=== PATIENT | male | born 1965 | race Caucasian/White ===

== ENCOUNTER 2023-07-17 09:46 | Outpatient (OUT) | payer SELFPAY ==
--- NOTE | 2023-07-17 09:56 | CT_ITS ---
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 TECHNIQUE: CT imaging obtained through the chest with intravenous contrast. Coronal and axial MIP reformatted images obtained. FINDINGS: Heart size is normal. No pericardial effusion. Normal thoracic vasculature. No thoracic lymphadenopathy. Central tracheobronchial tree is patent. No pleural effusion or pneumothorax. Severe centrilobular and paraseptal emphysema, with large blebs in the apices. Confluent areas of scarlike opacity surrounding some of the blebs appears not significantly changed from prior. Bones and soft tissues: No suspicious bone findings. Multilevel degenerative endplate changes throughout the thoracic spine with scattered small Schmorl's nodes. At the posterior left upper back, at the subcutaneous region, is an ovoid lesion measuring 8.4 x 3.6 cm, markedly increased from prior when it measured 1.9 x 1.1 cm. The majority of this lesion is fairly homogeneous in appearance with intermediate attenuation values of approximately 50 Hounsfield units, with the inferior portion demonstrating some thin curvilinear areas in a subtle focal nodular area of enhancement having a Hounsfield unit value of 83. There appeared to be new mildly prominent subcutaneous vessels surrounding the lesion both medially, laterally and inferiorly, feeding into the lesion. A thin fat plane between this lesion and the subjacent musculature appears relatively preserved without gross evidence for invasion of the chest wall. Partially imaged upper abdomen: Limited. A tiny cyst is seen centrally within the caudate lobe of the liver. CT/CT chest w con IMPRESSION: There is a rapidly enlarging ovoid subcutaneous mass over the left upper back with some areas of subtle nodular enhancement inferiorly, and new several parasitized vessels feeding into the lesion, raises suspicion for a malignancy, versus superimposed infection of an epidermal inclusion cyst. Tissue sampling recommended. Severe emphysema with large blebs and associated confluent areas of scar similar to prior. Electronically authenticated by: LUCINDA WEBER Date: 07/17/2023 10:40
== END 2023-07-17 09:47 | disposition home or self-care (01) ==
PROVIDERS: PCP Family Medicine
DX: D48.9 Neoplasm of uncertain behavior, unspecified (principal)
CPT/HCPCS: 71260; Q9967

== ENCOUNTER 2023-12-25 15:03 | Inpatient (IN) | payer SELFPAY ==
[2023-12-25] VITALS (32 sets, daily range): BP systolic 119–146; BP diastolic 69–95; PULSE 81–108; TEMP 36.4–37.2; O2SAT 88–98; BMI 20.5; BMI 20.8
--- NOTE | 2023-12-25 15:12 | ECG_ITS ---
The 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
--- NOTE | 2023-12-25 15:13 | ED.SOB1 ---
HPI - SOB/Dyspnea General Chief Complaint: Shortness of Breath/Dyspnea Stated Complaint: Shortness of breath Time Seen by Provider: 12/25/23 15:08 History of Present Illness HPI Narrative: Patient is a pleasant 58-year-old man with a history of chronic lung disease, COPD, decreased capacity of the left upper lung who presents to the ER with increasing shortness of breath over the last week. He states he has the urge to cough up congestion in his chest but nothing is productive. He has not had any objective fevers, hemoptysis, vomiting. He has had peripheral edema to the bilateral feet and ankles. He has no specific chest pain but has tightness in his chest when he cannot breathe. No recent antibiotics. No medications taken prior to arrival. Patient states he sees Dr. Rubio for pulmonology. He was recently diagnosed with melanoma, he is not currently being treated for this but is in process of establishing a treatment plan. Related Data Home Medications ?Medication ?Instructions ?Recorded ?Confirmed acetaminophen 325 mg tablet mg 12/25/23 pregabalin 100 mg capsule mg 12/25/23 Allergies Allergy/AdvReac Type Severity Reaction Status Date / Time No Known Drug Allergies Allergy Verified 12/25/23 15:16 Review of Systems ROS Constitutional Denies: fever or chills Ears, nose, mouth, and throat Denies: throat pain or nasal congestion Cardiovascular Denies: chest pain Respiratory Reports: shortness of breath, cough and wheezing Gastrointestinal Denies: nausea, vomiting or diarrhea Musculoskeletal Denies: back pain Integumentary/Breast Denies: rash Neurological Denies: headache Hematologic/Lymphatic Denies: easy bruising or easy bleeding Exam Narrative Exam Narrative: Gen.: Awake, alert, in no distress Head: Normocephalic, atraumatic ENT: Moist mucous membranes Respiratory: No respiratory distress, Tachypnea, decreased lung sounds to the left upper and middle lobes. Faint wheezing to the right lower lobe Cardio: Regular rate and rhythm Gastrointestinal: Abdomen is soft, nondistended and nontender to palpation Extremities: Moves extremities equally, 2+ pitting edema of the bilateral lower ankles, calves are soft and nontender bilaterally. No erythema of the legs Psych: Normal mood and affect Neuro: No focal neuro deficit Skin: Warm, dry, intact Constitutional Vital Signs, click to edit/add: Last Vital Signs Temp 98.9 F 12/25/23 15:06 Pulse 102 H 12/25/23 16:40 Resp 20 12/25/23 16:40 BP 119/69 12/25/23 15:15 Pulse Ox 92 L 12/25/23 16:40 O2 Del Method Nasal Cannula 12/25/23 15:55 O2 Flow Rate 2 12/25/23 15:55 Course Vital Signs Vital signs: Vital Signs Temperature 98.9 F 12/25/23 15:06 Pulse Rate 91 H 12/25/23 15:06 Respiratory Rate 28 H 12/25/23 15:06 Blood Pressure 128/75 12/25/23 15:06 Pulse Oximetry 89 L 12/25/23 15:06 Oxygen Delivery Method Room Air 12/25/23 15:06 Temperature 98.9 F 12/25/23 15:06 Pulse Rate 102 H 12/25/23 16:40 Respiratory Rate 20 12/25/23 16:40 Blood Pressure 119/69 12/25/23 15:15 Pulse Oximetry 92 L 12/25/23 16:40 Oxygen Delivery Method Nasal Cannula 12/25/23 15:55 Oxygen Delivery Flow Rate 2 12/25/23 15:55 MDM - SOB/Dyspnea MDM Narrative Medical decision making narrative: Patient treated with albuterol, Solu-Medrol, he was placed on oxygen by nasal cannula with improvement of oxygen saturation as he was hypoxic on arrival. He was also tachycardic with high respiratory rate, he has minimal leukocytosis and is found to have multifocal pneumonia on CT angio. The remainder of his labs are unremarkable with normal lactic acid and procalcitonin. No evidence of severe sepsis although the patient does meet sepsis criteria strictly based on his infection and vital signs. Treated with IV Levaquin. He is admitted to hospitalist service for further evaluation and treatment. SHARED APC VISIT, PHYSICIAN ATTESTATION: [id number] I performed a substantive part of the MDM during the patient?s E/M visit. I personally evaluated and examined the patient. I personally made or approved the documented management plan and acknowledge its risk of complications. Medical Records Attestation: I reviewed the patient's medical records. Lab Data Attestation: I reviewed the patient's lab results. Labs: Lab Results 12/25/23 Range/Units 15:24 WBC 11.4 H (4.0-11.0) 10^3/uL RBC 4.85 (4.70-6.10) 10^6/uL Hgb 13.6 L (14.0-18.0) g/dL Hct 42.3 (42.0-54.0) % MCV 87.2 (80.0-94.0) fL MCH 28.0 (25.9-34.0) pg MCHC 32.2 (29.9-35.2) g/dL RDW 16.0 H (11.0-15.0) % Plt Count 465 H (150-450) 10^3/uL MPV 8.6 L (9.5-13.5) fL Neut % (Auto) 66.4 (43.0-75.0) % Lymph % (Auto) 18.6 L (20.5-60.0) % [place] % (Auto) 6.6 (1.7-12.0) % Eos % (Auto) 4.6 (0.9-7.0) % Baso % (Auto) 0.9 (0.2-2.0) % Neut # (Auto) 7.6 H (1.4-6.5) 10^3/uL Lymph # (Auto) 2.1 (1.2-3.8) 10^3/uL [place] # (Auto) 0.8 (0.3-0.8) 10^3/uL Eos # (Auto) 0.5 (0.0-0.7) 10^3/uL Baso # (Auto) 0.1 (0.0-0.1) 10^3/uL Abs Immat Gran (auto) 0.33 H (0.00-0.03) 10^3/uL Imm/Tot Granulo (auto) 2.9 H (0.0-0.5) % PT 10.2 (9.0-11.6) sec INR 0.96 APTT 28.5 (22.3-36.2) sec D-Dimer 2.18 H* (<=0.59) mg/L FEU VBG pH 7.412 (7.330-7.430) VBG pCO2 40.8 (40.0-52.0) mmHg Sodium 139 (136-145) mmol/L Potassium 3.9 (3.5-5.1) mmol/L Chloride 102 (98-107) mmol/L Carbon Dioxide 24.4 (21.0-32.0) mmol/L Anion Gap 16.5 BUN 24.0 H (7.0-18.0) mg/dL Creatinine 1.05 (0.70-1.30) mg/dL Est GFR ( Amer) >60 (>=60) Est GFR (Non-Af Amer) >60 (>=60) BUN/Creatinine Ratio 22.9 Glucose 197 H (74-106) mg/dL Calcium 9.3 (8.5-10.1) mg/dL Total Bilirubin 0.2 (0.2-1.0) mg/dL AST 40 H (15-37) U/L ALT 71 H (16-63) U/L Alkaline Phosphatase 162 H (46-116) U/L Troponin I High Sens 13.7 (4.0-76.1) pg/mL NT-Pro-B Natriuret Pep 761.0 (<=900.0) pg/mL Total Protein 6.8 (6.4-8.2) g/dL Albumin 2.6 L (3.4-5.0) g/dL Globulin 4.2 g/dL Albumin/Globulin Ratio 0.6 Procalcitonin 0.18 (0.00-0.50) ng/mL Imaging Data CT scan - chest: Attestation: I have reviewed the pertinent imaging results. Radiologist's impression: ITS Impressions Chest CTA 12/25/23 15:54 IMPRESSION: 1. No evidence for pulmonary embolism. 2. Bilateral confluent airspace disease with centrilobular nodules and consolidation seen around the airways concerning for multifocal pneumonia 3. Small right and trace pleural effusions. 4. Mediastinal and hilar lymphadenopathy. 5. Severe bullous changes of both lung apices. 6. Evaluation of metastatic disease is limited due to acute process. Electronically authenticated by: WEST HUI Date: 12/25/2023 17:13 ECG Data Attestation: I personally reviewed and interpreted this ECG as follows: (Normal sinus rhythm at a rate of 90, no acute ST elevation or ectopy. EKG reviewed by attending physician) Discharge Plan Discharge Chief Complaint: Shortness of Breath/Dyspnea Patient Disposition: Admitted As Inpatient Time of Disposition Decision: 17:36 Prescriptions / Home Meds: No Action acetaminophen 325 mg tablet pregabalin 100 mg capsule Print Language: Belarusian Referrals: BRET VALDES [Primary Care Provider] - 1 week
[2023-12-25 15:36] LABS: PCO2 VBG 40.8 mmHg (40.0-52.0); pH VBG 7.412 (7.330-7.430)
[2023-12-25 15:37] LABS: Basophils Absolute Auto 0.1 10^3/uL (0.0-0.1); Basophils Percent Auto 0.9 % (0.2-2.0); Eosinophils Absolute Auto 0.5 10^3/uL (0.0-0.7); Eosinophils Percent Auto 4.6 % (0.9-7.0); Hematocrit 42.3 % (42.0-54.0); Hemoglobin 13.6 g/dL (14.0-18.0); Immature Granulocytes Abs Auto 0.33 10^3/uL (0.00-0.03); Immature Granulocytes Pct Auto 2.9 % (0.0-0.5); Lymphocytes Absolute Auto 2.1 10^3/uL (1.2-3.8); Lymphocytes Percent Auto 18.6 % (20.5-60.0); Mean Corpuscular HGB Conc 32.2 g/dL (29.9-35.2); Mean Corpuscular Volume 87.2 fL (80.0-94.0); Mean Platelet Volume 8.6 fL (9.5-13.5); Monocytes Absolute Auto 0.8 10^3/uL (0.3-0.8); Monocytes Percent Auto 6.6 % (1.7-12.0); Neutrophils Absolute Auto 7.6 10^3/uL (1.4-6.5); Neutrophils Percent Auto 66.4 % (43.0-75.0); Platelet Count 465 10^3/uL (150-450); Red Blood Count 4.85 10^6/uL (4.70-6.10); White Blood Count 11.4 10^3/uL (4.0-11.0)
--- NOTE | 2023-12-25 15:37 | PC.NURSE ---
Pt O2 dropped to 89%on 2L O2 turned up to 3L pt SAT up to 92%
[2023-12-25] MEDS: ALBUTEROL SULFATE 2.5 MG/3 ML VIAL NEB IH (15:39)
[2023-12-25] MEDS: METHYLPREDNISOLONE SOD SUCC PF 125 MG/2 ML VIAL IVP (15:44)
[2023-12-25 15:48] LABS: INR 0.96; Partial Thromboplastin Time 28.5 sec (22.3-36.2); Prothrombin Time 10.2 sec (9.0-11.6)
--- NOTE | 2023-12-25 15:54 | CT_ITS ---
[address] [address] Patient Name: EDILMA CALLE MRN: [id number] date: 1965 Sex: M Assigned Patient Location: ER Current Patient Location: Accession/Order Number: [id number] Exam Date: 12/25/2023 16:23 Report Date: 12/25/2023 17:13 At the request of: JOLANTA HAY Procedure: CT angio chest EXAM: CT angio chest HISTORY: Shortness of breath . History of melanoma. COMPARISON: 07/17/2023 TECHNIQUE: CT angiography of the pulmonary arteries following the administration of intravenous contrast. Coronal and sagittal MIP (maximum intensity projection) images were performed. Dose reduction techniques were achieved by using automated exposure control and/or adjustment of mA and/or kV according to patient size and/or use of iterative reconstruction technique. FINDINGS: The study is technically adequate for the diagnosis of pulmonary embolism, with good contrast bolus to the pulmonary arteries. TUBES AND IMPLANTS: None. CHEST WALL AND LOWER NECK: Unremarkable. BONES: No suspicious lesions. Multilevel degenerative changes of the spine. UPPER ABDOMEN: No acute findings MEDIASTINUM AND RACHEL: Unremarkable. AORTA: New enlarged mediastinal and hilar lymph nodes measuring up to 2.3 centimeters in short axis PULMONARY ARTERIES: No embolism HEART: Mild cardiomegaly CORONARY ARTERIES: No coronary artery calcifications. LUNG AND AIRWAYS: Severe bullous changes of both lung apices. Bilateral confluent airspace disease with centrilobular nodules and consolidation seen around the airways. PLEURA: Small right and trace left pleural effusion. CT/CT angio chest IMPRESSION: 1. No evidence for pulmonary embolism. 2. Bilateral confluent airspace disease with centrilobular nodules and consolidation seen around the airways concerning for multifocal pneumonia 3. Small right and trace pleural effusions. 4. Mediastinal and hilar lymphadenopathy. 5. Severe bullous changes of both lung apices. 6. Evaluation of metastatic disease is limited due to acute process. Electronically authenticated by: WEST HUI Date: 12/25/2023 17:13
[2023-12-25 15:55] LABS: D Dimer 2.18 mg/L FEU (<=0.59)
[2023-12-25 15:57] LABS: Alanine Aminotransferase 71 U/L (16-63); Albumin Level 2.6 g/dL (3.4-5.0); Alkaline Phosphatase 162 U/L (46-116); Anion Gap 16.5; Aspartate Amino Transferase 40 U/L (15-37); BUN Creatinine Ratio 22.9; Bilirubin Total 0.2 mg/dL (0.2-1.0); Calcium 9.3 mg/dL (8.5-10.1); Carbon Dioxide 24.4 mmol/L (21.0-32.0); Chloride 102 mmol/L (98-107); Estimated GFR (African America >60 (>=60); Estimated GFR (Non-African Ame >60 (>=60); Globulin 4.2 g/dL; Glucose 197 mg/dL (74-106); Potassium 3.9 mmol/L (3.5-5.1); Sodium 139 mmol/L (136-145); Total Protein 6.8 g/dL (6.4-8.2)
[2023-12-25 15:58] LABS: Albumin Globulin Ratio 0.6; Troponin I High Sensitivity 13.7 pg/mL (4.0-76.1)
--- OUTSIDE RECORDS SUMMARY | 2023-12-25 16:00 | XMS_ITS | CCD ---
Author Organization [facility] Care Team Providers Care Yardage Control Clerk Name Role Phone BELEN GUERRERO Admitting Unavailable BELEN GUERRERO Attending Unavailable BELEN GUERRERO Consulting Unavailable BELEN GUERRERO Procedure Practitioner Unavail able LINSEY WHITE Consulting Unavailable STUART BOLAÑOS Consulting Unavailable JENNIFER JOYCE Consulting Unavailable MD Girish Nathan Attending Provider [phone] PRISCILLA WARREN Attending Unavailable KEISHA, BRET Nicolas Primary Care Unavailable Girish Nathan Attending Unavailable Girish Nathan Admitting Unavailable Lizzeth Demarco MD Unavailable HOUSE, BRET P Primary Care Unavailable Hiam Black MD Attending Unavailable HOUSE, BRET P Primary Care Unavailable Haim Black MD Attending Unavailable HOUSE, BRET P Primary Care Unavailable Haim Black MD Attending Unavailable HOUSE, BRET P Primary Care Unavailable Haim Black MD Attending Unavailable HOUSE, BRET P Primary Care Unavailable Girish Nathan Attending Unavailable HOUSE, BRET P Primary Care Unavailable Girish Nathan Attending Unavailable HOUSE, BRET Maria Isabel Referring Unavailable HOUSE, BRET P Primary Care Unavailable Girish Nathan Attending Unavailable Girish Nathan Admitting Unavailable Lynne Tejada MD Unavailable [phone] Nito Purvis Unavailable PROVIDER, UNKNOWN Admitting Unavailable LIZZETH DEMARCO Attending Unavailable SABRINA NEW Referring Unavailable LYNNE TEJADA Attending Unavailable PROVIDER, UNKNOWN Admitting Unavailable PROVIDER, UNKNOWN Admitting Unavailable LIZZETH DEMARCO Attending Unavailable SABRINA NEW Referring Unavailable PROVIDER, UNKNOWN Admitting Unavailable LIZZETH DEMARCO Referring Unavailable JUDY ORTEGA Attending Unavailab le LIZZETH DEMARCO Admitting Unavailable LIZZETH DEMARCO Attending Unavailable PROVIDER, UNKNOWN Admitting Unavailable PROVIDER, UNKNOWN Attending Unavailable NITO JUNG Attending Unavailable PROVIDER, UNKNOWN Admitting Unavailable KOWALSKY, LIZZETH Admitting Unavailable PROVIDER, UNKNOWN Attending Unavailable PROVIDER, UNKNOWN Admitting Unavailable PROVIDER, UNKNOWN Attending Unavailable TEJADA, LYNNE Attending Unavailable TEJADA, LYNNE Referring Unavailable TEJADA, LYNNE Admitting Unavailable PROVIDER, UNKNOWN Admitting Unavailable KOWALSKY, LIZZETH Referring Unavailable PROVIDER, UNKNOWN Attending Unavailable PROVIDER, UNKNOWN Admitting Unavailable KOWALSKY, LIZZETH Referring Unavailable PROVIDER, UNKNOWN Attending Unavailable PROVIDER, UNKNOWN Admitting Unavailable KOWALSKY, LIZZTEH Referring Unavailable PROVIDER, UNKNOWN Attending Unavailable PROVIDER, UNKNOWN Attending Unavailable KOWALSKY, LIZZETH Referring Unavailable PROVIDER, UNKNOWN Admitting Unavailable PROVIDER, UNKNOWN Admitting Unavailable KOWALSKY, LIZZETH Attending Unavailable KOWALSKY, LIZZETH Attending Unavailable PROVIDER, UNKNOWN Admitting Unavailable TEJADA, LYNNE Attending Unavailable PROVIDER, UNKNOWN Admitting Unavailable PROVIDER, UNKNOWN Attending Unavailable PROVIDER, UNKNOWN Admitting Unavailable NITO JUNG Attending Unavailable PROVIDER, UNKNOWN Admitting Unavailable Medications Current Medications Medication Drug Class(es) Dates Sig (Normalized) Sig (Original) acetaminophen 325 mg oral tablet (20 sources) Start: 11-07-2023 End: 12-10-2023 take 2 tablets by mouth every six hours as needed for pain, then take 2 tablets by mouth every six hours as needed for pain acetaminophen (Tylenol) 325 mg tablet Take 2 Tablets by mouth every 6 hours for 3 days, THEN 2 Tablets every 6 hours as needed for Pain or Fever. 90 Tablet 11/07/2023 12/10/2023 Active Start: 10-06-2023 End: 11-05-2023 take 2 tablets by mouth every six hours as needed acetaminophen (TYLENOL) 500 MG tablet Take 2 Tablets by mouth every 6 hours as needed. 90 Tablet 0 10/06/2023 11/05/2023 Active Start: 10-05-2023 take 1000 mg by mout h every eight hours 1,000 mg, Oral, EVERY 8 HOURS, First dose on Sun10/05/23 at 2130, Until Discontinued, Post-op take 1 tablet by chris th every six hours as needed for pain acetaminophen (TYLENOL) 500 MG tablet Take 500 mg by mouth every 6 hours as needed for Pain or Fever. Active albuterol 0.83 mg/ml inhalation solution (1 source) beta2-Adrenergic Agonist Start: 11-07-2023 End: 11-07-2023 albuterol (PROVENTIL) (2.5 MG/3ML) 0.083% nebulizer solution calcium chloride 0.0014 meq/ml / potassium chloride 0.004 meq/ml / sodium chloride 0.103 meq/ml / sodium lactate 0.028 meq/ml injectable solution (2 sources) Start: 11-07-2023 lactated ringers iv infusion cephalexin 500 mg oral capsule (4 sources) Cephalosporin Antibacterial Start: 11-07-2023 End: 11-12-2023 take 1 capsule by mouth four times daily cephALEXin (KEFLEX) 500 MG capsule Take 1 Capsule by mouth 4 times daily for 5 days. 20 Capsule 11/07/2023 11/12/2023 Active docusate sodium 100 mg oral capsule (20 sources) Start: 10-06-2023 End: 11-05-2023 take 1 capsule by mouth twice daily docusate sodium (Colace) 100 MG capsule Take 1 Capsule by mouth 2 times daily. 60 Capsule 10/06/2023 Active 1 ml fentaNYL 0.05 mg/ml injection (1 source) Opioid Agonist Start: 11-07-2023 fentaNYL (SUBLIMAZE) 50 MCG/ML injection Gauze Pads & Dressings (Curity Abdominal) 5 X9 PADS (11 sources) Start: 10-22-2023 End: 11-21-2023 Gauze Pads & Dressings (Curity Abdominal) 5 X9 PADS 1 Each daily as needed. 36 Each 1 10/22/2023 11/21/2023 Active 1 ml HYDROmorphone hydrochloride 1 mg/ml cartridge (1 source) Opioid Agonist Start: 11-07-2023 End: 11-07-2023 HYDROmorphone (DILAUDID) 1 mg/mL injection ibuprofen 600 mg oral tablet (20 sources) Nonsteroidal Anti-inflammatory Drug Start: 10-06-2023 End: 11-04-2023 take 1 tablet by mouth every six hours as needed for pain ibuprofen (MOTRIN) 600 MG tablet Take 1 Tablet by mouth every 6 hours as needed for Pain. 60 Tablet 11/05/2023 Active 1 ml naloxone hydrochloride 0.4 mg/ml injection (2 sources) Opioid Antagonist Start: 11-07-2023 naloxone (NARCAN) 0.4 MG/ML injection 24 hr nicotine 0.583 mg/hr transdermal system (1 source) Cholinergic Nicotinic Agonist Start: 10-05-2023 nicotine (NICODERM CQ) 14 mg/24HR patch 2 ml ondansetron 2 mg/ml injection (14 sources) Serotonin-3 Receptor Antagonist Start: 11-07-2023 End: 11-07-2023 ondansetron (ZOFRAN) 4 MG/2ML injection Start: 11-07-2023 End: 11-07-2023 take 1 tablet by mouth every twelve hours as needed for nausea ondansetron (ZOFRAN-ODT) 4 MG disintegrating tablet Take 1 Tablet by mouth every 12 hours as needed for Nausea. Place 1 tablet under tongue as needed for nausea. 10 Tablet 11/07/2023 Active oxyCODONE hydrochloride 5 mg oral tablet (10 sources) Opioid Agonist Start: 11-07-2023 End: 11-14-2023 oxyCODONE immediate release tablet Start: 10-06-2023 End: 10-11-2023 take 1 tablet by mouth every six hours as needed for pain oxyCODONE 5 MG immediate release tablet Indications: 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) , Mass on back Take 1 Tablet by mouth every 6 hours as needed for Pain for up to 3 days. 20 Tablet 0 10/06/2023 10/11/2023 Start: 10-05-2023 take 10 mg by mouth every four hours as needed 10 mg, Oral, EVERY 4 HOURS PRN, Starting on Sun10/05/23 at 2038, Until Discontinued, Severe Pain (pain score 7,8,9,10), Post-op Start: 10-05-2023 take 5 mg by mouth e very four hours as needed 5 mg, Oral, EVERY 4 HOURS PRN, Starting on Sun10/05/23 at 2038, Until Discontinued, Moderate Pain (pain score 4,5,6), Post-op pregabalin 100 mg oral capsule (20 sources) Start: 09-12-2023 End: 12-11-2023 take 1 capsule by mouth three times daily pregabalin (Lyrica) 100 MG capsule Indications: Cancer associated pain Take 1 Capsule by mouth 3 times daily for 90 days. 90 Capsule 2 09/12/2023 Active sennosides, jail 8.6 mg oral tablet (14 sources) Start: 11-07-2023 End: 12-07-2023 take 1 tablet by mouth once daily as needed for pain senna (SENOKOT) 8.6 MG tablet Take 1 Tablet by mouth daily as needed for Constipation (while taking narcotic pain medication). 30 Tablet 11/07/2023 Active Start: 10-05-2023 take 8.6 mg by mouth at bedtim e 8.6 mg, Oral, AT BEDTIME, First dose on Sun10/05/23 at 2200, Until Discontinued, Post-op 20 ml sodium chloride 9 mg/m l injection (1 source) Start: 11-07-2023 sodium chlorid e 0.9 % 0.9 % injection Completed/Discontinued Medications Medication Drug Class(es) Dates Sig (Normalized) Sig (Original) acetaminophen 325 mg / oxyCODONE hydrochloride 5 mg oral tablet (14 sources) Opioid Agonist Start: 11-08-2023 End: 11-15-2023 take 1 tablet by mouth three times daily as needed for pain oxyCODONE-acetami nophen (Percocet) 5-325 mg per tablet Indications: Cancer associated pain , 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) Take 1 Tablet by mouth 3 times daily as needed for Pain for up to 7 days. 21 Tablet 11/08/2023 11/15/2023 Start: 11-07-2023 End: 11-07-2023 oxyCODONE-acetaminophen (PER COCET) 5-325 mg per tablet Start: 10-30-2023 End: 11-06-2023 take 1 tablet by mouth three times daily as needed for pain oxyCODONE-acetaminophen (Percocet) 5-325 mg per tablet Indications: Cancer associated pain , 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) Take 1 Tablet by mouth 3 times daily as needed for Pain for up to 7 days. 21 Tablet 0 10/30/2023 11/06/2023 Active Start: 10-17-2023 End: 10-28-2023 take 1 tablet by mouth three times daily as needed for pain oxyCODONE-acetaminophen (Percocet) 5-325 mg per tablet Indications: Cancer associated pain , 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) Take 1 Tablet by mouth 3 times daily as needed for Pain for up to 7 days. 21 Tablet 0 10/17/2023 10/28/2023 Discontinued (Reorder (*won't e-cancel)) Start: 09-27-2023 End: 10-04-2023 take 1 tablet by mouth every six hours as needed for pain oxyCODONE-acetaminophen (Percocet) 5-325 mg per tablet Indications: Cancer associated pain , 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) Take 1 Tablet by mouth every 6 hours as needed for Pain for up to 7 days. 28 Tablet 0 09/27/2023 10/04/2023 Active 0.4 ml enoxaparin sodium 100 mg/ml prefilled syringe (1 source) Low Molecular Weight Heparin Start: 10-05-2023 inject 40 mg by subcutaneous injection once daily 40 mg, Subcutaneous, DAILY, First dose on Sun10/05/23 at 2100, Until Discontinued, Post-op 0.5 ml heparin sodium, porcine 28031 unt/ml prefilled syringe (1 source) Unfractionated Heparin, Anti-coagulant Start: 10-05-2023 End: 10-05-2023 heparin (porcine) 5000 UNIT/0.5ML injection Start: 10-05-2023 End: 10-05-2023 heparin (porcine) 5000 UNIT/ 0.5ML injection technetium TC 99M tilmanocep t (LYMPHOSEEK) injection (1 source) Start: 10-05-2023 End: 10-05-2023 technetium TC 99M tilmanocep t (LYMPHOSEEK) injection Problems Active Problems Problem Classification Problem Date Documented Date Episodic/Chronic Abdominal pain (1 source) Periumbilical pain; Translations: [PERIUMBILICAL PAIN] Onset: 10-15-2019 Episodic Appendicitis and other appendiceal conditions (2 sources) Unspecified acute appendicitis; Translations: [UNSPECIFIED ACUTE APPENDICITIS] Onset: 10-11-2019 Episodic Chronic obstructive pulmonary disease and bronchiectasis (17 sources) Chronic obstructive lung disease; Translations: [Chronic obstructive pulmonary disease, unspecified] Onset: 10-30-2023 10-30-2023 Chronic Essential hypertension (17 sources) Hypertensive disorder; Translations: [Essential (primary) hypertension] Onset: 10-30-2023 10-30-2023 Chronic Malignant neoplasm without specification of site (1 source) Malignant (primary) neoplasm, unspecified; Translations: [Malignant (primary) neoplasm, unspecified] Onset: 09-12-2023 Chronic Melanomas of skin (20 sources) Malignant melanoma of left upper limb, including shoulder; Translations: [Malignant melanoma of trunk] Onset: 09-17-2023 09-18-2023 Chronic Open wounds of head; neck; and trunk (20 sources) Open wound of back; Translations: [Unspecified open wound of left back wall of thorax without penetration into thoracic cavity, initial encounter] Onset: 10-15-2023 10-15-2023 Episodic Other nervous system disorders (2 sources) Neoplasm related pain (acute) (chronic); Translations: [Neoplasm related pain (acute) (chronic)] Onset: 08-23-2023 Chronic Other nervous system disorders (1 source) Pain due to neoplastic disease; Translations: [Neoplasm related pain (acute) (chronic)] 10-28-2023 Chronic Other nervous system disorders (1 source) Acute postoperative pain; Translations: [Other acute postprocedural pain] 11-07-2023 Episodic Other nutritional; endocrine; and metabolic disorders (1 source) Decreased body mass index; Translations: [Body mass index (BMI) 19.9 or less, adult] 10-15-2023 Episodic Other skin disorders (17 sources) Sebaceous cyst of skin; Translations: [Sebaceous cyst] Onset: 10-30-2023 10-30-2023 Episodic Other skin disorders (1 source) Localized swelling, mass and lump, trunk; Translations: [Localized swelling, mass and lump, trunk] Onset: 09-18-2023 Episodic Residual codes; unclassified (1 source) Body mass index 20-24 - normal; Translations: [Body mass index (BMI) 20.0-20.9, adult] 10-12-2023 Episodic Substance-related disorders (20 sources) Nicotine dependence, cigarettes, uncomplicated; Translations: [Tobacco dependence syndrome] Onset: 10-15-2019 08-27-2023 Chronic Unclassified (1 source) Acute appendicitis with perforation and localized peritonitis, without abscess; Translations: [AC APPEND W/PERF LOC PERIT W/O ABSC] Onset: 10-15-2019 Unclassified (2 sources) Wound Check Onset: 09-17-2023 Unclassified (1 source) ENCOUNTER OPENED IN ERROR 10-10-2023 Past or Other Problems Problem Classification Problem Date Documented Da te Episodic/Chronic Lymphadenitis (1 source) Localized enlarged lymph nodes; Translations: [Localized enlarged lymph nodes] Onset: 08-23-2023 Episodic Other skin disorders (20 sources) Mass of back; Translations: [Localized swelling, mass and lump, trunk] Onset: 09-18-2023 09-18-2023 Episodic Residual codes; unclassified (1 source) Body mass index (BMI) 21.0-21.9, adult; Translations: [Body mass index (BMI) 21.0-21.9, adult] Onset: 09-12-2023 Episodic Results Test Name Value Interpretation Reference Range Facility Progress Noteson 12-14-2023 [employer] Authentication Interface Message Text Documentation: Mode: Telephone Patient Patient Work Phone: Patient Cell Preferred phone: [phone] Consent: I confirmed patient understanding of the risks and benefits of telehealth visits and obtained consent to proceed with the telehealth visit. Location of Patient: Home of patient PLASTIC SURGERY FOLLOW-UP NOTE SUBJECTIVE: Mr. Tavarez is status post above. States he is feeling well. He is not able to send photos today due to phone issues. I reviewed photos from 11/28/23. He is dressing with neosporin and DSD. No pain Planning on return to work 12/15 He states the wound is smaller than last photos ASSESSMENT: Healing wound PLAN: Continue same dressing changes He is to see Dr. Demaroc in person 4 weeks. I will try to see him at the same time. Nito Jung APRN-SCARLETT [facility] Progress Noteson 11-28-2023 [employer]letter Authentication Interface Message Text Documentation: Mode: Telephone Patient Patient Work Phone: Patient Cell Preferred phone: [phone] Consent: I confirmed patient understanding of the risks and benefits of telehealth visits and obtained consent to proceed with the telehealth visit. 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 For completeness of records, he first noted a mass in May 2023, which began to rapidly enlarge and become symptomatic with pain and episodes of bleeding. CT scan of the chest on 07/17/2023 showed an 8.4 x 3.6 cm mass in the subcutaneous tissue of the left upper back. 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 PET/CT on 09/12/2023 showed a 13 x 6.4 x 12.5 cm FDG avid soft tissue mass of the left posterior back with no evidence of metastatic disease or concerning regional lymphadenopathy. Given biopsy suggestive of sarcomatoid melanoma, isolated disease, and symptomatic nature of the mass, recommendations were to proceed with surgical resection for complete pathologic assessment and symptom relief. He underwent radical resection of the mass measuring 15 x 14 x 8 cm on 10/05/2023. Surgical pathology revealed a sarcomatoid melanoma with a Breslow depth of 67 mm with evidence of ulceration, lymphovascular invasion, and 4 mitoses/mm2. There was a focal positive deep margin. The site was covered with a PolyNovo BTM dermal substitute with plans for staged reconstruction with plastic surgery. He was last evaluated in the office on 10/11/2023, at which time he was recovering well. Interval History: He underwent split thickness skin grafting with Dr Tejada on 11/07/2023. His post-operative course was unremarkable. He reports that he is doing fairly well. He denies any pain at the excision site. He reports that the central aspect became slightly raised and looks almost like hives. He notes that previously this site was open and looked like meat . He denies any pruritus at this site. He reports some serosanguinous and occasionally green drainage from site. He is not having fevers or chills. He has been washing the area with soap and water, which has been helping with the drainage. He reports that he has normal range of motion of his shoulder and denies any numbness, tingling, weakness, or swelling in his arm. He otherwise denies any headaches, dizziness, cough, shortness of breath, abdominal pain, nausea, emesis, new bone/back/joint pain, neurologic symptoms or other concerns. He is not yet back to work, but would like to go back to work soon, pending clearance by plastic surgery. He discussed adjuvant immunotherapy with Dr Robison on 10/30/23. He was still considering if he would be willing to have adjuvant niolumab, but was interested in seeing a provider closer to his home. He has not yet seen a medical oncologist closer to home as he was under the impression that a provider closer to [place] would be contacting him. PHYSICAL EXAMINATION: There were no vitals filed for this visit. No physical exam for telephone visit Wound photo sent by patient from 11/27/23 Pathology: Final Diagnosis A. Skin, Left posterior back melanoma, short stitch wise 12:00, long stitch wise 3:00 Melanoma, ulcerated, Breslow's maximum thickness 67mm, focally transected (see synoptic report) . I certify that I personally conducted the diagnostic evaluation of the above specimen(s) and have rendered the final diagnosis(es). at 0827 Diagnosis Comment Sections show a strikingly pleomorphic tumor composed spindled and epithelioid cells in sheets and aggregates throughout the dermis and subcutis, extending to the margin of skeletal muscle, transected by the base. There is only a vaguely nested growth pattern in the superficial dermis, and occasional clusters of atypical cells within the epidermis overlying the tumor. There are multiple foci of tumor necrosis. While this tumor does not show areas of clear-cut melanocytic differentiation based upon morphology, the immunohistochemical profile, patient demographics and site, extremely rapid growth, and epidermal involvement all favor a pleomorphic sarcomatoid melanoma. Intradepartmental Consult Jaciel Aragon, and Dieter. Gross Description A. Requisitioned as left posterior back . The specimen is received fresh in one container (more content not included)... [facility] Telephone Encounteron 2023 [employer] Authentication Interface Message Text Patient does not have transportation to his appointment with Dr. Balderas. ok changing appt to tele. Patient called and made aware. [facility] Telephone Encounteron 2023 Eyeletter Authentication Interface Message Text History: Received call from OR front desk attendant regarding patient concern regarding wound. Upon speaking to patient, he reported an increase in green drainage to his dressings during its scheduled changing. He states he has been changing his dressing every 2 days as instructed, and this drainage is new. Also has some mild redness about the wound. He denies increased pain at the wound, fever, chills, nausea, vomiting. Objective: Images sent by patient were reviewed. There appears to be some clear drainage overlying well appearing granulation tissue. There is some fibrinous material over the wound. No obvious erythema or purulence. A/P: Given history and wound images, there is a lower concern for infection. Advised continuing with dressing changes every 2 days and can lightly clean the wound with soap and water. Do not scrub the wound. He should follow up as scheduled with Nito on 11/27. Discussed reasons for sooner follow up or calling the plastic surgery team including: increased redness, pain, drainage or purulence from wound, fever, chills, nausea, vomiting or general malaise. Patient was agreeable to this plan. [facility] Telephone Encounteron 2023 Eyeletter Authentication Interface Message Text Complaint: pt complaint of Provena canisters he was sent home with all being full . Description: s/p STSG to left back with provena application post op-- Associated symptoms: all canisters have been used. Surgeon: Lynne Tejada MD Informed pt: Offered patient to come to clinic to obtain extra canisters-pt declined due to distance to travel (pt from [place], [place]). Offered patient to come to clinic on 11/13/23 instead of 11/14/23 to have VAC removed from STSG and redressed. Pt declined, stating he does not have transportation. Discussed with Dr Tejada, pt instructed to keep VAC in place until appointment as scheduled on 11/14/23. Pt agrees with plan. [facility] Anesthesia Postprocedure Maddy no 11-08-2023 Eyeletter Authentication Interface Message Text Anesthesia Postoperative Assessment: Vital Signs (most recent): BP 117/73 (BP Location: right arm) Pulse 70 Temp 36.7 ???C (98 ???F) (Temporal) Resp 16 SpO2 93% Anesthesia Post Evaluation Level of consciousness: awake Post-procedure exam normal. Body temperature, hydration status, PONV and pain evaluated and addressed. Pain management: adequate Hydration status: normal PONV:No nausea/vomiting reported Cardiopulmonary status stable Respiratory status: acceptable Cardiovascular status: acceptable ANESTHESIA NOTABLE EVENTS: No notable events documented. [facility] Telephone Encounteron 2023 Eyeletter Authentication Interface Message Text Palliative Care Controlled Prescription Refill: Meds post op sent to wrong pharmacy I cancelled it and did the one week supply Please let him know I sent it They sent to Last SURGICAL PHYSICIAN ASSISTANT: Pain Management Panel No data to display Follow Up: PCP: No primary care provider on file. No PCP on file Last appt: Last visit: Nurse Visit on 10/24/2023 in PRE [facility]MISSION [facility] with Indira Bess RN for Pre-op evaluation. @LASTDEPT@ Next appt: There are no future appointments scheduled in [facility]. Judy Ortega MD [facility] Anesthesia Preprocedure Eval uationon 11-07-2023 Eyeletter Authentication Interface Message Text ASA: 3 No history of anesthetic complications NPO status: Greater than 8 hours Past Medical History and Review of Systems Pulmonary (+) COPD moderate, asthma, a smoker Dental - negative ROS Endo - negative ROS Neuro/Psych - negative ROS Cardiovascular (+) hypertension poorly controlled, Surgical risk: intermediate; Cardiac condition: minor ECG reviewed GI/Hepatic/Renal - negative ROS Heme/Other - negative ROS Other ROS: Tobacco dependence [F17.200] 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) [C43.59] Mass on back [R22.2] Open wound of left side of back [S21.202A] BP 142/82 (BP Location: right arm) Pulse 75 Temp 36.6 ???C (97.8 ???F) (Oral) Resp 18 SpO2 98% Physical Exam Airway Mallampati: II TM distance: Adequate Micrognathia: Not present Jaw opening: Adequate Neck flexion: Adequate Dental PE (+) upper dentures, lower dentures and edentulous Pulmonary - pulmonary exam normal Comment: Chest clear to auscultation bilaterally Cardiovascular - cardiovascular exam normal Comment: RRR with S1S2; no murmurs, gallops, or rubs Neuro - neurological exam normal Comment: Awake, alert, oriented, No motor deficits and sensation grossly intact Plan Anesthesia plan: general; (ETT) Anesthesia risks / alternatives discussed pre-op Questions answered / anesthesia plan accepted Past medical history, surgical history, allergies, and medications reviewed. Pertinent laboratory tests, EKG, imaging, and consults reviewed and I have personally seen and evaluated the patient, repeating luque portions of the history and physical examination. Attestation: Anesthesia options were discussed with the patient and/or legal sales training representative. The risks, benefits and alternatives were reviewed. Questions regarding anesthesia were answered. Patient and/or legal sales training representative knows such anesthetics and procedures may be performed by Resident physicians, Certified Anesthesiologist Assistants, or Certified Nurse Anesthetists under the supervision of a physician. The patient /or the patient's legal sales training representative agree with the plan for anesthesia. MHPATFORM Normal [facility] Anesthesia Transfer Of Careo n 11-07-2023 Eyeletter Authentication Interface Message Text Patient taken to PACU. Patient was awake, comfortable, and stable on arrival. Anesthesia Transfer of Care Note Past Medical History: Past Medical History: Diagnosis Date Lung abnormality half of lung is ?r/t smoking, but Dad had the same thing Sleep Apnea/Positive STOP-BANG: No Problem List: Patient Active Problem List: Tobacco dependence [F17.200] 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) [C43.59] Mass on back [R22.2] Open wound of left side of back [S21.202A] COPD mixed type (HCC) [J44.9] Hypertension [I10] Sebaceous cyst [L72.3] Past Surgical History: Review of patient's past surgical history indicates: APPENDECTOMY HIATAL HERNIA REPAIR EXCISION, WIDE, MELANOMA (10/05/2023) Procedure: radical excision left upper back mass. 15 x 14x 8 cm. application of polynovo btm dermal substitute; Surgeon: Lizzeth Demarco MD; Location: PERIOPERATIVE SERVICES; Service: General Allergies: Patient has no known allergies. Basic Operating Room Facts: Surgeon(s): Lynne Tejada MD Anesthesiologist: Edson Hallman MD LABEL REWINDER: Scott Stoner APRN-SIRENA Anesthesia Staff: Starr Ramsey CAA SKIN GRAFT, SPLIT THICKNESS, TORSO (Left: Back) Intraoperative Events: No acute event ASA: 3 EBL: Not documented Urine Not documented Lactated Ringers and NaCl 0.9%: Fluid Totals (Filter: LR and NaCl 0.9% Medications Shown) Medication Calculated Total Lactated Ringers 1,400 mL / 2 bags Cell Saver: Not documented Blood Volume Values: Blood Products None MTP Blood: MTP PRBC: Not documented MTP FFP: Not documented MTP PLT: Not documented MTP Cryo: Not documented MTP Whole Blood: Not documented Current Vasoactive Medications: {Vasoactive Medications: None Lines, Drains, Airways Peripheral IV Access: 11/07/23 135 20 gauge Posterior;Right Hand (Active) $ Lines: $ IV Start (procedure) 11/07/23 135 Site Assessment WNL;Dressing intact 11/07/231351 Infusion Status Port #1 Capped;Patent 11/07/231351 Airway Insertion Details [REMOVED] Advanced Airway: ETT, Oral;Cuffed #8 (Removed) 11/07/23 171 Pre-Oxygenation/ Induction: Mask Rapid Sequence Induction?: Mask Ventilation: Easy;w/oral airway Blade Type: Mac Blade Size: 4 Visualization: Grade 2 Airway Type: ETT, Oral;Cuffed Airway Size: #8 Post Insertion Assessment: Confirmation: Equal bilateral breath sounds, CO2 confirmed # Attempts >1: Special Equipment: Present on Admission?: Previously Removed / Not Present: Removal Reason: Not Removed at Discharge: Removed 11/07/23 182 Location (cm) 23 11/07/23 171 Measured from: Lips 11/07/23 171 Secured via: Taped 11/07/23 171 Site Assessment WNL 11/07/23 171 All non-working IVs have been removed: N/A Laboratory Data: CBC (last 3 years, up to 5 values) WBC RBC Hgb Hct MCV RDW Plt 08/23/23 1509 10.2 5.21 15.9 47.1 91 14.5 410 Basic Metabolic Panel Na K Cl CO2 Gap Glu BUN Cr Ca 10/06/23 0000 138 4.5 101 24 18 183 11 0.81 8.6 08/23/23 1509 139 4.3 104 24 15 80 13 0.90 9.6 Basic Metabolic Panel None No results found for: INR No result for BNP LFT's (last 3 years, up to 5 values) T Prot Albumin D Bili T Bili Alk Phos ALT AST 08/23/23 1509 7.4 4.4 0.06 0.4 80 43 20 Arterial Blood Gases None Hand off Completed: Yes 1. The patient was identified. 2. Pertinent medical history was relayed. 3. A brief discussion was had about any pertinent surgical/ procedural issues. 4. Intraoperative/ anesthetic management issue and concerns were discussed. 5. Plans for the early post-operative period relayed. 6. An opportunity for questions and acknowledgment of understanding of the report was received. Scott Stoner APRN-SIRENA Normal [facility] Blood Attestationon 11-07-19 Eyeletter Authentication Interface Message Text Blood Attestation: ATTESTATION OF INFORMED CONSENT FOR BLOOD: The transfusion of blood and/or blood components were discussed with the patient and/or legal sales training representative. The risks, benefits and alternatives were reviewed. Questions regarding blood transfusions were answered. The patient /or the patient's legal sales training representative agree with the plan for transfusion of blood and/or blood components. Normal [facility] Brief Operative Noteon 11-06 Eyeletter Authentication Interface Message Text Brief Operative Note MAIN OR 12 Edlima Tavarez 58 year old male Surgical Contact Serial Number: [id number] Preoperative Diagnosis: Melanoma of back Left upper back wound, 20 cm x 22cm Postoperative Diagnosis: Melanoma of back Left upper back wound, 20 cm x 22cm Procedures: Surgical CPTs Procedures SURGICAL PREP/CREATION OF RECIPIENT SITE,WOUND OF TRUNK, ARMS, LEGS; FIRST 100 SQ CM SURGICAL PREP/CREATION OF RECIPIENT SITE,WOUND OF TRUNK, ARMS, LEGS; EA ADD'L 100 SQ CM SPLIT GRAFT, TRUNK/EXTREMITIES; 1ST 100 SQ CM/ SPLIT GRAFT, TRUNK/EXTREMITIES; ADD'L 100 SQ CM/ 1PCT BODY, INFANT/CHILD No data filed Debridement of left upper back wound, 20cm x 22cm Split-thickness skin graft from left thigh to left upper back wound Surgeon(s): Surgeon(s): Lynne Tejada MD Staff: Scrub: Dalia Coe RN; Parisa Lauren RN Pharmacist In Charge Nurse: Keisha Edwards; Francie Guthrie RN Public Health Nurse: Haim Maher MD; Altagracia Case MD; Kieran Blanton MD Anesthesia: General Anesthesiologist: Edson Hallman MD LABEL REWINDER: Scott Stoner APRN-SIRENA Anesthesia Staff: Starr Ramsey CAA Specimen(s): * No specimens in log * Estimated Blood Loss: less than 5 cc Lines/Drains: Peripheral IV Access: 11/07/231351 20 gauge Posterior;Right Hand (Active) $ Lines: $ IV Start (procedure) 11/07/231351 Site Assessment WNL;Dressing intact 11/07/231351 Infusion Status Port #1 Capped;Patent 11/07/231351 Temporarily Retained Foreign Object: Yes Location: Left back Object: Wound vac Anticipated removal date: TBD Findings: Left upper back wound 20 cm x 22cm with healthy appearing granulation tissue Complications: None Status at end of surgery: Stable Activity: Ad Soraya Surgical wound class: Yes, wound was clean contaminated. Patient Class: Outpatient Surgery. Is this a patient scheduled as an outpatient that needs to be admitted as an inpatient? No Dr. Tejada was present in the OR for the critical portion of the procedure and procedure sign-out. Signed by Lynne Tejada MD 11/07/2023 6:44 PM Normal [facility] OP Noteon 11-07-2023 Eyeletter Authentication Interface Message Text Name: EDILMA TAVAREZ MR#: [id number] ENC#: [id number] Date of Procedure: 11/07/2023 ATTENDING SURGEON: Lynne Tejada MD RESIDENT SURGEON: Altagracia Case MD. ANESTHESIA: General. PREOPERATIVE DIAGNOSES: 1. Melanoma of left upper back. 2. Open wound of left upper back, 20 x 22 cm. POSTOPERATIVE DIAGNOSES: 1. Melanoma of left upper back. 2. Open wound of left upper back, 20 x 22 cm. PROCEDURES: 1. Debridement and preparation of left upper back wound 20 x 22 cm. 2. Split-thickness skin graft from the left side to the left back 20 x 22 cm. INDICATIONS: The patient is a 58-year-old male, who was referred by Dr. Demarco in Surgical Oncology for evaluation for reconstruction of a large left upper back wound. The patient underwent radical excision of a large rapidly growing mass on the left upper back with application of a dermal regenerate of template on October 05, 2023. This was noted to have incorporated well upon followup. Final pathology revealed a sarcomatoid melanoma for which consideration of postoperative immunotherapy is being discussed. We talked about options for management of the sizable defect of the left upper back including healing by secondary intention, adjacent tissue rearrangement, or split-thickness skin grafting. After thorough discussion, the patient elected to proceed with split-thickness skin grafting. I reviewed the surgical approach to graft harvest, need for postoperative VAC bolster, management of the donor site, expected results, and recovery. We talked about the risks of surgery in detail including bleeding, infection, damage to nearby structures, poor wound healing, unfavorable scarring, poor or no graft take, pain, contracture, need for additional procedures, and the risks of anesthesia. The patient asked good questions, which were answered to his satisfaction and wished to proceed with planning. PROCEDURE IN DETAIL: The patient was positively identified in the preoperative holding area and the surgical plan was reviewed. All questions were answered. Informed consent was documented. The operative site was verified and marked with the patient's participation. A preoperative Huddle was performed per hospital protocol. The patient was transported to the operating theater, positioned supine on the operating table. SCDs were applied. All pressure points were padded and the patient received 2 g of Ancef for perioperative antibiotic prophylaxis. General anesthesia was induced and the patient was carefully positioned in a right lateral decubitus position. Care was taken to pad all potential pressure points. The patient's left upper back and left thigh were prepped and draped in usual sterile fashion. A time-out was performed confirming the patient's identification, sites and procedures to be performed. Existing jamie were removed from the perimeter of the left upper back wound and the dermal regenerative template was delaminated. Good incorporation was noted peripherally and healthy granulation was apparent over the muscle centrally. This was debrided coarsely with a lap sponge followed by curettage to healthy and diffusely punctate bleeding wound base. Hemostasis was obtained with direct pressure. Wound was irrigated copiously with warm saline and measured at 20 x 22 cm. A corresponding template was marked in the left lateral thigh and this was infiltrated with a tumescent solution of 20 cc of 1% lidocaine with 1:100,000 epinephrine in 500 cc of saline. A split-thickness skin graft was then harvested with a power dermatome at 12/1000th of an inch. This was meshed 1.5:1 and applied to the left upper back wound. The skin graft edges were trimmed to fit the defect and this was inset with a running 4-0 chromic suture circumferentially. A VAC bolster was designed over an Adaptic interface and placed to Prevena VAC suction. The left thigh donor site was dressed with Mepilex Silver, ABD pads, Kerlix, and Keo bandage. Additional ABD padding and an abdominal binder were placed over the left upper back wound. The patient tolerated the procedure well, was returned supine, awakened, and transferred to the recovery room in good condition. All sponge and instrument counts were correct at the conclusion of the procedure. ESTIMATED BLOOD LOSS: 5 cc. SPECIMEN: None. COMPLICATIONS: None. SURGICAL WOUND CLASS: Clean, contaminated. I was the attending surgeon and was present and scrubbed for the entire procedure. Lynne Tejada MD CV/MedQ/Dict: 11/07/2023 21:26:58 TRANS: 11/07/2023 22:27:50 JOB: [id number] DictJob#: [id number] Normal [facility] Telephone Encounteron 2023 Eyeletter Authentication Interface Message Text Called and spoke with patient. No insurance. No financial assistance at this time-pending. [facility] wound vac calling for insurance information. Unable to provide homegoing VAC without insurance authorization. Provena VAC an option after surgery per [facility] sales training representative. Normal [facility] Eyeletter Authentication Interface Message Text Patient calling you back [phone] Normal [facility] Adaptive TCR Authentication Interface Message Text Rodrigo with 3m called today needs more info for wound vac. Patient having surgery tomorrow. Please call Rodrigo sanjay) [phone] Normal [facility] Progress Noteson 11-01-2023 Eyeletter Authentication Interface Message Text Documentation: Mode: Telephone Patient Patient Work Phone: Patient Cell Preferred phone: [phone] Consent: I confirmed patient understanding of the risks and benefits of telehealth visits and obtained consent to proceed with the telehealth visit. Location of Patient: Home of patient Plastic Surgery - Follow up Patient Evaluation Chief Complaint: Large left upper back wound, s/p mass excision HPI: The patient is a 58M referred by Lizzeth Demarco MD for evaluation for reconstruction of a large left upper back wound. Mr. Tavarez underwent radical excision of a large, rapidly enlarging mass on the left upper back ([id number]) with application of BTM on 10/05/[address] Demarco. 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 Wound VAC was removed 10/10 and he has been applying ABD pads since. Feels sore - remains off of work postop. Otherwise doing well. 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 Current smoker. 10/31/23: Returning in follow up. Met virtually with Dr. Robison on Sunday - he is considering adjuvant therapy / closer to home. is helping with wound care. She notes an area of BTM that has pulled away on the bottom left side. She does not have any concerns about infection. Patient denies pain. Past Medical History: Diagnosis Date Lung abnormality half of lung is ?r/t smoking, but Dad had the same thing Past Surgical History: Procedure Laterality Date APPENDECTOMY EXCISION, WIDE, MELANOMA Left 10/05/2023 Procedure: radical excision left upper back mass. 15 x 14x 8 cm. application of polynovo btm dermal substitute; Surgeon: Lizzeth Demarco MD; Location: PERIOPERATIVE SERVICES; Service: General HIATAL HERNIA REPAIR Current Outpatient Medications Medication Instructions acetaminophen (TYLENOL) 500 mg, Oral, EVERY 6 HOURS PRN acetaminophen extra strength (TYLENOL) 1,000 mg, Oral, EVERY 6 HOURS PRN docusate sodium (COLACE) 100 mg, Oral, 2 TIMES DAILY Gauze Pads AND Dressings (Curity Abdominal) 5 X9 PADS 1 Each, does not apply, DAILY PRN ibuprofen (MOTRIN) 600 mg, Oral, EVERY 6 HOURS PRN oxyCODONE-acetaminophen (Percocet) 5-325 mg per tablet 1 Tablet, Oral, 3 TIMES DAILY PRN pregabalin (LYRICA) 100 mg, Oral, 3 TIMES DAILY Social History Tobacco Use Smoking status: Every Day Current packs/day: 1.00 Average packs/day: 1 pack/day for 44.2 years (44.2 ttl pk-yrs) Types: Cigarettes Start date: 08/29/1979 Tobacco comments: Previously smoked up to 3 pack per day, now 1-1.25 Vaping Use Vaping Use: Never used Substance Use Topics Alcohol use: Not Currently Comment: social Drug use: Not Currently Family History Adopted: Yes Exam: (Deferred 11/01/23 due to virtual visit. Prior exam below:) There were no vitals taken for this visit. Alert, oriented, pleasant. Here with family member and her young daughter. Heart regular Breathing unlabored Large left upper back wound with BTM inset with jamie peripherally. This is clean and seems to be adherent in some areas. No drainage, no cellulitis. Left shoulder AROM is full. Photos obtained with permission. Imagin09/12/23 PET melanoma: IMPRESSION: 1. Hypermetabolic soft tissue mass of the left posterior chest wall consistent with biopsy-proven malignancy. 2. No metabolic evidence of regional, nor distant metastatic disease 3. Advanced paraseptal emphysema with large blebs bilaterally. Clinical images reviewed in EMR. Labs: 09/12/23 biopsy: Final Diagnosis A. Soft tissue, left upper back mass, core needle biopsy ([id number]) (07/24/2023) Most consistent with melanoma. . 10/05/23 surgical path: Final Diagnosis A. Skin, Left posterior back melanoma, short stitch wise 12:00, long stitch wise 3:00 Melanoma, ulcerated, Breslow's maximum thickness 67mm, focally transected (see synoptic report) . Assessment: 58M smoker, s/p resection of a rapidly enlarging left upper back malignancy with application of BTM 10/05/23, presenting to discuss reconstruction. We talked about options for management of this sizeable defect - including healing by secondary intention, adjacent tissue rearrangement, or STSG. After thorough discussion, he has elected STSG. I reviewed the surgical approach, graft harvest, need for a postoperative VAC bolster, management of the donor site, expected results, and recovery. We talked about the risks of surgery in detail, including bleeding, infection, damage to nearby structures, poor wound healing, unfavorable scarring, poor or no graft take, pain, contracture, need for additional procedures, and the risks of anesthesia. The patient asked good questions which were answered to his satisfaction and would like to (more content not included)... Normal [facility] PAT Call Loreto Eyeletter Authentication Interface Message Text Telephone History Edilma Tavarez, [id number] 10/24/2023 Patient was identified by name and date of . Indira Bess RN 58 year old 154 lbs 6' 2 Date of Surgery: 11-07-2023 Surgeon: Matt Tejada Type of Surgery: SKIN GRAFT, SPLIT THICKNESS, TORSO HISTORY OF PRESENT ILLNESS: PAT telephone evaluation for SKIN GRAFT, SPLIT THICKNESS, TORSO STOP-BANG Row Name 10/24/23 1440 History of sleep apnea? No Snoring No Tired/Fatigued No Observed Apnea No Pressure: Hypertension No BMI greater than 35 0 Age greater than 50 1 Neck circ greater than 40cm (15.75 ) Unable to Assess Gender male? 1 Score 2 EXERCISE CAPACITY: 4-10 mets ALLERGIES: Patient has no known allergies. 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 15 x 14x 8 cm. application of polynovo btm dermal substitute; Surgeon: Lizzeth Demarco MD; Location: PERIOPERATIVE SERVICES; Service: General HIATAL HERNIA REPAIR SOCIAL HISTORY: Social History Socioeconomic History Marital status: Tobacco Use Smoking status: Every Day Current packs/day: 1.00 Average packs/day: 1 pack/day for 44.2 years (44.2 ttl pk-yrs) Types: Cigarettes Start date: 08/29/1979 Tobacco comments: Previously smoked up to 3 pack per day, now 1-1.25 Vaping Use Vaping Use: Never used Substance and Sexual Activity Alcohol use: Not Currently Comment: social Drug use: Not Currently Social Determinants of Health Food Insecurity: No Food Insecurity (09/17/2023) Received from [facility] Hunger Screening Within the past 12 months we worried whether our food would run out before we got money to buy more.: Never True Within the past 12 months the food we bought just didn't last and we didn't have money to get more.: Never True PAIN ASSESSMENT: Severity: 3 Location: left back LABORATORY DATA: CBC (last 3 years, up to 5 values) WBC RBC Hgb Hct MCV RDW Plt 08/23/23 1509 10.2 5.21 15.9 47.1 91 14.5 410 Basic Metabolic Panel Na K Cl CO2 Gap Glu BUN Cr Ca 10/06/23 0000 138 4.5 101 24 18 183 11 0.81 8.6 08/23/23 1509 139 4.3 104 24 15 80 13 0.90 9.6 LFT's (last 3 years, up to 5 values) T Prot Albumin D Bili T Bili Alk Phos ALT AST 08/23/23 1509 7.4 4.4 0.06 0.4 80 43 20 TESTS REVIEWED: CXRay: Chest x-ray was last done on 10/05/2023 EKG: Last ECG Date: Not Found ECHO: Last Echocardiogram: none found going back to 08/21/2023 No results found for this basename: LVEF Stress test date: Last StressTest: none found going back to 08/21/2023 Reading Physician Reading Date Result Priority Robert Sung MD [phone] 10/05/2023 STAT Narrative AND Impression EXAMINATION: XR CHEST AP OR PA 1 VIEW 10/05/2023 05:11 PM CLINICAL HISTORY: s/p excision of large back mass (L) - crepitus noted at conclusion of case but no extry to thorax suspected. Patient has history of large bullae that are likely the etiology. Currently with no hypoxia or respiratory distress. Assess for pneumothorax. ASSOCIATED DIAGNOSIS: s/p excision of large back mass (L) - crepitus noted at conclusion of case but no extry to thorax suspected. Patient has history of large bullae that are likely the etiology. Currently with no hypoxia or respiratory distress. Assess for pneumothorax. ORDERING PROVIDER: DIONY [employer]ISTS NOTE: COMPARISON: PET MELANOMA INITIAL 09/12/2023, 2:06 PM FINDINGS: Lines, tubes, and devices: None. Lungs and pleura: Severe bullous emphysema. No definite pneumothorax identified. No pleural effusion. Cardiomediastinal silhouette: Normal cardiomediastinal silhouette. Musculoskeletal: Unremarkable. IMPRESSION: Severe bullous emphysema. No definite pneumothorax identified. CURRENT MEDICATION LIST: Current Outpatient Medications Medication Sig Dispense Refill Gauze Pads AND Dressings (Curity Abdominal) 5 X9 PADS 1 Each daily as needed. 36 Each 1 oxyCODONE-acetaminophe (more content not included)... Normal [facility] Telephone Encounteron 2023 Eyeletter Authentication Interface Message Text Palliative Care Controlled Prescription Refill: OARRS was reviewed today: 4-4 Last SURGICAL PHYSICIAN ASSISTANT: Pain Management Panel No data to display Follow Up: PCP: No primary care provider on file. No PCP on file Last appt: Last visit: Office Visit on 10/15/2023 in PLASTIC SURGERY with Lynne Tejada MD for 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); Open wound of left side of back, initial encounter; Tobacco dependence; Body mass index (BMI) 19.9 or less, adult. @LASTDEPT@ Next appt: There are no future appointments scheduled in [facility]. Judy Oretga MD Normal [facility] Eyeletter Authentication Interface Message Text Called patient to discuss pathology results from surgery. 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 We discussed that the deep margin was focally positive for some cells in one slides, but otherwise negative. We discussed that the next step will be adjuvant immunotherapy and mutational testing of the tumor to evaluate for any targetable mutations. Normal [facility] Coding Summaryon 10-15-2023 Coding Summary HTMLBase [id number] IC8+JJ5vONKgHdflvBPrl1P 3cAA7V35upk3tDFeiqEN3VR FtLrUnwhqqd4jziVp2HLduN mluOyBt VXMheO71CRV7oO58Mm57fSR raMTdj5wkxIc8WxLeTPCiRJ O0gVyvFZtvo4RuPDJjG99kx DMbo1M8 QYMdjIvgrHYvKhLrdHA4uV2 qVXbhlwlwv4jnanbfHyq0up 23hQXct7C0bUZ1T8KkrqI6I GJvbGQg NadqeUAFrR7xiygcw7dgfzu oTgMpYNFlJFt0CNg6XCUbsE skSkQhFZ00QPF2GJZrprWxA 2FsLWFs eXthYbX8c0G8Kb6SH7VJXnf cZ6YZLFZNOBctwEL+PC90cj 76G1EeUiglYck2ZCYfLKI9q YO0hR6k HOUoONzcd3E3xFU5M6SxouF zjc2ed0rzYMMjZUfiY49maB Cle3A2UNXsjDE6PNCffDwwU iBzaG93 Oyc+CEFsbAaay7EzAquya9d nl8gkpXb1WpsiQHRtsuRyuA oaLQZ6x9IkEn7iEUTnbRT2v FD1hI0m GpDfXzM2NRhvI036IrGcqUY tExpjP59aC6JgbMJ+PHRyPj z1UIZztFoeCO3aD8LjITEuv mctbGVm yQfnVS0eHTTngovaXLRemZ3 ePLCmA4q1YnYlXlR7XGbvQ3 JlJETvnbtgXk96dN5uJqXjR yB5AIco R0KxqqQ7XBZxtYQnLEkbYJV 7G79fe1J9JAWhOXZfZZJ8aX Y3rB8bsRpklabkyLEcpBhmv mVydGlj VYxtOWyxQ847CDEpwEfwMcA vZGluZyBEYXRlOiAgMDQvMj IvMjAyNDwvdGQ+AMJnHAL7r WxlPSAn eIFqYZtoJc9xqTemcXpyNL7 yEEFnjfawWMWwaX7wNOTtcO MovKmpWR7eLLFgewyvl539V iAxMHB0 YBWdoVHfD5HyfG3hHeTuGEB wQVMgW9WfwQEuVUwcQ752CM foZdL7QTMtxyJgO3LrMNBui WduOiB0 x9U1Jj2Ij0PrnqnmR1FcdYC cCrOuEeoySHj3I7GqEsllwJ I+IE02ATHwIS94MGg1ZZK0d WxlPSdi AYIuE8MiiF4jXzStPUOlPGZ kOyc+PHRhYmxlIHdpZHRoPS uyMNVqPrUzsPxkQN7bWl5dF GVyLWNv uWnpxHEuNqVqg9jtVYHnHZo tON5jcFibA7SgvZQ0XCYrz2 x7Bw77B64cA4GheFD+PGNvb TA4sDX8 qI2lOaUmVdT0KJwkS889NrO ukDPaZvsco4wkn7cmsAo5Le M9CMOhoiLopWzgMMJ7e1EnQ s44V96d IHdpZHRoPSIxNSUiIHZhbGl kzi3glW9kSh4+IJMvmJD1hU T6fE4dDxQvMrC7VOilY978I nRvcCIv Cyxmc0bqr7catYq8EqYwXFB drqYscQpnQPT0p7LgGo59K0 HeeAybw2NjQpb9ae74vOYfl 1P4kEE6 K7YiKKTzgeirkFTwwFvaJA1 pHJXamiinFBQmrH1sKKAuS3 b2VgFqQeT3NRrfS7YztgV4H GJvbGQg LLKaaIVDdI2ikcfgd8hrrik tYbTiZVOgTIs2PXh6XYMerC ngHfGuBMO7OeV9SWT6xDDyo N4bhTpz zvbejW9zAfh+HXS4xKMomHJ KEE9vRmusmWV+BJXbIIL2qJ xyMIjjUJNgaA1iUVAoH8r8N iAwLjA1 LWkuI7BwrbO9HHOlbYFsNQZ mdHPXtA2pccdkb5ursexpZz WyVLYtNPy2YDd3EYRqmXwfA iBsZWZ0 KjZ2JDA9oJEewF3ngZnuzrh tuV0aUyf+ZpjewQciPYD1MO h1T3KoNid6KCGavVmlSB9go GFkZGlu Oc6poBippLtyED2mGHMoqdb dq491JdSps1ceNUKphDVuVL eaCUG9D34yx9C3WQZfAIHhM MZ4iHM3 cF7diNuzozriyVFlwDuldlF fiWpbWHhrMYlsC784OLXqiR mvNfFjJFt2E1UjMxo5VHMrc UpyRB0s jAIuEEajHx9tcNnekNbjHC6 aDOMyvjzdk469NgHoc5tvMO BhwKHcAJvfBZC9Z60kc3G3G CMwMDAw YBZ8jQU4zT9fnUszscnbqWV mdDsgdmVydGljYWwtYWxpZ2 49ALWofTifSkVvtSv1R0XbS ep3ZQJl uFkpBD2siAXsVRzuHz6edGt meCymUO1eSLErtiobb021Dr Fuq4cqTUFwoGTaIOkgHGP7M 85ti8P4 CNGaTYHqMOL6zEO5lH5krCl nbjogbGVmdDsgdmVydGljYW auQSpiH760ZVCjuIlvRwRan GllbnQg PHozSKo4D0DiRaibjYM+PC9 9LMFkAY61eHXjoMKlm2sfeR u1BhPoAWGeBML0rLtyBCksg 3JkZXIt L69cxYApx6H3RCPvmMseqUX pIpQolRY6wT2cQQnlyffoz0 pylgcbWoqxk7wblp80tN53S 29sIHdp ZHRoPSIzMCUiIHZhbGlnbj0 qnA2yVk1+FUObdEJ7gWS6qY 6sHPRsIrC7ZNugT259JkJgu CIvPjxj k0xzi4nhgIv7HdL6NFQsvoW wxYhwQBW0m3NjIn14I89zPH dpZHRoPSIyMCUiIHZhbGlnb j7lhZ6d Ii8+DLPeqJN6lNY4lR7nUjO vAkR5ICqoS274BhNqwVQmGu cpH89yH8WwbVO+BMPkOfj2X CBzdHls QX5xsDVsYZnxVa5eDKL2WiZ cYrWePUeoU9NiYQKnrelovt owxAX3LNIiGRSuzD55Hn6jr DogMTBw rGOQiH7qcjdfm8qdglyeDjM fMUUbZJe2BNs4KSWtxNpvGb VfIFO6DbN7SGY4qRAreI4ck Glnbjog hM6xT2LaZHFjcmzcXa08uS8 fWgDlDpH8XVqoYyj+Uk9IUk AOA3kPYwFZKcgvZe8BZUqLZ EJMQUlO RTwvdGQ+NDNpUVV9aAztRPx dOBIpgE4eVBPiE7s6IqYuUt D8SLuaA1KpGFKreilxJb02v M2sOgOs FiY6IVsdV8XkseW3YBPdgPG vPPpzZHE2D27tr2S1MPXzMS AwXNS5dWA4vN0ooEulzynac GVmdDsg pjTrsFaqBZysDMdjO913TSI llAliKpBgAgDeIsP9IrY3R2 WePey4FVTdnRayNV0xtXTdZ IxrPw8l pXbucMdtEK6zEFXgtgmrKMC rgT1rOZBajPQiwQmrYO4sEG Gtztxej061DmCtFUR4PBIjs JVlY1Um gK9mXhJhLXAfWDLtY3YtzDW pYQrmS490FXelGgJ9TYRaxg DbX8PeXRKayGaaLvK0y8Z5R e49EFMX ZWFyczwvdGQ+HNVyKII8qLe xVPqsQNLfgN5wXVJhE6l1Fp LnEkI2OYgqU9GfFNJqjlgcL q25rX5m OjKhEoI8FOpyR6XtftS1OWN uaZHgRCmxZQM2K08fl7I0LA QnFEUdCLR7kUG0xA8ypHeog jogbGVm tGfbnsJffLcfZNmzKOndK16 6OOAnhAfwFr1ZLFU4D6ShLe p7APXjiWnzRV4kbNKqCEdkB l3zzGvq zOokKM0sOQGqiodySMJsuL9 qWEXbwOZkdQttJQ2aILLjjx fmo461EfIyMLR2WRHdtKUxV 0PtfM4u MaQwQWDiZQGxN1DzzUVmIOc nQ041ZGdkDoG3RHUkkqKaA4 DyWEVqeYrnEpP5j9F1Tu8IG DwvdGQ+ UY09qr14H6RlWrwaPde6TBQ eDVL1pJB9qQ7oNQNkKXivc9 T7vHB0X3BvqwVula0zc8ciW XBzZTog O57vtGItm6Q9MWBtkUE0ZZV lhIsxPkXxrU01Qpk+PGNvbG rpp2BqPvlpm4xeh3crtAa4P jMwJSIg qoCmtOquKTL4l9DcSr27F08 sIHdpZHRoPSIzMCUiIHZhbG aybx8teK0bUd5+NKTscED2g UR5lQ5g MaSmAsE8WFcvO957NmKfyHY bAjyio9ydn1uzzZq9LaMuFU CixxRpgBxcRYN1e0DmId50B 2NvbGdy g8KtDzc6gh18aPWhr8T0vEU 9Y0EiHZZhghwxqRFdpKecPM 4qELRzzzpmHRDvpL2uPFKuR 3i4JcNz OpW8PWwlP4PmfcI0BRCicGM iNLLqeFFCxD0mynrlk3lunh edVwPtRFUuKSr8DMl4ANLul WduOiBs MKB1MoS3CGB4oMTinJ7krJw wqgpojA9pFqv+HIr3t1vrcT DaLV9qtML7JN30MY46eOTky 3B8jSL6 T4IgTTHquccbzrxfrUE4CVY uSVXmlO78Ad5vwIywTt7cTV TrJMS3OOVxcWKkZ8DbfG9fA iAjMDAw QRJbS5OceXNvJAigC488CDo zIeV5FIDxkcLaK3OiGSUqjH xvKwD2p5D7Cw4YSJ00ZH03R N63uNBy i6N9eTL5X9TtNFHketqoihh qeFK0BJLiHLCofB33Qf2ooA vhRz6gKGIjJGR8UPVmeWBqH 9HmxZ6s RuYwXULvQXMuS4GcyXAvNUp iF087HTrsSjF5HGGfdmKeX3 TzCTZkxGqnEuB8n7R3Er8DB u03ZG85 OL58cIBni8S1mGH5P8NbMDG rkplupjnlbIT7MPSvOAXevN 58Px9kxRhfCf8kNHPeVFW0Z FRpbWVz S0TdiW2nTtRdDMUmHRSaR8Y qoSCfLDvzO257DIjoNrW5QN YajeHxS7EwRCPxaSnmVpV2l 5P4Qv7J SKojtqu6L8BbWgzjqMZ+PC9 8MCMuVE81yUJfcQQxl4owfP g4UgJqGPPeCEE4vCteDDiyv 3JkZXIt Y29 (more content not included)... Normal [facility] Telephone Encounteron 2023 Eyeletter Authentication Interface Message Text Lvm w/cb number to schedule appt w/DR ROBISON. Taina Forman RN Normal [facility] Patient Instructionson 10-10 Eyeletter Authentication Interface Message Text Keep the wound site dry until you are cleared to shower by Dr Tejada. Cover the wound site with clean, dry abdominal pads daily or as needed to absorb drainage. Secure the abdominal pads with tape Monitor the wound site for any redness, thick drainage like pus, worsening pain, bleeding, or any fevers or chills Contact me with any concerns I will try to see you at the same time as your visit with Dr Tejada or Dr Robison Normal [facility] Progress Noteson 10-11-2023 Eyeletter Authentication Interface Message Text Patient was identified by name and date of . Osman Barker Body Mass Index is 20.03. Body Surface Area is 1.96 square meters according to the formula of Ryan and Ryan. Patient at risk for falls:No Falls Risk protocol implemented: No Blood pressure 136/85, pulse 83, temperature 98.4 ???F (36.9 ???C), resp. rate 20, height 6' 2 (1.88 m), weight 156 lb (70.8 kg), SpO2 100 %. 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 His case was discussed at multidisciplinary cutaneous tumor board on 10/10/23, at which time recommendations were to consider adjuvant therapy pending final pathology results and to obtain Foundation One testing of the tumor. Appetite: Good Fever: denies Chills: denies Nausea: denies Vomiting: denies Bowel Status: regular Pain related to procedure: minimal pain--controlled with Tylenol Incision: no redness and no purulent drainage He reports that he is doing quite well. He is having minimal pain at the surgical excision site and his pain is significantly improved from prior to surgery. He reports no issues with range of motion of his shoulder. He denies any numbness, weakness or tingling in his arm or hand. He reports serosanguinous drainage in the wound vac. The wound vac has been holding suction quite well, though he notes that it has lost suction at the site of the suction pad intermittently. He learned that lying flat on his back helped the vac hold suction. The vac has continued to work. He denies any fevers or chills. He denies any shortness of breath or chest pain. He is eating well without any nausea or emesis. His is having regular bowel function. PHYSICAL FINDINGS BP 136/85 Pulse 83 Temp 98.4 ???F (36.9 ???C) Resp 20 Ht 6' 2 (1.88 m) Wt 156 lb (70.8 kg) SpO2 100% BMI 20.03 kg/m??? General appearance: alert, pleasant, no distress, oriented to time, place and person, well developed and well nourished, thin Skin: Skin color, texture, turgor normal. No rashes or lesions. No jaundice Eyes: No scleral icterus. Pupils equal. Extra-ocular muscles intact Neck: Neck supple. No adenopathy. Lungs: Diminished breath sounds diffusely bilaterally; no wheezes, rales or rhonchi. Heart: Regular rate and rhythm. Normal S1 and S2. No murmurs, clicks or gallops. Nodes: Non-palpable bilateral pre--auricular, anterior/posterior cervical, and supraclavicular lymph nodes Extremities: Extremities normal. No deformities, edema, or skin discoloration Neuro: Gait normal. Sensation grossly intact and equal to light touch in bilateral upper extremities. Sensation intact to light touch on left back. No motor deficits Location of incision: Left upper back Status of incision: Healing well and without signs of infection. PolyNovo in place with adequate adherence. 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 The wound is healing without signs of infection. The wound vac was removed today without complication. The underlying PolyNovo shows adequate adherence. He has a referral to Dr Tejada to discuss reconstruction options once margins are cleared. However, he reports that he cannot attend his evaluation on 10/15/23. I will update Dr Tejada to assist in rescheduling. Pathology is pending at this time, but preliminary analysis shows an undifferentiated highly malignant lesion with staining suggestive of melanoma. We discussed that next steps will be determined based on final pathology diagnosis, but that adjuvant systemic therapy is almost definitely indicated to decrease risk of recurrence. We reviewed that adjuvant immunotherapy will be indicated if this lesion truly represents a melanoma, but that other systemic therapy may be needed if the final pathologic diagnosis is not melanoma. We discussed that [facility] testing will be sent for his tumor to determine if there are any specific targetable mutations. For now, he will be referred to Dr Robison to discuss adjuvant therapy. We reviewed wound care instructions. I instructed him to keep the site dry until cleared by Dr Tejada. I demonstrated and discussed dressing changes, which includes placing a dry abdominal pad over the site daily and as needed for d (more content not included)... Normal [facility] Progress Noteson 10-10-2023 Eyeletter Authentication Interface Message Text Encounter Opened in error. Please disregard. Lizzeth Demarco MD Normal [facility] Tumor Board Noteon 04-15-202 4 Eyeletter Authentication Interface Message Text Cancer Type: General Tumor Board Note Provided by Lizzeth Demarco MD on 10/08/2023 Diagnosis: left posterior back soft tissue mass, suggestive of sarcomatoid melanoma Tumor Board Type: Cutaneous Brief Clinical Summary: 58 year old male who presented with a rapidly enlarging soft tissue mass of the left back suggestive of sarcomatoid melanoma on biopsy. For completeness of records, he first noted a mass in May 2023, which began to rapidly enlarge and become symptomatic with pain and episodes of bleeding. CT scan of the chest on 07/17/2023 showed an 8.4 x 3.6 cm mass in the subcutaneous tissue of the left upper back. 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 PET/CT on 09/12/2023 showed a 13 x 6.4 x 12.5 cm FDG avid soft tissue mass of the left posterior back with no evidence of metastatic disease or concerning regional lymphadenopathy. Given biopsy suggestive of sarcomatoid melanoma, isolated disease, and symptomatic nature of the mass, recommendations were to proceed with surgical resection for complete pathologic assessment and symptom relief. He underwent radical resection of the mass measuring 15 x 14 x 8 cm on 10/05/23 General Information Patient name Edilma Tavarez Date of / Age 2 1965 58 year old Staging Information Clinical Staging Discussed Yes Pathologic Staging Discussed NA pending Genetics Genetics Referral: Unknown / NA Genetic Testing Eligibility: Unknown possibly, pending pathology results Treatment Recommendations Plan Surgery S/p radical resection Chemotherapy Pending pathology results, likely adjuvant therapy Radiation Therapy Pending pathology results Options and Eligibility for Supportive Care Services Discussed Yes N/A Clinical Trial Eligibility Discussed Yes Available Clinical Trials: None Treatment Plan Pending final pathology results. Send Foundation One testing. Likely adjuvant systemic therapy Multidisciplinary Team in Attendance at Tumor Board Radiology - No Medical Oncology- Yes Pathology- Yes Radiation Oncology- Yes Surgery- Yes Tumor Board Recommendations Pending final pathology results. Send Foundation One testing. Likely adjuvant systemic therapy NCCN Requirement NCCN Requirement Fulfilled? Yes The above recommendations were based on NCCN guidelines, as well as consideration of current national standards and review of the literature. Normal [facility] BASIC METABOLIC PANELon - Anion gap [Moles/Vol] 18 mmol/L Normal 10-[address] [facility] Comment on above: Performed By: #### C H8 ####S PATHOLOGY [id number] [place], [place], Calcium [Mass/Vol] 8.6 mg/dL Normal 8.6-10.3 [facility] Comment on above: Performed By: #### C H8 ####[facility] [id number] [place], [place], Chloride [Moles/Vol] 101 mmol/L Normal 98-[address] [facility] Comment on above: Performed By: #### C H8 ####[facility] [id number] [place], CO2 [Moles/Vol] 24 mmol/L Normal 21-31 The [facility] Comment on above: Performed By: #### C H8 ####[facility] [id number] [place], [place], Creatinine [Mass/Vol] 0.81 mg/dL Normal 0.70-1.[address] [facility] Comment on above: Performed By: #### C H8 ####S PATHOLOGY [id number] [place], [place], ESTIMATED GFR (CKD-EPI) 102 mL/min/1.73sqm Normal >=[address] [facility] Comment on above: Result Comment: 2020 CKD EPI Equation using Creatinine without Race Comment: Estimated glomerular filtration rate (eGFR) is calculated without a race coefficient. Values should be interpreted in the context of the patient's full clinical presentation. Reference: 1. Mervin C, Morgan M, Jim GARCIA, et al.. A Unifying Approach for GFR Estimation: Recommendations of the NKF-ASN Task Force on Reassessing the Inclusion of Race in Diagnosing Kidney Disease. [place] Journal of Kidney Diseases 2021;79(2):268-88.e1. 2. N Engl J Med 1 Vol. 385 Issue 19 Pages 1620-8566 Performed By: #### C H8 ####[facility] [id number] [place], [place], Glucose [Mass/Vol] 183 mg/dL High 74-109 [facility] Comment on above: Performed By: #### C H8 ####S PATHOLOGY [id number] [place], [place], Potassium [Moles/Vol] 4.5 mmol/L Normal 3.5-5.0 The [facility] Comment on above: Performed By: #### C H8 ####S PATHOLOGY [id number] [place], Sodium [Moles/Vol] 138 mmol/L Normal 136-145 [facility] Comment on above: Performed By: #### C H8 ####S PATHOLOGY [id number] [place], Urea nitrogen [Mass/Vol] 11 mg/dL Normal 7-25 [facility] Comment on above: Performed By: #### C H8 ####S PATHOLOGY [id number] [place], [place], Basic metabolic 2000 panelon 10-06-2023 Anion gap [Moles/Vol] 18 mmol/L 10 - 20 [facility] Calcium [Mass/Vol] 8.6 mg/dL 8.6 - 10. 3 mg/dL [facility] Chloride [Moles/Vol] 101 mmol/L 98 - 107 mmol/L [facility] CO2 [Moles/Vol] 24 mmol/L 21 - 31 mmol/L [facility] Creatinine [Mass/Vol] 0.81 mg/dL 0.70 - 1.30 mg/dL [facility] GFR/1.73 sq M.predicted CKD-EPI (S/P/Bld) [Vol rate/Area] 102 - PINF [facility] Comment on above: 2020 CKD EPI Equatio n using Creatinine without Race Comment: Estimated glomerular filtration rate (eGFR) is calculated without a race coefficient. Values should be interpreted in the context of the patient's full clinical presentation. Reference: 1. Mervin C, Morgan M, Jim GARCIA, et al.. A Unifying Approach for GFR Estimation: Recommendations of the NKF-ASN Task Force on Reassessing the Inclusion of Race in Diagnosing Kidney Disease. [place] Journal of Kidney Diseases 202;79(2):268-88.e1. 2. N Engl J Med 1 Vol. 385 Issue 19 Pages 0101-5031 Glucose [Mass/Vol] 183 mg/dL High 74 - 109 mg/dL [facility] Interpretation and review of laboratory results Abnormal [facility] Potassium [Moles/Vol] 4.5 mmol/L 3.5 - 5.0 mmol/L [facility] Sodium [Moles/Vol] 138 mmol/L 136 - 145 mmol/L [facility] Urea nitrogen [Mass/Vol] 11 mg/dL 7 - 25 mg/dL [facility] Care Plan Noteon 10-06-2023 Eyeletter Authentication Interface Message Text Problem: Routine Care: Goal: Patient care will be managed and maintained throughout hospital stay per unit specific routine care procedure Outcome: Progressing Problem: Safety: Goal: Patient will remain free of falls during hospital stay Outcome: Progressing Goal: Free from injury during hospitalization Outcome: Progressing Patient has call light within reach, educated on use of call light, and has side rails in place Problem: Acute Pain: Goal: Ability to identify pain intensity on a pain scale and rate it consistently will be achieved and maintained Outcome: Progressing Goal: Understanding of proper administration and use of medicines will be achieved Outcome: Progressing Goal: Acceptable level of pain which allows the patient to achieve functional outcome goals Outcome: Progressing PRN pain medication to be administered as needed to maintain/control pain Problem: Discharge Planning: Goal: Discharge needs of the adult patient will be met Outcome: Progressing Normal [facility] MAGNESIUMon 10-06-2023 Interpretation and review of laboratory results Normal [facility] Magnesium [Mass/Vol] 2.0 mg/dL 1.9 - 2.7 mg/dL [facility] Comment on above: Note updated referen ce ranges. [facility] Magnesium [Mass/Vol] 2.0 mg/dL Normal 1.9-2.7 [facility] Comment on above: Result Comment: Note updated reference ranges. Performed By: #### M G #### [facility] [address] [place] [address], [phone] Anesthesia Postprocedure Maddy alexandercarmen 10-05-2023 Eyeletter Authentication Interface Message Text Anesthesia Postoperative Assessment: Vital Signs (most recent): BP 104/62 Pulse 80 Temp 36.3 ???C (97.3 ???F) (Temporal) Resp 12 Ht 6' 2 (1.88 m) Wt 164 lb (74.4 kg) SpO2 93% BMI 21.06 kg/m??? Anesthesia Post Evaluation Level of consciousness: awake Post-procedure exam normal. Body temperature, hydration status, PONV and pain evaluated and addressed. Pain management: adequate Hydration status: normal PONV:No nausea/vomiting reported Cardiopulmonary status stable Respiratory status: acceptable Cardiovascular status: acceptable Comments: Chest xray negative for pneumothorax ANESTHESIA NOTABLE EVENTS: No notable events documented. Normal [facility] Anesthesia Preprocedure Eval uaomidon 10-05-2023 Eyeletter Authentication Interface Message Text ASA: 3 No history of anesthetic complications NPO status: Greater than 8 hours Past Medical History and Review of Systems Pulmonary (+) a smoker Comment: STOP BANG 3 06/28 - 12 of my left lung is not working - Dad had the same thing Dental ROS (+) upper and lower dentures Endo - negative ROS Neuro/Psych - negative ROS Cardiovascular (+) Surgical risk: low; Cardiac condition: stable (-) exercise intolerance GI/Hepatic/Renal - negative ROS Heme/Other - negative ROS Other ROS: Patient Active Problem List: Tobacco dependence [F17.200] 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) [C43.59] Mass on back [R22.2] Physical Exam Airway Mallampati: III TM distance: Adequate Micrognathia: Not present Jaw opening: Adequate Neck flexion: Adequate Dental PE (+) upper dentures and lower dentures Pulmonary - pulmonary exam normal Comment: Chest clear to auscultation bilaterally Cardiovascular - cardiovascular exam normal Comment: RRR with S1S2; no murmurs, gallops, or rubs Neuro - neurological exam normal Comment: Awake, alert, oriented, No motor deficits and sensation grossly intact Plan Anesthesia plan: general; (ETT) Anesthesia risks / alternatives discussed pre-op Questions answered / anesthesia plan accepted Plan comment: The following risks of anesthesia were discussed with the patient: injury to eyes and teeth, cardiac events, respiratory events, need for continued mechanical ventilation after surgery, peripheral nerve damage from positioning, nausea, vomiting, pain Past medical history, surgical history, allergies, and medications reviewed. Pertinent laboratory tests, EKG, imaging, and consults reviewed and I have personally seen and evaluated the patient, repeating luque portions of the history and physical examination. Attestation: Anesthesia options were discussed with the patient and/or legal sales training representative. The risks, benefits and alternatives were reviewed. Questions regarding anesthesia were answered. Patient and/or legal sales training representative knows such anesthetics and procedures may be performed by Resident physicians, Certified Anesthesiologist Assistants, or Certified Nurse Anesthetists under the supervision of a physician. The patient /or the patient's legal sales training representative agree with the plan for anesthesia. Social History Socioeconomic History Marital status: Tobacco Use Smoking status: Every Day Current packs/day: 1.00 Average packs/day: 1 pack/day for 44.1 years (44.1 ttl pk-yrs) Types: Cigarettes Start date: 08/29/1979 Tobacco comments: Previously smoked up to 3 pack per day, now 1-1.25 Substance and Sexual Activity Alcohol use: Yes Comment: social Drug use: Not Currently Social Determinants of Health Food Insecurity: No Food Insecurity (09/17/2023) Received from [employer] Hunger Screening Within the past 12 months we worried whether our food would run out before we got money to buy more.: Never True Within the past 12 months the food we bought just didn't last and we didn't have money to get more.: Never True CBC WBC RBC Hgb Hct MCV RDW Plt 08/23/23 1509 10.2 5.21 15.9 47.1 91 14.5 410 Basic Metabolic Panel Na K Cl CO2 Gap Glu BUN Cr Ca Mg PO4 08/23/23 1509 139 4.3 104 24 15 80 13 0.90 9.6 PT/INR None Current Outpatient Medications Medication Instructions acetaminophen (TYLENOL) 500 mg, Oral, EVERY 6 HOURS PRN oxyCODONE-acetaminophen (Percocet) 5-325 mg per tablet 1 Tablet, Oral, EVERY 6 HOURS PRN pregabalin (LYRICA) 100 mg, Oral, 3 TIMES [address] Normal [facility] Anesthesia Transfer Of Careo n 10-05-2023 Eyeletter Authentication Interface Message Text Patient taken to PACU. Patient was drowsy, comfortable, and stable on arrival. 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 Basic Operating Room Facts: Surgeon(s): Lizzeth Demarco MD Anesthesiologist: Faheem Godwin MD; Sabrina Martin DO CAA: Thelma Soriano CAA LABEL REWINDER: Scott Stoner APRN-SIRENA Anesthesia Student: García Dennis radical excision left upper back mass. 15 x 14x 8 cm. application of polynovo btm dermal substitute (Left) Intraoperative Events: No acute event ASA: 3 EBL: 50 mL Urine 200 mL Lactated Ringers and NaCl 0.9%: Fluid Totals (Filter: LR and NaCl 0.9% Medications Shown) Medication Calculated Total Lactated Ringers 1,000 mL / 1 bag Lactated Ringers 700 mL / 1 bag Cell Saver: Not documented Blood Volume Values: Blood Products None MTP Blood: MTP PRBC: Not documented MTP FFP: Not documented MTP PLT: Not documented MTP Cryo: Not documented MTP Whole Blood: Not documented Current Vasoactive Medications: {Vasoactive Medications: None Lines, Drains, Airways Peripheral IV Access: 10/05/23 1139 20 gauge Right Hand (Active) Site Assessment WNL;Dressing intact 10/05/23 1139 Infusion Status Port #1 Capped;Patent;Positive blood return 10/05/23 1139 Peripheral IV Access: 10/05/23 1241 18 gauge Left Hand (Active) Site Assessment WNL 10/05/23 1310 Infusion Status Port #1 Infusing 10/05/23 1310 Airway Insertion Details [REMOVED] Advanced Airway: ETT, Oral;Cuffed #8 (Removed) 10/05/23 1240 Pre-Oxygenation/ Induction: Mask Rapid Sequence Induction?: Mask Ventilation: Difficult;w/oral airway Blade Type: Hyperangulated Blade Size: Visualization: Grade 1 Airway Type: ETT, Oral;Cuffed Airway Size: #8 Post Insertion Assessment: Confirmation: Equal bilateral breath sounds, CO2 confirmed # Attempts >1: Special Equipment: Glidescope Present on Admission?: Previously Removed / Not Present: Removal Reason: Not Removed at Discharge: Removed 10/05/23 1630 Location (cm) 22 10/05/23 1309 Measured from: Teeth 10/05/23 1309 Secured via: Ties 10/05/23 1309 Site Assessment WNL 10/05/23 1309 All non-working IVs have been removed: N/A Laboratory Data: CBC (last 3 years, up to 5 values) WBC RBC Hgb Hct MCV RDW Plt 08/23/23 1509 10.2 5.21 15.9 47.1 91 14.5 410 Basic Metabolic Panel Na K Cl CO2 Gap Glu BUN Cr Ca 08/23/23 1509 139 4.3 104 24 15 80 13 0.90 9.6 Basic Metabolic Panel None No results found for: INR No result for BNP LFT's (last 3 years, up to 5 values) T Prot Albumin D Bili T Bili Alk Phos ALT AST 08/23/23 1509 7.4 4.4 0.06 0.4 80 43 20 Arterial Blood Gases None Hand off Completed: Yes 1. The patient was identified. 2. Pertinent medical history was relayed. 3. A brief discussion was had about any pertinent surgical/ procedural issues. 4. Intraoperative/ anesthetic management issue and concerns were discussed. 5. Plans for the early post-operative period relayed. 6. An opportunity for questions and acknowledgment of understanding of the report was received. Scott Stoner APRN-SIRENA Normal The [facility] Blood Attestationon 10-05-19 Eyeletter Authentication Interface Message Text Blood Attestation: ATTESTATION OF INFORMED CONSENT FOR BLOOD: The transfusion of blood and/or blood components were discussed with the patient and/or legal sales training representative. The risks, benefits and alternatives were reviewed. Questions regarding blood transfusions were answered. The patient /or the patient's legal sales training representative agree with the plan for transfusion of blood and/or blood components. 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) [C43.59] * Mass on LEFT back [R22.2] Procedures: Radical excision of left back mass (15 cm x 14 cm x 8 cm) Application of polynovo BTM dermal substitute (20 cm x 20 cm) Surgeon(s): Surgeon(s): Lizzeth Demarco MD Staff: Scrub: Hafsa Sloan, ANIMAL RIDE ATTENDANT; Dayna Michael CST Pharmacist In Charge Nurse: Keisha Edwards; Robert Tse Public Health Nurse: Diony Costa MD Anesthesia: General Anesthesiologist: Faheem Godwin MD; Sabrina Martin DO CAA: Thelma Soriano CAA LABEL REWINDER: Scott Stoner APRN-SIRENA Anesthesia Student: García Dennis Specimen(s): ID Type Source Tests Collected by Time Destination 1 : left posterior back mass. short stitch wise 12 o clock. long stitch wise 3 o clock Tissue Back SPECIMEN FOR SURGICAL PATH Lizzeth Demarco MD 10/05/2023 1530 Estimated Blood Loss: 50 cc Lines/Drains: Peripheral IV Access: 10/05/23 1139 20 gauge Right Hand (Active) Site Assessment WNL;Dressing intact 10/05/23 1139 Infusion Status Port #1 Capped;Patent;Positive blood return 10/05/23 1139 Peripheral IV Access: 10/05/23 1241 18 gauge Left Hand (Active) Site Assessment WNL 10/05/23 1310 Infusion Status Port #1 Infusing 10/05/23 1310 Temporarily Retained Foreign Object: No Findings: Back mass excised with 2 cm margins circumferentially utilizing a no touch technique. BTM applied to skin defect with overlying adaptic + black sponge (x2 pieces) with wound vac. This procedure was not performed to treat primary cutaneous melanoma through wide local excision Complications: None Status at end of surgery: Stable Activity: Ad Soraya Surgical wound class: Yes, wound was clean. Patient Class: Planned Extended Recovery. Dr. Demarco was present in the OR for the critical portion of the procedure and procedure sign-out. Signed by Diony Costa MD 10/05/2023 4:39 PM Normal The [facility] Care Plan Noteon 10-05-2023 Eyeletter Authentication Interface Message Text Problem: Routine Care: Goal: Patient care will be managed and maintained throughout hospital stay per unit specific routine care procedure Outcome: Progressing Patient admitted to [facility]. Patient able to independently ambulate throughout room with minimal divination in gate. Patient denies pain. Patient oriented to unit. Patient given IS and educated on purpose. Patient currently in bed with bed in low position, call light in reach. Normal The [facility] NM LYMPH NODE SCAN W/ SPECT/ CTon 10-05-2023 NM LYMPH NODE SCAN W/ SPECT/CT EEXAMINATION: NM LYMPH NODE SCAN W/ SPECT/CT 10/05/2023 11:18 AM CLINICAL HISTORY: Melanoma; left upper back melanoma, lymphoscintigraphy for colleen mapping ASSOCIATED DIAGNOSIS: 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); Mass on back ORDERING PROVIDER: LIZZETH DEMARCO TECHNOLOGISTS NOTE: INJ 584 uCi UPPER LEFT BACK. Pt imaged prone, unable to lay on back due to melanoma on upper left back/shoulder blade COMPARISON: PET MELANOMA INITIAL 09/12/2023, 2:06 PM TECHNIQUE: Following the intradermal administration of Tc99m Tilmanocept (Lymphoseek) in 4 divided doses peripherally around the patient's large soft tissue lesion in the left posterior chest wall, a flow study (30 sec/frame) was acquired followed by static planar emission and transmission imaging in multiple projections. In addition, SPECT/CT imaging of the area of interest was performed at delay post- injection. INTRA-PROCEDURE MEDS: technetium TC 99M tilmanocept (LYMPHOSEEK) injection 0.584 millicurie Route: Intradermal FINDINGS: The flow study demonstrates prompt radiotracer migration to from the 4 injection sites around the lesion in the left posterior trunk. The static planar view of the thorax identifies 2 small lymph nodes in the left axilla . SPECT/CT imaging identifies focal radiotracer uptake in left axillary and right axillary subcentimeter lymph nodes. CT component of SPECT-CT imaging demonstrates a large soft tissue mass located in the left posterior chest wall consistent with biopsy-proven melanoma and upper lobe predominant severe emphysematous changes involving bilateral lungs. IMPRESSION: 1. Identification of bilateral axillary sentinel lymph nodes. 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 Excised with no touch technique with 2 cm skin margins. Mass not clearly fixed to underlying musculature though some fibers of the trapezius and latissimus dorsi excised on block with mass. Tissue defect measuring 20 x 20 cm. 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 For completeness of records, he first noted a mass in May 2023, which began to rapidly enlarge and become symptomatic with pain and episodes of bleeding. CT scan of the chest on 07/17/2023 showed an 8.4 x 3.6 cm mass in the subcutaneous tissue of the left upper back. 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 PET/CT on 09/12/2023 showed a 13 x 6.4 x 12.5 cm FDG avid soft tissue mass of the left posterior back with no evidence of metastatic disease or concerning regional lymphadenopathy. Given biopsy suggestive of sarcomatoid melanoma, isolated disease, and symptomatic nature of the mass, recommendations were to proceed with surgical resection for complete pathologic assessment and symptom relief. The potential risk for unexpected final pathologic diagnosis including soft tissue sarcoma was discussed as was the possible need for adjuvant radiation or chemotherapy. We reviewed that reconstruction would be performed in a staged manner given unclear nature of the mass. The risks of surgery including bleeding, infection, positive margin, pain, scar, unexpected pathologic diagnosis, and recurrence were discussed and he was willing to proceed. Details of Procedure: The patient was identified in the pre-operative holding area and the surgical site was marked. Informed consent was verified. He was taken to the operating room. Pre-operative antibiotic prophylaxis with 2 grams of cefazolin was administered and SCDs were placed. A farfan catheter was placed. General anesthesia was then administered. He was placed on the operating room table in prone position, ensuring appropriate padding. The left upper back was prepped and draped in the usual sterile fashion using betadine for the ulcerated tumor and chlorhexidine prep for the intact skin. The surface of the tumor was covered with sterile gauze and an Ioban drape to allow for no touch resection. Time-out was then performed, verifying the correct patient, position, and procedure. The margins of the tumor were marked, measuring 15 x 14 x 8 cm. A ruler was used to lang 2 cm skin margins in all directions. An incision was made sharply along the marked resection margin using a scalpel. The incision was then carried through the subcutaneous fat to the level of the underlying fascia using blunt dissection, electrocautery, and the Ligasure device to divide identified vessels in the subcutaneous fat. Beginning at the superolateral aspect of the mass, the mass was dissected from the underlying muscular fascia using blunt dissection and the Ligasure device. The dissection was carried circumferentially and inferiorly. Along the mid portion of the mass, there was adhesions to the superficial and lateral fibers of the trapezius muscle and the superficial aspect of the latissimus dorsi muscle, which were resected en bloc with the mass. The mass was removed as the specimen, which was oriented appropriately with silk marking sutures. Hemostasis was obtained in the surgical field and the site was thoroughly irrigated with saline solution. The tissue defect measured 20 x 20 cm. A 40 x 20 cm piece of PolyNovo BTM was placed in the wound and trimmed to the appropriate size. The dermal substitute was then inset into the wound circumferentially using jamie, with excellent apposition to the wound bed. Adaptic was placed over the PolyNovo BTM followed by black granufoam. The granufoam was secured with vac drape and placed to negative pressure at 125 mm Hg via the Vac Via system with an excellent seal. The sponge and instrument count were reported as co (more content not included)... Normal The [facility] Progress Noteson 10-05-2023 Eyeletter Authentication Interface Message Text Post Operative Check Subjective: Lying comfortably in bed, pain is well controled. Tolerating diet without nausea or vomiting. Denies headaches, chest pain, shortness of breath. Objective Blood pressure 128/75, pulse 90, temperature 98.4 ???F (36.9 ???C), temperature source Oral, resp. rate 18, height 6' 2 (1.88 m), weight 164 lb 8 oz (74.6 kg), SpO2 95 %. Gen:Laying in bed in no acute distress. CV: Regular Rate Pulm: Equal excursion bilaterally, normal work of breathing ABD: Soft, non-distended,non-tende r. Back: Wound vac in place holding suction Ext: no edema, SCDs in place Intake/Output Summary (Last 24 hours) at 10/05/20232156 Last data filed at 10/05/20231957 Gross per 24 hour Intake 2255 ml Output 630 ml Net 1625 ml Assessment/ Plan: Edilma Tavarez is a 58 year old male POD#0 s/p Radical resection left posterior back mass 15 x 14 x 8 cm, Application PolyNovo BTM dermal substitute. Recovering Well postoperatively. -No acute events post-operatively. -Continue current pain regimen -Continue Current Care plan Vivian Vora MD PGY-1 General Surgery Blue Surgery Pager: [phone] Normal [facility] Eyeletter Authentication Interface Message Text Documentation of Human Investigation Informed Consent Process IRB: [id number] PI: Dr. Lizzeth CORREA TITLE: [facility] FULL TITLE: [facility] Tissue Repository Patient here today to sign the ICF and HIPAA consents for [facility]. Patient has had adequate time to review the ICF and agrees to participate in the study. Pt was consented by Dr. Demarco and Shanique Moser, signed, dated and timed today 05OCT2023, at 1105. Patient had all questions answered and appropriate contact information was provided. Other treatment options were presented in lieu of participating in tissue repository. Patient aware that research study is completely voluntary and patient has agreed to participate voluntarily, understanding that he/she can stop at any time. Explained to patient that not participating in the clinical trial, or discontinuing early would have no effect on receiving care, access to care, or receiving any service unrelated to research. Consent signed prior to any study procedures being performed. Patient was provided a copy of the consent and the original ICF was placed in the patient binder. Approximate time spent with patient was 15 minutes. Pt verbalized an understanding and encouraged to call with any questions. Projected surgery date: 05OCT2023 Shanique Moser Clinical Research Normal The [facility] SPECT+CT Lymph nodeon 2023 EEXAMINATION: NM LYM PH NODE SCAN W/ SPECT/CT 10/05/2023 11:18 AM CLINICAL HISTORY: Melanoma; left upper back melanoma, lymphoscintigraphy for colleen mapping ASSOCIATED DIAGNOSIS: 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); Mass on back ORDERING PROVIDER: LIZZETH DEMARCO TECHNOLOGISTS NOTE: INJ 584 uCi UPPER LEFT BACK. Pt imaged prone, unable to lay on back due to melanoma on upper left back/shoulder blade COMPARISON: PET MELANOMA INITIAL 09/12/2023, 2:06 PM TECHNIQUE: Following the intradermal administration of Tc99m Tilmanocept (Lymphoseek) in 4 divided doses peripherally around the patient's large soft tissue lesion in the left posterior chest wall, a flow study (30 sec/frame) was acquired followed by static planar emission and transmission imaging in multiple projections. In addition, SPECT/CT imaging of the area of interest was performed at delay post- injection. INTRA-PROCEDURE MEDS: technetium TC 99M tilmanocept (LYMPHOSEEK) injection 0.584 millicurie Route: Intradermal FINDINGS: The flow study demonstrates prompt radiotracer migration to from the 4 injection sites around the lesion in the left posterior trunk. The static planar view of the thorax identifies 2 small lymph nodes in the left axilla . SPECT/CT imaging identifies focal radiotracer uptake in left axillary and right axillary subcentimeter lymph nodes. CT component of SPECT-CT imaging demonstrates a large soft tissue mass located in the left posterior chest wall consistent with biopsy-proven melanoma and upper lobe predominant severe emphysematous changes involving bilateral lungs. IMPRESSION: 1. Identification of bilateral axillary sentinel lymph nodes. MACRO: None RADIOLOGY Traci Travis MD - 10/05/2023 EEXAMINATION: NM LYMPH NODE SCAN W/ SPECT/CT 10/05/2023 11:18 AM CLINICAL HISTORY: Melanoma; left upper back melanoma, lymphoscintigraphy for colleen mapping ASSOCIATED DIAGNOSIS: 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); Mass on back ORDERING PROVIDER: LIZZETH DEMARCO TECHNOLOGISTS NOTE: INJ 584 uCi UPPER LEFT BACK. Pt imaged prone, unable to lay on back due to melanoma on upper left back/shoulder blade COMPARISON: PET MELANOMA INITIAL 09/12/2023, 2:06 PM TECHNIQUE: Following the intradermal administration of Tc99m Tilmanocept (Lymphoseek) in 4 divided doses peripherally around the patient's large soft tissue lesion in the left posterior chest wall, a flow study (30 sec/frame) was acquired followed by static planar emission and transmission imaging in multiple projections. In addition, SPECT/CT imaging of the area of interest was performed at delay post- injection. INTRA-PROCEDURE MEDS: technetium TC 99M tilmanocept (LYMPHOSEEK) injection 0.584 millicurie Route: Intradermal FINDINGS: The flow study demonstrates prompt radiotracer migration to from the 4 injection sites around the lesion in the left posterior trunk. The static planar view of the thorax identifies 2 small lymph nodes in the left axilla . SPECT/CT imaging identifies focal radiotracer uptake in left axillary and right axillary subcentimeter lymph nodes. CT component of SPECT-CT imaging demonstrates a large soft tissue mass located in the left posterior chest wall consistent with biopsy-proven melanoma and upper lobe predominant severe emphysematous changes involving bilateral lungs. IMPRESSION: 1. Identification of bilateral axillary sentinel lymph nodes. MACRO: None [facility] Radiology Study observation (narrative) [facility] SPECT+CT Lymph nodeOrdered B y: Tarci Travis on 10-05-2023 [facility] CenterDirect Access Software Work Phone: XR CHEST AP OR PA 1 VIEWon 0 10-05-2023 XR CHEST AP OR PA 1 VIEW EXAMINATION: XR CHEST AP OR PA 1 VIEW 10/05/2023 05:11 PM CLINICAL HISTORY: s/p excision of large back mass (L) - crepitus noted at conclusion of case but no extry to thorax suspected. Patient has history of large bullae that are likely the etiology. Currently with no hypoxia or respiratory distress. Assess for pneumothorax. ASSOCIATED DIAGNOSIS: s/p excision of large back mass (L) - crepitus noted at conclusion of case but no extry to thorax suspected. Patient has history of large bullae that are likely the etiology. Currently with no hypoxia or respiratory distress. Assess for pneumothorax. ORDERING PROVIDER: DIONY [employer]ocha [employer] TECHNOLOGISTS NOTE: COMPARISON: PET MELANOMA INITIAL 09/12/2023, 2:06 PM FINDINGS: Lines, tubes, and devices: None. Lungs and pleura: Severe bullous emphysema. No definite pneumothorax identified. No pleural effusion. Cardiomediastinal silhouette: Normal cardiomediastinal silhouette. Musculoskeletal: Unremarkable. IMPRESSION: Severe bullous emphysema. No definite pneumothorax identified. MACRO: None Normal The [facility] XR Chest Single viewon 10-04 EXAMINATION: XR CHES T AP OR PA 1 VIEW 10/05/2023 05:11 PM CLINICAL HISTORY: s/p excision of large back mass (L) - crepitus noted at conclusion of case but no extry to thorax suspected. Patient has history of large bullae that are likely the etiology. Currently with no hypoxia or respiratory distress. Assess for pneumothorax. ASSOCIATED DIAGNOSIS: s/p excision of large back mass (L) - crepitus noted at conclusion of case but no extry to thorax suspected. Patient has history of large bullae that are likely the etiology. Currently with no hypoxia or respiratory distress. Assess for pneumothorax. ORDERING PROVIDER: DIONY [employer] TECHNOLOGISTS NOTE: COMPARISON: PET MELANOMA INITIAL 09/12/2023, 2:06 PM FINDINGS: Lines, tubes, and devices: None. Lungs and pleura: Severe bullous emphysema. No definite pneumothorax identified. No pleural effusion. Cardiomediastinal silhouette: Normal cardiomediastinal silhouette. Musculoskeletal: Unremarkable. IMPRESSION: Severe bullous emphysema. No definite pneumothorax identified. MACRO: None RADIOLOGY Robert Sung MD - 10/05/2023 EXAMINATION: XR CHEST AP OR PA 1 VIEW 10/05/2023 05:11 PM CLINICAL HISTORY: s/p excision of large back mass (L) - crepitus noted at conclusion of case but no extry to thorax suspected. Patient has history of large bullae that are likely the etiology. Currently with no hypoxia or respiratory distress. Assess for pneumothorax. ASSOCIATED DIAGNOSIS: s/p excision of large back mass (L) - crepitus noted at conclusion of case but no extry to thorax suspected. Patient has history of large bullae that are likely the etiology. Currently with no hypoxia or respiratory distress. Assess for pneumothorax. ORDERING PROVIDER: DIONY COSTA TECHNOLOGISTS NOTE: COMPARISON: PET MELANOMA INITIAL 09/12/2023, 2:06 PM FINDINGS: Lines, tubes, and devices: None. Lungs and pleura: Severe bullous emphysema. No definite pneumothorax identified. No pleural effusion. Cardiomediastinal silhouette: Normal cardiomediastinal silhouette. Musculoskeletal: Unremarkable. IMPRESSION: Severe bullous emphysema. No definite pneumothorax identified. MACRO: None [facility] Radiology Study observation (narrative) [facility] XR Chest Single viewOrdered By: Robert Sung on 10-05-2023 [facility] Work Phone: Telephone Encounteron 2023 Eyeletter Authentication Interface Message Text SW received the following message from Claudia Ogden in Financial Eligibility: The Financial Assistance is pending and documentation has not been received for processing. The determination to continue with surgery comes from the provider as financial assistance does not determine medical necessity. ZAIDA then reached out to Dr. Demarco who confirmed that the surgery is medically necessary. ZAIDA called to inform Pt that surgery is still scheduled for tomorrow. Pt expressed his understanding. 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 [phone] Normal The [facility] Eyeletter Authentication Interface Message Text SW spoke with Pt regarding his upcoming surgery. Pt s scheduled to have surgery with Dr. Demarco on 10/05/23 and explained that he received call from [employer] on 10/03/23 questioning whether or not Pt's surgery is still scheduled since is FAP status is pending. SW explained that she would request clarification from financial eligibility and would follow up with Pt. SW will remain available. 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 [id number] Normal [facility] Progress Noteson 10-02-2023 Eyeletter Authentication Interface Message Text Documentation: Mode: Telephone Patient Patient Work Phone: Patient Cell Preferred phone: [phone] Consent: I confirmed patient understanding of the risks and benefits of telehealth visits and obtained consent to proceed with the telehealth visit. Location of Patient: Home of patient Surgical Oncology Followup Diagnosis: large, exophytic left posterior back mass, favor malignant melanoma Stage: pending Reason for Evaluation: discuss surgery Oncologic History: Mr Tavarez is a 58 year old male with a rapidly enlarging soft tissue mass of the left back with biopsy suggestive of melanoma. For completeness of records, he first noticed a golf ball sized raised mass on his left lateral back in May 2023. At that time, the lesion was not painful. He reports that it was red to violaceous in color, but otherwise asymptomatic. He had no antecedent trauma or injury to the area. The lesion started to rapidly enlarge and become more painful, prompting evaluation by his PCP. He had a CT chest with contrast performed at [facility] on 07/17/2023 which showed an ovoid soft tissue lesion in the subcutaneous tissue of the left upper back, measuring 8.4 x 3.6 cm (increased from 1.9 x [address] chest 06/2022). The lesion was reportedly largely homogeneous with a Hounsfield units of 50 with some focal enhancement inferiorly. There was evidence of a preserved fat plane between the lesion and underlying musculature. He was then referred to Dr Girish Nathan (general surgery) [facility] for and underwent incisional and core needle biopsy of the mass on 07/23/2023. 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 The lesion was positive for S100, vimentin, SOX10 and negative for CK7, CK20, desmin, AE1/3, HMB 45, and Melan-A. There was mild background SMA staining. 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 The slides were submitted to [facility] for pathologic consultation and the assessment from [facility] was felt to be consistent with malignant melanoma. Given concern for melanoma, he was referred to surgical oncology for evaluation. He was evaluated in the office 08/23/2023, at which time he was having significant pain at the site, as well as episodes of bleeding. The mass was non-fixed to underlying deep structures and measured 11 x 13 x 5 cm. He had prominent left axillary lymph nodes but no evidence of in transit lesions. Plans were made for pathology review and staging PET/CT prior to surgical management. He presents today with his to discuss test results and surgical management. Interval History: He reports that he is having ongoing pain at the site of the mass. He is taking Percocet and Lyrica. He had a severe episode of pain earlier this week after he removed a bandaid from the mass and a piece of the mass pulled off with the bandaid. He also had an episode of severe bleeding on 08/28/23, prompting ED visit. He reports that the mass continues to grow. He otherwise denies any changes in his health. Pathology review here at [facility] was consistent with melanoma. The tumor was positive for SOX10 and S100 (to a less degree), but was positive to SMA, HMB45, Melan A, desmin, CK20, CK7, and AE1/AE3. 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 He had a PET/CT on , which showed an FDG avid 13 x 6.4 x 12.5 cm mass in the left posterior chest wall without thania chest wall invasion and evidence of a preserved soft tissue plane the mass from the paraspinal musculature and the chest wall. Imaging showed no evidence of FDG avid lymphadenopathy or metastatic disease. His left axillary lymph nodes were prominent, but had no concerning radiographic features. In discussion of the prominent lymph nodes with Dr Robison, recommendations were to pursue percutaneous biopsy of the axillary lymphadenopathy to direct management of the axilla. This was scheduled for 09/24/2023, however, he was unable to have the biopsy performed. PHYSICAL EXAMINATION: No physical exam for telephone visit Radiology: PET/CT 09/12/2023 personally reviewed: FDG avid 13 x 6.4 x 12.5 cm mass in the left posterior chest wall without thania chest wall invasion, preserved fat plane the mass from the paraspinal musculature and the chest wall, no FDG avid lymphadenopathy or metastatic disease, prominent left axillary lymph nodes without FDG avidity or concerning radiologic features. Emphysematous changes to lungs bilateral with lar (more content not included)... Normal [facility] Lab - AP Resultson Lab - AP Results [id number] GTIFF Normal [facility] Telephone Encounteron 2023 Eyeletter Authentication Interface Message Text Palliative Care Controlled Prescription Refill: OARRS was reviewed today: 09/19 Last SURGICAL PHYSICIAN ASSISTANT: Pain Management Panel No data to display Follow Up: PCP: No primary care provider on file. No PCP on file Last appt: Last visit: Nurse Visit on 09/20/2023 in [facility] with Beryl Bravo RN for Pre-op evaluation. @LASTDEPT@ Next appt: There are no future appointments scheduled in SPECIALISTS. Judy Ortega MD Normal [facility] Telephone Encounteron 2023 Eyeletter Authentication Interface Message Text Called patient to discuss updated surgery plans which include sentinel lymph node biopsy to assess for regional colleen metastases. We discussed the tissue repository study and he is willing to participate. We also scheduled a telephone follow-up for 10/01 before surgery Normal The OneBuild Authentication Interface Message Text Left message for patient. Will attempt to call back Normal The [employer] Authentication Interface Message Text Spoke to pt. He is requesting a letter from provider stating he is unable to work presently due to his cancer diagnosis. Letter completed and faxed to Sunita in at [phone] as requested. Pt also requests refill on oxycodone, pended for provider to preferred pharmacy. Normal [facility] Eyeletter Authentication Interface Message Text Situation: Pt called in Background: Called in requesting to speak with Dr. Ortega/his nurse. Has a cancerous tumor on his back. Stated he is supposed to return to work tonight but he just went to the store and is experiencing a sharp pain. Offered to triage call. Pt requesting to speak with office. States he is unsure how he is supposed to return with work. Aware messages can take 1-3 business days to be returned. Please advise. Thank you Assessment: NA Recommendation: Can be reached at: [phone]. Normal [facility] Lab - AP Resultson 4 Lab - AP Results [id number] GTIFF Normal [facility] PAT Call Historyon 4 Eyeletter Authentication Interface Message Text Telephone History Edilma Tavarez, [id number] 09/20/2023 Patient was identified by name and date of . Needs: Physical, Neck Circumference, and STOP 3 on DOS. If the patient becomes ill prior to procedure or surgery, they are to call their provider or surgeon's office directly. Communication via Trans[employer]ent in basket 09/19 to surgeon, staff, radiology, and O.R. scheduling r/t pt unable to make 09/23 radiology appt bc he needs to take to the doctor (MS) and PAT RN unable to see this pt on the O.R. schedule for 10/04. 58 year old 164 lbs 6' 2 Date of Surgery: 10/04 Surgeon: Darion Type of Surgery: EXCISION, WIDE, MELANOMA HISTORY OF PRESENT ILLNESS: telephone history prior to surgery or procedure with anesthesia You will be entering the hospital at the new entrance- [facility], which is on [facility]. [facility] Parking Instructions ??? Please plan extra time for parking and shuttle service. We recommend arriving at least 15 minutes prior to the time your care team advises you need to be here. ??? Parking is available in the [place] [facility] accessible from [facility]. ??? 15/01 shuttle service from the garage to The [facility] is available. ??? Go to the ground floor of the parking garage to reach the shuttle pick-up station located just outside of the elevator and stairs. ??? Shuttle service will drop you off at The [facility] Entrance. ??? Set Painter service will be available at The [facility] Entrance if you would prefer morning babysitter over parking ([facility] Set Painter Service Hours: Sunday-Sunday, 5:30 a.m. - 8:00 p.m.). ??? Enter The [facility] Entrance and go to the Admitting/Registration Desk to check in for your procedure. STOP-BANG Row Name 09/20/23 1459 History of sleep apnea? No Snoring No Tired/Fatigued Yes Observed Apnea No Pressure: Hypertension No BMI greater than 35 0 Age greater than 50 1 Neck circ greater than 40cm (15.75 ) Unable to Assess Gender male? 1 Score 3 EXERCISE CAPACITY: 4-10 mets ALLERGIES: Patient has no known allergies. PREVIOUS ANESTHETIC EXPERIENCES AND INTUBATION HISTORY: No previous anesthetic complication FAMILY HISTORY OF ANESTHETIC COMPLICATIONS: No PAST MEDICAL HISTORY: Past Medical History: Diagnosis Date Lung abnormality half of lung is ?r/t smoking, but Dad had the same thing PROBLEM LIST: Patient Active Problem List: Tobacco dependence [F17.200] 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) [C43.59] Mass on back [R22.2] REVIEW OF SYSTEMS: Eyes/Ears: Negative Teeth Upper and Lower Dentures Pulmonary: Smoker, 1/ - 1/2 of my left lung is not working - Dad had the same thing Denies SOB, wheezes, fever, chills, increased sputum, or general malaise. Cardiovascular: Negative Gastrointestinal: S/p appendectomy Renal/Genitourinary: Negative Musculoskeletal: S/p hernia repair, Muscle Aches Endocrine: Negative Hematologic: Negative Neurologic: Negative Psychiatric: Negative Gynecologic:N/A Constitutional:Negative Skin: Back tumor is scabbed over, bleeds on occasion Now scheduled for EXCISION, WIDE, MELANOMA PAST SURGICAL HISTORY: Past Surgical History: Procedure Laterality Date APPENDECTOMY HIATAL HERNIA REPAIR SOCIAL HISTORY: Social History Socioeconomic History Marital status: Tobacco Use Smoking status: Every Day Current packs/day: 1.00 Average packs/day: 1 pack/day for 44.1 years (44.1 ttl pk-yrs) Types: Cigarettes Start date: 08/29/1979 Tobacco comments: Previously smoked up to 3 pack per day, now 1-1.25 Substance and Sexual Activity Alcohol use: Yes Comment: social Drug use: Not Currently Social Determinants of Health Food Insecurity: No Food Insecurity (09/17/2023) Received from [facility] Hunger Screening Within the past 12 months we worried whether our food would run out before we got money to buy more.: Never True Within the past 12 months the food we bought just didn't last and we didn't have money to get more.: Never True PAIN ASSESSMENT: Severity: 0 Location: N/A LABORATORY DATA: Type AND Screen None CBC (last 3 years, up to 5 values) WBC RBC Hgb Hct MCV RDW Plt 08/23/23 1509 10.2 5.21 15.9 47.1 91 14.5 410 Basic Metabolic Panel Na K Cl CO2 Gap Glu BUN Cr Ca 08/23/23 1509 139 4.3 104 24 15 80 13 0.90 9.6 Basic Metabolic Panel None PT/PTT/INR (last 3 years, up to 5 values) None Arterial Blood Gases None No result for BNP LFT's (last 3 years, up to 5 values) T Prot Albumin D Bili T Bili Alk Phos ALT AST 08/23/23 1509 7.4 4.4 0.06 0.4 80 43 20 No results found for: TSH No results found for: HBA1C TESTS REVIEWED: CXRay: No Chest x-ray found EKG: Last ECG Date: Not Found ECHO: Last Echocardiogram: none found going back to 08/21/2023 No results found for this basename: LVEF Stress test date: Last (more content not included)... Normal [facility] Telephone Encounteron 2023 Eyeletter Authentication Interface Message Text Spoke to pt and advised rx sent, he voiced appreciation. Normal [facility] JRKICKZation Interface Message Text Palliative Care Controlled Prescription Refill: OARRS was reviewed today: Short course done Please let him know Last SURGICAL PHYSICIAN ASSISTANT: Pain Management Panel No data to display Follow Up: PCP: No primary care provider on file. No PCP on file Last appt: Last visit: Office Visit on 09/12/2023 in IM [facility] with in for Cancer associated pain; Cancer (HCC); Body mass index (BMI) 21.0-21.9, adult. @LASTDEPT@ Next appt: There are no future appointments scheduled in IM [facility]. Judy Ortega MD Normal [facility] Lab - AP Resultson Lab - AP Results [id number] IFF Normal [facility] Telephone Encounteron 2023 Eyeletter Authentication Interface Message Text Called patient to discuss next steps prior to surgery and scheduled date/time of IR lymph node biopsy. We reviewed details of the surgery Normal [facility] Adaptive TCR Authentication Interface Message Text Situation: Pt called in Background: Has a cancerous tumor on his back. Woke up on Sunday and was covered in blood. Pain was intense. Called and spoke with triage nurse. Was advised to go to local ED. Pt went. Was prescribed 12 Oxycodine apa 5mg-325mg, to take every 4 hours. Has surgery with Dr. Demarco on 10/04. Doesn't have enough to last to surgery. Only has 5 left. Wanted to know if Dr. Ortega could prescribe additional script to last to surgery. Also wanted to let Merlin know that the increased Lyrica seems to be working well. Please advise. Thank you. Assessment: NA Recommendation: Can be reached at: [phone] Normal [facility] Telephone Encounteron 2023 Eyeletter Authentication Interface Message Text Situation: The pt called to discuss bleeding and a change in his pain from the site of the lesion on his back Background: the pt is being treated for malignant melanoma on his left upper back Assessment: Triage done Recommendation: Disposition: Informed pt the tactical air control party provider would be paged and they would be called back within the next 30 mins. Advised to contact us if they have not been called within that time. retail beauty specialist provider for Oncology paged at 508 pm and tactical air control party responded immediately. Stated they did not cover for Surgical Oncology. No pager found for surgical oncology. Informed by staff at surgery desk, Dr. Demacro is [employer]PLICATION [employer]ELOPER ONC. Paged [employer] at 518 pm. The resident for [employer] responded immediately and stated she did not cover surgical oncology. Blue surgery paged at [address] Cornelius responded at 537 pm. Call dropped. Paged again at [address] Cornelius stated that if the bleeding stops with pressure, he will not need to come in. If he feels lethargic, dizziness, somnolent, he needs to come in to the ED for evaluation. If his pain is not manageable with current pain meds, he will need to be seen. The pt was not available when called back. His stated that he left for work. She was not able to provide another number to reach him. Relayed to her the doctor's recommendations. She stated that he was crying from the pain and that he was feeling some dizziness. Advised her to contact him and have him go to an ED for evaluation. She verbalized understanding and compliance with the plan. Reason for Disposition Nursing judgment or information in reference Answer Assessment - Initial Assessment Questions 1. REASON FOR CALL: What is your main concern right now? Pt has a mass on left upper back that began bleeding at about 315 pm today with a burning pain. Not bleeding at time of call. Pt took a shower and became lightheaded. Pain at time of call was 6/10 with episodes like he is being poked with hot needles and 9/10 pain for seconds (occurs every 4-5 mins) 2. ONSET: When did the sx start? See # 1 3. SEVERITY: How bad is the sx? See # 1 4. FEVER: Do you have a fever? denies 5. OTHER SYMPTOMS: Do you have any other new symptoms? stated there is an open split about 1.5 inches long and the width of a finger 6. TREATMENTS AND RESPONSE: What have you done so far to try to make this better? What medicines have you used? Took shower, took Advil dual action 7. : Is there any chance you are ? When was your last menstrual period? N/a Protocols used: No Guideline [id number] Normal [facility] Telephone Encounteron 2023 Eyeletter Authentication Interface Message Text Called patient to discuss pathology consult, which is most suggestive of melanoma with sarcoma like features. We discussed that next steps will be biopsy of the lymph nodes in his left axilla and then plan for surgery. We briefly reviewed details of the surgery. Tentatively surgery will be 10/04 Normal [facility] GLUCOSE, FINGERSTICK-IN OFFI CEon 09-12-2023 Glucose [Mass/Vol] 102 mg/dL Normal 68-110 The [facility] Comment on above: Performed By: #### [id number] #### NURSING GLUCOSE PROGRAM [address] [place] [address], [id number] PET MELANOMA INITIALon 09-11 PET MELANOMA INITIAL EXAMINATION: PET MELANOMA INITIALPRO/PI 09/12/2023 02:05 PM CLINICAL HISTORY: large exophytic melanoma of the left posterior shoulder, palpable left axillary lymph nodes, eval for metastatic disease ASSOCIATED DIAGNOSIS: 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) Enlarged lymph nodes in armpit ORDERING PROVIDER: LIZZETH DEMARCO TECHNOLOGISTS NOTE: Blood sugar: 102mg/dL -DM, NPO 17.8mCi inj right hand at 1220 6'1'', 165lbs COMPARISON: None TECHNIQUE: At approximately 1 hour following the intravenous administration of F18 FDG, whole body PET/CT imaging was performed. This imaging consisted of unenhanced low dose spiral axial 3.[address] imaging from the vertex of the skull through the toes which was utilized for PET attenuation correction as well as anatomic localization. This was followed by full ring positron emission tomography (PET). INTRA-PROCEDURE MEDS: fludeoxyglucose F18 (FDG) 20-300 MCI/ML solution 17.8 millicurie Route: Intravenous FINDINGS: Mediastinal blood pool SUV mean 1.7 Liver background SUV mean 1.8 HEAD/NECK: No areas of abnormal FDG avidity are seen. No neck mass or adenopathy is noted. . CHEST: Hypermetabolic soft tissue mass at the left posterior chest wall measures 13 x 6.4 x 12.5 cm (Maximum SUV = 15.4). No thania chest wall invasion. A soft tissue plane is present the mass from the paraspinal musculature and chest wall. Large paraseptal emphysematous blebs are present bilaterally. Multiple areas of bandlike atelectasis are present bilaterally. A left lower lobe consolidation is favored to be atelectasis.. ABDOMEN/PELVIS: No areas of abnormal FDG avidity are seen. Atherosclerotic calcifications of the abdominal aorta and iliac branches.. MUSCULOSKELETAL: No areas of abnormal FDG avidity are seen. No destructive osseous lesion is noted. . IMPRESSION: 1. Hypermetabolic soft tissue mass of the left posterior chest wall consistent with biopsy-proven malignancy. 2. No metabolic evidence of regional, nor distant metastatic disease 3. Advanced paraseptal emphysema with large blebs bilaterally. MACRO: None Normal [facility] Telephone Encounteron 2023 Eyeletter Authentication Interface Message Text Called patient to discuss PET/CT results, which show no obvious evidence of cancer spread. We discussed that he has some prominent left axillary lymph nodes without overtly concerning feature or FDG avidity, but that biopsy of these lymph nodes is recommended to evaluate need for lymph node dissection at the time of surgery. This has been ordered for him. I informed him that the pathologists are reviewing his slides and I will update him once I have the results of their interpretation Normal [facility] Telephone Encounteron 2023 Eyeletter Authentication Interface Message Text Pt called back and confirmed appt. Just fy. Thank you Normal The [employer] Messaging Interface Message Text TC to pt, left message to call palliative medicine department at [phone] to schedule visit. Pt is coming for PET scan on 09/11. Dr. Ortega has availability to see pt same day, appt scheduled for 2:40 after scan. Pt should come to cancer care per appointment note. If pt returns call, please advise him of appointment and if he has any questions or concerns, can route back to palliative care nurses. Normal [facility] Progress Noteson 08-27-2023 Eyeletter Authentication Interface Message Text SURGICAL ONCOLOGY NEW PATIENT CONSULT Chief Complaint Patient presents with Local swelling/papule/lump/ma ss Consult with specialist REASON FOR EVALUATION Patient being seen at the request of Dr Sabrina New with regards to new diagnosis of melanoma. HISTORY OF PRESENT ILLNESS Mr Tavarez is a 58 year old male presenting with a rapidly enlarging soft tissue mass of the left back with biopsy suggestive of melanoma. For completeness of records, he first noticed a golf ball sized raised mass on his left lateral back in May 2023. At that time, the lesion was not painful. He reports that it was red to violaceous in color, but otherwise asymptomatic. He had no antecedent trauma or injury to the area. The lesion started to enlarge and become more painful, prompting evaluation by his PCP. He had a CT chest with contrast performed at [facility] on 07/17/2023 which showed an ovoid soft tissue lesion in the subcutaneous tissue of the left upper back, measuring 8.4 x 3.6 cm (increased from 1.9 x [address] chest 06/2022). The lesion was reportedly largely homogeneous with a Hounsfield units of 50 with some focal enhancement inferiorly. There was evidence of a preserved fat plane between the lesion and underlying musculature. He was then referred to Dr Girish Nathan (general surgery) a [facility] for and underwent incisional and core needle biopsy of the mass on 07/23/2023. 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 The lesion was positive for S100, vimentin, SOX10 and negative for CK7, CK20, desmin, AE1/3, HMB 45, and Melan-A. There was mild background SMA staining. 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 The slides were submitted to [facility] for pathologic consultation and the assessment from [facility] was felt to be consistent with malignant melanoma. Given concern for melanoma, he was referred for evaluation. He presents today with his daughter and grand-daughter. He reports that the mass seems to be growing rapidly. It is becoming very symptomatic for him. He has constant pain, which is burning in nature with some itching and intermittent sharp pains. The pain does not radiate and is not associated with any numbness, weakness, or tingling. He reports that the pain is worse when laying on the lesion or when things rub against it, especially with sleeping. He is having trouble sleeping due to the pain. He has also had intermittent bleeding from the lesion. He has never had any similar lesions in the past and denies any personal history of cancer. He is adopted and does not know any family history. He denies any other systemic symptoms. 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 He notes that he does not burn easily and tans instead. He does, however, report a handful of blistering sunburns in his young adulthood. Past Medical History: Diagnosis Date Lung abnormality half of lung is Past Surgical History: Procedure Laterality Date APPENDECTOMY HIATAL HERNIA REPAIR Current Outpatient Medications: pregabalin (Lyrica) 50 MG capsule, Take 1 Capsule by mouth 3 times daily for 30 days., Disp: 90 Capsule, Rfl: 0 tramadol (ULTRAM) 50 MG tablet, Take 1 Tablet by mouth every 6 hours as needed for Pain for up to 7 days., Disp: 28 Tablet, Rfl: 0 acetaminophen (TYLENOL) 500 MG tablet, Take 500 mg by mouth every 6 hours as needed for Pain or Fever., Disp: , Rfl: ALLERGIES Patient has no allergy information on record. Family History Adopted: Yes Social History Current 1-1.25 ppd smoker, smoked since age 14-15, previously smoked up to 3 ppd Social EtOH Works in [employer] Systems Constitutional: Negative for chills, fever, malaise/fatigue and weight loss. HENT: Negative for hearing loss, nosebleeds and sore throat. Eyes: Negative for blurred vision, double vision and discharge. Respiratory: Positive for cough (chronic smoker's cough). Negative for hemoptysis and shortness of breath. Cardiovascular: Negative for chest pain, palpitations and leg swelling. Gastrointestinal: Negative for abdominal pain, blood in stool, constipation, diarrhea, nausea and vomiting. Genitourinary: Negative for dysuria and hematuria. Musculoskeletal: Negative for back pain, joint pain and myalgias. Skin: Negative for itching and rash. Neurological: Negative for dizziness, tingling, sensory change, focal weakness and headaches. Endo/Heme/Allergies: Negative. Psychiatric/Behavioral: Negative. PHYSICAL EXAMINATION: BP 163/86 Pulse 96 Resp 16 Ht 6' 1.03 (1.855 m) Wt 165 lb 9.6 oz (75.1 kg) SpO2 95% BMI 21.83 kg/m??? General appearance: healthy, alert, pleasant, mild d (more content not included)... Normal [facility] Progress Noteson 08-24-2023 Eyeletter Authentication Interface Message Text [facility]/insurance assistance. Pt is uninsured but has appointment wit financial eligibility on 09/19/2023. SW inquired if Pt had veer applied for Medicaid. Pt explained that he doesn't meet the income requirements for Medicaid. SW explained that Pt can apply for insurance from the Healthcare marketplace if he has a qualifying condition. SW explained that applying for Medicaid and being denied would create a qualifying condition. Pt explained that he would wait until level of MH FAP discount is received before applying for insurance. Pt denied having any financial, transportation, housing or food insecurity concerns. SW will remain available. 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 [id number] Normal [facility] BASIC METABOLIC PANELon 07-27 Anion gap [Moles/Vol] 15 mmol/L Normal 10-20 [facility] Comment on above: Performed By: #### C H8, LD, HEPATIC #### [facility] [address] [place] [address], Calcium [Mass/Vol] 9.6 mg/dL Normal 8.6-10.3 The [facility] Comment on above: Performed By: #### C H8, LD, HEPATIC #### [facility] [address] [place], [place], Chloride [Moles/Vol] 104 mmol/L Normal 98-107 [facility] Comment on above: Performed By: #### C H8, LD, HEPATIC #### [facility] [address] [place] [address], CO2 [Moles/Vol] 24 mmol/L Normal 21-31 The [facility] Comment on above: Performed By: #### Sanjay Adkins LD, HEPATIC #### [facility] [address] [place], [place], Creatinine [Mass/Vol] 0.90 mg/dL Normal 0.70-1.[address] [facility] Comment on above: Performed By: #### Sanjay HLiv, LD, HEPATIC #### [facility] [address] [place], [place], ESTIMATED GFR (CKD-EPI) 99 mL/min/1.73sqm Normal >=60 The [facility] Comment on above: Result Comment: 2020 CKD EPI Equation using Creatinine without Race Comment: Estimated glomerular filtration rate (eGFR) is calculated without a race coefficient. Values should be interpreted in the context of the patient's full clinical presentation. Reference: 1. Mervin Grace, Morgan M, Jim GARCIA, et al.. A Unifying Approach for GFR Estimation: Recommendations of the NKF-ASN Task Force on Reassessing the Inclusion of Race in Diagnosing Kidney Disease. [place] Journal of Kidney Diseases 202;79(2):268-88.e1. 2. N Engl J Med 2020 Vol. 385 Issue 19 Pages 4400-4098 Performed By: #### CESAR Neumann, HEPATIC #### [facility] [address] [place], [place], Glucose [Mass/Vol] 80 mg/dL Normal 74-109 The [facility] Comment on above: Performed By: #### Sanjay HCESAR Peck, HEPATIC #### [facility] [address] [place], [place], Potassium [Moles/Vol] 4.3 mmol/L Normal 3.5-5.[address] [facility] Comment on above: Performed By: #### Sanjay HLiv, CESAR, HEPATIC #### [facility] [address] [place], [place], Sodium [Moles/Vol] 139 mmol/L Normal 136-145 The [facility] Comment on above: Performed By: #### Sanjay H8, CESAR, HEPATIC #### [facility] [address] [place], [place], Urea nitrogen [Mass/Vol] 13 mg/dL Normal 7-25 [facility] Comment on above: Performed By: #### C Lucille, LD, HEPATIC #### [email or web address] LAB[facility]ORY [address] [place], [place], CBC WITH DIFFERENTIALon 07-27 Basophils (Bld) [#/Vol] 0.07 10*3/uL Normal 0.00-0.20 The [facility] Comment on above: Performed By: #### C BCDSAT ####[facility] [[email or web address] PATHOLOGY [id number] [place], [place], Basophils/100 WBC (Bld) 0.7 % Normal <=1.9 [facility] Comment on above: Performed By: #### Sanjay SINCLAIRDSAT ####[facility] [[email or web address] PATHOLOGY [id number] [place], [place], Eosinophils (Bld) [#/Vol] 0.20 10*3/uL Normal 0.00-0.70 The [facility] Comment on above: Performed By: #### Sanjay BCDSAT ####[email or web address] PATHOLOGY [id number] [place], Eosinophils/100 WBC (Bld) 2.0 % Normal 0.1-4.0 [facility] Comment on above: Performed By: #### C DOTTIEDSAT ####[facility] [[email or web address] PATHOLOGY [id number] [place], Erythrocyte distribution width (RBC) [Ratio] 14.5 % Normal 11.5-14.5 The [facility] Comment on above: Performed By: #### Sanjay BCDSAT ####[email or web address] PATHOLOGY [id number] [place], Hematocrit (Bld) [Volume fraction] 47.1 % Normal 41.0-53.[address] [facility] Comment on above: Performed By: #### C BCDSAT ####S PATHOLOGY [id number] [place], Hemoglobin (Bld) [Mass/Vol] 15.9 g/dL Normal 13.9-16.3 The [facility] Comment on above: Performed By: #### C GRACIELAAT ####[email or web address] PATHOLOGY [id number] [place], Lymphocytes (Bld) [#/Vol] 2.26 10*3/uL Normal 1.00-4.80 The [facility] Comment on above: Performed By: #### C BCDSAT ####[facility] [[email or web address] PATHOLOGY [id number] [place], Lymphocytes/100 WBC (Bld) 22.2 % Low 24.0-44.0 The [facility] Comment on above: Performed By: #### C BCDSAT ####[facility] [[email or web address]] PATHOLOGY [id number] [place], MCH (RBC) [Entitic mass] 30.4 pg Normal 26.0-34.0 The [facility] Comment on above: Performed By: #### C BCDSAT ####[facility] [[email or web address]] PATHOLOGY [id number] [place], MCHC (RBC) [Mass/Vol] 33.6 g/dL Normal 32.0-35.9 The [facility] Comment on above: Performed By: #### C BCDSAT ####[facility] [[email or web address] PATHOLOGY [id number] [place], MCV (RBC) [Entitic vol] 91 fL Normal 80-100 The [facility] Comment on above: Performed By: #### C BCDSAT ####[facility] [[email or web address] PATHOLOGY [id number] [place], Monocytes (Bld) [#/Vol] 0.78 10*3/uL Normal 0.20-1.00 The [facility] Comment on above: Performed By: #### C BCDSAT ####[facility] [[email or web address] PATHOLOGY [id number] [place], Monocytes/100 WBC (Bld) 7.6 % Normal 2.0-11.0 The [facility] Comment on above: Performed By: #### C BCDSAT ####[facility] [[email or web address]] PATHOLOGY [id number] [place], Neutrophils (Bld) [#/Vol] 6.87 10*3/uL Normal 1.50-8.00 The [facility] Comment on above: Performed By: #### Sanjay BCDSAT ####S PATHOLOGY [id number] [place], Neutrophils/100 WBC (Bld) 67.5 % Normal 31.0-76.0 The [facility] Comment on above: Performed By: #### Sanjay BCDSAT ####S PATHOLOGY [id number] [place], Platelet mean volume (Bld) [Entitic vol] 7.6 fL Normal 7.5-11.2 The [facility] Comment on above: Performed By: #### Sanjay SINCLAIRDSAT ####S PATHOLOGY [id number] [place], Platelets (Bld) [#/Vol] 410 10*3/uL High 150-400 The [facility] Comment on above: Performed By: #### Sanjay SINCLAIRDSAT ####S PATHOLOGY [id number] [place], RBC (Bld) [#/Vol] 5.21 10*6/uL Normal 4.50-5.90 The [facility] Comment on above: Performed By: #### Sanjay SINCLAIRDSAT ####S PATHOLOGY [id number] [place], WBC (Bld) [#/Vol] 10.2 10*3/uL Normal 4.5-11.5 The [facility] Comment on above: Performed By: #### Sanjay BCDSAT ####[facility] [id number] [place], [place], HEPATIC FUNCTION PANELon Albumin [Mass/Vol] 4.4 g/dL Normal 3.5-5.7 The [facility] Comment on above: Order Comment: Note updated reference ranges. Performed By: #### Sanjay H8, LD, HEPATIC #### [facility] [address] [place], [place], ALK 80 IU/L Normal 34-[address] [facility] Comment on above: Order Comment: Note updated reference ranges. Performed By: #### Sanjay H8, LD, HEPATIC #### [facility] [address] [place] [address], ALT [Catalytic activity/Vol] 43 U/L Normal 7-[address] [facility] Comment on above: Order Comment: Note updated reference ranges. Performed By: #### C H8, LD, HEPATIC #### [facility] [address] [place] [address], AST [Catalytic activity/Vol] 20 U/L Normal 13-[address] [facility] Comment on above: Order Comment: Note updated reference ranges. Performed By: #### C H8, LD, HEPATIC #### [facility] [address] [place] [address], Bilirubin [Mass/Vol] 0.4 mg/dL Normal 0.3-1.[address] [facility] Comment on above: Order Comment: Note updated reference ranges. Performed By: #### C H8, LD, HEPATIC #### [facility] [address] [place] [address], Bilirubin.direct [Mass/Vol] 0.06 mg/dL Normal 0.03-0.[address] [facility] Comment on above: Order Comment: Note updated reference ranges. Performed By: #### C H8, LD, HEPATIC #### [facility] [address] [place] [address], Protein [Mass/Vol] 7.4 g/dL Normal 6.0-8.3 The [facility] Comment on above: Order Comment: Note updated reference ranges. Performed By: #### C H8, LD, HEPATIC #### [facility] [address] [place] [address], LDHon 08-23-2023 LD 179 IU/L Normal 50-[address] [facility] Comment on above: Performed By: #### C H8, LD, HEPATIC #### [facility] [address] [place] [address], Progress Noteson 08-23-2023 Eyeletter Authentication Interface Message Text Patient was identified by name and date of . Osman Barker Body Mass Index is 21.83. Body Surface Area is 1.99 square meters according to the formula of Ryan and Ryan. Patient at risk for falls:No Falls Risk protocol implemented: No Blood pressure 163/86, pulse 96, resp. rate 16, height 6' 1.03 (1.855 m), weight 165 lb 9.6 oz (75.1 kg), SpO2 95 %. Osman Ricci Lucero Normal The [facility] Lab - AP Resultson 4 Lab - AP Results [id number]#1.00OT [facility] Lab - AP Resultson 4 Lab - AP Results [id number]#1.00O [facility] Consent Formson 07-27-2023 Consent Forms [id number]#1.00O [facility] Lab - AP Resultson 4 Lab - AP Results [id number]#1.00OT [facility] Bartolome 07-23-2023 L Specimen: [id number] Received: 07/24/23 Status: GHASSAN Fay Num: [id number] Spec Type: Surgical Subm Dr: Girish Nathan MD Tissues: A Soft Tissue/Surgical Margin-Other than Tumor,Mass,Lip or Carrie (LT UPPER BACK) Procedures: VIMENTIN, S 100, MART 1/CIRILO A, HE/4, Gross/Micro L4, DESMIN, AE1-AE3, CK20, CK 7, SM ACTIN, IHC First AB, IHC Add AB/9, HMB45, SOX-10 Age/ Patient Sex Location Account Attending Physician Govind Tavarez 57/M [facility] [id number] Girish Nathan MD SPEC NUM: [id number] RECD: 07/24/23 STATUS: GHASSAN FAY NUM: [id number] TINA: 07/23/[address]: Girish Nathan MD ENTERED: 07/24/[address] [facility] [address]: Tammie,Lab SPEC TYPE: Surgical DEPT: MAG MILLER ORDERED: VIMENTIN, S 100, MART 1/CIRILO A, HE/4, Gross/Micro L4, DESMIN, AE1-AE3, CK20, CK 7, SM ACTIN, IHC First AB, IHC Add AB/9, HMB45, SOX-10 ORDERED: VIMENTIN, S 100, MART 1/CIRILO A, HE/4, Gross/Micro L4, DESMIN, AE1-AE3, CK20, CK 7, SM ACTIN, IHC First AB, IHC Add AB/9, HMB45, SOX-10 Supplemental Report Addendum 2 Entered: 09/18/23 Supplemental for findings of consultation report from the [facility], Department of pathology: Final diagnosis: -Most consistent with melanoma Note: -Please also see detailed description and diagnosis comment in entire report on file Addendum Signed (signature on file) Merlin-Gerard Sue MD 09/18/231918 Addendum 1 Entered: 07/27/23 Supplemental for findings of consultation report from [facility]: Diagnosis: Specimen: [id number] Received: 07/24/23 Status: APRILRiri Fay Num: [id number] Spec Type: Surgical Subm Dr: Girish Nathan MD Tissues: A Soft Tissue/Surgical Margin-Other than Tumor,Mass,Lip or Carrie (LT UPPER BACK) Procedures: VIMENTIN, S 100, MART 1/CIRILO A, HE/4, Gross/Micro L4, DESMIN, AE1-AE3, CK20, CK 7, SM ACTIN, IHC First AB, IHC Add AB/9, HMB45, SOX-10 Patient: Govind Tavarez [id number] (Continued) Specimen: [id number] Received: 07/24/23 (Continued) Supplemental Report (Continued) Signed (signature on file) Angela Sue MD 07/25/23 1708 Specimen: [id number] Received: 07/24/23 Status: GHASSAN Fay Num: [id number] Spec Type: Surgical Subm Dr: Girish Nathan MD Tissues: A Soft Tissue/Surgical Margin-Other than Tumor,Mass,Lip or Carrie (LT UPPER BACK) Procedures: VIMENTIN, S 100, MART 1/CIRILO A, HE/4, Gross/Micro L4, DESMIN, AE1-AE3, CK20, CK 7, SM ACTIN, IHC First AB, IHC Add AB/9, HMB45, SOX-10 Patient: Govind Tavarez [id number] (Continued) Specimen: [id number] Received: 07/24/23-1156 (Continued) Supplemental Report (Continued) Soft tissue, left upper back, core needle and skin biopsies: -Malignant melanoma Note: -Please also see consultation later on file for detailed information Addendum Signed (signature on file) Merlin-Gerard Sue MD 07/27/23 1318 Pathological Diagnosis Soft tissue, left upper back mass, core needle biopsy: - 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 The case will also be submitted for secondary review at [facility] and with final interpretation in supplemental to follow Clinical Information D48.9 Specimen: [id number] Received: 07/24/23 Status: GHASSAN Re Num: [id number] Spec Type: Surgical Subm Dr: Girish Nathan MD Tissues: A Soft Tissue/Surgical Margin-Other than Tumor,Mass,Lip or Carrie (LT UPPER BACK) Procedures: VIMENTIN, S 100, MART 1/CIRILO A, HE/4, Gross/Micro L4, DESMIN, AE1-AE3, CK20, CK 7, SM ACTIN, IHC First AB, IHC Add AB/9, HMB45, SOX-10 (more content not included)... [facility] Patient Handouton 07-23-2023 Patient Handout Custom [facility] Surgery [place] [id number] [facility], [address], [place] Date: 07/23/2023 RE: Edilma Daysi To whom it may concern, Edilma has been under my professional care due to a surgical procedure performed on 07/23/2023. Please excuse him from work from 07/22/2023-07/26/2023. He may return to work with no restrictions on 07/27/2023. Thank you, Girish Nathan M.D. [facility] Rad - Other Radiology Report on 07-23-2023 Rad - Other Radiology Report [id number]#1.0 [facility] Patient Provided Health Data on 07-05-2023 Patient Provided Health Data [id number]#1.00 [facility] 07-04-2023 Patient Handout [id number]#1.00O [facility] CBC AUTO DIFFon 10-12-2019 Basophils (Bld) [#/Vol] 0.0 103/ul Normal 0.0-0.1 [facility] Comment on above: Performed By: #### C BC #### [facility] [address] [place] [address] Catrachita Mayra Basophils/100 WBC (Bld) 0.2 % Normal 0.2-2.0 [facility] Comment on above: Performed By: #### C BC #### [facility] [address] [place] [address] Catrachita Mayra Eosinophils (Bld) [#/Vol] 0.1 103/ul Normal 0.0-0.7 [facility] Comment on above: Performed By: #### C BC #### [facility] [address] [place] [address] Catrachita Mayra Eosinophils/100 WBC (Bld) 0.4 % Critically low 0.9-7.0 [facility] Comment on above: Performed By: #### C BC #### [facility] [address] [place] [address] Catrachita Mayra Erythrocyte distribution width (RBC) [Ratio] 13.8 % Normal 11.0-15.0 [facility] Comment on above: Performed By: #### C BC #### [facility] [address] [place], [place] [address] Catrachita Mayra Hematocrit (Bld) [Volume fraction] 43.1 % Normal 42.0-54.0 [facility] Comment on above: Performed By: #### C BC #### [facility] [address] [place], [place] [address] Catrachita Mayra Hemoglobin (Bld) [Mass/Vol] 14.2 g/dL Normal 14.0-18.0 [facility] Comment on above: Performed By: #### C BC #### [facility] [address] [place], [place] [address] Catrachitadeepali Nunez IG # 0.08 10e3/ul Critically high 0.00-0.03 [facility] Comment on above: Performed By: #### C BC #### [facility] [address] [place] [address] Catrachita Mayra IG % 0.5 % Normal 0.0-0.5 [facility] Comment on above: Performed By: #### C BC #### [facility] [address] [place] [address] Catrachita Mayra Lymphocytes (Bld) [#/Vol] 1.5 103/ul Normal 1.2-3.8 [facility] Comment on above: Performed By: #### C BC #### [facility] [address] [place] [address] Catrachita Nunez Lymphocytes/100 WBC (Bld) 9.0 % Critically low 20.5-60.0 [facility] Comment on above: Performed By: #### C BC #### [facility] [address] [place], [place] [address] Catrachita Nunez MANUAL DIFF REQ NO Normal [facility] Comment on above: Performed By: #### C BC #### [facility] [address] [place] [address] Catrachita Nunez MCH (RBC) [Entitic mass] 31.2 pg Normal 25.9-34.0 [facility] Comment on above: Performed By: #### C BC #### [facility] [address] [place], [place] [address] Catrachitadeepali Nunez MCHC (RBC) [Mass/Vol] 32.9 g/dL Normal 29.9-35.2 [facility] Comment on above: Performed By: #### C BC #### [facility] [address] [place] [address] Catrachitadeepali Nunez MCV (RBC) [Entitic vol] 94.7 fL Critically high 80.0-94.0 [facility] Comment on above: Performed By: #### C BC #### [facility] [address] [place], [place] [address] Catrachita Mayra Monocytes (Bld) [#/Vol] 0.9 103/ul Critically high 0.3-0.8 [facility] Comment on above: Performed By: #### C BC #### [facility] [address] [place], [place] [address] Catrachita Mayra Monocytes/100 WBC (Bld) 5.2 % Normal 1.7-12.0 [facility] Comment on above: Performed By: #### C BC #### [facility] [address] [place], [place] [address] Catrachita Mayra Neutrophils (Bld) [#/Vol] 13.8 103/ul Critically high 1.4-6.5 [facility] Comment on above: Performed By: #### C BC #### [facility] [address] [place] [address] Catrachita Mayra Neutrophils/100 WBC (Bld) 84.7 % Critically high 43.0-75.0 [facility] Comment on above: Performed By: #### C BC #### [facility] [address] [place], [place] [address] Catrachitadeepali Nunez Platelet mean volume (Bld) [Entitic vol] 9.4 fL Critically low 9.5-13.5 [facility] Comment on above: Performed By: #### C BC #### [facility] [address] [place], [place] [address] Catrachita Mayra Platelets (Bld) [#/Vol] 261 103/ul Normal 150-450 [facility] Comment on above: Performed By: #### C BC #### [facility] [address] [place], [place] [address] Catrachita Mayra RBC (Bld) [#/Vol] 4.55 106/ul Critically low 4.70-6.10 [facility] Comment on above: Performed By: #### C BC #### [facility] [address] [place], [place] [address] Catrachita Nunez WBC (Bld) [#/Vol] 16.3 103/ul Critically high 4.0-11.0 [facility] Comment on above: Performed By: #### C DOTTIE #### [facility] [address] [place] [address] Catrachita Nunez CBC W MANUAL DIFFon 10-11-19 20 ATYPICAL LYMPH # Normal [facility] Comment on above: Performed By: #### C CARLITOS #### [facility] [address] [place] [address] Catrachita Mayra ATYPICAL LYMPH % Normal [facility] Comment on above: Performed By: #### C CARLITOS #### [facility] [address] [place] [address] Catrachita Mayra BAND # 2.1 103/ul Critically high 0.0-0.3 [facility] Comment on above: Performed By: #### C CARLITOS #### [facility] [address] [place] [address] Catrachita Mayra BAND % 11 % Critically high 0-5 [facility] Comment on above: Performed By: #### C CARLITOS #### [facility] [address] [place] [address] Catrachita Mayra BASOM # 0.00 103/ul Normal 0.00-0.10 [facility] Comment on above: Performed By: #### C CARLITOS #### [facility] [address] [place] [address] Catrachita Mayra BASOM % 0.0 % Critically low 0.2-2.0 [facility] Comment on above: Performed By: #### C CARLITOS #### [facility] [address] [place] [address] Catrachita Mayra BLAST # Normal [facility] Comment on above: Performed By: #### C CARLITOS #### [facility] [address] [place] [address] Catrachita Mayra BLAST % Normal [facility] Comment on above: Performed By: #### C CARLITOS #### [facility] [address] [place], [place] [address] Catrachita Mayra CORRECTED WBC Normal 4.0-11.0 [facility] Comment on above: Performed By: #### C CARLITOS #### [facility] [address] [place], [place] [id number] Catrachita Mayra Eosinophils (Bld) [#/Vol] 0.00 103/ul Normal 0.00-0.70 [facility] Comment on above: Performed By: #### C CARLITOS #### [facility] [address] [place], [place] [address] Catrachita Mayra Eosinophils/100 WBC (Bld) 0.0 % Critically low 0.9-7.0 [facility] Comment on above: Performed By: #### C CARLITOS #### [facility] [address] [place], [place] [address] Catrachita Mayra Erythrocyte distribution width (RBC) [Ratio] 13.7 % Normal 11.0-15.0 [facility] Comment on above: Performed By: #### C CARLITOS #### [facility] [address] [place], [place] [address] Catrachita Mayra Hematocrit (Bld) [Volume fraction] 43.6 % Normal 42.0-54.0 [facility] Comment on above: Performed By: #### Sanjay URBINA #### [facility] [address] [place], [place] [address] Catrachita Mayra Hemoglobin (Bld) [Mass/Vol] 14.7 g/dl Normal 14.0-18.0 [facility] Comment on above: Performed By: #### Sanjay URBINA #### [facility] [address] [place] [address] Catrachita Mayra LYMPHM # 1.34 103/ul Normal 1.20-3.80 [facility] Comment on above: Performed By: #### Sanjay URBINA #### [facility] [address] [place], [place] [address] Catrachita Mayra LYMPHM% 7.0 % Critically low 20.5-60.0 [facility] Comment on above: Performed By: #### Sanjay URBINA #### [facility] [address] [place], [place] [address] Catrachita Mayra MCH (RBC) [Entitic mass] 31.4 pg Normal 25.9-34.0 [facility] Comment on above: Performed By: #### Sanjay URBINA #### [facility] [address] [place] [address] Catrachita Nunez MCHC (RBC) [Mass/Vol] 33.7 g/dl Normal 29.9-35.2 [facility] Comment on above: Performed By: #### Sanjay URBINA #### [facility] [address] [place] [address] Catrachita Nunez MCV (RBC) [Entitic vol] 93.2 fL Normal 80.0-94.0 [facility] Comment on above: Performed By: #### Sanjay URBINA #### [facility] [address] [place] [address] Catrachita Mayra METAMYELOCYTE # Normal [facility] Comment on above: Performed By: #### Sanjay URBINA #### [facility] [address] [place] [address] Catrachita Mayra METAMYELOCYTE % Normal [facility] Comment on above: Performed By: #### Sanjay URBINA #### [facility] [address] [place] [address] Catrachita Mayra MONOM# 1.53 103/ul Critically high 0.30-0.80 [facility] Comment on above: Performed By: #### Sanjay URBINA #### [facility] [address] [place] [address] Catrachita Mayra MONOM% 8.0 % Normal 1.7-12.0 [facility] Comment on above: Performed By: #### Sanjay URBINA #### [facility] [address] [place] [address] Catrachita Mayra MYELOCYTE # Normal [facility] Comment on above: Performed By: #### Sanjay URBINA #### [facility] [address] [place] [address] Catrachita Mayra MYELOCYTE % Normal [facility] Comment on above: Performed By: #### Sanjay URBINA #### [facility] [address] [place], [place] [address] Catrachita Nunez NRBC Normal [facility] Comment on above: Performed By: #### Sanjay URBINA #### [facility] [address] [place], [place] [address] Catrachita Nunez Platelet mean volume (Bld) [Entitic vol] 9.1 fL Critically low 9.5-13.5 [facility] Comment on above: Performed By: #### Sanjay URBINA #### [facility] [address] [place], [place] [address] Catrachita Nunez Platelets (Bld) [#/Vol] 255 103/ul Normal 150-450 [facility] Comment on above: Performed By: #### C CARLITOS #### [facility] [address] [place], [place] [address] Catrachita Nunez RBC (Bld) [#/Vol] 4.68 106/ul Critically low 4.70-6.10 [facility] Comment on above: Performed By: #### Sanjay URBINA #### [facility] [address] [place] [address] Catrachita Nunez SEG # 14.13 103/ul Critically high 1.40-6.50 [facility] Comment on above: Performed By: #### Sanjay URBINA #### [facility] [address] [place], [place] [address] Catrachita Nunez Segmented neutrophils/100 WBC (Bld) 74.0 % Normal 43.0-75.0 [facility] Comment on above: Performed By: #### Sanjay URBINA #### [facility] [address] [place], [place] [address] Catrachita Nunez WBC (Bld) [#/Vol] 19.1 103/ul Critically high 4.0-11.0 [facility] Comment on above: Performed By: #### Sanjay URBINA #### [facility] [address] [place], [place] [address] Catrachita Nunez CT ABD/PELV W CONon 10-11-[address] ABD/PELV W CON EXAMINATION: CT ABD/PELV W CON HISTORY: Right lower quadrant pain. COMPARISON: None. TECHNIQUE: Axial contrast-enhanced CT images of the abdomen/pelvis were performed; coronal and sagittal reformats were provided. 100 mL of Omnipaque 300 was administered intravenously. Dose reduction techniques were achieved by using automated exposure control and/or adjustment of mA and/or kV according to patient size and/or use of iterative reconstruction technique. FINDINGS: Mild right basilar scarring or atelectasis is noted. Degenerative changes of the spine are present. There is a small 4 mm hepatic cyst at the caudate lobe as on series 3 image 17. There is an additional 4 mm hypodensity at the inferior right hepatic lobe laterally as on series 3 image 40, most likely representing a cyst or hemangioma. The spleen and pancreas are unremarkable. There may be a small 5 mm gallbladder polyp as on series 3 image 38. The adrenal glands are unremarkable. There is a small outpouching of the stomach as on series 3 image 14 measuring 2.1 cm, demonstrating an air-fluid level, possibly representing a gastric ulcer. No hydronephrosis or obstructive uropathy. There are small left renal cysts as well as other too small to characterize renal hypodensities (measuring up to 1.3 cm with other hypodensities measuring between 3 and 5 mm). Atherosclerotic calcification of the aorta is noted. There are shotty right lower quadrant lymph nodes, most likely reactive. The appendix is dilated measuring up to 1.6 cm, fluid-filled, hyperemic and demonstrates appendicoliths with extensive surrounding periappendiceal inflammatory changes, overall consistent with acute appendicitis. No focal fluid collection is evident however right lower quadrant inflammatory changes are significant. There is small pelvic free fluid. The CT appearance of the bladder is unremarkable. IMPRESSION: Findings consistent with acute appendicitis with significant right lower quadrant inflammatory changes. Small hepatic and renal hypodensities which are favored to represent cysts while others are too small to characterize. A nonemergent follow-up MRI exam of the abdomen is recommended for more complete characterization. Small outpouching involving the stomach for which a gastric ulcer cannot be entirely excluded. Further evaluation with endoscopy may be advisable as clinically indicated. Electronically authenticated by: STUART BOLAÑOS Date: 2019-10-10 22:53 Normal [facility] ER URINE PROFILEon 0 Bilirubin [Mass/Vol] Negative Normal NEGATIVE [facility] Comment on above: Performed By: #### E RUR #### [facility] [address] [place], [place] [address] Catrachita Mayra BLOOD Negative Normal NEGATIVE [facility] Comment on above: Performed By: #### E RUR #### [facility] [address] [place] [address] Catrachita Mayra Clarity (U) CLEAR Normal [facility] Comment on above: Performed By: #### E RUR #### [facility] [address] [place], [place] [address] Catrachita Mayra Color (U) LT. YELLOW Normal YELLOW [facility] Comment on above: Performed By: #### E RUR #### [facility] [address] [place], [place] [address] Catrachita Mayra ERUAHD A micrscopic examination will be performed if indicated. Normal [facility] Comment on above: Performed By: #### E RUR #### [facility] [address] [place], [place] [address] Catrachita Mayra Glucose [Mass/Vol] Negative Normal NEGATIVE [facility] Comment on above: Performed By: #### E RUR #### [facility] [address] [place] [address] Catrachita Mayra Ketones Ql (U) Negative Normal NEGATIVE [facility] Comment on above: Performed By: #### E RUR #### [facility] [address] [place] [address] Catrachita Mayra Nitrite Ql (U) Negative Normal NEGATIVE [facility] Comment on above: Performed By: #### E RUR #### [facility] [address] [place] [address] Catrachita Mayra pH (Bld) 6.0 Normal 5-9 [facility] Comment on above: Performed By: #### E RUR #### [facility] [address] [place] [address] Catrachita Mayra Protein (U) [Mass/Vol] Negative Normal [facility] Comment on above: Performed By: #### E RUR #### [facility] [address] [place] [address] Catrachita Mayra SPEC GRAVITY <=1.005 Normal 1.005-<=1.025 [facility] Comment on above: Performed By: #### E RUR #### [facility] [address] [place] [address] Catrachitadeepali Nunez UR MICRO IND NOT INDICATED Normal [facility] Comment on above: Performed By: #### E RUR #### [facility] [address] [place], [place] [address] Catrachitadeepali Nunez Urobilinogen Qn (U) 0.2 EU/dl Normal [facility] Comment on above: Performed By: #### E RUR #### [facility] [address] [place] [address] Catrachitadeepali Nunez WBC (Bld) [#/Vol] Negative Normal NEGATIVE [facility] Comment on above: Performed By: #### E RUR #### [facility] [address] [place] [address] Catrachita Mayra CBC W MANUAL DIFFon 10-10-19 20 ATYPICAL LYMPH # Normal [facility] Comment on above: Performed By: #### C CARLITOS #### [facility] [address] [place] [address] Catrachita Mayra ATYPICAL LYMPH % Normal [facility] Comment on above: Performed By: #### Sanjay URBINA #### [facility] [address] [place] [address] Catrachita Mayra BAND # 0.6 103/ul Critically high 0.0-0.3 [facility] Comment on above: Performed By: #### Sanjay URIBNA #### [facility] [address] [place] [address] Catrachita Mayra BAND % 3 % Normal 0-5 [facility] Comment on above: Performed By: #### Sanjay URBINA #### [facility] [address] [place] [address] Catrachita Mayra BASOM # 0.00 103/ul Normal 0.00-0.10 [facility] Comment on above: Performed By: #### Sanjay URBINA #### [facility] [address] [place] [address] Catrachita Mayra BASOM % 0.0 % Critically low 0.2-2.0 [facility] Comment on above: Performed By: #### Sanjay URBINA #### [facility] [address] [place], [place] [address] Catrachita Mayra BLAST # Normal [facility] Comment on above: Performed By: #### Sanjay URBINA #### [facility] [address] [place], [place] [address] Catrachita Mayra BLAST % Normal [facility] Comment on above: Performed By: #### Sanjay URBINA #### [facility] [address] [place], [place] [address] Catrachita Mayra CORRECTED WBC Normal 4.0-11.0 [facility] Comment on above: Performed By: #### Sanjay URBINA #### [facility] [address] [place] [address] Catrachita Mayra Eosinophils (Bld) [#/Vol] 0.00 103/ul Normal 0.00-0.70 [facility] Comment on above: Performed By: #### Sanjay URBINA #### [facility] [address] [place] [address] Catrachita Mayra Eosinophils/100 WBC (Bld) 0.0 % Critically low 0.9-7.0 [facility] Comment on above: Performed By: #### Sanjay URBINA #### [facility] [address] [place], [place] [address] Catrachita Mayra Erythrocyte distribution width (RBC) [Ratio] 13.5 % Normal 11.0-15.0 [facility] Comment on above: Performed By: #### Sanjay URBINA #### [facility] [address] [place] [address] Catrachita Mayra Hematocrit (Bld) [Volume fraction] 47.5 % Normal 42.0-54.0 [facility] Comment on above: Performed By: #### Sanjay URBINA #### [facility] [address] [place], [place] [address] Catrachita Mayra Hemoglobin (Bld) [Mass/Vol] 16.3 g/dl Normal 14.0-18.0 [facility] Comment on above: Performed By: #### Sanjay URBINA #### [facility] [address] [place], [place] [address] Catrachita Mayra LYMPHM # 2.30 103/ul Normal 1.20-3.80 [facility] Comment on above: Performed By: #### Sanjay URBINA #### [facility] [address] [id number] Catrachita Mayra LYMPHM% 11.0 % Critically low 20.5-60.0 [facility] Comment on above: Performed By: #### Sanjay URBINA #### [facility] [address] [place], [place] [address] Catrachita Mayra MCH (RBC) [Entitic mass] 31.2 pg Normal 25.9-34.0 [facility] Comment on above: Performed By: #### Sanjay URBINA #### [facility] [address] [place] [address] Catrachita Mayra MCHC (RBC) [Mass/Vol] 34.3 g/dl Normal 29.9-35.2 [facility] Comment on above: Performed By: #### Sanjay URBINA #### [facility] [address] [place], [place] [address] Catrachita Mayra MCV (RBC) [Entitic vol] 91.0 fL Normal 80.0-94.0 [facility] Comment on above: Performed By: #### Sanjay URBINA #### [facility] [address] [place], [place] [address] Catrachita Mayra METAMYELOCYTE # Normal [facility] Comment on above: Performed By: #### Sanjay URBINA #### [facility] [address] [place], [place] [address] Catrachita Mayra METAMYELOCYTE % Normal [facility] Comment on above: Performed By: #### Sanjay URBINA #### [facility] [address] [place], [place] [address] Catrachita Mayra MONOM# 1.67 103/ul Critically high 0.30-0.80 [facility] Comment on above: Performed By: #### Sanjay URBINA #### [facility] [address] [place], [place] [address] Catrachita Mayra MONOM% 8.0 % Normal 1.7-12.0 [facility] Comment on above: Performed By: #### Sanjay URBINA #### [facility] [address] [id number] Catrachitadeepali Nunez MYELOCYTE # Normal [facility] Comment on above: Performed By: #### Sanjay URBINA #### [facility] [address] [id number] Catrachitadeepali Nunez MYELOCYTE % Normal [facility] Comment on above: Performed By: #### Sanjay URBINA #### [facility] [address] [id number] Catrachita Mayra NRBC Normal [facility] Comment on above: Performed By: #### Sanjay URBINA #### [facility] [address] [place], [place] [address] Catrachitadeepali Nunez Platelet mean volume (Bld) [Entitic vol] 9.2 fL Critically low 9.5-13.5 [facility] Comment on above: Performed By: #### Sanjay URBINA #### [facility] [address] [place], [place] [address] Catrachitadeepali Nunez Platelets (Bld) [#/Vol] 323 103/ul Normal 150-450 [facility] Comment on above: Performed By: #### Sanjay URBINA #### [facility] [address] [place], [place] [address] Catrachita Nunez RBC (Bld) [#/Vol] 5.22 106/ul Normal 4.70-6.[address] [facility] Comment on above: Performed By: #### Sanjay URBINA #### [facility] [address] [place], [place] [address] Catrachitadeepail Kinneyen SEG # 16.30 103/ul Critically high 1.40-6.50 [facility] Comment on above: Performed By: #### Sanjay URBINA #### [facility] [address] [place], [place] [address] Catrachita Mayra Segmented neutrophils/100 WBC (Bld) 78.0 % Critically high 43.0-75.0 [facility] Comment on above: Performed By: #### Sanjay URBINA #### [facility] [address] [place] [id number] Catrachitadeepali Nunez WBC (Bld) [#/Vol] 20.9 103/ul Critically high 4.0-11.0 [facility] Comment on above: Performed By: #### C CARLITOS #### [facility] [address] [place] [id number] Catrachita Nunez KERVIN, CVD-19 ([facility])on 020 REV FROM REF LAB RESULTS FAXED 10/12 [facility] Comment on above: Performed By: #### C [facility] #### [facility] [address] [place], [place] [address] Catrachita Nunez SENT TO REF LAB SENT TO [facility] ON 10/11/2019 [facility] Comment on above: Performed By: #### C [facility] #### [facility] [address] [place], [place] [address] Catrachita Nunez PROF 14(COMP METB)on 020 Albumin [Mass/Vol] 3.7 g/dL Normal 3.5-5.0 [facility] Comment on above: Performed By: #### C MP #### [facility] [address] [place], [place] [address] Catrachita Nunez Albumin/Globulin [Mass ratio] 1.0 {ratio} [facility] Comment on above: Performed By: #### C MP #### [facility] [address] [place], [place] [address] Catrachita Mayra ALP [Catalytic activity/Vol] 68 U/L Normal 38-126 [facility] Comment on above: Performed By: #### C MP #### [facility] [address] [place], [place] [address] Catrachita Mayra ALT [Catalytic activity/Vol] 25 U/L Normal 21-72 [facility] Comment on above: Performed By: #### C MP #### [facility] [address] [place], [place] [address] Catrachitadeepali Nunez Anion gap [Moles/Vol] 13.6 mmol/L Normal [facility] Comment on above: Performed By: #### C MP #### [facility] [address] [place] [address] Catrachita Mayra AST [Catalytic activity/Vol] 15 U/L Critically low 17-59 [facility] Comment on above: Performed By: #### C MP #### [facility] [address] [id number] Catrachita Mayra Bilirubin Ql (U) 0.7 mg/dL Normal 0.2-1.3 [facility] Comment on above: Performed By: #### C MP #### [facility] [address] [address] Catrachita Mayra Calcium [Mass/Vol] 9.2 mg/dL Normal 8.4-10.[address] [facility] Comment on above: Performed By: #### C MP #### [facility] [address] [address] Catrachita Mayra Chloride [Moles/Vol] 101 mmol/L Normal 98-107 [facility] Comment on above: Performed By: #### C MP #### [facility] [address] [address] Catrachita Mayra CO2 [Moles/Vol] 26.0 mmol/L Normal 22.0-30.0 [facility] Comment on above: Performed By: #### C MP #### [facility] [address] [address] Catrachita Mayra Creatinine [Mass/Vol] 1.00 mg/dL Normal 0.66-1.25 [facility] Comment on above: Performed By: #### C MP #### [facility] [address] [id number] Catrachita Mayra EGFR-AF M[place]ICAN >60 Normal >=60 [facility] Comment on above: Performed By: #### C MP #### [facility] [address] [id number] Catrachita Mayra EGFR-NON AF [place] >60 Normal >=60 [facility] Comment on above: Performed By: #### C MP #### [facility] [address] [id number] Catrachita Mayra Globulin (S) [Mass/Vol] 3.7 g/dL Normal [facility] Comment on above: Performed By: #### C MP #### [facility] [address] [id number] Catrachita Mayra Glucose [Mass/Vol] 129 mg/dL Critically high 74-106 [facility] Comment on above: Performed By: #### C MP #### [facility] [address] [place], [place] [address] Catrachita Mayra Potassium [Moles/Vol] 3.6 mmol/L Normal 3.4-5.0 [facility] Comment on above: Performed By: #### C MP #### [facility] [address] [id number] Catrachita Mayra Protein [Mass/Vol] 7.4 g/dL Normal 6.1-8.2 [facility] Comment on above: Performed By: #### C MP #### [facility] [address] [id number] Catrachita Mayra Sodium [Moles/Vol] 137 mmol/L Normal 137-145 [facility] Comment on above: Performed By: #### C MP #### [facility] [address] [id number] Catrachita Mayra Urea nitrogen [Mass/Vol] 12.0 mg/dL Normal 9.0-20.0 [facility] Comment on above: Performed By: #### C MP #### [facility] [address] [id number] Catrachita Mayra Urea nitrogen/Creatinin e [Mass ratio] 12.0 mg/mg Normal [facility] Comment on above: Performed By: #### C MP #### [facility] [address] [place], [place] [address] Catrachita Mayra Vital Signs Date Time Vital Sign Value Performing Clinician Faci lity 11-07-2023 19:50-0400 Body temperature 98.01 [degF] Lynne Tejada MD Work Phone: [facility] 11-07-2023 19:50-0400 Diastolic blood pressure 73 mm[Hg] Lynne Tejada MD Work Phone: [facility] 11-07-2023 19:50-0400 Heart rate 70 /min Lynne Tejada MD Work Phone: [facility] 11-07-2023 19:50-0400 Respiratory rate 16 /min [facility] 11-07-2023 19:50-0400 SaO2% (BldA) [Mass fraction] 93 % Lynne Tejada MD Work Phone: [facility] 11-07-2023 19:50-0400 Systolic blood pressure 117 mm[Hg] Lynne Tejada MD [facility] 10-24-2023 14:43-0400 Body height 188 cm [facility] 10-24-2023 14:43-0400 Body mass index (BMI) [Ratio] 19.77 kg/m2 [facility] 10-24-2023 14:43-0400 Body weight 69.85 kg Indira Bess RN [facility] 10-15-2023 11:13-0400 Body height 188 cm Lynne Tejada MD [facility] 10-15-2023 11:13-0400 Body mass index (BMI) [Ratio] 19.89 kg/m2 Lynne Tejada MD [facility] 10-15-2023 11:13-0400 Body weight 70.26 kg Lynne Tejada MD Work Phone: [facility] 10-11-2023 14:00-0400 Body height 188 cm Lizzeth Demarco MD Work Phone: [facility] 10-11-2023 14:00-0400 Body mass index (BMI) [Ratio] 20.03 kg/m2 Lizzeth Demarco MD Work Phone: [facility] 10-11-2023 14:00-0400 Body temperature 98.4 [degF] Lizzeth Demarco MD Work Phone: [facility] 10-11-2023 14:00-0400 Body weight 70.76 kg Lizzeth Demarco MD Work Phone: [facility] 10-11-2023 14:00-0400 Diastolic blood pressure 85 mm[Hg] Lizzeth Demarco MD Work Phone: [facility] 10-11-2023 14:00-0400 Heart rate 83 /min Lizzeth Demarco MD Work Phone: [facility] 10-11-2023 14:00-0400 Respiratory rate 20 /min Lizzeth Demarco MD Work Phone: [facility] 10-11-2023 14:00-0400 SaO2% (BldA) [Mass fraction] 100 % Lizzeth Demarco MD Work Phone: [facility] 10-11-2023 14:00-0400 Systolic blood pressure 136 mm[Hg] Lizzeth Auguste Work Phone: [facility] 10-06-2023 10:30-0400 Body temperature 97.7 [degF] Lizzeth Demarco MD Work Phone: [facility] 10-06-2023 10:30-0400 Diastolic blood pressure 66 mm[Hg] Lizzeth Demarco MD Work Phone: [facility] 10-06-2023 10:30-0400 Heart rate 67 /min Lizzeth Demarco MD Work Phone: [facility] 10-06-2023 10:30-0400 Respiratory rate 18 /min Lizzeth Demarco MD Work Phone: [facility] 10-06-2023 10:30-0400 SaO2% (BldA) [Mass fraction] 94 % Lizzeth Demarco MD Work Phone: [facility] 10-06-2023 10:30-0400 Systolic blood pressure 116 mm[Hg] Lizzeth Auguste Work Phone: [facility] 10-05-2023 20:40-0400 Body mass index (BMI) [Ratio] 21.12 kg/m2 Lizz[facility]co [facility] 10-05-2023 20:40-0400 Body weight 74.62 kg Lizzeth Demarco MD Work Phone: [facility] 10-05-2023 11:19-0400 Body height 188 cm Lizzeth Demarco MD Work Phone: [facility] Encounters Encounter Date Encounter Type Care Provider Facility Start: 12-24-2023 End: 12-24-2023 Telephone encounter Lizzeth Demarco MD Work Phone: [facility] Oncology Surgical Comment on above: Return Patient Phone Call Start: 12-14-2023 End: 12-14-2023 Phys/qhp telephone evaluation 11-20 min Nito Jung GYM TEACHER-BIZTALK CONSULTANT Work Phone: [facility] Plastic Surgery Comment on above: Open wound of left s hadley of back, initial encounter (Primary Dx) Start: 12-14-2023 End: 12-14-2023 ambulatory NITO JUNG Facility:[facility] Start: 11-28-2023 End: 11-28-2023 Phys/qhp telephone evaluation 11-20 min Lizzeth Demarco MD Work Phone: [facility] Oncology Surgical Comment on above: Malignant melanoma o f torso excluding breast (HCC) (Primary Dx) Start: 11-28-2023 End: 11-28-2023 ambulatory UNKNOWN PROVIDER Facility:[facility] Start: 11-27-2023 End: 11-27-2023 Telephone encounter Codie Molina RN [facility] Breast Center Comment on above: APPOINTMENT ANNABEL TRAN Start: 11-22-2023 End: 11-26-2023 Admission to same day surgery center Nito Jung GYM TEACHER-BIZTALK CONSULTANT Work Phone: [facility] Plastic Surgery Comment on above: return to work Start: 11-22-2023 End: 11-26-2023 E-mail encounter from caregiver Nito Jung GYM TEACHER-BIZTALK CONSULTANT Work Phone: [facility] Plastic Surgery Start: 11-21-2023 End: 11-21-2023 Telephone encounter Kirill Gross MD Work Phone: [facility] Plastic Surgery Comment on above: Wound Check Start: 11-14-2023 End: 11-16-2023 Patient encounter procedure Nito Jung GYM TEACHER-BIZTALK CONSULTANT Work Phone: [facility] Plastic Surgery Comment on above: Open wound of left s hadley of back, initial encounter (Primary Dx) Start: 11-14-2023 End: 11-16-2023 ambulatory NITO JUNG Facility:[facility] Start: 11-12-2023 End: 11-12-2023 Telephone encounter Christina MARIE Work Phone: [facility] Plastic Surgery Start: 11-08-2023 Letter encounter Lynne zapien MD Work Phone: [facility] Plastic Surgery Start: 11-07-2023 End: 11-07-2023 ambulatory LYNNE TEJADA Facility:[facility] Start: 11-07-2023 End: 11-07-2023 Subsequent hospital visit by physician Lynne Tejada MD Work Phone: [facility] Main OR Comment on above: Acute postoperative pain (Primary Dx) Start: 11-05-2023 Telephone encounter Lynne Tejada MD Work Phone: [facility] Plastic Surgery Start: 11-04-2023 Refill Lynne fernández MD Work Phone: [facility] Plastic Surgery Comment on above: Refill Start: 11-01-2023 End: 11-01-2023 ambulatory LYNNE TEJADA Facility:[facility] Start: 11-01-2023 End: 11-01-2023 Phys/qhp telephone evaluation 5-10 min Lynne Tejada MD Work Phone: [facility] Plastic Surgery Comment on above: Malignant melanoma o f torso excluding breast (HCC) (Primary Dx); Open wound of left side of back, initial encounter Start: 10-30-2023 End: 10-30-2023 ambulatory UNKNOWN PROVIDER Facility:[facility] Start: 10-30-2023 End: 10-30-2023 Office outpatient new 20 minutes Gaye Robison MD Work Phone: [facility] Oncology Medical Comment on above: Dx: Malignant melano ma of torso excluding breast (HCC) (Primary Dx) Start: 10-28-2023 Refill Judy hager MD Work Phone: [facility] Internal Medicine Specialists Comment on above: Refill Start: 10-24-2023 End: 10-24-2023 Nursing evaluation of patient and report Indira Bess RN [facility] Pre-Admission Testing Comment on above: Pre-op evaluation (P rimary Dx) Start: 10-24-2023 End: 10-24-2023 Preprocedural examination done Indira Bess RN [facility] Start: 10-24-2023 ambulatory UNKNOWN PROVIDER Facili ty:[facility] Start: 10-22-2023 Orders Only Lizzeth Demarco MD Work Phone: [facility] Surgical Oncology - Surgery Clinic Start: 10-17-2023 Telephone encounter Lizzeth yadav MD Work Phone: [facility] Surgical Oncology - Surgery Clinic Comment on above: Discuss results test /procedures Start: 10-15-2023 Letter encounter Mychart Provider [facility] MyChart Department Start: 10-15-2023 End: 10-15-2023 Office outpatient new 45 minutes Lynne Tejada MD Work Phone: [facility] Plastic Surgery Comment on above: Malignant melanoma o f torso excluding breast (HCC) (Primary Dx); Open wound of left side of back, initial encounter; Tobacco dependence; Body mass index (BMI) 19.9 or less, adult Start: 10-15-2023 End: 10-15-2023 ambulatory LYNNE TEJADA Facility:[facility] Start: 10-12-2023 Telephone encounter Gaye mccann MD Work Phone: [facility] Oncology Medical Start: 10-11-2023 End: 10-12-2023 Patient encounter procedure Lizzeth Demarco MD Work Phone: [facility] Oncology Surgical Comment on above: Malignant melanoma o f torso excluding breast (HCC) (Primary Dx); Mass on back; Body mass index (BMI) 20.0-20.9, adult Start: 10-11-2023 End: 10-12-2023 ambulatory LIZZETH DEMARCO Facility:[facility] Start: 10-10-2023 [facility] Lizzeth Demarco MD Work Phone: [facility] Surgical Oncology - Surgery Clinic Start: 10-10-2023 ambulatory Lizzeth Demarco MD Work Phone: [facility] Surgical Oncology - Surgery Clinic Start: 10-10-2023 Orders Only Lizzeth Demarco MD Work Phone: [facility] Surgical Oncology - Surgery Clinic Start: 10-05-2023 End: 10-06-2023 Evaluation and management of inpatient LIZZETH DEMARCO Facility:[facility] Start: 10-05-2023 End: 10-05-2023 Evaluation and management of inpatient LIZZETHRACIEL DEMARCO Facility:[facility] Start: 10-05-2023 End: 10-05-2023 Subsequent hospital visit by physician Lizzeth Demarco MD Work Phone: [facility] Radiology Comment on above: Arrived Start: 10-05-2023 Chart abstracting Lizzeth simms MD Work Phone: [facility] Oncology Medical Start: 10-05-2023 End: 10-06-2023 Evaluation and management of inpatient Lizzeth Demarco MD Work Phone: [facility] [address] Comment on above: Malignant melanoma o f torso excluding breast (HCC) (Primary Dx); Mass on back Start: 10-05-2023 End: 10-05-2023 ambulatory UNKNOWN PROVIDER Facility:[facility] Start: 10-05-2023 End: 10-05-2023 Subsequent hospital visit by physician Ip/Op Nuclear Prep [facility] Radiology Comment on above: Malignant melanoma o f torso excluding breast (HCC); Mass on back Start: 10-04-2023 Telephone encounter Khushboo childress [employer] SCHO[employer] TEACHER LIBRARIAN Work Phone: [facility] Oncology Medical Comment on above: Outreach Start: 10-02-2023 End: 10-04-2023 Phys/qhp telephone evaluation 21-30 min Lizzeth Demarco MD Work Phone: [facility] Oncology Surgical Comment on above: Malignant melanoma o f torso excluding breast (HCC) (Primary Dx); Mass on back Start: 10-02-2023 End: 10-04-2023 ambulatory UNKNOWN PROVIDER Facility:[facility] Start: 09-20-2023 ambulatory UNKNOWN PROVIDER Facili ty:[facility] Start: 09-20-2023 Encounter for other preprocedural examination UNKNOWN PROVIDER [facility] Start: 09-19-2023 End: 09-19-2023 ambulatory UNKNOWN PROVIDER Facility:[facility] Start: 09-17-2023 End: 09-17-2023 Emergency department patient visit PRISCILLA [facility] Start: 09-12-2023 End: 09-13-2023 ambulatory UNKNOWN PROVIDER Facility:[facility] Start: 09-12-2023 End: 09-12-2023 ambulatory UNKNOWN PROVIDER Facility:[facility] Start: 08-23-2023 End: 08-29-2023 ambulatory UNKNOWN PROVIDER Facility:[facility] Start: 07-23-2023 End: 07-24-2023 ambulatory Girish Nathan Facility:[facility] Start: 07-23-2023 End: 07-23-2023 ambulatory MD Girish Nathan Work Phone: [facility] Work Phone: Start: 07-23-2023 End: 07-23-2023 Departed Referred MD Girish Nathan Work Phone: [facility] Start: 07-23-2023 End: 07-24-2023 ambulatory BRET P HOUSE Facility: SURG CLINIC Start: 07-11-2023 End: 07-12-2023 ambulatory BRET P HOUSE Facility: SURG CLINIC Start: 07-04-2023 End: 07-05-2023 ambulatory BRET VALDES Facility:[facility] Clinic Start: 07-03-2023 End: 07-04-2023 ambulatory BRET VALDES Facility:[facility] Clinic Start: 05-30-2023 ambulatory BRET VALDES Facilit y:[facility] Clinic Start: 10-11-2019 End: 10-12-2019 Evaluation and management of inpatient BELEN GUERRERO Facility:H1 Procedures Date Procedure Procedure Detail Performing Clinician Start: 10-06-2023 End: 10-06-2023 Assay of magnesium Diony Costa MD Work Phone: Start: 10-05-2023 Radiologic exam ches t single view Diony Costa MD Work Phone: Start: 10-05-2023 Rp loclzj portia spect w/ct 1 area 1 day imaging Lizzeth Demarco MD Work Phone: Start: 10-11-2019 Resection of Appendi x, Percutaneous Endoscopic Approach BELEN YOLANDA Plan of Treatment Date Care Activity Detail Author Start: 10-05-2024 Creatinine measurement Basic Metabol ic Panel [facility] Start: 03-25-2024 Influenza vaccination Influenza Vacc ine (#1) [facility] Start: 11-28-2023 End: 11-28-2023 Patient encounter procedure [facility] Plastic Surgery Start: 11-28-2023 End: 11-28-2023 Telemedicine consultation with patient 11/28/2023 2:00 PM EDT Telemedicine [facility] Oncology Surgical [address] [place] [address] Lizzeth Demarco MD [address] [place] [address] [facility] Oncology Surgical Start: 11-14-2023 End: 11-14-2023 Patient encounter procedure 11/14/2023 2:45 PM EDT Office Visit [facility] Plastic Surgery [address] [place] [address] Nito Jung, GYM TEACHER-BIZTALK CONSULTANT [address] [address] [facility] Plastic Surgery Start: 11-07-2023 End: 11-07-2023 SKIN GRAFT, SPLIT THICKNESS, TORSO SKIN GRAFT, SPLIT THICKNESS, TORSO Routine scheduled 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) Open wound of left side of back, initial encounter Tobacco dependence 11/07/2023 4:48 PM EDT [facility] Start: 11-07-2023 Subsequent hospital visit by physician 11/07/2023 Hospital Encounter [facility] Main OR [address] [place] [id number] Lynne Tejada MD [address] [place] [address] [place] [address] [facility] Main OR Start: 11-01-2023 End: 11-01-2023 Telemedicine consultation with patient 11/01/2023 10:45 AM EDT Telemedicine [facility] Plastic Surgery [address] [place] [id number] Lynne Tejada MD [address] [place] [address] [place] [address] [facility] Plastic Surgery Start: 10-30-2023 End: 10-30-2023 Patient encounter procedure 10/30/2023 8:00 AM EDT Appointment [facility] Oncology Medical [address] [place] [phone] Gaye Robison MD [address] [place] [address] [facility] Oncology Medical Start: 10-25-2023 End: 10-25-2023 Patient encounter procedure [facility] Oncology Surgical Start: 10-24-2023 End: 10-24-2023 Nursing evaluation of patient and report 10/24/2023 2:30 PM EDT Nurse Visit [facility] Pre-Admission Testing [address] [place] [id number] Indira Bess RN [address] [place] [address] [facility] Pre-Admission Testing Start: 10-15-2023 End: 10-15-2023 Patient encounter procedure 10/15/2023 8:30 AM EDT Office Visit [facility] Plastic Surgery [address] [place] [phone] Lynne Tejada MD [address] [place] [address] [place] [address] [facility] Plastic Surgery Start: 10-11-2023 End: 10-11-2023 Patient encounter procedure 10/11/2023 2:00 PM EDT Office Visit [facility] Oncology Surgical [address] [place] [phone] Lizzeth Demarco MD [address] [place] [address] [facility] Oncology Surgical Start: 10-05-2023 End: 10-05-2023 Admission to same day surgery center 10/05/2023 11:53 AM EDT - 10/05/2023 4:12 PM EDT Surgery [facility] Main OR [address] [place] [id number] Lizzeth Demarco MD [address] [place] [id number] EXCISION, WIDE, MELANOMA-- inj 9:30-- [facility] Main OR Comment on above: EXCISION, WIDE, ALBERTO NOMA-- inj 9:30-- Start: 10-05-2023 End: 10-05-2023 Anesthesia consultation 10/05/2023 11:53 AM EDT Anesthesia Event [facility] Main OR [address] [place] [address] Faheem Godwin MD [address] [place] [address] [place] [address] [facility] Main OR Start: 10-05-2023 End: 10-05-2023 EXCISION, WIDE, MELANOMA [facility] Start: 10-05-2023 End: 10-05-2023 SENTINEL LYMPH NODE MAPPING [facility] Start: 10-05-2023 Subsequent hospital visit by physician 10/05/2023 11:53 AM EDT Hospital Encounter [facility] Main OR [address] [place] [address] Lizzeth Demarco MD [address] [place] [address] [facility] Main OR Start: 10-05-2023 End: 10-05-2023 Patient encounter procedure [facility] Radiology Start: 02-23-2023 COVID-19 Vaccine ( season) COVID-19 Vaccine ( season) [facility] Start: 2015 Shingles (RZV) Vacci ne (1 of 2) Shingles (RZV) Vaccine (1 of 2) [facility] Start: 2010 Screening for malign ant neoplasm of colon [facility] Start: 2000 Lipid panel Cholesterol [facility] Start: 1984 Hepatitis A (HAV) Vaccine (optional start 19+ years) Hepatitis A (HAV) Vaccine (optional start 19+ years) [facility] Start: 1984 Hepatitis B vaccination Hepati tis B (HBV) Vaccine (1 of 3 - 19+ 3-dose series) [facility] Start: 1983 Hepatitis C screening Hepatitis C An tibody [facility] Start: 1983 Tetanus + diphtheria + acellular pertussis vaccine (product) Tdap Booster [facility] Start: 1980 HIV screening HIV Test [facility] Start: 1971 Pneumococcal vaccination Pneumococcal Vaccine(s) (1 of 2 - PCV) [facility] Start: 1966 [facility] Start: 02-12-1966 COVID-19 Vaccine (#1) COVID-19 Vacci ne (#1) [facility] Start: 1965 Hepatitis B vaccination Hepati tis B (HBV) Vaccine (1 of 3 - 3-dose series) [facility] Start: 1965 Prostate specific antigen measurement Prostate Cancer Screening (shared decision making) [facility] Start: 1965 Pulmonary Function Testing Pulmonary Function Testing [facility] Start: 1965 Screening for malign ant neoplasm of colon Colonoscopy [facility] End: 11-07-2023 Prep site trunk/arm/leg 1st 100 sq cm/1pct SURGICAL PREP/CREATION OF RECIPIENT SITE,WOUND OF TRUNK, ARMS, LEGS; FIRST 100 SQ CM Procedures Routine One time for 1 Occurrences starting 11/07/2023 until 11/07/2023 [employer] Work Phone: Comment on above: One time for 1 Occur rences starting 11/07/2023 until 11/07/2023 End: 11-07-2023 Prep site trunk/arm/leg addl 100 sq cm/1pct SURGICAL PREP/CREATION OF RECIPIENT SITE,WOUND OF TRUNK, ARMS, LEGS; EA ADD'L 100 SQ CM Procedures Routine One time for 1 Occurrences starting 11/07/2023 until 11/07/2023 [facility] Comment on above: One time for 1 Occur rences starting 11/07/2023 until 11/07/2023 SKIN GRAFT, SPLIT THICKNESS, TORSO SKIN GRAFT, SPLIT THICKNESS, TORSO Routine scheduled 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) Open wound of left side of back, initial encounter Tobacco dependence [facility] End: 11-07-2023 Split agrft t/a/l 1st 100 cm/&/1% bdy inft/chld SPLIT GRAFT, TRUNK/EXTREMITIES; 1ST 100 SQ CM/ Procedures Routine One time for 1 Occurrences starting 11/07/2023 until 11/07/2023 [facility] Comment on above: One time for 1 Occur rences starting 11/07/2023 until 11/07/2023 End: 11-07-2023 Split agrft t/a/l ea 100 cm/ea 1% bdy inft/chld SPLIT GRAFT, TRUNK/EXTREMITIES; ADD'L 100 SQ CM/ 1PCT BODY, /CHILD Procedures Routine One time for 1 Occurrences starting 11/07/2023 until 11/07/2023 [facility] Comment on above: One time for 1 Occur rences starting 11/07/2023 until 11/07/2023 Surgical pathology procedure SPECIMEN FOR SURGICAL PATH Anatomic Pathology Routine 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) Mass on back Release Upon Ordering for 1 Occurrences starting 10/05/2023 [employer] Work Phone: Comment on above: Release Upon Orderin g for 1 Occurrences starting 10/05/2023 Payers Date Payer Category Payer Self-pay 1965 Unknown [id number] 1965 Unknown [id number] 1965 Unknown [id number] [id number] 1965 Unknown [id number] 1965 Unknown [id number] [id number] 1965 Unknown [id number] [id number] 1959 Self-pay [id number] Social History Date Type Detail Facility Tobacco smoking stat [facility] Unknown if ever smoked [facility] Work Phone: Start: 1965 Sex Assigned At Male [facility] Start[facility] 08-29-[facility] Start: 08-29-1979 History of tobacco use Cigarette Smo ker [facility] Start: 08-29-2023 End: 10-30-2023 Cigarettes smoked current (pack per day) - Reported 1 [facility] Start: 09-20-2023 End: 10-11-2023 Alcohol intake Current drinker of alcohol (finding) [facility] Start: 09-20-2023 End: 10-30-2023 Tobacco use panel [facility] Start: 08-29-2023 Tobacco Comment Previously smo ked up to 3 pack per day, now 1-1.25 [facility] Start: 08-29-2023 Alcohol Comment [facility] Start: 1965 Sex Assigned At [facility] Start: 10-24-2023 End: 11-08-2023 Alcohol intake Ex-drinker (finding) [facility] Within the last year , have you been afraid of your partner or ex-partner? No [facility] How often do you get together with friends or relatives? Patient refused [facility] Are you now , , , , never or living with a partner? [facility] Do you feel stress - tense, restless, nervous, or anxious, or unable to sleep at night because your mind is troubled all the time - these days [OSQ] Only a little [facility] (I/We) worried wheth er (my/our) food would run out before (I/we) got money to buy more. Never true [facility] Start: 10-30-2023 Education 12 [facility] Procedure Code Equipment Code Equipment Origin al Text Equipment Identifier Dates Dressing Wound B [id number] [id number] [facility]-2040 - [id number] Start: 10-05-2023 Clinical Notes 09-12-2023 to 12-24-2023 Telephone Encounter - Lizzeth Demarco MD - 12/24/2023 5:11 PM EDTTelephone Encounter - Lizzeth Demarco MD - 12/24/2023 5:11 PM EDTTelephone Encounter - Alix Rao RN - 12/24/2023 3:09 PM EDT Note Date & Type Note Facility 12-24-2023 Miscellaneous Notes Returned patient call regarding symptoms. reports small (pea-sized) to now quarter sized raised lesion on lateral back adjacent to skin graft, but not on graft. Also has other spots on his body--right ribs, nickel sized, raised, feels like a lump, firm. Feels muscle ache-like symptoms--across entire back. Intermittent. Was not taking Lyrica. Shortness of breath while walking up stairs. Reports that feet are swollen. Started about 1 week ago--left more swollen than right. Feels like both legs are tingly, like after legs fall asleep. Started a few days ago. No bowel or bladder issues. Has not seen PCP since May 2023. Had to cancel appointment with medical oncology at [facility] due to transport. No GI symptoms or weight loss. We reviewed that his symptoms are all very concerning and need to be evaluated by a physician. We reviewed that it is challenging to diagnose his symptoms over the phone, but that given his aggressive sarcomatoid melanoma, tumor recurrence is always a concern. We also discussed that he could have a blood clot or other problem. He has transport issues getting to [place] for evaluation. I explained that he likely requires repeat imaging of the chest/abdomen/pelvis but that I cannot order these scans for him locally where he lives. I informed him that I am happy to see him here at [facility] and attempt to arrange for scans the same day, but that I will need a few days to arrange this. I explained that if his symptoms were to worsen to include shortness of breath at rest, leg weakness, difficulty urinating or controlling his bowels or any other symptoms, he needs to seek emergency medical care. He is going to see if he can have evaluation closer to home or if he can arrange for evaluation here in [facility] and he will update me in a day or so. documented in this encounter [facility] 12-24-2023 Telephone encounter Note Returned patient call regarding symptoms. reports small (pea-sized) to now quarter sized raised lesion on lateral back adjacent to skin graft, but not on graft. Also has other spots on his body--right ribs, nickel sized, raised, feels like a lump, firm. Feels muscle ache-like symptoms--across entire back. Intermittent. Was not taking Lyrica. Shortness of breath while walking up stairs. Reports that feet are swollen. Started about 1 week ago--left more swollen than right. Feels like both legs are tingly, like after legs fall asleep. Started a few days ago. No bowel or bladder issues. Has not seen PCP since May 2023. Had to cancel appointment with medical oncology at [facility] due to transport. No GI symptoms or weight loss. We reviewed that his symptoms are all very concerning and need to be evaluated by a physician. We reviewed that it is challenging to diagnose his symptoms over the phone, but that given his aggressive sarcomatoid melanoma, tumor recurrence is always a concern. We also discussed that he could have a blood clot or other problem. He has transport issues getting to [place] for evaluation. I explained that he likely requires repeat imaging of the chest/abdomen/pelvis but that I cannot order these scans for him locally where he lives. I informed him that I am happy to see him here at [facility] and attempt to arrange for scans the same day, but that I will need a few days to arrange this. I explained that if his symptoms were to worsen to include shortness of breath at rest, leg weakness, difficulty urinating or controlling his bowels or any other symptoms, he needs to seek emergency medical care. He is going to see if he can have evaluation closer to home or if he can arrange for evaluation here in [facility] and he will update me in a day or so. [facility] 12-24-2023 Telephone encounter Note The patient had called and left a message, called patient back at this time. He states his wound on his back has an area that hasn't closed completely and he has small red bumps around the incision. He said he is having a lot of aching in his back, nothing makes it worse and pain medicine does help. He states he had one oxycodone at home and it did help. He also states he is having some SOB with activity, he denies SOB at rest. He also has bilateral edema to his feet. He states yesterday he started having a tingling sensation from his hip to his toes. He was advised that if he was having SOB he should go to the ER. He was asked if he had a primary care physician and he states he does, he was advised to call them to inform them also. I did inform the patient I would make Dr. Demarco aware. Alix Rao, RN [facility] 12-24-2023 Miscellaneous Notes The patient had called and left a message, called patient back at this time. He states his wound on his back has an area that hasn't closed completely and he has small red bumps around the incision. He said he is having a lot of aching in his back, nothing makes it worse and pain medicine does help. He states he had one oxycodone at home and it did help. He also states he is having some SOB with activity, he denies SOB at rest. He also has bilateral edema to his feet. He states yesterday he started having a tingling sensation from his hip to his toes. He was advised that if he was having SOB he should go to the ER. He was asked if he had a primary care physician and he states he does, he was advised to call them to inform them also. I did inform the patient I would make Dr. Deamrco aware. Alix Rao, RN documented in this encounter [facility] 12-24-2023 Telephone encounter Note Pt calling stated he is having shortness of Breath, bumps on his back, feet swollen I did advise if SOB to go to ED Please call back as soon as possible [facility] 12-24-2023 Miscellaneous Notes Pt calling stated he is having shortness of Breath, bumps on his back, feet swollen I did advise if SOB to go to ED Please call back as soon as possible documented in this encounter [facility] 12-14-2023 History of Present illness Narrative Documentation: Mode: Telephone Patient Patient Work Phone: Patient Cell Preferred phone: [phone] Consent: I confirmed patient understanding of the risks and benefits of telehealth visits and obtained consent to proceed with the telehealth visit. Location of Patient: Home of patient PLASTIC SURGERY FOLLOW-UP NOTE SUBJECTIVE: Mr. Tavarez is status post above. States he is feeling well. He is not able to send photos today due to phone issues. I reviewed photos from 11/28/23. He is dressing with neosporin and DSD. No pain Planning on return to work 12/15 He states the wound is smaller than last photos ASSESSMENT: Healing wound PLAN: Continue same dressing changes He is to see Dr. Demarco in person 4 weeks. I will try to see him at the same time. AGATA Spivey documented in this encounter [facility] 11-28-2023 History of Present illness Narrative Images from the original note were not included. Documentation: Mode: Telephone Patient Patient Work Phone: Patient Cell Preferred phone: [phone] Consent: I confirmed patient understanding of the risks and benefits of telehealth visits and obtained consent to proceed with the telehealth visit. 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 For completeness of records, he first noted a mass in May 2023, which began to rapidly enlarge and become symptomatic with pain and episodes of bleeding. CT scan of the chest on 07/17/2023 showed an 8.4 x 3.6 cm mass in the subcutaneous tissue of the left upper back. 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 PET/CT on 09/12/2023 showed a 13 x 6.4 x 12.5 cm FDG avid soft tissue mass of the left posterior back with no evidence of metastatic disease or concerning regional lymphadenopathy. Given biopsy suggestive of sarcomatoid melanoma, isolated disease, and symptomatic nature of the mass, recommendations were to proceed with surgical resection for complete pathologic assessment and symptom relief. He underwent radical resection of the mass measuring 15 x 14 x 8 cm on 10/05/2023. Surgical pathology revealed a sarcomatoid melanoma with a Breslow depth of 67 mm with evidence of ulceration, lymphovascular invasion, and 4 mitoses/mm2. There was a focal positive deep margin. The site was covered with a PolyNovo BTM dermal substitute with plans for staged reconstruction with plastic surgery. He was last evaluated in the office on 10/11/2023, at which time he was recovering well. Interval History: He underwent split thickness skin grafting with Dr Tejada on 11/07/2023. His post-operative course was unremarkable. He reports that he is doing fairly well. He denies any pain at the excision site. He reports that the central aspect became slightly raised and looks almost like hives. He notes that previously this site was open and looked like meat . He denies any pruritus at this site. He reports some serosanguinous and occasionally green drainage from site. He is not having fevers or chills. He has been washing the area with soap and water, which has been helping with the drainage. He reports that he has normal range of motion of his shoulder and denies any numbness, tingling, weakness, or swelling in his arm. He otherwise denies any headaches, dizziness, cough, shortness of breath, abdominal pain, nausea, emesis, new bone/back/joint pain, neurologic symptoms or other concerns. He is not yet back to work, but would like to go back to work soon, pending clearance by plastic surgery. He discussed adjuvant immunotherapy with Dr Robison on 10/30/23. He was still considering if he would be willing to have adjuvant niolumab, but was interested in seeing a provider closer to his home. He has not yet seen a medical oncologist closer to home as he was under the impression that a provider closer to [place] would be contacting him. PHYSICAL EXAMINATION: There were no vitals filed for this visit. No physical exam for telephone visit Wound photo sent by patient from 11/27/23 Pathology: Final Diagnosis A. Skin, Left posterior back melanoma, short stitch wise 12:00, long stitch wise 3:00 Melanoma, ulcerated, Breslow's maximum thickness 67mm, focally transected (see synoptic report) . I certify that I personally conducted the diagnostic evaluation of the above specimen(s) and have rendered the final diagnosis(es). at 0827 Diagnosis Comment Sections show a strikingly pleomorphic tumor composed spindled and epithelioid cells in sheets and aggregates throughout the dermis and subcutis, extending to the margin of skeletal muscle, transected by the base. There is only a vaguely nested growth pattern in the superficial dermis, and occasional clusters of atypical cells within the epidermis overlying the tumor. There are multiple foci of tumor necrosis. While this tumor does not show areas of clear-cut melanocytic differentiation based upon morphology, the immunohistochemical profile, patient demographics and site, extremely rapid growth, and epidermal involvement all favor a pleomorphic sarcomatoid melanoma. Intradepartmental Consult DrsJaciel Stevens, and Dieter. Gross Description A. Requisitioned as left posterior back . The specimen is received fresh in one container, labeled with the patient's name and medical record number. Marked as left posterior black . The specimen consists of an oriented, ovoid portion of ramirez skin, 20 cm from 12 o'clock to 6 o'clock, 17 cm from 3 o'clock to 9 o'clock and excised to a depth of 1.5 cm. The specimen has been surgically oriented as follows: short stitch -12 o'clock and long stitch - 3 o'clock. The surface is remarkable for a 15 by 13.5 cm firm, crusty and granular lesion elevated by 6 cm, with indistinct borders, located 2 cm from the 3 o'clock margin, 2 cm from the 9 o'clock margin, two cm from the 6 o'clock margin and 2.5 cm from the 12 o'clock margin. The specimen is inked orange on the 3 o'clock margin and blue on the 9 o'clock margin. Sectioning reveals the tumor to have a maximum thickness of 6.7 cm and is 0.1 cm from the inked deep margin. A portion of tumor was obtained for tumor repository. Sections: Adult Probation Officer A1-A29. The entire margin, en face as follows: A1-A14. Margin moving from 12 o'clock to 6 o'clock (1 each) A15-A29. Margin moving from 6 o'clock to 12 o'clock (1 each) A30-A32. One paired full-thickness section tumor perpendicular to deep margin, 1 o'clock (1 each) A33-A35. One paired full-thickness sections tumor perpendicular to the deep margin, 11 o'clock (1 each) A36-A38. One paired full-thickness section of tumor perpendicular to the deep margin, 2 o'clock (1 each) A39-A41. One paired full-thickness section of tumor perpendicular to the deep margin, 10 o'clock (1 each) A42-A44. One paired full-thickness section of tumor perpendicular to the deep margin, 3 o'clock (1 each) A45-A48. One paired full-thickness section of tumor perpendicular to the deep margin, 9 o'clock (1 each) A49-A51. One paired full-thickness section of tumor perpendicular to the deep margin, 4 o'clock (1 each) A52-A54. One paired full-thickness section of tumor perpendicular to the deep margin, 8 o'clock (1 each) A55-A57. One paired full-thickness section of tumor perpendicular to the deep margin, 5 o'clock (1 each) A58-A60. One paired full-thickness section of tumor perpendicular to the deep margin, 7 o'clock (1 each) A61-A70. Additional sections perpendicular to the deep margin (2 each) A71-A80. Additional sections of tumor perpendicular to epidermis (2 each) WILL Blunt Immunohistochemistry IMMUNOHISTOCHEMISTRY STUDIES: --- Interpretation--- Antibody: S100 protein: positive Sox 10: positive Melan-A: negative HMB-45: negative Comment: The immunohistochemical stains support the above diagnosis. The above immunohistochemical stains are done for the evaluation and typing of a suspected malignant neoplasm. Controls: Verified in QA report. Disclaimer: Analyte-specific reagents / Laboratory developed tests / Modified FDA / In-situ hybridization tests used in immunohistochemistry were developed and their performance characteristics determined by our vendors. [facility], Department of Pathology follows vendors' instructions and revalidate these tests as required. Some immunohistochemical stains have not been cleared or approved by the US Food and Drug Administration. The FDA has determined that such clearance or approval is not necessary. This test is used for clinical purposes. It should not be regarded as investigational or for research. A negative result on a decalcified specimen (I.e., core biopsy of bone) should be interpreted with caution and may not be indicative of true expression status. A negative result on a Cytology Cell Block should be interpreted with caution and may not be indicative of the antibody's true expression status, and should be compared to a tissue sample when possible. This laboratory is certified under CLIA as qualified to perform high complexity testing. Clinical Information Synoptic Checklist MELANOMA OF THE SKIN: Excision, Re-Excision 8th Edition - Protocol posted: 05/04/2021MELANOMA OF THE SKIN: EXCISION, RE-EXCISION - All Specimens SPECIMEN Procedure Excision Specimen Laterality Left TUMOR Tumor Site Skin of trunk: left posterior back Histologic Type Melanoma, not otherwise classified Histologic Type Comment Sarcomatoid Maximum Tumor (Breslow) Thickness (Millimeters) At least: 67 mm focally transected by base Macroscopic Satellite Nodule(s) Not identified Ulceration Present Anatomic (Jose) Level V (Melanoma invades subcutis) Mitotic Rate 4 mitoses per mm2 Microsatellite(s) Not identified Lymphovascular Invasion Present Neurotropism Not identified Tumor-Infiltrating Lymphocytes Not identified Tumor Regression Not identified MARGINS Margin Status for Invasive Melanoma Invasive melanoma present at margin Margin(s) Involved by Invasive Melanoma Deep Margin Status for Melanoma in situ no clear-cut melanoma in-situ REGIONAL LYMPH NODES Regional Lymph Node Status Not applicable (no regional lymph nodes submitted or found) PATHOLOGIC STAGE CLASSIFICATION (pTNM, AJCC 8th Edition) TNM Descriptors m (multiple) pT Category pT4b pN Category pN not assigned (no nodes submitted or found) . 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 Pathology had multiple high risk features, including ulceration, mitoses, lymphovascular invasion and a focally positive deep margin. Tumor board recommendations were to consider adjuvant nivoliumab to decrease risk of recurrence. I discussed the importance of considering adjuvant immunotherapy to help decrease risk of recurrence. We also discussed the importance of ongoing physical exam and imaging studies to evaluate for evidence of recurrence. He would like to see a medical oncologist closer to home and notes the [facility] is relatively close to him. I will reach out to make a referral and send records as needed. We discussed that he should have surveillance cross-sectional imaging by 02/2024 at the latest. For now, he will try to come for an in person exam sometime in the next 4-6 weeks or sooner if needed. Plan: Will contact [facility] [place] to determine if they can provide adjuvant immunotherapy Patient provided verbal consent to send records Discussed with patient that he will be due for repeat imaging by 02/2024 at the latest Wound care per plastic surgery Follow-up in person in 4-6 weeks for repeat exam Lizzeth Demarco MD Surgical Oncology documented in this encounter [facility] 11-27-2023 Telephone encounter Note Patient does not have transportation to his appointment with Dr. Balderas. MD ojeda changing appt to tele. Patient called and made aware. [facility] 11-27-2023 Miscellaneous Notes Patient does not have transportation to his appointment with Dr. Balderas. MD ojeda changing appt to tele. Patient called and made aware. documented in this encounter [facility] 11-21-2023 Telephone encounter Note History: Received call from OR front desk attendant regarding patient concern regarding wound. Upon speaking to patient, he reported an increase in green drainage to his dressings during its scheduled changing. He states he has been changing his dressing every 2 days as instructed, and this drainage is new. Also has some mild redness about the wound. He denies increased pain at the wound, fever, chills, nausea, vomiting. Objective: Images sent by patient were reviewed. There appears to be some clear drainage overlying well appearing granulation tissue. There is some fibrinous material over the wound. No obvious erythema or purulence. A/P: Given history and wound images, there is a lower concern for infection. Advised continuing with dressing changes every 2 days and can lightly clean the wound with soap and water. Do not scrub the wound. He should follow up as scheduled with Nito on 11/27. Discussed reasons for sooner follow up or calling the plastic surgery team including: increased redness, pain, drainage or purulence from wound, fever, chills, nausea, vomiting or general malaise. Patient was agreeable to this plan. [facility] Work Phone: 11-21-2023 Miscellaneous Notes History: Received call from OR front desk attendant regarding patient concern regarding wound. Upon speaking to patient, he reported an increase in green drainage to his dressings during its scheduled changing. He states he has been changing his dressing every 2 days as instructed, and this drainage is new. Also has some mild redness about the wound. He denies increased pain at the wound, fever, chills, nausea, vomiting. Objective: Images sent by patient were reviewed. There appears to be some clear drainage overlying well appearing granulation tissue. There is some fibrinous material over the wound. No obvious erythema or purulence. A/P: Given history and wound images, there is a lower concern for infection. Advised continuing with dressing changes every 2 days and can lightly clean the wound with soap and water. Do not scrub the wound. He should follow up as scheduled with Nito on 11/27. Discussed reasons for sooner follow up or calling the plastic surgery team including: increased redness, pain, drainage or purulence from wound, fever, chills, nausea, vomiting or general malaise. Patient was agreeable to this plan. documented in this encounter [facility] 11-14-2023 Note Date of Procedure: 0 11/07/2023 ATTENDING SURGEON: Lynne Tejada MD PREOPERATIVE DIAGNOSES: 1. Melanoma of left upper back. 2. Open wound of left upper back, 20 x 22 cm. POSTOPERATIVE DIAGNOSES: 1. Melanoma of left upper back. 2. Open wound of left upper back, 20 x 22 cm. PROCEDURES: 1. Debridement and preparation of left upper back wound 20 x 22 cm. 2. Split-thickness skin graft from the left side to the left back 20 x 22 cm. PLASTIC SURGERY FOLLOW-UP NOTE SUBJECTIVE: Mr. Tavarez is status post above. No nausea, vomiting, fever, or chills. Pain control is good without medication. OBJECTIVE: On physical exam, Mr. Tavarez has the following findings; Donor site mepilex intact Graft with excellent take along the perimeter; central graft is intact but not yet healed Underlying wound bed is clean No signs of infection ASSESSMENT: Good early take PLAN: 1. Adaptic/bacitracin to graft; allow mepilex to come off in time 2. Follow up 11/27 AGATA Spivey [facility] 11-14-2023 History of Present illness Narrative Date of Procedure: 11/07/2023 ATTENDING SURGEON: Lynne Tejada MD PREOPERATIVE DIAGNOSES: 1. Melanoma of left upper back. 2. Open wound of left upper back, 20 x 22 cm. POSTOPERATIVE DIAGNOSES: 1. Melanoma of left upper back. 2. Open wound of left upper back, 20 x 22 cm. PROCEDURES: 1. Debridement and preparation of left upper back wound 20 x 22 cm. 2. Split-thickness skin graft from the left side to the left back 20 x 22 cm. PLASTIC SURGERY FOLLOW-UP NOTE SUBJECTIVE: Mr. Tavarez is status post above. No nausea, vomiting, fever, or chills. Pain control is good without medication. OBJECTIVE: On physical exam, Mr. Tavarez has the following findings; Donor site mepilex intact Graft with excellent take along the perimeter; central graft is intact but not yet healed Underlying wound bed is clean No signs of infection ASSESSMENT: Good early take PLAN: 1. Adaptic/bacitracin to graft; allow mepilex to come off in time 2. Follow up 11/27 AGATA Spivey documented in this encounter [facility] 11-12-2023 Telephone encounter Note Complaint: pt complaint of Provena canisters he was sent home with all being full . Description: s/p STSG to left back with provena application post op-- Associated symptoms: all canisters have been used. Surgeon: Lynne Tejada MD Informed pt: Offered patient to come to clinic to obtain extra canisters-pt declined due to distance to travel (pt from [place], [place]). Offered patient to come to clinic on 11/13/23 instead of 11/14/23 to have VAC removed from STSG and redressed. Pt declined, stating he does not have transportation. Discussed with Dr Tejada, pt instructed to keep VAC in place until appointment as scheduled on 11/14/23. Pt agrees with plan. [facility] Work Phone: 11-12-2023 Miscellaneous Notes Complaint: pt complaint of Provena canisters he was sent home with all being full . Description: s/p STSG to left back with provena application post op-- Associated symptoms: all canisters have been used. Surgeon: Lynne Tejada MD Informed pt: Offered patient to come to clinic to obtain extra canisters-pt declined due to distance to travel (pt from [place], [place]). Offered patient to come to clinic on 11/13/23 instead of 11/14/23 to have VAC removed from STSG and redressed. Pt declined, stating he does not have transportation. Discussed with Dr Tejada, pt instructed to keep VAC in place until appointment as scheduled on 11/14/23. Pt agrees with plan. documented in this encounter [facility] 11-07-2023 Hospital Discharge instructions Jacquelin Dasilva RN - 11/07/2023 6:30 PM EDT Images from the original note were not included. DEPARTMENT OF PLASTIC SURGERY DISCHARGE INSTRUCTIONS Outpatient Surgery [facility] N Plastic Surgery Department Call [phone] during regular daytime business hours (8:00 am - 5:00 pm) and after 5:00 pm call [phone] or [phone] and ask for the Plastic Surgery (service) resident with any questions or concerns. If it is a life-threatening situation, proceed to the nearest emergency department. Follow-up appointment: Future Appointments (next 10) Provider Department Center 11/14/2023 2:45 PM (Arrive by 2:35 PM) Nito Jung, GYM TEACHER-BIZTALK CONSULTANT [facility] Plastic Surgery [facility] Follow up is typically in 7-10 days and should be scheduled by calling the office at [phone] if it has not already been arranged. Thank you for the opportunity to care for you today. Your health and healing are very important to us. We hope we made you feel as comfortable as possible and are committed to your recovery and continued well-being. The following is a brief overview of your Skin Graft procedure today. Some of the information contained on this summary may be confidential. This information should be kept in your records and should be shared with your regular doctor. Disposition: Home Anesthesia received: General Anesthesia Physicians: Dr. Tejada (Plastic Surgery) Procedure performed: Split-thickness skin graft from left thigh to left back What to Expect During your Recovery and Home Care Anesthesia Side Effects You received General anesthesia today. You may feel sleepy, tired, or have a sore throat. You may also feel drowsiness, dizziness, or inability to think clearly. For your safety, do not drive, drink alcoholic beverages, take any unprescribed medication or make any important decisions for 24 hours. A responsible adult should be with you for 24 hours. Activity and Recovery I encourage you to be modestly active in the first few post op days, gently exercising your legs while sitting or lying in bed. Mild physical exercise can be resumed as soon as you are able, but I encourage you to refrain from heavy exercise until we discuss it at your first post op visit No heavy lifting (more than 10 lbs). OK to resume other usual activities as tolerated. Walking is encouraged and it's OK to use stairs. Do not drive or operate heavy machinery while taking narcotic pain medications as these medications can alter perception, impair judgement, and slow reaction times. Wound Care Keep surgical site clean and dry. Do NOT get your wound vac wet. You may need to sponge bathe until your follow-up appointment Avoid smoking or other tobacco products. Smoking tobacco impairs wound healing and increases the risks of post-operative complications. Your diet can be resumed immediately after surgery. Most people can resume a normal diet the evening of surgery. If you feel queasy or nauseated, start with clear liquids or soup. Advance your diet as tolerated to a regular diet. Medicines Your new medication(s): Tylenol, oxycodone, zofran, senna, keflex Take the pain medication as instructed if needed. Do not drive until you are no longer taking the narcotics and are free of significant pain. Narcotic pain medication can become addictive and may also induce constipation. Please take a stool softener when taking this medication to prevent constipation. You may take Tylenol (Acetaminophen) 650mg every 6 hours as needed for pain control. Do not take Tylenol (Acetaminophen) in combination with Percocet, there is already Tylenol in Percocet In 3 days after surgery, it is recommended to take 600mg of ibuprofen every 6-8 hours as needed. This can be taken with the narcotic pain medication. Your regular medications can be resumed on immediately after surgery, unless you take blood thinners, then consult your surgeon. Pain Control Unfortunately, you may experience pain after your procedure. Adequate management can include alternative measures to help ease your pain. Rest and elevation of the operative area is very helpful at reducing pain. Be sure to elevate your upper or lower extremity higher than the level of your heart to be most effective. Nausea/Vomiting Clear liquids are best tolerated at first. Also, you may feel nauseous or like you need to vomit if you take any type of medication on an empty stomach. Signs of Bleeding Minor bleeding or drainage may occur through the bandage of the surgical site, which is normal, however, excessive or consistent bleeding should be reported to your surgeon. Signs of Infection Signs of infection can include fever, excessive swelling, heat, drainage, redness, or severe pain. If you develop any of these, please contact your doctor's office at [phone]. Any fever higher than 100.4 F, especially if associated with an ill feeling, abdominal pain, chills, or nausea should be reported to your surgeon. Emergencies: If there is a non-urgent problem, please call the office at [phone]. Most issues are easily addressed and do not require significant intervention. The most common emergencies that might need attention are: Nausea that lasts 4 hours or more and does not respond to medication Bleeding that is persistent and uncontrolled High fever lasting more than a few hours and not responding to medication Shortness of breath or chest pain Leg swelling Loss of consciousness If you feel the situation is urgent, call 911 and/or proceed directly to the closest emergency room. Please call us as well at [phone]. PERIOPERATIVE DISCHARGE/HOME-GOING INSTRUCTIONS ANESTHESIA - GENERAL (ADULT) If a problem arises, you may contact your physician by calling [phone] and asking for the resident tactical air control party for plastic surgery service. Special Care Needs: Activity: Rest at home today and tomorrow, then progress to your regular activities as tolerated. Diet: Clear liquids are best tolerated at first. If you are not nauseated, you can progress your diet to solid foods as tolerated. Possible post-operative precautions: Call you doctor or clinic for: 1. Signs of infection such as fever or chills. 2. Severe pain that in not relieved by Tylenol or your pain medicine prescription. 3. You may have a sore throat - it is usually gone in 1 to 2 days. Post-anesthesia safety: Possible side effects include drowsiness, dizziness, or inability to think clearly. For your safety, do not drive, drink alcoholic beverages, take any unprescribed medication or make any important decisions for 24 hours. A responsible adult should be with you for 24 hours. If no urine by 3 am or you become very uncomfortable and can t urinate, call [phone] or come to the emergency room. Falls Prevention Each year, 1 in every 3 adults over the age of 65 are treated for fall-related injuries. The risk of falling increases with each decade of life. The good news is, many falls are preventable. Here are some fall prevention tips: Exercise can increase strength and improve balance, making falls much less likely. For more informati on visit: http://[facility].org/servic es/kyne-dkgmnn-jy-your-health/a-vt iyks-du-veadrfi/ Some medications or combinations of medications can lead to side effects that cause falls. Have a doctor or pharmacist review all medications to help reduce the chance of risky side effects. Poor vision can lead to falls. Have your eyes checked every year. Ensure that your glasses are the correct strength. Eliminate hazards in your home by completing this home safety checklist. Remove things you can trip over from stairs and places you walk Install handrails and lights on all staircases. Remove small throw rugs or use double-sided tape to keep rugs from slipping. Keep items you use often in cabinets you can reach easily without using a step stool. Put grab bars inside and next to the tub or shower and next to your toilet.Use non-slip mats in the bathtub and on shower floors. Improve the lighting in your home. Hang lightweight curtains or shades to reduce glare. Wear shoes both inside and outside the house. Avoid going barefoot or wearing slippers. To lower the risk of hip fractures: Get adequate calcium and vitamin D, from food and/or supplements. Do weight bearing exercise. Get screened for osteoporosis and treated if needed documented in this encounter [facility] 11-07-2023 Miscellaneous Notes Brief Operative Note MAIN OR 12 Edilma Tavarez 58 year old male Surgical Contact Serial Number: [id number] Preoperative Diagnosis: Melanoma of back Left upper back wound, 20 cm x 22cm Postoperative Diagnosis: Melanoma of back Left upper back wound, 20 cm x 22cm Procedures: Surgical CPTs Procedures SURGICAL PREP/CREATION OF RECIPIENT SITE,WOUND OF TRUNK, ARMS, LEGS; FIRST 100 SQ CM SURGICAL PREP/CREATION OF RECIPIENT SITE,WOUND OF TRUNK, ARMS, LEGS; EA ADD'L 100 SQ CM SPLIT GRAFT, TRUNK/EXTREMITIES; 1ST 100 SQ CM/</ 1PCT BODY, /CHILD SPLIT GRAFT, TRUNK/EXTREMITIES; ADD'L 100 SQ CM/ 1PCT BODY, /CHILD No data filed Debridement of left upper back wound, 20cm x 22cm Split-thickness skin graft from left thigh to left upper back wound Surgeon(s): Surgeon(s): Lynne Tejada MD Staff: Scrub: Dalia Coe RN; Parisa Lauren RN Pharmacist In Charge Nurse: Keisha Edwards; Francie Guthrie RN Public Health Nurse: Haim Maher MD; Altagracia Case MD; Kieran Blanton MD Anesthesia: General Anesthesiologist: Edson Hallman MD LABEL REWINDER: Scott Stoner APRN-SIRENA Anesthesia Staff: Starr Ramsey CAA Specimen(s): * No specimens in log * Estimated Blood Loss: less than 5 cc Lines/Drains: Peripheral IV Access: 11/07/231351 20 gauge Posterior;Right Hand (Active) $ Lines: $ IV Start (procedure) 11/07/231351 Site Assessment WNL;Dressing intact 11/07/231351 Infusion Status Port #1 Capped;Patent 11/07/231351 Temporarily Retained Foreign Object: Yes Location: Left back Object: Wound vac Anticipated removal date: TBD Findings: Left upper back wound 20 cm x 22cm with healthy appearing granulation tissue Complications: None Status at end of surgery: Stable Activity: Ad Soraya Surgical wound class: Yes, wound was clean contaminated. Patient Class: Outpatient Surgery. Is this a patient scheduled as an outpatient that needs to be admitted as an inpatient? No Dr. Tejada was present in the OR for the critical portion of the procedure and procedure sign-out. Signed by Lynne Tejada MD 11/07/2023 6:44 PM Blood Attestation: ATTESTATION OF INFORMED CONSENT FOR BLOOD: The transfusion of blood and/or blood components were discussed with the patient and/or legal sales training representative. The risks, benefits and alternatives were reviewed. Questions regarding blood transfusions were answered. The patient /or the patient s legal sales training representative agree with the plan for transfusion of blood and/or blood components. documented in this encounter [facility] 11-07-2023 Surgery Postoperative evaluation and management note Brief Operative Note MAIN OR 12 Edilma Tavarez 58 year old male Surgical Contact Serial Number: [id number] Preoperative Diagnosis: Melanoma of back Left upper back wound, 20 cm x 22cm Postoperative Diagnosis: Melanoma of back Left upper back wound, 20 cm x 22cm Procedures: Surgical CPTs Procedures SURGICAL PREP/CREATION OF RECIPIENT SITE,WOUND OF TRUNK, ARMS, LEGS; FIRST 100 SQ CM SURGICAL PREP/CREATION OF RECIPIENT SITE,WOUND OF TRUNK, ARMS, LEGS; EA ADD'L 100 SQ CM SPLIT GRAFT, TRUNK/EXTREMITIES; 1ST 100 SQ CM/ SPLIT GRAFT, TRUNK/EXTREMITIES; ADD'L 100 SQ CM/ 1PCT BODY, INFANT/CHILD No data filed Debridement of left upper back wound, 20cm x 22cm Split-thickness skin graft from left thigh to left upper back wound Surgeon(s): Surgeon(s): Lynne Tejada MD Staff: Scrub: Dalia Coe RN; Parisa Lauren RN Pharmacist In Charge Nurse: Keisha Edwards; Francie Guthrie RN Public Health Nurse: Haim Maher MD; Altagracia Case MD; Kieran Blanton MD Anesthesia: General Anesthesiologist: Edson Hallman MD LABEL REWINDER: Scott Stoner APRN-CRNA Anesthesia Staff: Starr Ramsey CAA Specimen(s): * No specimens in log * Estimated Blood Loss: less than 5 cc Lines/Drains: Peripheral IV Access: 11/07/231351 20 gauge Posterior;Right Hand (Active) $ Lines: $ IV Start (procedure) 11/07/231351 Site Assessment WNL;Dressing intact 11/07/231351 Infusion Status Port #1 Capped;Patent 11/07/231351 Temporarily Retained Foreign Object: Yes Location: Left back Object: Wound vac Anticipated removal date: TBD Findings: Left upper back wound 20 cm x 22cm with healthy appearing granulation tissue Complications: None Status at end of surgery: Stable Activity: Ad Soraya Surgical wound class: Yes, wound was clean contaminated. Patient Class: Outpatient Surgery. Is this a patient scheduled as an outpatient that needs to be admitted as an inpatient? No Dr. Tejada was present in the OR for the critical portion of the procedure and procedure sign-out. Signed by Lynne Tejada MD 11/07/2023 6:44 PM [facility] 11-07-2023 Progress note Formatting of t his note is different from the original. Blood Attestation: ATTESTATION OF INFORMED CONSENT FOR BLOOD: The transfusion of blood and/or blood components were discussed with the patient and/or legal sales training representative. The risks, benefits and alternatives were reviewed. Questions regarding blood transfusions were answered. The patient /or the patient s legal sales training representative agree with the plan for transfusion of blood and/or blood components. [facility] Work Phone: 11-07-2023 History and physical note Surgical Attestation: I have reviewed the patient's History and Physical Examination. I have personally seen and evaluated the patient, repeating luque portions. There is no significant interval change. Surgery is still indicated. Yes Consent reviewed and signed by patient/family: Yes Operative site verified and marked: Yes Altagracia Case MD 11/07/2023 1:45 PM Teaching Physician Note: I saw and evaluated the patient. I personally obtained the luque and critical portions of the history and physical exam. I reviewed the resident's documentation and discussed the patient with the resident. I agree with the resident's medical decision making as documented in the resident's note. Surgical plan, postop instructions reviewed. Site verified and marked together. All questions answered. Lynne Tejada MD [facility] 11-07-2023 Note Surgical Attestation : I have reviewed the patient's History and Physical Examination. I have personally seen and evaluated the patient, repeating luque portions. There is no significant interval change. Surgery is still indicated. Yes Consent reviewed and signed by patient/family: Yes Operative site verified and marked: Yes Altagracia Case MD 11/07/2023 1:45 PM Teaching Physician Note: I saw and evaluated the patient. I personally obtained the luque and critical portions of the history and physical exam. I reviewed the resident's documentation and discussed the patient with the resident. I agree with the resident's medical decision making as documented in the resident's note. Surgical plan, postop instructions reviewed. Site verified and marked together. All questions answered. Lynne Tejada MD [facility] 11-07-2023 History and physical note Surgical Attestation: I have reviewed the patient's History and Physical Examination. I have personally seen and evaluated the patient, repeating luque portions. There is no significant interval change. Surgery is still indicated. Yes Consent reviewed and signed by patient/family: Yes Operative site verified and marked: Yes Altagracia Case MD 11/07/2023 1:45 PM Teaching Physician Note: I saw and evaluated the patient. I personally obtained the luque and critical portions of the history and physical exam. I reviewed the resident's documentation and discussed the patient with the resident. I agree with the resident's medical decision making as documented in the resident's note. Surgical plan, postop instructions reviewed. Site verified and marked together. All questions answered. Lynne Tejada MD documented in this encounter [facility] 11-05-2023 Telephone encounter Note Called and spoke with patient. No insurance. No financial assistance at this time-pending. [facility] wound vac calling for insurance information. Unable to provide homegoing VAC without insurance authorization. Provena VAC an option after surgery per I sales training representative. [facility] Work Phone: 11-05-2023 Miscellaneous Notes Called and spoke with patient. No insurance. No financial assistance at this time-pending. I wound vac calling for insurance information. Unable to provide homegoing VAC without insurance authorization. Provena VAC an option after surgery per I sales training representative. Patient calling you back [phone] Rodrigo with [employer] called today needs more info for wound vac. Patient having surgery tomorrow. Please call Rodrigo (c) [phone] documented in this encounter [facility] 11-05-2023 Telephone encounter Note Patient calling you back [phone] [facility] 11-05-2023 Telephone encounter Note Rodrigo with [employer] called today needs more info for wound vac. Patient having surgery tomorrow. Please call Rodrigo sanjay) [phone] [facility] 11-01-2023 History of Present illness Narrative Images from the original note were not included. Documentation: Mode: Telephone Patient Patient Work Phone: Patient Cell Preferred phone: [phone] Consent: I confirmed patient understanding of the risks and benefits of telehealth visits and obtained consent to proceed with the telehealth visit. Location of Patient: Home of patient Plastic Surgery - Follow up Patient Evaluation Chief Complaint: Large left upper back wound, s/p mass excision HPI: The patient is a 58M referred by Lizzeth Demarco MD for evaluation for reconstruction of a large left upper back wound. Mr. Tavarez underwent radical excision of a large, rapidly enlarging mass on the left upper back ([id number]) with application of BTM on 10/05/[address] Demarco. 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 Wound VAC was removed 10/10 and he has been applying ABD pads since. Feels sore - remains off of work postop. Otherwise doing well. 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 Current smoker. 10/31/23: Returning in follow up. Met virtually with Dr. Robison on Sunday - he is considering adjuvant therapy / closer to home. is helping with wound care. She notes an area of BTM that has pulled away on the bottom left side. She does not have any concerns about infection. Patient denies pain. Past Medical History: Diagnosis Date Lung abnormality half of lung is ?r/t smoking, but Dad had the same thing Past Surgical History: Procedure Laterality Date APPENDECTOMY EXCISION, WIDE, MELANOMA Left 10/05/2023 Procedure: radical excision left upper back mass. 15 x 14x 8 cm. application of polynovo btm dermal substitute; Surgeon: Lizzeth Demarco MD; Location: PERIOPERATIVE SERVICES; Service: General HIATAL HERNIA REPAIR Current Outpatient Medications Medication Instructions acetaminophen (TYLENOL) 500 mg, Oral, EVERY 6 HOURS PRN acetaminophen extra strength (TYLENOL) 1,000 mg, Oral, EVERY 6 HOURS PRN docusate sodium (COLACE) 100 mg, Oral, 2 TIMES DAILY Gauze Pads & Dressings (Curity Abdominal) 5 X9 PADS 1 Each, does not apply, DAILY PRN ibuprofen (MOTRIN) 600 mg, Oral, EVERY 6 HOURS PRN oxyCODONE-acetaminophen (Percocet) 5-325 mg per tablet 1 Tablet, Oral, 3 TIMES DAILY PRN pregabalin (LYRICA) 100 mg, Oral, 3 TIMES DAILY Social History Tobacco Use Smoking status: Every Day Current packs/day: 1.00 Average packs/day: 1 pack/day for 44.2 years (44.2 ttl pk-yrs) Types: Cigarettes Start date: 08/29/1979 Tobacco comments: Previously smoked up to 3 pack per day, now 1-1.25 Vaping Use Vaping Use: Never used Substance Use Topics Alcohol use: Not Currently Comment: social Drug use: Not Currently Family History Adopted: Yes Exam: (Deferred 11/01/23 due to virtual visit. Prior exam below:) There were no vitals taken for this visit. Alert, oriented, pleasant. Here with family member and her young daughter. Heart regular Breathing unlabored Large left upper back wound with BTM inset with jamie peripherally. This is clean and seems to be adherent in some areas. No drainage, no cellulitis. Left shoulder AROM is full. Photos obtained with permission. Imagin09/12/23 PET melanoma: IMPRESSION: 1. Hypermetabolic soft tissue mass of the left posterior chest wall consistent with biopsy-proven malignancy. 2. No metabolic evidence of regional, nor distant metastatic disease 3. Advanced paraseptal emphysema with large blebs bilaterally. Clinical images reviewed in EMR. Labs: 09/12/23 biopsy: Final Diagnosis A. Soft tissue, left upper back mass, core needle biopsy ([id number]) (07/24/2023) Most consistent with melanoma. . 10/05/23 surgical path: Final Diagnosis A. Skin, Left posterior back melanoma, short stitch wise 12:00, long stitch wise 3:00 Melanoma, ulcerated, Breslow's maximum thickness 67mm, focally transected (see synoptic report) . Assessment: 58M smoker, s/p resection of a rapidly enlarging left upper back malignancy with application of BTM 10/05/23, presenting to discuss reconstruction. We talked about options for management of this sizeable defect - including healing by secondary intention, adjacent tissue rearrangement, or STSG. After thorough discussion, he has elected STSG. I reviewed the surgical approach, graft harvest, need for a postoperative VAC bolster, management of the donor site, expected results, and recovery. We talked about the risks of surgery in detail, including bleeding, infection, damage to nearby structures, poor wound healing, unfavorable scarring, poor or no graft take, pain, contracture, need for additional procedures, and the risks of anesthesia. The patient asked good questions which were answered to his satisfaction and would like to proceed with planning. Plan: Will plan for debridement and STSG to the large left upper back wound - tentatively scheduled for next week. They will continue with dressings in the meantime and send a photo of the wound with the next dressing change. *Will need homegoing VAC (not Prevena) Follow up: For surgery unless otherwise indicated on review of photographs. Lynne Tejada MD documented in this encounter [facility] 10-30-2023 Note Referral: Lizzeth Demarco MD [address] [place] [address] PCP: No primary care provider on file. CC: sarcomatoid melanoma left back ulcerated [id number] stage IIC Phone numbers Preferred Phone numbers Preferred HPI: 58 year old male presented with large, growing since 05/[address] revealed increase in tumor size from 1.9 x 1.1 to 8.4 x 3.6 in one year. Original biopsy melanoma with sarcoma features. Locally symptomatic. 09/12/23 PET Hypermetabolic soft tissue mass of the left posterior chest wall consistent with biopsy-proven malignancy. 2. No metabolic evidence of regional, nor distant metastatic disease 3. Advanced paraseptal emphysema with large blebs bilaterally. 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 Presents today for consultation by phone after failed attempt at video visit. No complaints. Waiting for skin graft in mid-October; wound is clean. Works in [employer] business and not yet resuming usual activities. Eating and clothes fit. Has some type of lung problem that he will address later. No cough, SOB, or MOYER above baseline - smoker not interested in quitting. Allergies: Patient has no known allergies. PMH: Past Medical History: Diagnosis Date Lung abnormality half of lung is ?r/t smoking, but Dad had the same thing Medication: Current Outpatient Medications Medication Sig Dispense Refill Gauze Pads AND Dressings (Curity Abdominal) 5 X9 PADS 1 Each daily as needed. 36 Each 1 acetaminophen (TYLENOL) 500 MG tablet Take 2 Tablets by mouth every 6 hours as needed. 90 Tablet 0 ibuprofen (MOTRIN) 600 MG tablet Take 1 Tablet by mouth every 6 hours as needed for Pain. 60 Tablet 0 docusate sodium (Colace) 100 MG capsule Take 1 Capsule by mouth 2 times daily. 60 Capsule 0 pregabalin (Lyrica) 100 MG capsule Take 1 Capsule by mouth 3 times daily for 90 days. 90 Capsule 2 acetaminophen (TYLENOL) 500 MG tablet Take 500 mg by mouth every 6 hours as needed for Pain or Fever. No current facility-administered medications for this encounter. Cough dry FamHx: Family History Adopted: Yes SocHx: Social History Socioeconomic History Marital status: Highest education level: 12th grade Tobacco Use Smoking status: Every Day Current packs/day: 1.00 Average packs/day: 1 pack/day for 44.2 years (44.2 ttl pk-yrs) Types: Cigarettes Start date: 08/29/1979 Tobacco comments: Previously smoked up to 3 pack per day, now 1-1.25 Vaping Use Vaping Use: Never used Substance and Sexual Activity Alcohol use: Not Currently Comment: social Drug use: Not Currently Social Determinants of Health Financial Resource Strain: Low Risk (10/30/2023) Overall Financial Resource Strain (CARDIA) Difficulty of Paying Living Expenses: Not hard at all Food Insecurity: No Food Insecurity (10/30/2023) Hunger Vital Sign Worried About Running Out of Food in the Last Year: Never true Ran Out of Food in the Last Year: Never true Transportation Needs: No Transportation Needs (10/30/2023) PRAPARE - Transportation Lack of Transportation (Medical): No Lack of Transportation (Non-Medical): No Physical Activity: Insufficiently Active (10/30/2023) Exercise Vital Sign Days of Exercise per Week: 3 days Minutes of Exercise per Session: 20 min Stress: No Stress Concern Present (10/30/2023) [employer] - Occupational Stress Questionnaire Feeling of Stress : Only a little Social Connections: Unknown (10/30/2023) Social Connection and Isolation Panel [NHANES] Frequency of Communication with Friends and Family: Once a week Frequency of Social Gatherings with Friends and Family: Patient refused Attends Yarsanism Services: Never Attends Club or Organization Meetings: Never Marital Status: Intimate Partner Violence: Not At Risk (10/30/2023) Humiliation, Afraid, Rape, and Kick questionnaire Fear of Current or Ex-Partner: No Emotionally Abused: No Physically Abused: No Sexually Abused: No Lives with ROS: Review of Systems Constitutional: Negative for fever and weight loss. Respiratory: Positive for cough. Negative for sputum production. Cardiovascular: Negative for chest pain. Skin: Negative. PE: TElehealth visit Physical Exam There were no vitals taken for this visit. Weight: Attends: Investigations: CBC (last 3 years, up to 5 values) WBC RBC Hgb Hct MCV RDW Plt 08/23/23 1509 10.2 5.21 15.9 47.1 91 14.5 410 Basic Metabolic Panel Na K Cl CO2 Gap Glu BUN Cr Ca 10/06/23 (more content not included)... [facility] 10-30-2023 History of Present illness Narrative Images from the original note were not included. Referral: Lizzeth Demarco MD [facility] [place] [address] PCP: No primary care provider on file. CC: sarcomatoid melanoma left back ulcerated [id number] stage IIC Phone numbers Preferred Phone numbers Preferred HPI: 58 year old male presented with large, growing since 05/[address] revealed increase in tumor size from 1.9 x 1.1 to 8.4 x 3.6 in one year. Original biopsy melanoma with sarcoma features. Locally symptomatic. 09/12/23 PET Hypermetabolic soft tissue mass of the left posterior chest wall consistent with biopsy-proven malignancy. 2. No metabolic evidence of regional, nor distant metastatic disease 3. Advanced paraseptal emphysema with large blebs bilaterally. 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 Presents today for consultation by phone after failed attempt at video visit. No complaints. Waiting for skin graft in mid-October; wound is clean. Works in [employer] business and not yet resuming usual activities. Eating and clothes fit. Has some type of lung problem that he will address later. No cough, SOB, or MOYER above baseline - smoker not interested in quitting. Allergies: Patient has no known allergies. PMH: Past Medical History: Diagnosis Date Lung abnormality half of lung is ?r/t smoking, but Dad had the same thing Medication: Current Outpatient Medications Medication Sig Dispense Refill Gauze Pads & Dressings (Curity Abdominal) 5 X9 PADS 1 Each daily as needed. 36 Each 1 acetaminophen (TYLENOL) 500 MG tablet Take 2 Tablets by mouth every 6 hours as needed. 90 Tablet 0 ibuprofen (MOTRIN) 600 MG tablet Take 1 Tablet by mouth every 6 hours as needed for Pain. 60 Tablet 0 docusate sodium (Colace) 100 MG capsule Take 1 Capsule by mouth 2 times daily. 60 Capsule 0 pregabalin (Lyrica) 100 MG capsule Take 1 Capsule by mouth 3 times daily for 90 days. 90 Capsule 2 acetaminophen (TYLENOL) 500 MG tablet Take 500 mg by mouth every 6 hours as needed for Pain or Fever. No current facility-administered medications for this encounter. Cough dry FamHx: Family History Adopted: Yes SocHx: Social History Socioeconomic History Marital status: Highest education level: 12th grade Tobacco Use Smoking status: Every Day Current packs/day: 1.00 Average packs/day: 1 pack/day for 44.2 years (44.2 ttl pk-yrs) Types: Cigarettes Start date: 08/29/1979 Tobacco comments: Previously smoked up to 3 pack per day, now 1-1.25 Vaping Use Vaping Use: Never used Substance and Sexual Activity Alcohol use: Not Currently Comment: social Drug use: Not Currently Social Determinants of Health Financial Resource Strain: Low Risk (10/30/2023) Overall Financial Resource Strain (CARDIA) Difficulty of Paying Living Expenses: Not hard at all Food Insecurity: No Food Insecurity (10/30/2023) Hunger Vital Sign Worried About Running Out of Food in the Last Year: Never true Ran Out of Food in the Last Year: Never true Transportation Needs: No Transportation Needs (10/30/2023) PRAPARE - Transportation Lack of Transportation (Medical): No Lack of Transportation (Non-Medical): No Physical Activity: Insufficiently Active (10/30/2023) Exercise Vital Sign Days of Exercise per Week: 3 days Minutes of Exercise per Session: 20 min Stress: No Stress Concern Present (10/30/2023) [place] [employer] - Occupational Stress Questionnaire Feeling of Stress : Only a little Social Connections: Unknown (10/30/2023) Social Connection and Isolation Panel [NHANES] Frequency of Communication with Friends and Family: Once a week Frequency of Social Gatherings with Friends and Family: Patient refused Attends Yarsanism Services: Never Attends Club or Organization Meetings: Never Marital Status: Intimate Partner Violence: Not At Risk (10/30/2023) Humiliation, Afraid, Rape, and Kick questionnaire Fear of Current or Ex-Partner: No Emotionally Abused: No Physically Abused: No Sexually Abused: No Lives with ROS: Review of Systems Constitutional: Negative for fever and weight loss. Respiratory: Positive for cough. Negative for sputum production. Cardiovascular: Negative for chest pain. Skin: Negative. PE: TElehealth visit Physical Exam There were no vitals taken for this visit. Weight: Attends: Investigations: CBC (last 3 years, up to 5 values) WBC RBC Hgb Hct MCV RDW Plt 08/23/23 1509 10.2 5.21 15.9 47.1 91 14.5 410 Basic Metabolic Panel Na K Cl CO2 Gap Glu BUN Cr Ca 10/06/23 0000 138 4.5 101 24 18 183 11 0.81 8.6 08/23/23 1509 139 4.3 104 24 15 80 13 0.90 9.6 LFT's (last 3 years, up to 5 values) T Prot Albumin D Bili T Bili Alk Phos ALT AST 08/23/23 1509 7.4 4.4 0.06 0.4 80 43 20 all current data reviewed. 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 Has high risk of systemic recurrence give IIC stage and sarcoma features. Reviewed the rationale for adjuvant anti-cancer therapy. Discussed risks, benefits, and alternatives to single nivolumab; adverse effects include but are not limited to autoimmune type diseases of colon, lungs, skin, thyroid gland, pituitary gland, liver among other organs; fatigue; and potentially myelosuppression. Discussed prednisone therapy and possible hospitalization. Risk of from therapy is 0.6%. Not taking anti-cancer therapy is an option if he accepts the risk. Answered his questions re: types of immunotherapy. Lives ~ 1.5 hours from and ~ 30 minutes from [place]. Requested he obtain med oncologist in [place] for one year nivo. Explained he needs to start therapy as early as possible. He seemed non-committal. Had current questions answered to the best of my ability and agrees to proceed with the plan. Plan: Happy to see him here , however needs med onc in [place] and to sign release of records Recommend he see dermatology q 6 months Follow-up with Drs. Demarco and Terrell Abstain from smoking Continue other medications as prescribed F/u with our social work for finances and access to health care Call with any questions or concerns. F/u with us prn. Gaye Robison MD documented in this encounter [facility] 10-24-2023 Instructions Indira Bess RN - 10/24/2023 2:50 PM EDT PATIENT MEDICATION INSTRUCTIONS: On the morning of your surgery, please take only the following medications, with a small sip of water: oxyCODONE-acetaminophen (Percocet) 5-325 mg per tablet acetaminophen (TYLENOL) 500 MG tablet pregabalin (Lyrica) 100 MG capsule Do not take any Aspirin within 7 days of surgery. No Fish Oil, Ginseng and Ginko Biloba, No large amounts of Vit E hold 7 days No NSAIDs within 3 days of surgery DAY OF SURGERY NOTES: Pt can have WATER only ( no additives) up to 2 hours prior to arrival time The patient is to have nothing to eat or any other liquids at least 8 hours prior to surgery arrival time Need to have compactor driver INSTRUCTIONS FOR SURGERY * Hospital staff will call you one business day before your surgery to inform you of your surgery arrival time. Please be on time- a late arrival may result in the cancellation or delay of your surgery. * DO NOT smoke after midnight the night before your surgery. * Do NOT eat food or drink liquids for at least 8 hours before your surgery arrival time. * If you were specifically directed by your doctor to take certain medication(s) on the day of surgery, you may do so with small sips of water. * DO NOT wear any jewelry including rings, earrings, or mouth, tongue or body piercings. * DO NOT use lotion, cream, deodorant or make-up. * DO NOT bring valuables, credit cards, or large amounts of strick[place]. A small amount of money may be needed for filling prescriptions. * Please bring your photo ID with you on the day of surgery. It will be stored in a secured locker and returned after surgery. * If you are scheduled to go home the same day of surgery, you MUST have a responsible adult to drive you home. A cab, Uber/Lyft or other transportation tank driver cannot be responsible for you. A responsible adult should stay with you for 24 hours after surgery. Your surgery will be cancelled if you do not have a ride home. * If you have sleep apnea and are staying overnight in the hospital, please bring your sleep apnea machine and mask. documented in this encounter [facility] 10-24-2023 Evaluation note Images from the original note were not included. Telephone History Edilma Wallerlaiva, [id number] 10/24/2023 Patient was identified by name and date of . Indira Bess RN 58 year old 154 lbs 6' 2 Date of Surgery: 11-07-2023 Surgeon: Matt Tejada Type of Surgery: SKIN GRAFT, SPLIT THICKNESS, TORSO HISTORY OF PRESENT ILLNESS: PAT telephone evaluation for SKIN GRAFT, SPLIT THICKNESS, TORSO STOP-BANG Row Name 10/24/23 1440 History of sleep apnea? No Snoring No Tired/Fatigued No Observed Apnea No Pressure: Hypertension No BMI greater than 35 0 Age greater than 50 1 Neck circ greater than 40cm (15.75 ) Unable to Assess Gender male? 1 Score 2 EXERCISE CAPACITY: 4-10 mets ALLERGIES: Patient has no known allergies. 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 15 x 14x 8 cm. application of polynovo btm dermal substitute; Surgeon: Lizzeth Demarco MD; Location: PERIOPERATIVE SERVICES; Service: General HIATAL HERNIA REPAIR SOCIAL HISTORY: Social History Socioeconomic History Marital status: Tobacco Use Smoking status: Every Day Current packs/day: 1.00 Average packs/day: 1 pack/day for 44.2 years (44.2 ttl pk-yrs) Types: Cigarettes Start date: 08/29/1979 Tobacco comments: Previously smoked up to 3 pack per day, now 1-1.25 Vaping Use Vaping Use: Never used Substance and Sexual Activity Alcohol use: Not Currently Comment: social Drug use: Not Currently Social Determinants of Health Food Insecurity: No Food Insecurity (09/17/2023) Received from [facility] Hunger Screening Within the past 12 months we worried whether our food would run out before we got money to buy more.: Never True Within the past 12 months the food we bought just didn't last and we didn't have money to get more.: Never True PAIN ASSESSMENT: Severity: 3 Location: left back LABORATORY DATA: CBC (last 3 years, up to 5 values) WBC RBC Hgb Hct MCV RDW Plt 08/23/23 1509 10.2 5.21 15.9 47.1 91 14.5 410 Basic Metabolic Panel Na K Cl CO2 Gap Glu BUN Cr Ca 10/06/23 0000 138 4.5 101 24 18 183 11 0.81 8.6 08/23/23 1509 139 4.3 104 24 15 80 13 0.90 9.6 LFT's (last 3 years, up to 5 values) T Prot Albumin D Bili T Bili Alk Phos ALT AST 08/23/23 1509 7.4 4.4 0.06 0.4 80 43 20 TESTS REVIEWED: CXRay: Chest x-ray was last done on 10/05/2023 EKG: Last ECG Date: Not Found ECHO: Last Echocardiogram: none found going back to 08/21/2023 No results found for this basename: LVEF Stress test date: Last StressTest: none found going back to 08/21/2023 Reading Physician Reading Date Result Priority Glaab, Robert, MD [phone] 10/05/2023 STAT Narrative & Impression EXAMINATION: XR CHEST AP OR PA 1 VIEW 10/05/2023 05:11 PM CLINICAL HISTORY: s/p excision of large back mass (L) - crepitus noted at conclusion of case but no extry to thorax suspected. Patient has history of large bullae that are likely the etiology. Currently with no hypoxia or respiratory distress. Assess for pneumothorax. ASSOCIATED DIAGNOSIS: s/p excision of large back mass (L) - crepitus noted at conclusion of case but no extry to thorax suspected. Patient has history of large bullae that are likely the etiology. Currently with no hypoxia or respiratory distress. Assess for pneumothorax. ORDERING PROVIDER: DIONY [employer]STA [employer] NOTE: COMPARISON: PET MELANOMA INITIAL 09/12/2023, 2:06 PM FINDINGS: Lines, tubes, and devices: None. Lungs and pleura: Severe bullous emphysema. No definite pneumothorax identified. No pleural effusion. Cardiomediastinal silhouette: Normal cardiomediastinal silhouette. Musculoskeletal: Unremarkable. IMPRESSION: Severe bullous emphysema. No definite pneumothorax identified. CURRENT MEDICATION LIST: Current Outpatient Medications Medication Sig Dispense Refill Gauze Pads & Dressings (Curity Abdominal) 5 X9 PADS 1 Each daily as needed. 36 Each 1 oxyCODONE-acetaminophen (Percocet) 5-325 mg per tablet Take 1 Tablet by mouth 3 times daily as needed for Pain for up to 7 days. 21 Tablet 0 acetaminophen (TYLENOL) 500 MG tablet Take 2 Tablets by mouth every 6 hours as needed. 90 Tablet 0 ibuprofen (MOTRIN) 600 MG tablet Take 1 Tablet by mouth every 6 hours as needed for Pain. 60 Tablet 0 docusate sodium (Colace) 100 MG capsule Take 1 Capsule by mouth 2 times daily. 60 Capsule 0 pregabalin (Lyrica) 100 MG capsule Take 1 Capsule by mouth 3 times daily for 90 days. 90 Capsule 2 acetaminophen (TYLENOL) 500 MG tablet Take 500 mg by mouth every 6 hours as needed for Pain or Fever. No current facility-administered medications for this visit. CURRENT MEDICATIONS: Aspirin: No NSAIDS: No Other Antiplatelet Medication: No Anticoagulants: No Steroids: No PATIENT MEDICATION INSTRUCTIONS: On the morning of your surgery, please take only the following medications, with a small sip of water: oxyCODONE-acetaminophen (Percocet) 5-325 mg per tablet acetaminophen (TYLENOL) 500 MG tablet pregabalin (Lyrica) 100 MG capsule Do not take any Aspirin within 7 days of surgery. No Fish Oil, Ginseng and Ginko Biloba, No large amounts of Vit E hold 7 days No NSAIDs within 3 days of surgery DAY OF SURGERY NOTES: Pt can have WATER only ( no additives) up to 2 hours prior to arrival time The patient is to have nothing to eat or any other liquids at least 8 hours prior to surgery arrival time Need to have compactor driver Indira Bess RN Time Spent Performing this Telephone History: 15 mins [facility] 10-24-2023 Miscellaneous Notes Images from the original note were not included. Telephone History Edilma Walleraliva, [id number] 10/24/2023 Patient was identified by name and date of . Indira Bess RN 58 year old 154 lbs 6' 2 Date of Surgery: 11-07-2023 Surgeon: Matt Tejada Type of Surgery: SKIN GRAFT, SPLIT THICKNESS, TORSO HISTORY OF PRESENT ILLNESS: PAT telephone evaluation for SKIN GRAFT, SPLIT THICKNESS, TORSO STOP-BANG Row Name 10/24/23 1440 History of sleep apnea? No Snoring No Tired/Fatigued No Observed Apnea No Pressure: Hypertension No BMI greater than 35 0 Age greater than 50 1 Neck circ greater than 40cm (15.75 ) Unable to Assess Gender male? 1 Score 2 EXERCISE CAPACITY: 4-10 mets ALLERGIES: Patient has no known allergies. 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 15 x 14x 8 cm. application of polynovo btm dermal substitute; Surgeon: Lizzeth Demarco MD; Location: PERIOPERATIVE SERVICES; Service: General HIATAL HERNIA REPAIR SOCIAL HISTORY: Social History Socioeconomic History Marital status: Tobacco Use Smoking status: Every Day Current packs/day: 1.00 Average packs/day: 1 pack/day for 44.2 years (44.2 ttl pk-yrs) Types: Cigarettes Start date: 08/29/1979 Tobacco comments: Previously smoked up to 3 pack per day, now 1-1.25 Vaping Use Vaping Use: Never used Substance and Sexual Activity Alcohol use: Not Currently Comment: social Drug use: Not Currently Social Determinants of Health Food Insecurity: No Food Insecurity (09/17/2023) Received from [facility] Hunger Screening Within the past 12 months we worried whether our food would run out before we got money to buy more.: Never True Within the past 12 months the food we bought just didn't last and we didn't have money to get more.: Never True PAIN ASSESSMENT: Severity: 3 Location: left back LABORATORY DATA: CBC (last 3 years, up to 5 values) WBC RBC Hgb Hct MCV RDW Plt 08/23/23 1509 10.2 5.21 15.9 47.1 91 14.5 410 Basic Metabolic Panel Na K Cl CO2 Gap Glu BUN Cr Ca 10/06/23 0000 138 4.5 101 24 18 183 11 0.81 8.6 08/23/23 1509 139 4.3 104 24 15 80 13 0.90 9.6 LFT's (last 3 years, up to 5 values) T Prot Albumin D Bili T Bili Alk Phos ALT AST 08/23/23 1509 7.4 4.4 0.06 0.4 80 43 20 TESTS REVIEWED: CXRay: Chest x-ray was last done on 10/05/2023 EKG: Last ECG Date: Not Found ECHO: Last Echocardiogram: none found going back to 08/21/2023 No results found for this basename: LVEF Stress test date: Last StressTest: none found going back to 08/21/2023 Reading Physician Reading Date Result Priority Robert Sung MD [phone] 10/05/2023 STAT Narrative & Impression EXAMINATION: XR CHEST AP OR PA 1 VIEW 10/05/2023 05:11 PM CLINICAL HISTORY: s/p excision of large back mass (L) - crepitus noted at conclusion of case but no extry to thorax suspected. Patient has history of large bullae that are likely the etiology. Currently with no hypoxia or respiratory distress. Assess for pneumothorax. ASSOCIATED DIAGNOSIS: s/p excision of large back mass (L) - crepitus noted at conclusion of case but no extry to thorax suspected. Patient has history of large bullae that are likely the etiology. Currently with no hypoxia or respiratory distress. Assess for pneumothorax. ORDERING PROVIDER: DIONY [employer] NOTE: COMPARISON: PET MELANOMA INITIAL 09/12/2023, 2:06 PM FINDINGS: Lines, tubes, and devices: None. Lungs and pleura: Severe bullous emphysema. No definite pneumothorax identified. No pleural effusion. Cardiomediastinal silhouette: Normal cardiomediastinal silhouette. Musculoskeletal: Unremarkable. IMPRESSION: Severe bullous emphysema. No definite pneumothorax identified. CURRENT MEDICATION LIST: Current Outpatient Medications Medication Sig Dispense Refill Gauze Pads & Dressings (Curity Abdominal) 5 X9 PADS 1 Each daily as needed. 36 Each 1 oxyCODONE-acetaminophen (Percocet) 5-325 mg per tablet Take 1 Tablet by mouth 3 times daily as needed for Pain for up to 7 days. 21 Tablet 0 acetaminophen (TYLENOL) 500 MG tablet Take 2 Tablets by mouth every 6 hours as needed. 90 Tablet 0 ibuprofen (MOTRIN) 600 MG tablet Take 1 Tablet by mouth every 6 hours as needed for Pain. 60 Tablet 0 docusate sodium (Colace) 100 MG capsule Take 1 Capsule by mouth 2 times daily. 60 Capsule 0 pregabalin (Lyrica) 100 MG capsule Take 1 Capsule by mouth 3 times daily for 90 days. 90 Capsule 2 acetaminophen (TYLENOL) 500 MG tablet Take 500 mg by mouth every 6 hours as needed for Pain or Fever. No current facility-administered medications for this visit. CURRENT MEDICATIONS: Aspirin: No NSAIDS: No Other Antiplatelet Medication: No Anticoagulants: No Steroids: No PATIENT MEDICATION INSTRUCTIONS: On the morning of your surgery, please take only the following medications, with a small sip of water: oxyCODONE-acetaminophen (Percocet) 5-325 mg per tablet acetaminophen (TYLENOL) 500 MG tablet pregabalin (Lyrica) 100 MG capsule Do not take any Aspirin within 7 days of surgery. No Fish Oil, Ginseng and Ginko Biloba, No large amounts of Vit E hold 7 days No NSAIDs within 3 days of surgery DAY OF SURGERY NOTES: Pt can have WATER only ( no additives) up to 2 hours prior to arrival time The patient is to have nothing to eat or any other liquids at least 8 hours prior to surgery arrival time Need to have compactor driver Indira Bess RN Time Spent Performing this Telephone History: 15 mins documented in this encounter [facility] 10-17-2023 Telephone encounter Note Called patient to discuss pathology results from surgery. 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 We discussed that the deep margin was focally positive for some cells in one slides, but otherwise negative. We discussed that the next step will be adjuvant immunotherapy and mutational testing of the tumor to evaluate for any targetable mutations. [facility] 10-17-2023 Miscellaneous Notes Called patient to discuss pathology results from surgery. 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 We discussed that the deep margin was focally positive for some cells in one slides, but otherwise negative. We discussed that the next step will be adjuvant immunotherapy and mutational testing of the tumor to evaluate for any targetable mutations. documented in this encounter [facility] 10-15-2023 History of Present illness Narrative Images from the original note were not included. Plastic Surgery - New Patient Evaluation Chief Complaint: Large left upper back wound, s/p mass excision HPI: The patient is a 58M referred by Lizzeth Demarco MD for evaluation for reconstruction of a large left upper back wound. Mr. Tavarez underwent radical excision of a large, rapidly enlarging mass on the left upper back ([id number]) with application of BTM on 10/05/[address] Demarco. 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 Wound VAC was removed 10/10 and he has been applying ABD pads since. Feels sore - remains off of work postop. Otherwise doing well. 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 Current smoker. Review Of Systems: Skin: as above Eyes: negative review of symptoms Ears/Nose/Throat: negative Respiratory: negative symptoms (no cough, hemoptysis, SOB, MOYER, PND, wheezing) Cardiovascular: negative symptoms (No CP/Pressure/Tightness, palpitations, orthopnea, PND, SOB, MOYER, edema, CABRERA or vision change) Gastrointestinal: negative symptoms (no abdominal pain, anorexia, n/v, indigestion, constipation, or diarrhea) Genitourinary: no urinary symptoms Neurologic: negative symptoms (no syncope, seizures, weakness, gait problems, numbness, burning pain, tremors, or memory loss) negative (no arthritic pain, no joint swelling, no muscle weakness) Psychiatric: negative (no sleep disturbance, anxiety, memory loss, disorientation, inattention, feelings of depression) Hematologic/Lymphatic/Immunologic: negative (no anemia, bleeding, bruising) Endocrine: negative review of symptoms Past Medical History: Diagnosis Date Lung abnormality half of lung is ?r/t smoking, but Dad had the same thing Past Surgical History: Procedure Laterality Date APPENDECTOMY EXCISION, WIDE, MELANOMA Left 10/05/2023 Procedure: radical excision left upper back mass. 15 x 14x 8 cm. application of polynovo btm dermal substitute; Surgeon: Lizzeth Demarco MD; Location: PERIOPERATIVE SERVICES; Service: General HIATAL HERNIA REPAIR Current Outpatient Medications Medication Instructions acetaminophen (TYLENOL) 500 mg, Oral, EVERY 6 HOURS PRN acetaminophen extra strength (TYLENOL) 1,000 mg, Oral, EVERY 6 HOURS PRN docusate sodium (COLACE) 100 mg, Oral, 2 TIMES DAILY ibuprofen (MOTRIN) 600 mg, Oral, EVERY 6 HOURS PRN pregabalin (LYRICA) 100 mg, Oral, 3 TIMES DAILY Social History Tobacco Use Smoking status: Every Day Current packs/day: 1.00 Average packs/day: 1 pack/day for 44.1 years (44.1 ttl pk-yrs) Types: Cigarettes Start date: 08/29/1979 Tobacco comments: Previously smoked up to 3 pack per day, now 1-1.25 Substance Use Topics Alcohol use: Yes Comment: social Drug use: Not Currently Family History Adopted: Yes Exam: There were no vitals taken for this visit. Alert, oriented, pleasant. Here with family member and her young daughter. Heart regular Breathing unlabored Large left upper back wound with BTM inset with jamie peripherally. This is clean and seems to be adherent in some areas. No drainage, no cellulitis. Left shoulder AROM is full. Photos obtained with permission. Imagin09/12/23 PET melanoma: IMPRESSION: 1. Hypermetabolic soft tissue mass of the left posterior chest wall consistent with biopsy-proven malignancy. 2. No metabolic evidence of regional, nor distant metastatic disease 3. Advanced paraseptal emphysema with large blebs bilaterally. Clinical images reviewed in EMR. Labs: 09/12/23 biopsy: Final Diagnosis A. Soft tissue, left upper back mass, core needle biopsy ([id number]) (07/24/2023) Most consistent with melanoma. . Assessment: 58M smoker, s/p resection of a rapidly enlarging left upper back malignancy with application of BTM 10/05/23, presenting to discuss reconstruction. Surgical pathology from resection remains in progress. Per my discuss with Dr. Demarco, Mr. Tavarez may be a candidate for adjuvant immunotherapy pending these results, as well as Foundation testing. XRT is felt to be less likely. We talked about options for management of this sizeable defect - including healing by secondary intention, adjacent tissue rearrangement, or STSG. After thorough discussion, he would prefer STSG. I explained the surgical approach, graft harvest, need for a postoperative VAC bolster, management of the donor site, expected results, and recovery. We talked about the risks of surgery in detail, including bleeding, infection, damage to nearby structures, poor wound healing, unfavorable scarring, poor or no graft take, pain, contracture, need for additional procedures, and the risks of anesthesia. The patient asked good questions which were answered to his satisfaction and would like to proceed with planning. Plan: Will plan for debridement and STSG to the large left upper back wound in approximately 3 weeks to allow BTM incorporation. Case request placed today. *Will need homegoing VAC (not Prevena) Discussed the need for compression over the existing BTM to assist with incorporation in the meantime - this was achieved with ABD pads and a chest binder today. Follow up: Will plan for virtual follow up in around 2 weeks due to the patient's long commute. In person follow up for surgery unless otherwise indicated. Lynne Tejada MD documented in this encounter [facility] 10-15-2023 Note Plastic Surgery - Ne w Patient Evaluation Chief Complaint: Large left upper back wound, s/p mass excision HPI: The patient is a 58M referred by Lizzeth Demarco MD for evaluation for reconstruction of a large left upper back wound. Mr. Tavarez underwent radical excision of a large, rapidly enlarging mass on the left upper back ([id number]) with application of BTM on 10/05/[address] Demraco. 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 Wound VAC was removed 10/10 and he has been applying ABD pads since. Feels sore - remains off of work postop. Otherwise doing well. 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 Current smoker. Review Of Systems: Skin: as above Eyes: negative review of symptoms Ears/Nose/Throat: negative Respiratory: negative symptoms (no cough, hemoptysis, SOB, MOYER, PND, wheezing) Cardiovascular: negative symptoms (No CP/Pressure/Tightness, palpitations, orthopnea, PND, SOB, MOYER, edema, CABRERA or vision change) Gastrointestinal: negative symptoms (no abdominal pain, anorexia, n/v, indigestion, constipation, or diarrhea) Genitourinary: no urinary symptoms Neurologic: negative symptoms (no syncope, seizures, weakness, gait problems, numbness, burning pain, tremors, or memory loss) negative (no arthritic pain, no joint swelling, no muscle weakness) Psychiatric: negative (no sleep disturbance, anxiety, memory loss, disorientation, inattention, feelings of depression) Hematologic/Lymphatic/Immunologic: negative (no anemia, bleeding, bruising) Endocrine: negative review of symptoms Past Medical History: Diagnosis Date Lung abnormality half of lung is ?r/t smoking, but Dad had the same thing Past Surgical History: Procedure Laterality Date APPENDECTOMY EXCISION, WIDE, MELANOMA Left 10/05/2023 Procedure: radical excision left upper back mass. 15 x 14x 8 cm. application of polynovo btm dermal substitute; Surgeon: Lizzeth Demarco MD; Location: PERIOPERATIVE SERVICES; Service: General HIATAL HERNIA REPAIR Current Outpatient Medications Medication Instructions acetaminophen (TYLENOL) 500 mg, Oral, EVERY 6 HOURS PRN acetaminophen extra strength (TYLENOL) 1,000 mg, Oral, EVERY 6 HOURS PRN docusate sodium (COLACE) 100 mg, Oral, 2 TIMES DAILY ibuprofen (MOTRIN) 600 mg, Oral, EVERY 6 HOURS PRN pregabalin (LYRICA) 100 mg, Oral, 3 TIMES DAILY Social History Tobacco Use Smoking status: Every Day Current packs/day: 1.00 Average packs/day: 1 pack/day for 44.1 years (44.1 ttl pk-yrs) Types: Cigarettes Start date: 08/29/1979 Tobacco comments: Previously smoked up to 3 pack per day, now 1-1.25 Substance Use Topics Alcohol use: Yes Comment: social Drug use: Not Currently Family History Adopted: Yes Exam: There were no vitals taken for this visit. Alert, oriented, pleasant. Here with family member and her young daughter. Heart regular Breathing unlabored Large left upper back wound with BTM inset with jamie peripherally. This is clean and seems to be adherent in some areas. No drainage, no cellulitis. Left shoulder AROM is full. Photos obtained with permission. Imagin09/12/23 PET melanoma: IMPRESSION: 1. Hypermetabolic soft tissue mass of the left posterior chest wall consistent with biopsy-proven malignancy. 2. No metabolic evidence of regional, nor distant metastatic disease 3. Advanced paraseptal emphysema with large blebs bilaterally. Clinical images reviewed in EMR. Labs: 09/12/23 biopsy: Final Diagnosis A. Soft tissue, left upper back mass, core needle biopsy ([id number]) (07/24/2023) Most consistent with melanoma. . Assessment: 58M smoker, s/p resection of a rapidly enlarging left upper back malignancy with application of BTM 10/05/23, presenting to discuss reconstruction. Surgical pathology from resection remains in progress. Per my discuss with Dr. Demarco, Mr. Tavarez may be a candidate for adjuvant immunotherapy pending these results, as well as Foundation testing. XRT is felt to be less likely. We talked about options for management of this sizeable defect - including healing by secondary intention, adjacent tissue rearrangement, or STSG. After thorough discussion, he would prefer STSG. I explained the surgical approach, graft harvest, need for a postoperative VAC bolster, management of the donor site, expected results, and recovery. We talked about the risks of surgery in detail, including bleeding, infection, damage to nearby structures, poor wound healing, unfavorable scarring, poor or no graft take, pain, contracture, need for additional procedures, and the risks of anesthesia. The patient asked good questions which were answered to his satisfaction and would like to proceed with planning. Plan: Will plan for debridement and STSG to the large left upper back wound in (more content not included)... [facility] 10-12-2023 Telephone encounter Note rosanne w/cb number to schedule appt w/DR ROBISON. Taina Forman RN [facility] 10-12-2023 Miscellaneous Notes Peter w/cb number to schedule appt w/DR ROBISON. Taina Forman RN documented in this encounter [facility] 10-11-2023 Instructions Lizzeth Demarco MD - 10/11/2023 2:57 PM EDT Keep the wound site dry until you are cleared to shower by Dr Tejada. Cover the wound site with clean, dry abdominal pads daily or as needed to absorb drainage. Secure the abdominal pads with tape Monitor the wound site for any redness, thick drainage like pus, worsening pain, bleeding, or any fevers or chills Contact me with any concerns I will try to see you at the same time as your visit with Dr Tejada or Dr Robison documented in this encounter [facility] 10-11-2023 History of Present illness Narrative Patient was identified by name and date of . Osman Barker Body Mass Index is 20.03. Body Surface Area is 1.96 square meters according to the formula of Ryan and Ryan. Patient at risk for falls:No Falls Risk protocol implemented: No Blood pressure 136/85, pulse 83, temperature 98.4 F (36.9 C), resp. rate 20, height 6' 2 (1.88 m), weight 156 lb (70.8 kg), SpO2 100 %. Osman Barker Images from the original note were not included. SURGICAL ONCOLOGY POST-OPERATIVE EXAM Chief Complaint: status post radical excision left upper back mass, application PolyNovo BTM History of Present Illness: Edilma Tavarez is a 58 year old male who is status post radical excision of a left upper back mass (15 x 14 x 8 cm) with application PolyNovo BTM dermal substitute on 10/05/2023 for a rapidly enlarging soft tissue mass felt to be a sarcomatoid melanoma. 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 His case was discussed at multidisciplinary cutaneous tumor board on 10/10/23, at which time recommendations were to consider adjuvant therapy pending final pathology results and to obtain Foundation One testing of the tumor. Appetite: Good Fever: denies Chills: denies Nausea: denies Vomiting: denies Bowel Status: regular Pain related to procedure: minimal pain--controlled with Tylenol Incision: no redness and no purulent drainage He reports that he is doing quite well. He is having minimal pain at the surgical excision site and his pain is significantly improved from prior to surgery. He reports no issues with range of motion of his shoulder. He denies any numbness, weakness or tingling in his arm or hand. He reports serosanguinous drainage in the wound vac. The wound vac has been holding suction quite well, though he notes that it has lost suction at the site of the suction pad intermittently. He learned that lying flat on his back helped the vac hold suction. The vac has continued to work. He denies any fevers or chills. He denies any shortness of breath or chest pain. He is eating well without any nausea or emesis. His is having regular bowel function. PHYSICAL FINDINGS BP 136/85 Pulse 83 Temp 98.4 F (36.9 C) Resp 20 Ht 6' 2 (1.88 m) Wt 156 lb (70.8 kg) SpO2 100% BMI 20.03 kg/m General appearance: alert, pleasant, no distress, oriented to time, place and person, well developed and well nourished, thin Skin: Skin color, texture, turgor normal. No rashes or lesions. No jaundice Eyes: No scleral icterus. Pupils equal. Extra-ocular muscles intact Neck: Neck supple. No adenopathy. Lungs: Diminished breath sounds diffusely bilaterally; no wheezes, rales or rhonchi. Heart: Regular rate and rhythm. Normal S1 and S2. No murmurs, clicks or gallops. Nodes: Non-palpable bilateral pre--auricular, anterior/posterior cervical, and supraclavicular lymph nodes Extremities: Extremities normal. No deformities, edema, or skin discoloration Neuro: Gait normal. Sensation grossly intact and equal to light touch in bilateral upper extremities. Sensation intact to light touch on left back. No motor deficits Location of incision: Left upper back Status of incision: Healing well and without signs of infection. PolyNovo in place with adequate adherence. 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 The wound is healing without signs of infection. The wound vac was removed today without complication. The underlying PolyNovo shows adequate adherence. He has a referral to Dr Tejada to discuss reconstruction options once margins are cleared. However, he reports that he cannot attend his evaluation on 10/15/23. I will update Dr Tejada to assist in rescheduling. Pathology is pending at this time, but preliminary analysis shows an undifferentiated highly malignant lesion with staining suggestive of melanoma. We discussed that next steps will be determined based on final pathology diagnosis, but that adjuvant systemic therapy is almost definitely indicated to decrease risk of recurrence. We reviewed that adjuvant immunotherapy will be indicated if this lesion truly represents a melanoma, but that other systemic therapy may be needed if the final pathologic diagnosis is not melanoma. We discussed that Foundation One testing will be sent for his tumor to determine if there are any specific targetable mutations. For now, he will be referred to Dr Robison to discuss adjuvant therapy. We reviewed wound care instructions. I instructed him to keep the site dry until cleared by Dr Tejada. I demonstrated and discussed dressing changes, which includes placing a dry abdominal pad over the site daily and as needed for drainage. He was instructed to monitor for any redness, purulent drainage, increased pain, fevers, chills or other concerns. PLAN: Keep surgical site dry Dry abdominal pad to the site daily and as needed for drainage Monitor site for erythema, purulent drainage, increasing pain or any fever or chills. Contact me with concerns I will update him on pathology results once available Evaluation with Dr Tejada to discuss reconstruction options Medical oncology referral for adjuvant therapy and Foundation One testing Tentatively follow-up on 10/25/23, but will attempt to coordinate with Dr Tejada or Dr Robison evaluation Lizzeth Demarco MD Surgical Oncology documented in this encounter [facility] 10-10-2023 History of Present illness Narrative Encounter Opened in error. Please disregard. Lizezth Demarco MD documented in this encounter [facility] 10-06-2023 Note Attestation signed by Lizzeth Demarco MD at 10/06/2023 12:23 PM Teaching Physician Note: I saw and evaluated the patient. I personally obtained the luque and critical portions of the history and physical exam. I reviewed the resident's documentation and discussed the patient with the resident. I agree with the resident's medical decision making as documented in the resident's note. No acute events overnight. Pain controlled. Vitals stable. 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 Future Appointments Date Time Provider Department Center 10/15/2023 8:30 AM Lynne Tejada MD Plastics [facility] 10/25/2023 10:00 AM Lizzeth Demarco MD Onc [facility] 10/25/2023 11:00 AM Codie Villeda APRN-[facility] Condition at Discharge improved Symptoms to look out for after discharge: New or Severe Pain, Shortness of breath, Drainage/Bleeding from wound or surgical site and Fever Please call office if your wound vac malfunctions or starts to beep and does not resolve. 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 For completeness of records, he first noted a mass in May 2023, which began to rapidly enlarge and become symptomatic with pain and episodes of bleeding. CT scan of the chest on 07/17/2023 showed an 8.4 x 3.6 cm mass in the subcutaneous tissue of the left upper back. 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 PET/CT on 09/12/2023 showed a 13 x 6.4 x 12.5 cm FDG avid soft tissue mass of the left posterior back with no evidence of metastatic disease orconcerning regional lymphadenopathy. Given biopsy suggestive of sarcomatoid melanoma, isolated disease, and symptomatic nature of the mass, recommendations were to proceed with surgical resection for complete pathologic assessment and symptom relief. The potential risk for unexpected final pathologic diagnosis including soft tissue sarcoma was discussed as was the possible need for adjuvant radiation or chemotherapy. We reviewed that reconstruction would be performed in a staged manner given unclear nature of the mass. The risks of surgery including bleeding, infection, positive margin, pain, scar, unexpected pathologic diagnosis, and recurrence were discussed and he was willing to proceed. Significant Findings Partially ulcerated, exophytic firm mass on left posterolateral back measuring 15 x 14 x 8 cm. Excised with no touch technique with 2 cm skin margins. Mass not clearly fixed to underlying musculature though some fibers of the trapezius and latissimus dorsi excised on block with mass. Tissue defect measuring 20 x 20 cm. PolyNovo BTM dermal substitute applied Hospital Course Was taken to the OR for radical resection left posterior back mass 15 x 14 x 8 cm and application PolyNovo BTM dermal substitute and negative pressure wound vac application on 10/05/[address] Priest. Tolerated procedure well w/ no complications; please see separately dictated operative note for details. Extubated in the OR without incident and recovered briefly in the PACU before being transferred to a RNF Diet was advanced as tolerated and pain control was transitioned to PO. Pt was discharged home in stable condition on 10/06/23 with wound vac instruction and plan to follow-up as an outpatient this . At time of discharge, pt was afebrile, AVSS, and pain was well-controlled. He was tolerating a diet, voiding without issue, and ambulating independently. His wound vac clean, dry and intact, with a good seal. He was seen on the day of discharge with the following physical exam: Constitutional: Well developed, well nourished in no acute distress . HEENT: Normocephalic, atraumatic, anicteric sclera, mucous membranes moist, conjugate eye movements. Neck: Supple, no m (more content not included)... 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 Future Appointments Date Time Provider Department Center 10/15/2023 8:30 AM Lynne Tejada MD Plastics [facility] 10/25/2023 10:00 AM Lizzeth Demarco MD Onc [facility] 10/25/2023 11:00 AM [facility] Condition at Discharge improved Symptoms to look out for after discharge: New or Severe Pain, Shortness of breath, Drainage/Bleeding from wound or surgical site and Fever Please call office if your wound vac malfunctions or starts to beep and does not resolve. 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 For completeness of records, he first noted a mass in May 2023, which began to rapidly enlarge and become symptomatic with pain and episodes of bleeding. CT scan of the chest on 07/17/2023 showed an 8.4 x 3.6 cm mass in the subcutaneous tissue of the left upper back. 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 PET/CT on 09/12/2023 showed a 13 x 6.4 x 12.5 cm FDG avid soft tissue mass of the left posterior back with no evidence of metastatic disease or concerning regional lymphadenopathy. Given biopsy suggestive of sarcomatoid melanoma, isolated disease, and symptomatic nature of the mass, recommendations were to proceed with surgical resection for complete pathologic assessment and symptom relief. The potential risk for unexpected final pathologic diagnosis including soft tissue sarcoma was discussed as was the possible need for adjuvant radiation or chemotherapy. We reviewed that reconstruction would be performed in a staged manner given unclear nature of the mass. The risks of surgery including bleeding, infection, positive margin, pain, scar, unexpected pathologic diagnosis, and recurrence were discussed and he was willing to proceed. Significant Findings Partially ulcerated, exophytic firm mass on left posterolateral back measuring 15 x 14 x 8 cm. Excised with no touch technique with 2 cm skin margins. Mass not clearly fixed to underlying musculature though some fibers of the trapezius and latissimus dorsi excised on block with mass. Tissue defect measuring 20 x 20 cm. PolyNovo BTM dermal substitute applied Hospital Course Was taken to the OR for radical resection left posterior back mass 15 x 14 x 8 cm and application PolyNovo BTM dermal substitute and negative pressure wound vac application on 10/05/[address] Priest. Tolerated procedure well w/ no complications; please see separately dictated operative note for details. Extubated in the OR without incident and recovered briefly in the PACU before being transferred to a RNF Diet was advanced as tolerated and pain control was transitioned to PO. Pt was discharged home in stable condition on 10/06/23 with wound vac instruction and plan to follow-up as an outpatient this . At time of discharge, pt was afebrile, AVSS, and pain was well-controlled. He was tolerating a diet, voiding without issue, and ambulating independently. His wound vac clean, dry and intact, with a good seal. He was seen on the day of discharge with the following physical exam: Constitutional: Well developed, well nourished in no acute distress . HEENT: Normocephalic, atraumatic, anicteric sclera, mucous membranes moist, conjugate eye movements. Neck: Supple, no masses or thyromegaly, trachea midline. Respiratory: Symmetrical expansion, no accessory muscle use. Cardiovascular: Regular rate, No JVD. Back: Left upper back surgical site CDI with wound vac in place with good seal. No surrounding erythema or fluctuance. Cannister with minimal serosanguinous output. Abdomen: soft, nondistended, nontender to palpation, no masses, no rebound tenderness or guarding. No peritonitis. Extremities: No Edema. Non-tender. Equal pulses bilaterally. : No Farfan. Neurological: Alert and oriented x3, normal speech, fluent, moving all extremities, sensation grossly intact throughout. Psychiatric: Cooperative. Appropriate mood and affect. Skin: No other obvious skin breakdown. No rashes or lesions. Appropriately warm. I provided the patient and/or family/surrogate with the following information: Explanation of the primary diagnosis, and secondary diagnoses where applicable, including test results, Discussion of any new medications and treatments, including expected benefits and potential major side effects, Explanation of previous treatments or medications that are discontinued, Discussion of post-hospital day-to-day care needs, and Follow-up plans, and warning signs that should prompt more urgent follow-up Associated attestation - Lizzeth Demarco MD - 10/06/2023 12:23 PM EDT Teaching Physician Note: I saw and evaluated the patient. I personally obtained the luque and critical portions of the history and physical exam. I reviewed the resident's documentation and discussed the patient with the resident. I agree with the resident's medical decision making as documented in the resident's note. No acute events overnight. Pain controlled. Vitals stable. D/C home with plans to follow-up on 10/10 for wound vac removal Lizzeth Demarco MD documented in this encounter [facility] 10-06-2023 Plan of care note Problem: Routine Care: Goal: Patient care will be managed and maintained throughout hospital stay per unit specific routine care procedure Outcome: Progressing Problem: Safety: Goal: Patient will remain free of falls during hospital stay Outcome: Progressing Goal: Free from injury during hospitalization Outcome: Progressing Patient has call light within reach, educated on use of call light, and has side rails in place Problem: Acute Pain: Goal: Ability to identify pain intensity on a pain scale and rate it consistently will be achieved and maintained Outcome: Progressing Goal: Understanding of proper administration and use of medicines will be achieved Outcome: Progressing Goal: Acceptable level of pain which allows the patient to achieve functional outcome goals Outcome: Progressing PRN pain medication to be administered as needed to maintain/control pain Problem: Discharge Planning: Goal: Discharge needs of the adult patient will be met Outcome: Progressing [facility] 10-06-2023 Miscellaneous Notes Problem: Routine Care: Goal: Patient care will be managed and maintained throughout hospital stay per unit specific routine care procedure Outcome: Progressing Problem: Safety: Goal: Patient will remain free of falls during hospital stay Outcome: Progressing Goal: Free from injury during hospitalization Outcome: Progressing Patient has call light within reach, educated on use of call light, and has side rails in place Problem: Acute Pain: Goal: Ability to identify pain intensity on a pain scale and rate it consistently will be achieved and maintained Outcome: Progressing Goal: Understanding of proper administration and use of medicines will be achieved Outcome: Progressing Goal: Acceptable level of pain which allows the patient to achieve functional outcome goals Outcome: Progressing PRN pain medication to be administered as needed to maintain/control pain Problem: Discharge Planning: Goal: Discharge needs of the adult patient will be met Outcome: Progressing Problem: Routine Care: Goal: Patient care will be managed and maintained throughout hospital stay per unit specific routine care procedure Outcome: Progressing Patient admitted to [facility]. Patient able to independently ambulate throughout room with minimal divination in gate. Patient denies pain. Patient oriented to unit. Patient given IS and educated on purpose. Patient currently in bed with bed in low position, call light in reach. 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) [C43.59] * Mass on LEFT back [R22.2] Procedures: Radical excision of left back mass (15 cm x 14 cm x 8 cm) Application of polynovo BTM dermal substitute (20 cm x 20 cm) Surgeon(s): Surgeon(s): Lizzeth Demarco MD Staff: Scrub: Hafsa Sloan CST; Dayna Michael CST Pharmacist In Charge Nurse: Keisha Edwards; Robert Tse Public Health Nurse: Diony Costa MD Anesthesia: General Anesthesiologist: Faheem Godwin MD; Sabrina Martin DO CAA: Thelma Soriano CAA LABEL REWINDER: Scott Stoner APRN-SIRENA Anesthesia Student: García Dennis Specimen(s): ID Type Source Tests Collected by Time Destination 1 : left posterior back mass. short stitch wise 12 o clock. long stitch wise 3 o clock Tissue Back SPECIMEN FOR SURGICAL PATH Lizzeth Demarco MD 10/05/2023 1530 Estimated Blood Loss: 50 cc Lines/Drains: Peripheral IV Access: 10/05/23 1139 20 gauge Right Hand (Active) Site Assessment WNL;Dressing intact 10/05/23 1139 Infusion Status Port #1 Capped;Patent;Positive blood return 10/05/23 1139 Peripheral IV Access: 10/05/23 1241 18 gauge Left Hand (Active) Site Assessment WNL 10/05/23 1310 Infusion Status Port #1 Infusing 10/05/23 1310 Temporarily Retained Foreign Object: No Findings: Back mass excised with 2 cm margins circumferentially utilizing a no touch technique. BTM applied to skin defect with overlying adaptic + black sponge (x2 pieces) with wound vac. This procedure was not performed to treat primary cutaneous melanoma through wide local excision Complications: None Status at end of surgery: Stable Activity: Ad Soraya Surgical wound class: Yes, wound was clean. Patient Class: Planned Extended Recovery. Dr. Demarco was present in the OR for the critical portion of the procedure and procedure sign-out. 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 Excised with no touch technique with 2 cm skin margins. Mass not clearly fixed to underlying musculature though some fibers of the trapezius and latissimus dorsi excised on block with mass. Tissue defect measuring 20 x 20 cm. 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 For completeness of records, he first noted a mass in May 2023, which began to rapidly enlarge and become symptomatic with pain and episodes of bleeding. CT scan of the chest on 07/17/2023 showed an 8.4 x 3.6 cm mass in the subcutaneous tissue of the left upper back. 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 PET/CT on 09/12/2023 showed a 13 x 6.4 x 12.5 cm FDG avid soft tissue mass of the left posterior back with no evidence of metastatic disease or concerning regional lymphadenopathy. Given biopsy suggestive of sarcomatoid melanoma, isolated disease, and symptomatic nature of the mass, recommendations were to proceed with surgical resection for complete pathologic assessment and symptom relief. The potential risk for unexpected final pathologic diagnosis including soft tissue sarcoma was discussed as was the possible need for adjuvant radiation or chemotherapy. We reviewed that reconstruction would be performed in a staged manner given unclear nature of the mass. The risks of surgery including bleeding, infection, positive margin, pain, scar, unexpected pathologic diagnosis, and recurrence were discussed and he was willing to proceed. Details of Procedure: The patient was identified in the pre-operative holding area and the surgical site was marked. Informed consent was verified. He was taken to the operating room. Pre-operative antibiotic prophylaxis with 2 grams of cefazolin was administered and SCDs were placed. A farfan catheter was placed. General anesthesia was then administered. He was placed on the operating room table in prone position, ensuring appropriate padding. The left upper back was prepped and draped in the usual sterile fashion using betadine for the ulcerated tumor and chlorhexidine prep for the intact skin. The surface of the tumor was covered with sterile gauze and an Ioban drape to allow for no touch resection. Time-out was then performed, verifying the correct patient, position, and procedure. The margins of the tumor were marked, measuring 15 x 14 x 8 cm. A ruler was used to lang 2 cm skin margins in all directions. An incision was made sharply along the marked resection margin using a scalpel. The incision was then carried through the subcutaneous fat to the level of the underlying fascia using blunt dissection, electrocautery, and the Ligasure device to divide identified vessels in the subcutaneous fat. Beginning at the superolateral aspect of the mass, the mass was dissected from the underlying muscular fascia using blunt dissection and the Ligasure device. The dissection was carried circumferentially and inferiorly. Along the mid portion of the mass, there was adhesions to the superficial and lateral fibers of the trapezius muscle and the superficial aspect of the latissimus dorsi muscle, which were resected en bloc with the mass. The mass was removed as the specimen, which was oriented appropriately with silk marking sutures. Hemostasis was obtained in the surgical field and the site was thoroughly irrigated with saline solution. The tissue defect measured 20 x 20 cm. A 40 x 20 cm piece of PolyNovo BTM was placed in the wound and trimmed to the appropriate size. The dermal substitute was then inset into the wound circumferentially using jamie, with excellent apposition to the wound bed. Adaptic was placed over the PolyNovo BTM followed by black granufoam. The granufoam was secured with vac drape and placed to negative pressure at 125 mm Hg via the Vac Via system with an excellent seal. The sponge and instrument count were reported as correct at the end of the procedure. The patient was woken from anesthesia and transferred to the recovery room in stable condition. Of note, after the mass was resected, there was some subcutaneous emphysema of the superficial back musculature. The surgical field was thoroughly inspected with no evidence of violation of the pleural cavity or intercostal musculature. There was no evidence of respiratory status change during the procedure. Chest x-ray obtained in the recovery room showed no evidence of pneumothorax but severe apical bullous emphysema. Complications: none As the attending surgeon, I was present and scrubbed for the entire duration of the procedure. Lizzeth Demarco MD Surgical Oncology Blood Attestation: ATTESTATION OF INFORMED CONSENT FOR BLOOD: The transfusion of blood and/or blood components were discussed with the patient and/or legal sales training representative. The risks, benefits and alternatives were reviewed. Questions regarding blood transfusions were answered. The patient /or the patient s legal sales training representative agree with the plan for transfusion of blood and/or blood components. documented in this encounter [facility] 10-05-2023 History of Present illness Narrative Images from the original note were not included. Post Operative Check Subjective: Lying comfortably in bed, pain is well controled. Tolerating diet without nausea or vomiting. Denies headaches, chest pain, shortness of breath. Objective Blood pressure 128/75, pulse 90, temperature 98.4 F (36.9 C), temperature source Oral, resp. rate 18, height 6' 2 (1.88 m), weight 164 lb 8 oz (74.6 kg), SpO2 95 %. Gen:Laying in bed in no acute distress. CV: Regular Rate Pulm: Equal excursion bilaterally, normal work of breathing ABD: Soft, non-distended,non-tender. Back: Wound vac in place holding suction Ext: no edema, SCDs in place Intake/Output Summary (Last 24 hours) at 10/05/20237 Last data filed at 10/05/2023 1958 Gross per 24 hour Intake 2255 ml Output 630 ml Net 1625 ml Assessment/ Plan: Edilma Tavarez is a 58 year old male POD#0 s/p Radical resection left posterior back mass 15 x 14 x 8 cm, Application PolyNovo BTM dermal substitute. Recovering Well postoperatively. -No acute events post-operatively. -Continue current pain regimen -Continue Current Care plan Vivian Vora MD PGY-1 General Surgery [facility] Surgery Pager: [phone] documented in this encounter [facility] 10-05-2023 Plan of care note Problem: Routine Care: Goal: Patient care will be managed and maintained throughout hospital stay per unit specific routine care procedure Outcome: Progressing Patient admitted to [facility]. Patient able to independently ambulate throughout room with minimal divination in gate. Patient denies pain. Patient oriented to unit. Patient given IS and educated on purpose. Patient currently in bed with bed in low position, call light in reach. 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] * Mass on LEFT back [R22.2] Procedures: Radical excision of left back mass (15 cm x 14 cm x 8 cm) Application of polynovo BTM dermal substitute (20 cm x 20 cm) Surgeon(s): Surgeon(s): Lizzeth Demarco MD Staff: Scrub: Hafsa Sloan, ANIMAL RIDE ATTENDANT; Dayna Michael, YVAN Pharmacist In Charge Nurse: Keisha Edwards; Robert Tse Public Health Nurse: Diony Costa MD Anesthesia: General Anesthesiologist: Faheem Godwin MD; Sabrina Martin DO CAA: Thelma Soriano CAA LABEL REWINDER: Scott Stoner APRN-CRNA Anesthesia Student: García Dennis Specimen(s): ID Type Source Tests Collected by Time Destination 1 : left posterior back mass. short stitch wise 12 o clock. long stitch wise 3 o clock Tissue Back SPECIMEN FOR SURGICAL PATH Lizzeth Demarco MD 10/05/2023 1530 Estimated Blood Loss: 50 cc Lines/Drains: Peripheral IV Access: 10/05/23 1139 20 gauge Right Hand (Active) Site Assessment WNL;Dressing intact 10/05/23 1139 Infusion Status Port #1 Capped;Patent;Positive blood return 10/05/23 1139 Peripheral IV Access: 10/05/23 1241 18 gauge Left Hand (Active) Site Assessment WNL 10/05/23 1310 Infusion Status Port #1 Infusing 10/05/23 1310 Temporarily Retained Foreign Object: No Findings: Back mass excised with 2 cm margins circumferentially utilizing a no touch technique. BTM applied to skin defect with overlying adaptic + black sponge (x2 pieces) with wound vac. This procedure was not performed to treat primary cutaneous melanoma through wide local excision Complications: None Status at end of surgery: Stable Activity: Ad Soraya Surgical wound class: Yes, wound was clean. Patient Class: Planned Extended Recovery. Dr. Demarco was present in the OR for the critical portion of the procedure and procedure sign-out. 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 Excised with no touch technique with 2 cm skin margins. Mass not clearly fixed to underlying musculature though some fibers of the trapezius and latissimus dorsi excised on block with mass. Tissue defect measuring 20 x 20 cm. 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 For completeness of records, he first noted a mass in May 2023, which began to rapidly enlarge and become symptomatic with pain and episodes of bleeding. CT scan of the chest on 07/17/2023 showed an 8.4 x 3.6 cm mass in the subcutaneous tissue of the left upper back. 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 PET/CT on 09/12/2023 showed a 13 x 6.4 x 12.5 cm FDG avid soft tissue mass of the left posterior back with no evidence of metastatic disease or concerning regional lymphadenopathy. Given biopsy suggestive of sarcomatoid melanoma, isolated disease, and symptomatic nature of the mass, recommendations were to proceed with surgical resection for complete pathologic assessment and symptom relief. The potential risk for unexpected final pathologic diagnosis including soft tissue sarcoma was discussed as was the possible need for adjuvant radiation or chemotherapy. We reviewed that reconstruction would be performed in a staged manner given unclear nature of the mass. The risks of surgery including bleeding, infection, positive margin, pain, scar, unexpected pathologic diagnosis, and recurrence were discussed and he was willing to proceed. Details of Procedure: The patient was identified in the pre-operative holding area and the surgical site was marked. Informed consent was verified. He was taken to the operating room. Pre-operative antibiotic prophylaxis with 2 grams of cefazolin was administered and SCDs were placed. A farfan catheter was placed. General anesthesia was then administered. He was placed on the operating room table in prone position, ensuring appropriate padding. The left upper back was prepped and draped in the usual sterile fashion using betadine for the ulcerated tumor and chlorhexidine prep for the intact skin. The surface of the tumor was covered with sterile gauze and an Ioban drape to allow for no touch resection. Time-out was then performed, verifying the correct patient, position, and procedure. The margins of the tumor were marked, measuring 15 x 14 x 8 cm. A ruler was used to lang 2 cm skin margins in all directions. An incision was made sharply along the marked resection margin using a scalpel. The incision was then carried through the subcutaneous fat to the level of the underlying fascia using blunt dissection, electrocautery, and the Ligasure device to divide identified vessels in the subcutaneous fat. Beginning at the superolateral aspect of the mass, the mass was dissected from the underlying muscular fascia using blunt dissection and the Ligasure device. The dissection was carried circumferentially and inferiorly. Along the mid portion of the mass, there was adhesions to the superficial and lateral fibers of the trapezius muscle and the superficial aspect of the latissimus dorsi muscle, which were resected en bloc with the mass. The mass was removed as the specimen, which was oriented appropriately with silk marking sutures. Hemostasis was obtained in the surgical field and the site was thoroughly irrigated with saline solution. The tissue defect measured 20 x 20 cm. A 40 x 20 cm piece of PolyNovo BTM was placed in the wound and trimmed to the appropriate size. The dermal substitute was then inset into the wound circumferentially using jamie, with excellent apposition to the wound bed. Adaptic was placed over the PolyNovo BTM followed by black granufoam. The granufoam was secured with vac drape and placed to negative pressure at 125 mm Hg via the Vac Via system with an excellent seal. The sponge and instrument count were reported as correct at the end of the procedure. The patient was woken from anesthesia and transferred to the recovery room in stable condition. Of note, after the mass was resected, there was some subcutaneous emphysema of the superficial back musculature. The surgical field was thoroughly inspected with no evidence of violation of the pleural cavity or intercostal musculature. There was no evidence of respiratory status change during the procedure. Chest x-ray obtained in the recovery room showed no evidence of pneumothorax but severe apical bullous emphysema. Complications: none As the attending surgeon, I was present and scrubbed for the entire duration of the procedure. Lizzeth Demarco MD Surgical Oncology [facility] 10-05-2023 History and physical note Images from the original note were not included. Surgical Attestation: I have reviewed the patient's History and Physical Examination. I have personally seen and evaluated the patient, repeating luque portions. There is no significant interval change. Surgery is still indicated. Yes Consent reviewed and signed by patient/family: Yes Operative site verified and marked (if applicable): Yes STAR Costa MD Surgery [facility] Work Phone: 10-05-2023 Note Surgical Attestation : I have reviewed the patient's History and Physical Examination. I have personally seen and evaluated the patient, repeating luque portions. There is no significant interval change. Surgery is still indicated. Yes Consent reviewed and signed by patient/family: Yes Operative site verified and marked (if applicable): Yes STAR Costa MD Surgery [facility] 10-05-2023 History and physical note Images from the original note were not included. Surgical Attestation: I have reviewed the patient's History and Physical Examination. I have personally seen and evaluated the patient, repeating luque portions. There is no significant interval change. Surgery is still indicated. Yes Consent reviewed and signed by patient/family: Yes Operative site verified and marked (if applicable): Yes STAR Costa MD Surgery documented in this encounter [facility] 10-05-2023 History of Present illness Narrative Documentation of Human Investigation Informed Consent Process IRB: [id number] PI: Dr. Lizzeth Demarco SHORT TITLE: [facility] FULL TITLE: [facility] Tissue Repository Patient here today to sign the ICF and HIPAA consents for [facility]. Patient has had adequate time to review the ICF and agrees to participate in the study. Pt was consented by Dr. Demarco and Shanique Moser, signed, dated and timed today 05OCT2023, at 1105. Patient had all questions answered and appropriate contact information was provided. Other treatment options were presented in lieu of participating in tissue repository. Patient aware that research study is completely voluntary and patient has agreed to participate voluntarily, understanding that he/she can stop at any time. Explained to patient that not participating in the clinical trial, or discontinuing early would have no effect on receiving care, access to care, or receiving any service unrelated to research. Consent signed prior to any study procedures being performed. Patient was provided a copy of the consent and the original ICF was placed in the patient binder. Approximate time spent with patient was 15 minutes. Pt verbalized an understanding and encouraged to call with any questions. Projected surgery date: 05OCT2023 Shanique Moser Clinical Research documented in this encounter [facility] 10-05-2023 Progress note Formatting of t his note is different from the original. Blood Attestation: ATTESTATION OF INFORMED CONSENT FOR BLOOD: The transfusion of blood and/or blood components were discussed with the patient and/or legal sales training representative. The risks, benefits and alternatives were reviewed. Questions regarding blood transfusions were answered. The patient /or the patient s legal sales training representative agree with the plan for transfusion of blood and/or blood components. [facility] Work Phone: 10-04-2023 Telephone encounter Note SW received the following message from Claudia Ogden in Financial Eligibility: The Financial Assistance is pending and documentation has not been received for processing. The determination to continue with surgery comes from the provider as financial assistance does not determine medical necessity. ZAIDA then reached out to Dr. Demarco who confirmed that the surgery is medically necessary. SW called to inform Pt that surgery is still scheduled for tomorrow. Pt expressed his understanding. hKushboo ZULETA, PRIMARY SCHOOL TEACHER LIBRARIAN [id number] [facility] Work Phone: 10-04-2023 Miscellaneous Notes ZAIDA received the following message from Claudia Ogden in Financial Eligibility: The Financial Assistance is pending and documentation has not been received for processing. The determination to continue with surgery comes from the provider as financial assistance does not determine medical necessity. ZAIDA then reached out to Dr. Demarco who confirmed that the surgery is medically necessary. ZAIDA called to inform Pt that surgery is still scheduled for tomorrow. Pt expressed his understanding. Khushboo Gautam MSW, PRIMARY SCHOOL TEACHER LIBRARIAN [id number] ZAIDA spoke with Pt regarding his upcoming surgery. Pt s scheduled to have surgery with Dr. Demarco on 10/05/23 and explained that he received call from financial eligibility on 10/03/23 questioning whether or not Pt's surgery is still scheduled since is FAP status is pending. SW explained that she would request clarification from financial eligibility and would follow up with Pt. SW will remain available. 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 [id number] documented in this encounter [facility] 10-04-2023 Telephone encounter Note SW spoke with Pt regarding his upcoming surgery. Pt s scheduled to have surgery with Dr. Demarco on 10/05/23 and explained that he received call from [employer] eligibility on 10/03/23 questioning whether or not Pt's surgery is still scheduled since is FAP status is pending. SW explained that she would request clarification from financial eligibility and would follow up with Pt. SW will remain available. Khushboo Gautam MSW, PRIMARY SCHOOL TEACHER LIBRARIAN [id number] [facility] 10-02-2023 History of Present illness Narrative Documentation: Mode: Telephone Patient Patient Work Phone: Patient Cell Preferred phone: [phone] Consent: I confirmed patient understanding of the risks and benefits of telehealth visits and obtained consent to proceed with the telehealth visit. Location of Patient: Home of patient Surgical Oncology Followup Diagnosis: large, exophytic left posterior back mass, favor malignant melanoma Stage: pending Reason for Evaluation: discuss surgery Oncologic History: Mr Tavarez is a 58 year old male with a rapidly enlarging soft tissue mass of the left back with biopsy suggestive of melanoma. For completeness of records, he first noticed a golf ball sized raised mass on his left lateral back in May 2023. At that time, the lesion was not painful. He reports that it was red to violaceous in color, but otherwise asymptomatic. He had no antecedent trauma or injury to the area. The lesion started to rapidly enlarge and become more painful, prompting evaluation by his PCP. He had a CT chest with contrast performed at [facility] on 07/17/2023 which showed an ovoid soft tissue lesion in the subcutaneous tissue of the left upper back, measuring 8.4 x 3.6 cm (increased from 1.9 x [address] chest 06/2022). The lesion was reportedly largely homogeneous with a Hounsfield units of 50 with some focal enhancement inferiorly. There was evidence of a preserved fat plane between the lesion and underlying musculature. He was then referred to Dr Girish Nathan (general surgery) [facility] for and underwent incisional and core needle biopsy of the mass on 07/23/2023. 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 The lesion was positive for S100, vimentin, SOX10 and negative for CK7, CK20, desmin, AE1/3, HMB 45, and Melan-A. There was mild background SMA staining. 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 The slides were submitted to [facility] for pathologic consultation and the assessment from [facility] was felt to be consistent with malignant melanoma. Given concern for melanoma, he was referred to surgical oncology for evaluation. He was evaluated in the office 08/23/2023, at which time he was having significant pain at the site, as well as episodes of bleeding. The mass was non-fixed to underlying deep structures and measured 11 x 13 x 5 cm. He had prominent left axillary lymph nodes but no evidence of in transit lesions. Plans were made for pathology review and staging PET/CT prior to surgical management. He presents today with his to discuss test results and surgical management. Interval History: He reports that he is having ongoing pain at the site of the mass. He is taking Percocet and Lyrica. He had a severe episode of pain earlier this week after he removed a bandaid from the mass and a piece of the mass pulled off with the bandaid. He also had an episode of severe bleeding on 08/28/23, prompting ED visit. He reports that the mass continues to grow. He otherwise denies any changes in his health. Pathology review here at [facility] was consistent with melanoma. The tumor was positive for SOX10 and S100 (to a less degree), but was positive to SMA, HMB45, Melan A, desmin, CK20, CK7, and AE1/AE3. 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 He had a PET/CT on , which showed an FDG avid 13 x 6.4 x 12.5 cm mass in the left posterior chest wall without thania chest wall invasion and evidence of a preserved soft tissue plane the mass from the paraspinal musculature and the chest wall. Imaging showed no evidence of FDG avid lymphadenopathy or metastatic disease. His left axillary lymph nodes were prominent, but had no concerning radiographic features. In discussion of the prominent lymph nodes with Dr Robison, recommendations were to pursue percutaneous biopsy of the axillary lymphadenopathy to direct management of the axilla. This was scheduled for 09/24/2023, however, he was unable to have the biopsy performed. PHYSICAL EXAMINATION: No physical exam for telephone visit Radiology: PET/CT 09/12/2023 personally reviewed: FDG avid 13 x 6.4 x 12.5 cm mass in the left posterior chest wall without thania chest wall invasion, preserved fat plane the mass from the paraspinal musculature and the chest wall, no FDG avid lymphadenopathy or metastatic disease, prominent left axillary lymph nodes without FDG avidity or concerning radiologic features. Emphysematous changes to lungs bilateral with large apical blebs Labs: 08/23/2023 3:09 PM WBC 10.2 RBC 5.21 Hemoglobin 15.9 Hematocrit 47.1 MCV 91 MCH 30.4 MCHC 33.6 Platelet 410 (H) RDW-CV% 14.5 MPV 7.6 Neutrophils 67.5 Neutrophil # 6.87 Lymphocytes 22.2 (L) Lymph Absolute 2.26 Monocytes 7.6 Monocyte Absolute 0.78 Eosinophil 2.0 Eosinophil Absolute 0.20 Basophils 0.7 Basophil # 0.07 08/23/2023 3:09 PM Glucose 80 Sodium 139 Potassium 4.3 Carbon Dioxide 24 Chloride 104 BUN 13 Creatinine 0.90 Calcium 9.6 Anion Gap 15 Estimated GFR 99 08/23/2023 3:09 PM Albumin 4.4 Bilirubin, Direct 0.06 Bilirubin, Total 0.4 Alkaline Phosphatase 80 ALT (SGPT) 43 AST (SGOT) 20 Protein, Total 7.4 08/23/2023 3:09 PM LD 179 Pathology Consult Final Diagnosis A. Soft tissue, left upper back mass, core needle biopsy ([id number]) (07/24/2023) Most consistent with melanoma. . I certify that I personally conducted the diagnostic evaluation of the above specimen(s) and have rendered the final diagnosis(es). at 1526 Diagnosis Comment Sections show a specimen with pleomorphic spindle and epithelioid cells which are intermittently in a nodular and fascicular arrangement. There are multinucleated forms, with some eosinophilic nuclear inclusions. No junctional component of this tumor is identified. The tumor is strongly highlighted by antibodies to SOX10, and also, but less so, with antibodies to S100 protein. The tumor does not stain with antibodies to SMA, HMB45, Melan A, desmin, CK20, CK7, or AE1/AE3. The tumor is exclusively sarcomatoid in the sections evaluated, and does not show any clear-cut differentiation towards melanoma. 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 Intradepartmental Consultation DrsJaciel Casey, Danial, and Dieter. Gross Description Received from [facility] are 14 slides labeled [id number]. Assessment: 58 year old male with rapidly enlarging cutaneous based soft tissue mass of the left lateral back. Biopsies most suggestive of melanoma with sarcomatoid features. Imaging showing no evidence of metastatic disease or regional concerning lymphadenopathy. The mass is very symptomatic with pain and recurrent episodes of bleeding. I reviewed the results of the above testing with the patient and his today. We discussed that thus far, 2 of 3 pathology interpretations, those from [facility] and [facility], both suggest this mass is more likely sales training representative of a melanoma, but that sarcomatoid features are likely. We discussed that there is no evidence of spread of this cancer to other places on imaging, but that the rapid growth of the mass suggests an aggressive tumor. We discussed that the next best step is for surgical resection of the mass, with planned staged reconstruction once negative margins are assured. We reviewed that the mass would be removed with 2 cm margins to help ensure negative margins and to decrease the chance of recurrence. We discussed that excision of the entire mass will allow for the most complete pathologic assessment of the mass and best determination of the next steps. We discussed that additional testing would be performed on the mass, likely including mutational testing and that final pathologic diagnosis may take a few weeks. Given the size of the mass and predicted Breslow thickness if this is confirmed to be melanoma, he will be offered adjuvant immunotherapy to decrease the risk of recurrence. We also discussed that possibility that the final pathology may reveal a soft tissue sarcoma. We discussed that adjuvant radiation therapy may be necessary and that use of adjuvant systemic chemotherapy would be less likely. We discussed that sentinel lymph node biopsy is indicated if this mass truly represents a melanoma, which will allow for assessment of regional lymph node metastases. We discussed that sentinel lymph node biopsy entails injection of a radiotracer into the local area of the melanoma to determine which lymph nodes receive drainage from the site. These lymph nodes are then identified and surgically removed in order to assess for evidence of melanoma spread. These lymph nodes can be located in multiple different locations, though in this case, most likely the left axilla. I discussed that a small incision is necessary to remove the lymph nodes. We reviewed that the surgical site on his back would either be temporarily covered with either a dermal substitute or less likely managed with daily wet to dry dressing changes. WE reviewed that we will attempt to make dressing changes as easy as possible, but that the final decision will be made intra-operatively. He will then follow-up with Dr Tejada to discuss reconstruction options. We discussed that he will be offered overnight admission and that he should expect at least 2 weeks off from work, but that the final duration of time off of work will be determined by reconstruction plans. We discussed that I explained the risks of surgery including bleeding, infection, positive margin, pain, scar, seroma/lymphatic leak, axillary nerve injury, lymphedema, unexpected pathologic diagnosis, and local recurrence and he is willing to proceed. He is also agreeable to enroll in the [facility] tissue repository study. Surgery is scheduled for main campus on 10/05/23. Plan: Wide local excision left back mass and sentinel lymph node mapping/biopsy on 10/05/23 Planned extended recovery Follow up with Dr Tejada post-operatively for reconstruction options Enroll in tissue repository study Next steps in care to be determined by pathology results Likely medical oncology referral for adjuvant systemic therapy after surgery Lizzeth Demarco MD Surgical Oncology documented in this encounter [facility] 09-12-2023 Note ONCOLOGY PALLIATIVE CARE CONSULTATION Asked by Dr. Demarco to see this patient for symptom management in setting of metastatic melanoma The patient's H and P, progress notes, labs and epic reviewed and incorporated into this consultation. Ongoing left back mass that is tumor and pet scan today and plan at this time is resection and likely systemic therapy once pathology more clearly defined. 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 Has a daughter - adult OARRS Tamadol #28 Pregabain 50mg #30 Past Medical History: Diagnosis Date Lung abnormality half of lung is Past Surgical History: Procedure Laterality Date APPENDECTOMY HIATAL HERNIA REPAIR Family History Adopted: Yes Social History Socioeconomic History Marital status: Tobacco Use Smoking status: Every Day Current packs/day: 1.00 Average packs/day: 1 pack/day for 44.0 years (44.0 ttl pk-yrs) Types: Cigarettes Start date: 08/29/1979 Tobacco comments: Previously smoked up to 3 pack per day, now 1-1.25 Substance and Sexual Activity Alcohol use: Yes Comment: social ROS General - No weakness or fatigue, no fever or chills, sleeping is ok Skin - no rashes or new growths, no pruritis HENT - no headache, vision intact, hearing intact, no vertigo, no mouth sores Neck - no pain or lumps Breast - no nipple discharge, or pain Lungs - no cough, sob, hemoptysis CV - Denies any cp/sob/pnd/orthopnea. GI - appetite intact, no abd pain , n/v or constipation - urination is intact, no change in color or stream caliber Endocrine - No goiter, no heat/cold intolerance, no tremor MS -see hpi Neruologic - no dizziness or vertigo, no weakness or numbness Heme - No easy bruising BP 142/77 Pulse 91 Wt 164 lb (74.4 kg) BMI 21.62 kg/m??? Weight was 75.1 kg on 08/23/2023 Pleasant, affect is reactive, no acute distress Skin is intact without rashes, HENT - nc/at, perrla, eomi, no sinus tenderness, mmm without exudate, erythema or thrush neck no JVP or TMG, no bruits or lad cv rrr without murmer lungs - cta and percussion abd - bs+, soft, nt, nd, no HSM or masses ext no edema, 2+ pulses Back - large lesion wll documented in media and Dr Demarco (discussed in person plan of care today) firm, not tender to touch, necrotic upper crust NEUROLOGIC EXAM: Reflexes were 2+ in bilateral upper and lower extremities with downgoing plantar responses. Sensory exam revealed normal sensation in all dermatomal regions bilateral upper and lower extremities. Motor strength was normal in all myotomal regions bilateral upper and lower extremities. Fine motor coordination was normal. Gait was normal. Basic Metabolic Panel Na K Cl CO2 Gap Glu BUN Cr Ca 08/23/23 1509 139 4.3 104 24 15 80 13 0.90 9.6 No results found for: TSH CBC (last 3 years, up to 5 values) WBC RBC Hgb Hct MCV RDW Plt 08/23/23 1509 10.2 5.21 15.9 47.1 91 14.5 410 No results found for: B12 Cancer related mass Large back mass At this time pain that is most distressing is neuropathic more than somatic and has surgery upcoming soon and biopsies -- avoiding nsaids -- acetaminophen 650 q 6 -- no need for the tramadol -- trial of pregabalin 100mg q8 -- can do non-opioid agreement if on > 6 weeks Tumor of back Discussed the role of palliative care in their care to support the patient and optimize symptom management , functional improvement, and to maximize or maintain their highest quality of life regardless of treatment or response to treatments or disease -- Discussed prognosis and disease trajectory in typical oncology patient -- Espoused hope for the best, prepare for the worse approach to care -- Discussed how the cancer center team will help guide them on medical decision making based on the patient's values, goals, disease stage/activity/trajectory, performance status and prognosis. -- exact histology being determined as this time Advance directives - is his formal DPOA-HC -- can formalize more in future [facility] will I will follow and can help with ector-op pain as well Judy Ortega MD [facility] Evaluation note No assessment inform ation available [facility] Work Phone: Evaluation note Diagnosis 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) Mass on back Localized superficial swelling, mass, or lump 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)- Primary Mass on back Localized superficial swelling, mass, or lump 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) Mass on back Localized superficial swelling, mass, or lump [facility] 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)- Primary 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) Mass on back Localized superficial swelling, mass, or lump [facility] Diagnosis 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) Mass on back Localized superficial swelling, mass, or lump [facility] Diagnosis ENCOUNTER OPENED IN ERROR- Primary [facility] Diagnosis 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)- Primary Mass on back Localized superficial swelling, mass, or lump Body mass index (BMI) 20.0-20.9, adult [facility] Diagnosis 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)- Primary Open wound of left side of back, initial encounter Tobacco dependence Tobacco use disorder Body mass index (BMI) 19.9 or less, adult Open wound of left side of back- Primary 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) Tobacco dependence Tobacco use disorder [facility] Diagnosis Open wound of left side of back- Primary 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) Tobacco dependence Tobacco use disorder 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)- Primary Open wound of left side of back, subsequent encounter [facility] Diagnosis Open wound of left side of back- Primary 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) Tobacco dependence Tobacco use disorder Pre-op evaluation- Primary Preoperative examination, unspecified [facility] Diagnosis Open wound of left side of back- Primary 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) Tobacco dependence Tobacco use disorder Cancer associated pain Neoplasm related pain (acute) (chronic) 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) [facility] Diagnosis Open wound of left side of back- Primary 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) Tobacco dependence Tobacco use disorder 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)- Primary [facility] Diagnosis Open wound of left side of back- Primary 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) Tobacco dependence Tobacco use disorder 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)- Primary Open wound of left side of back, initial encounter [facility] Diagnosis Open wound of left side of back- Primary Acute postoperative pain Other acute postoperative pain 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) Tobacco dependence Tobacco use disorder [facility] Diagnosis Open wound of left side of back, initial encounter- Primary [facility] Diagnosis 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)- Primary documented in this encounter [facility] Open wound of left side of back, initial encounter- Primary documented in this encounter [facility] Purpose Family History No Family History Records FoundNo Family History Records FoundNo Family History Records FoundNo Family History Records FoundNo Family History Records Found Advance Directives Latest Code Status on File Code Status Date Activated Date Inactivated Comments Full Code 10/05/2023 8:39 PM Question Answer Comments Documentation of decision process for this code status: Discussed with patient or surrogate. This is the code status chosen by the patient/surrogate. Latest Code Status on File Code Status Date Activated Date Inactivated Comments Full Code 10/05/2023 8:39 PM 10/06/2023 3:52 PM Question Answer Comments Documentation of decision process for this code status: Discussed with patient or surrogate. This is the code status chosen by the patient/surrogate. Latest Code Status on File Code Status Date Activated Date Inactivated Comments Full Code 10/05/2023 8:39 PM 10/06/2023 3:52 PM Question Answer Comments Documentation of decision process for this code status: Discussed with patient or surrogate. This is the code status chosen by the patient/surrogate. Date Activated Date Inactivated Comments 10/05/2023 8:39 PM 10/06/2023 3:52 PM Question Answer Comments Documentation of decision pr ocess for this code status: Discussed with patient or surrogate. This is the code status chosen by the patient/surrogate. Procedure Findings Note OPERATIVE NOTE OPERATION JASON E: 10[birth year]10[birth year]19 ANESTHETIC:General. IV FLUIDS: Crystalloid 1,000 mL. PREOPERATIVE DIAGNOSIS:Periumbilical abdominal pain, acute appendicitis on CT scan. POSTOPERATIVE DIAGNOSIS:Gangrenous, perforated acute appendicitis, no abscess. PROCEDURE NAME:Laparoscopic appendectomy. ESTIMATED BLOOD LOSS: Minimal. SPECIMENS:Appendix. DISPOSITION: The patient was extubated in the OR and taken to the PACU in fair condition. PROCEDURE: The patient was brought into the OR, placed supine on the OR table. After establishment of general endotracheal anesthesia, the patient's abdomen was shaved with clippers, prepped and draped in the sterile fashion. An infraumbilical incision was made, the incision was carried down through the skin using sharp dissection and through the soft tissue using electuary Bovie until reaching the anterior rectus fascia. The fascia was scored in the midline and grasped with Tayla clamp and elevated, #0 Vicryl stay sutures were placed. Using blunt dissec (more content not included)... Reason for Referral Specialty Diagnoses / Procedures Referred By Arik don Referred To Contact Radiology Diagnoses 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) Mass on back Procedures NM LYMPH NODE SCAN W/ SPECT/CT Lizzeth Demarco MD [address] [place] [address] [facility] [[email or web address]] NUCLEAR MEDICINE [address] [place] [address] Referral ID Status Reason Start Date Expiration Date V isits Requested Visits Authorized [id number] Closed [facility] Care-[facility] 09/24/2023 09/23/2024 2 2 Specialty Diagnoses / Procedures Referred By Arik don Referred To Contact Oncology Medical Diagnoses 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) Mass on back Lizzeth Demarco MD [address] [place] [address] Gaye Robison MD [address] [place] [address] Referral ID Status Reason Start Date Expiration Date V isits Requested Visits Authorized [id number] Pending Review 10/11/2023 04/08/2024 3 3 Scheduling Instructions Please call the [facility] at [phone] to schedule an appointment if one was not made for you today. 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, eval for adjuvant radiation Specialty Diagnoses / Procedures Referred By Arik don Referred To Contact Anesthesiology Diagnoses 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) Open wound of left side of back, initial encounter Tobacco dependence Lynne Tejada MD [address] [place] [address] [facility] [[email or web address]] PRE ADMISSION TESTING [address] [place] [address] Referral ID Status Reason Start Date Expiration Date V isits Requested Visits Authorized [id number] Authorized 10/15/2023 10/14/2024 1 1 Scheduling Instructions Your surgical team will reach out to you to schedule a pre-admission testing appointment. Question Answer Reason for consult? Recommended PAT Risk Score Additional Source Comments (unrecognized sect ion and content) No Status Records FoundNo Status Records FoundNo Status Records FoundNo Status Records FoundNo Status Records Found INFORMATION SOURCE (unrecogn ized section and content) DATE CREATED AUTHOR 11/11/2019 [facility] DATE CREATED AUTHOR AUTHOR'S ORGANIZ ATION 09/18/2023 [facility] DATE CREATED AUTHOR AUTHOR'S ORGANIZ ATION 09/20/2023 [facility] DATE CREATED AUTHOR AUTHOR'S ORGANIZ ATION 10/16/2023 [facility] DATE CREATED AUTHOR AUTHOR'S ORGANIZ ATION 12/15/2023 [facility] Care Teams (unrecognized sec tion and content) Team Status: Inactive Member Role Status Dates Girish Nathan MD Attending Provider Active Start: July 23, 2023 End: July 23, 2023 Yardage Control Clerk Relationship Specialty Start Date End Date Lizzeth Demarco MD [address] [place] [address] Physician Surgical Oncology 09/29/23 Yardage Control Clerk Relationship Specialty Start Date End Date Lizzeth Demarco MD [address] [place] [address] Physician Surgical Oncology 09/29/23 Yardage Control Clerk Relationship Specialty Start Date End Date Lizzeth Demarco MD [address] [place] [address]8072 Physician Surgical Oncology 09/29/23 Yardage Control Clerk Relationship Specialty Start Date End Date Lizzeth Demarco MD [address] [place] [address] 22055 Physician Surgical Oncology 09/29/23 Yardage Control Clerk Relationship Specialty Start Date End Date Lizzeth Demarco MD [address] [place] [address] Physician Surgical Oncology 09/29/23 Yardage Control Clerk Relationship Specialty Start Date End Date Lizzeth Demarco MD [address] [place] [address] Physician Surgical Oncology 09/29/23 Yardage Control Clerk Relationship Specialty Start Date End Date Lizzeth Demarco MD [address] [place] [address] Physician Surgical Oncology 09/29/23 Yardage Control Clerk Relationship Specialty Start Date End Date Lizzeth Demarco MD [address] [place] [address]14 Physician Surgical Oncology 09/29/23 Yardage Control Clerk Relationship Specialty Start Date End Date Lizzeth Demarco MD [address] [place] [address] 37741 Physician Surgical Oncology 09/29/23 Yardage Control Clerk Relationship Specialty Start Date End Date Lizzeth Demarco MD [address] [place] [address] 37550 Physician Surgical Oncology 09/29/23 Yardage Control Clerk Relationship Specialty Start Date End Date Lizzeth Demarco MD [address] [place] [address] 14320 Physician Surgical Oncology 09/29/23 Yardage Control Clerk Relationship Specialty Start Date End Date Lizzeth Demarco MD [address] [place] [address] 11070 Physician Surgical Oncology 09/29/23 Yardage Control Clerk Relationship Specialty Start Date End Date Lizzeth Demarco MD [address] [place] [address] Physician Surgical Oncology 09/29/23 Yardage Control Clerk Relationship Specialty Start Date End Date Lizzeth Demarco MD [address] [place] [address] 17636 Physician Surgical Oncology 09/29/23 Yardage Control Clerk Relationship Specialty Start Date End Date Lizzeth Demarco MD [address] [place] [address] 63367 Physician Surgical Oncology 09/29/23 Lynne Tejada MD [address] [place] [address] Physician Plastic Surgery 10/27/23 Yardage Control Clerk Relationship Specialty Start Date End Date Lizzeth Demarco MD [address] [place] [address]85 Physician Surgical Oncology 09/29/23 Lynne Tejada MD [address] [place] [address] [place] [address] Physician Plastic Surgery 10/27/23 Yardage Control Clerk Relationship Specialty Start Date End Date Lizzeth Demarco MD [address] [place] [address]9812 Physician Surgical Oncology 09/29/23 Lynne Tejada MD [address] [place] [address] [place] [address] Physician Plastic Surgery 10/27/23 Yardage Control Clerk Relationship Specialty Start Date End Date Lizzeth Demarco MD [address] [place] [address] 48012 Physician Surgical Oncology 09/29/23 Lynne Tejada MD [address] [place] [address] [place] [address] Physician Plastic Surgery 10/27/23 Yardage Control Clerk Relationship Specialty Start Date End Date Lizzeth Demarco MD [address] [place] [address] 21326 Physician Surgical Oncology 09/29/23 Lynne Tejada MD [address] [place] [address] [place] [address] Physician Plastic Surgery 10/27/23 Yardage Control Clerk Relationship Specialty Start Date End Date Lizzeth Demarco MD [address] [place] [address]4866 Physician Surgical Oncology 09/29/23 Lynne Tejada MD [address] [place] [address] [place] [address] Physician Plastic Surgery 10/27/23 Yardage Control Clerk Relationship Specialty Start Date End Date Lizzeth Demarco MD [address] [place] [address]40 Physician Surgical Oncology 09/29/23 Lynne Tejada MD [address] [place] [address] [place] [address] Physician Plastic Surgery 10/27/23 Yardage Control Clerk Relationship Specialty Start Date End Date Lizzeth Demarco MD [address] [place] [address] Physician Surgical Oncology 09/29/23 Lynne Tejada MD [address] [place] [address] [place] [phone] Physician Plastic Surgery 10/27/23 Yardage Control Clerk Relationship Specialty Start Date End Date Lizzeth Demarco MD [address] [place] [address] 49421 Physician Surgical Oncology 09/29/23 Lynne Tejada MD [address] [place] [address] [place] [address] Physician Plastic Surgery 10/27/23 Nito Jung, GYM TEACHER-BIZTALK CONSULTANT [address] [place] [phone] APPLICATION SUPPORT MANAGER Plastic Surgery 11/24/23 Yardage Control Clerk Relationship Specialty Start Date End Date Lizzeth Demarco MD [address] [place] [address]279 Physician Surgical Oncology 09/29/23 Lynne Tejada MD [address] [place] [address] [place] [address] Physician Plastic Surgery 10/27/23 Nito Jung, GYM TEACHER-BIZTALK CONSULTANT [address] [place] [address] [phone] APPLICATION SUPPORT MANAGER Plastic Surgery 11/24/23 Yardage Control Clerk Relationship Specialty Start Date End Date Lizzeth Demarco MD [address] [place] [address] 89157 Physician Surgical Oncology 09/29/23 Lynne Tejada MD [address] [place] [address] [place] [address] Physician Plastic Surgery 10/27/23 Nito Jung, GYM TEACHER-BIZTALK CONSULTANT [address] [place] [address] [phone] APPLICATION SUPPORT MANAGER Plastic Surgery 11/24/23 Yardage Control Clerk Relationship Specialty Start Date End Date Lizzeth Demarco MD [address] [place] [address] Physician Surgical Oncology 09/29/23 Lynne Tejada MD [address] [place] [address] [place] [address] Physician Plastic Surgery 10/27/23 Nito Jung, GYM TEACHER-BIZTALK CONSULTANT [address] [place] [phone] APPLICATION SUPPORT MANAGER Plastic Surgery 11/24/23 Goals (unrecognized section and content) Goals may be documented in a n alternate section Reason for Visit (unrecogniz ed section and content) Reason Onset Date Comments Outreach 10/04/2023 Reason Comments Local swelling/papule/lump/mass Specialty Diagnoses / Procedures Referred By Arik t Referred To Contact General Surgery Diagnoses 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) Mass on back 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) [C43.59] Mass on back [R22.2] Procedures EXCISION, WIDE, MELANOMA-- inj 9:30-- SENTINEL LYMPH NODE MAPPING Lizzeth Demarco MD [address] [place], [place] [address] [place] [address] [facility] [employer] [facility] [address] [place] [address] Phone: [phone] Referral ID Status Reason Start Date Expiration Date Visits Re quested Visits Authorized [id number] 3 3 Reason Onset Date Comments Encounter opened in error 10/10/2023 Reason Comments Post Op Check Reason Comments New patient, to establish relationship T umor removed on back per pt Reason Onset Date Comments Discuss results test/procedures 10/17/2023 Reason Onset Date Comments Refill 10/28/2023 Reason Comments Melanoma Specialty Diagnoses / Procedures Referred By Contdora t Referred To Contact Oncology Medical Diagnoses 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) Mass on back Lizzeth Demarco MD [address] [place] [address] Gaye Robison MD [address] [place], [place] [id number] Referral ID Status Reason Start Date Expiration Date V isits Requested Visits Authorized [id number] Pending Review 10/11/2023 04/08/2024 3 3 Reason Comments Consult with specialist Reason Onset Date Comments Refill 11/04/2023 Specialty Diagnoses / Procedures Referred By Arik t Referred To Contact General Surgery Diagnoses 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) Open wound of left side of back, initial encounter Tobacco dependence 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) [C43.59] Open wound of left side of back, initial encounter [S21.A] Tobacco dependence [F17.200] Procedures SKIN GRAFT, SPLIT THICKNESS, TORSO Lynne Tejada MD [address] [place] [address] [facility] [address] [place] [address] Phone: [phone] Referral ID Status Reason Start Date Expiration Date Visits Re quested Visits Authorized [id number] 3 3 Reason Onset Date Comments Wound Check 11/21/2023 Reason Onset Date Comments APPOINTMENT SCHEDULING 11/27/2023 Reason Comments Monitoring/follow-up Reason Comments Post-op Follow-up Reason Onset Date Comments Return Patient Phone Call 12/24/2023 Scheduled Active and Recently Administ ered Medications (unrecognized section and content) Medication Order 10/04/2023 10/05/2023 10/06/2023 acetaminophen (TYLENOL) tablet 1,000 mg, Oral, EVERY 8 HOURS, First dose on Sun10/05/23 at 2130, Until Discontinued, Post-op 2108 (Given - Provider: Scott Dominguez RN - Comment: headache) 0600 (Given - Provider: Scott Dominguez RN)1330 (Hold/Not Given - Provider: Anila Holcomb RN - Reason: Patient refused)2130 (Due) ceFAZolin (ANCEF) 2,000 mg in dextrose 50 mL ivpb (COMPLETED) 2,000 mg, Intravenous, ONCE, 1 dose, On Sun10/05/23 at 1200 1256 (Given - Provider: Scott Stoner APRN-LABEL REWINDER) enoxaparin (LOVENOX) 40 MG/0.4ML injection 40 mg 40 mg, Subcutaneous, DAILY, First dose on Sun10/05/23 at 2100, Until Discontinued, Post-op 2108 (Given - Provider: Scott Dominguez RN) 0820 (Given - Provider: Anila Holcomb, GENNY) heparin (porcine) 5000 UNIT/0.5ML injection (COMPLETED) 5,000 Units, Subcutaneous, ONCE, 1 dose, On Sun10/05/23 at 1200, Pre-op 1136 (Given - Provider: Alana Pederson, GENNY) nicotine (NICODERM CQ) 14 mg/24HR patch 14 mg, Transdermal, DAILY, First dose on Sun10/05/23 at 2230, Until Discontinued 16 (Patch Applied - Provider: Scott Dominguez RN)0820 (Hold/Not Given - Provider: Anila Holcomb RN - Reason: Previously Administered - Comment: Pt received previous patch at 0017 on 10/05. Patch is good per orders for 24 hours.) pregabalin (LYRICA) capsule 100 mg, Oral, 3 TIMES DAILY, First dose on Sun10/05/23 at 2200, Until Discontinued, Post-op 2108 (Given - Provider: Scott Dominguez RN) 0600 (Given - Provider: Scott Dominguez RN)1400 (Due)2200 (Due) senna (SENOKOT) tablet 8.6 mg, Oral, AT BEDTIME, First dose on Sun10/05/23 at 2200, Until Discontinued, Post-op 2108 (Given - Provider: Scott Dominguez RN) 2200 (Due) PRN Medication Order 10/04/2023 10/05/2023 10/06/2023 oxyCODONE immediate release tablet 5 mg, Oral, EVERY 4 HOURS PRN, Starting on Sun10/05/23 at 2038, Until Discontinued, Moderate Pain (pain score 4,5,6), Post-op oxyCODONE immediate release tablet 10 mg, Oral, EVERY 4 HOURS PRN, Starting on Sun10/05/23 at 2038, Until Discontinued, Severe Pain (pain score 7,8,9,10), Post-op Scheduled Medication Order 11/05/2023 11/06/2023 11/07/2023 ceFAZolin (ANCEF) 2,000 mg in dextrose 50 mL ivpb (COMPLETED) 2,000 mg, Intravenous, ONCE, 1 dose, On Sun11/07/23 at 1430 1719 (Given - Provid er: Scott Stoner APRN-[facility]) Continuous Medication Order 11/05/2023 11/06/2023 11/07/2023 lactated ringers iv infusion Intravenous, at 75 mL/hr, CONTINUOUS, Starting on Sun11/07/23 at 1430, Until Discontinued 1430 (Due) lactated ringers iv infusion Intravenous, at 125 mL/hr, CONTINUOUS, Starting on Sun11/07/23 at 1730, Until Discontinued 1730 (Due) PRN Medication Order 11/05/2023 11/06/2023 11/07/2023 albuterol (PROVENTIL) (2.5 MG/3ML) 0.083% nebulizer solution 2.5 mg, Nebulization, PACU ONCE PRN, Starting on Sun11/07/23 at 1649, Until Sun11/07/23 at 2248, Wheezing, PACU Now bupivacaine (PF) (MARCAINE) 0.0001 mL, lidocaine-epinephrine (XYLOCAINE) 1 %-1:[id number] 20 mL, dose administered = 390 mL given in sodium chloride 0.9 % 520.01 mL sc injection (CANCELED) PRN, Starting on Sun11/07/23 at 1741, Until Sun11/07/23 at 1837 1741 (Given - Provid er: Lynne Tejada MD - Comment: TUMESENT FOR DONOR SITE) fentaNYL (SUBLIMAZE) 50 MCG/ML injection 12.5 mcg, Intravenous Push, EVERY 5 MIN PRN, 5 doses, Starting on Sun11/07/23 at 1649, Until Discontinued, Moderate Pain (pain score 4,5,6), PACU Now HYDROmorphone (DILAUDID) 1 mg/mL injection 0.5 mg, Intravenous Push, PACU EVERY 15 MIN PRN X 4 DOSES, 4 doses, Starting on Sun11/07/23 at 1649, Until Sun11/07/23 at 2359, Severe Pain (pain score 7,8,9,10), PACU Now mineral oil light (MURI-LUBE) solution (CANCELED) PRN, Starting on Sun11/07/23 at 1757, Until Sun11/07/23 at 1837, Intra-op 1757 (Given - Provid er: Lynne Tejada MD) naloxone (NARCAN) 0.4 MG/ML injection 0.4 mg, Intravenous Push, PRN, Starting on Sun11/07/23 at 1443, Until Discontinued, Respiratory Rate Less Than 8 for adults and less than 12 for Peds or for suspected overdose, PACU Now naloxone (NARCAN) 0.4 MG/ML injection 0.4 mg, Intravenous Push, PRN, Starting on Sun11/07/23 at 1649, Until Discontinued, Respiratory Rate Less Than 8 for adults and less than 12 for Peds or for suspected overdose, PACU Now ondansetron (ZOFRAN) 4 MG/2ML injection 4 mg, Intravenous Push, PACU ONCE PRN, Starting on Sun11/07/23 at 1649, Until Sun11/07/23 at 2248, Nausea, Vomiting, PACU Now oxyCODONE immediate release tablet 10 mg, Oral, PRN, 1 dose, Starting on Sun11/07/23 at 1443, Until Discontinued, Moderate Pain (pain score 4,5,6), PACU Now oxyCODONE-acetaminophen (PERCOCET) 5-325 mg per tablet 2 Tablet, Oral, PACU ONCE PRN, Starting on Sun11/07/23 at 1649, Until Sun11/07/23 at 2248, Mild Pain (pain score 1,2,3), PACU Now 1845 (Given - Provid er: Jacquelin Dasilva RN) sodium chloride 0.9 % 0.9 % injection 3 mL, Intravenous Push, PRN, Starting on Sun11/07/23 at 1443, Until Discontinued, For medication administration and blood draw, PACU Now FOR RECORDS PERTAINING TO PATIENTS WHO ARE OR HAVE BEEN ENROLLED IN A CHEMICAL DEPENDENCY/SUBSTANCEABUSE PROGRAM, SOME INFORMATION MAY BE OMITTED. This clinical summary was aggregated from multiple sources. Caution should be exercised in using it in the provision of clinical care. This summary normalizes information from multiple sources, and as a consequence, information in this document may materially change the coding, format and clinical context of patient data. In addition, data may be omitted in some cases. CLINICAL DECISIONS SHOULD BE BASED ON THE PRIMARY CLINICAL RECORDS. [employer] provides no warranty or guarantee of the accuracy or completeness of information in this document.
[2023-12-25 16:13] LABS: PROCALCITONIN 0.18 ng/mL (0.00-0.50)
[2023-12-25] MEDS: LEVOFLOXACIN IN DEXTROSE 5 % 750 MG/150 ML IV.SOLN 100 MG IV (17:43)
[2023-12-25 18:04] LABS: SARS-CoV-2 Ag NEGATIVE (NEGATIVE)
[2023-12-25 18:05] LABS: Internal Control Within Normal Limits
--- OUTSIDE RECORDS SUMMARY | 2023-12-25 18:17 | XMS_ITS | CCD ---
Author Organization [facility] Care Team Providers Care Speed Belt Sander Name Role Phone BELEN GUERRERO Admitting Unavailable BELEN GUERRERO Attending Unavailable BELEN GUERRERO Consulting Unavailable BELEN GUERRERO Procedure Practitioner Unavail able LINSEY WHITE Consulting Unavailable STUART BOLAÑOS Consulting Unavailable JENNIFER JOYCE Consulting Unavailable MD Girish Nathan Attending Provider PRISCILLA WARREN Attending Unavailable HOUSE, BRET Nicolas Primary Care Unavailable Girish Nathan Attending Unavailable Girish Nathan Admitting Unavailable Lizzeth Demarco MD Unavailable [phone] HOUSE, BRET P Primary Care Unavailable Haim [...] Nathan Admitting Unavailable Lynne Tejada MD Unavailable Nito Purvis Unavailable [phone] SABRINA NEW Referring Unavailable LIZZETH DEMARCO Attending Unavailable PROVIDER, UNKNOWN Admitting Unavailable PROVIDER, UNKNOWN Admitting Unavailable LYNNE TEJADA Attending Unavailable SABRINA NEW Referring Unavailable LIZZETH DEMARCO Attending Unavailable PROVIDER, UNKNOWN Admitting Unavailable JUDY ORTEGA Attending Unavailab le LIZZETH DEMARCO Referring Unavailable PROVIDER, UNKNOWN Admitting Unavailable LIZZETH DEMARCO Attending Unavailable KOWALSKY, LIZZETH Admitting Unavailable PROVIDER, UNKNOWN Attending Unavailable PROVIDER, UNKNOWN Admitting Unavailable PROVIDER, UNKNOWN Admitting Unavailable NITO JUNG Attending Unavailable PROVIDER, UNKNOWN Attending Unavailable KOWALSKY, LIZZETH Admitting Unavailable PROVIDER, UNKNOWN Attending Unavailable PROVIDER, UNKNOWN Admitting Unavailable TEJADA, LYNNE Admitting Unavailable TEJADA, LYNNE Referring Unavailable TEJADA, LYNNE Attending Unavailable PROVIDER, UNKNOWN Attending Unavailable KOWALSKY, LIZZETH Referring Unavailable PROVIDER, UNKNOWN Admitting Unavailable PROVIDER, UNKNOWN Attending Unavailable KOWALSKY, LIZZETH Referring Unavailable PROVIDER, UNKNOWN Admitting Unavailable PROVIDER, UNKNOWN Attending Unavailable KOWALSKY, LIZZETH Referring Unavailable PROVIDER, UNKNOWN Admitting Unavailable KOWALSKY, LIZZETH Referring Unavailable PROVIDER, UNKNOWN Attending Unavailable PROVIDER, UNKNOWN Admitting Unavailable KOWALSKY, LIZZETH Attending Unavailable PROVIDER, UNKNOWN Admitting Unavailable KOWALSKY, LIZZETH Attending Unavailable PROVIDER, UNKNOWN Admitting Unavailable TEJADA, LYNNE Attending Unavailable PROVIDER, UNKNOWN Admitting Unavailable PROVIDER, UNKNOWN Attending Unavailable PROVIDER, UNKNOWN Admitting Unavailable PROVIDER, UNKNOWN Admitting Unavailable NITO JUNG Attending Unavailable Medications Current Medications Medication Drug Class(es) [...] days. 90 Capsule 2 09/12/2023 Active sennosides, longterm 8.6 mg oral tablet (14 sources) Start: [...] Discontinued, Post-op 0.5 ml heparin sodium, porcine 60325 unt/ml prefilled syringe (1 source) Unfractionated Heparin, [...] Translations: [Sebaceous cyst] Onset: 10-30-2023 10-30-2023 Episodic Residual codes; unclassified (1 source) Body [...] and lump, trunk] Onset: 09-18-2023 09-18-2023 Episodic Other skin disorders (1 source) Localized swelling, mass and lump, trunk; Translations: [Localized swelling, mass and lump, trunk] Onset: 09-18-2023 Episodic Residual codes; unclassified (1 source) Body mass index (BMI) 21.0-21.9, adult; Translations: [Body mass index (BMI) 21.0-21.9, adult] Onset: 09-12-2023 Episodic Results Test Name Value Interpretation Reference Range Facility Telephone Encounteron 2023 General Farmer Authentication Interface Message Text Returned patient call regarding symptoms. reports small [...] to cancel appointment with medical oncology at [facility] due to transport. No GI symptoms or [...] problem. He has transport issues getting to [place] for evaluation. I explained that he likely requires repeat imaging of the chest/abdomen/pelvis but that I cannot order these scans for him locally where he lives. I informed him that I am happy to see him here at [facility] and attempt to arrange for scans the [...] he can arrange for evaluation here in [facility] and he will update me in a day or so. [facility] General Farmer Authentication Interface Message Text The patient had called and left a [...] make Dr. Demarco aware. Alix Rao, RN [facility] [employer] Authentication Interface Message Text Pt calling stated he is having shortness of Breath, bumps on his back, feet swollen I did advise if SOB to go to ED Please call back as soon as possible [facility] Progress Noteson 12-14-2023 General Farmer Authentication Interface Message Text Documentation: Mode: Telephone Patient Patient Work Phone: Patient Cell Preferred phone: [phone] Consent: I confirmed patient understanding of the [...] him at the same time. AGATA Spivey [facility] Progress Noteson 11-28-2023 General Farmer Authentication Interface Message Text Documentation: Mode: Telephone Patient Patient Work Phone: Patient Cell Preferred phone: [phone] Consent: I confirmed patient understanding of the risks and benefits of telehealth visits and obtained consent to proceed with the telehealth visit. 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 and sarcomatoid melanoma at [facility]. PET/CT on 09/12/2023 showed a 13 [...] the impression that a provider closer to [place] would be contacting him. PHYSICAL EXAMINATION: There [...] container (more content not included)... Normal [facility] Telephone Encounteron 2023 General Farmer Authentication Interface Message Text Patient does not have transportation to his appointment with Dr. Balderas. ok changing appt to tele. Patient called and made aware. [facility] Telephone Encounteron 2023 General Farmer Authentication Interface Message Text History: Received call from OR front office director regarding patient concern regarding wound. Upon speaking [...] was agreeable to this plan. Normal [facility] Telephone Encounteron 2023 General Farmer Authentication Interface Message Text Complaint: pt complaint of Provena canisters he was sent home with all being full . Description: s/p STSG to left back with provena application post op-- Associated symptoms: all canisters have been used. Surgeon: Lynne Tejada MD Informed pt: Offered patient to come to clinic to obtain extra canisters-pt declined due to distance to travel (pt from [place], [place]). Offered patient to come to clinic on 11/13/23 instead of 11/14/23 to have VAC removed from STSG and redressed. Pt declined, stating he does not have transportation. Discussed with Dr Tejada, pt instructed to keep VAC in place until appointment as scheduled on 11/14/23. Pt agrees with plan. Normal [facility] Anesthesia Postprocedure Maddy luationon 11-08-2023 General Farmer Authentication Interface Message Text Anesthesia Postoperative Assessment: [...] EVENTS: No notable events documented. Normal [facility] Telephone Encounteron 2023 General Farmer Authentication Interface Message Text Palliative Care Controlled Prescription Refill: Meds post op sent to wrong pharmacy I cancelled it and did the one week supply Please let him know I sent it They sent to Last PR SPECIALIST: Pain Management Panel No data to display Follow Up: PCP: No primary care provider on file. No PCP on file Last appt: Last visit: Nurse Visit on 10/24/2023 in PRE ADMISSION TESTING with Indira Bess RN for Pre-op evaluation. @LASTDEPT@ Next appt: There are no future appointments scheduled in [facility]. Judy Ortega MD Normal [facility] Anesthesia Preprocedure Eval uationon 11-07-2023 General Farmer Authentication Interface Message Text ASA: 3 No [...] wound of left side of back [S2A] BP 142/82 (BP Location: right arm) Pulse [...] were discussed with the patient and/or legal personal financial representative. The risks, benefits and alternatives were reviewed. Questions regarding anesthesia were answered. Patient and/or legal personal financial representative knows such anesthetics and procedures may be performed by Resident physicians, Certified Anesthesiologist Assistants, or Certified Nurse Anesthetists under the supervision of a physician. The patient /or the patient's legal personal financial representative agree with the plan for anesthesia. [employer] Normal [facility]07[facility] General Farmer Authentication Interface Message Text Patient taken to [...] wound of left side of back [S2A] COPD mixed type (HCC) [J44.9] Hypertension [I10] [...] Lynne Tejada MD Anesthesiologist: Edson Hallman MD WAVE GUIDE ASSEMBLER: Scott Stoner APRN-SIRENA Anesthesia Staff: Starr Ramsey [...] None Lines, Drains, Airways Peripheral IV Access: 11/07/231351 20 gauge Posterior;Right Hand (Active) $ Lines: $ IV Start (procedure) 11/07/23 135 Site Assessment WNL;Dressing intact 11/07/231351 Infusion Status Port #1 Capped;Patent 11/07/23 135 Airway Insertion Details [REMOVED] Advanced Airway: ETT, Oral;Cuffed #8 (Removed) 11/07/23 1710 Pre-Oxygenation/ Induction: Mask Rapid Sequence Induction?: Mask Ventilation: Easy;w/oral airway Blade Type: Mac Blade Size: 4 Visualization: Grade 2 Airway Type: ETT, Oral;Cuffed Airway Size: #8 Post Insertion Assessment: Confirmation: Equal bilateral breath sounds, CO2 confirmed # Attempts >1: Special Equipment: Present on Admission?: Previously Removed / Not Present: Removal Reason: Not Removed at Discharge: Removed 11/07/23 1828 Location (cm) 23 11/07/23 171 Measured from: Lips 11/07/23 171 Secured via: Taped 11/07/23 1710 Site Assessment WNL 11/07/23 1710 All non-working IVs have been removed: N/A [...] was received. Scott Stoner APRN-SIRENA Normal [facility] Blood Attestationon 11-07-19 General Farmer Authentication Interface Message Text Blood Attestation: ATTESTATION OF INFORMED CONSENT FOR BLOOD: The transfusion of blood and/or blood components were discussed with the patient and/or legal personal financial representative. The risks, benefits and alternatives were reviewed. Questions regarding blood transfusions were answered. The patient /or the patient's legal personal financial representative agree with the plan for transfusion of blood and/or blood components. Normal [facility] Brief Operative Noteon 11-06 General Farmer Authentication Interface Message Text Brief Operative Note MAIN OR 12 Edilma Reediva 58 year old male Surgical Contact Serial Number: [id number] Preoperative Diagnosis: Melanoma of back Left upper [...] Scrub: Dalia Coe RN; Parisa Lauren RN Wind Turbine Blade Repair Technician Nurse: Keisha Edwards; Francie Guthrie RN Veneer Glue Jointer Feedback: Haim Maher MD; Altagracia Case MD; Kieran Blanton MD Anesthesia: General Anesthesiologist: Edson Hallman MD WAVE GUIDE ASSEMBLER: Scott Sotner APRN-CRNA Anesthesia Staff: Starr Ramsey CAA Specimen(s): [...] Tejada MD 11/07/2023 6:44 PM Normal [facility] OP Noteon 11-07-2023 General Farmer Authentication Interface Message Text Name: EDILMA TAVAREZ MR#: [id number] [facility]#: [id number] Date of Procedure: 11/07/2023 ATTENDING SURGEON: Lynne [...] for the entire procedure. Lynne Tejada MD CV/Harinder/Dict: 11/07/2023 21:26:58 TRANS: 11/07/2023 22:27:50 JOB: [id number] DictJob#: [id number] Normal [facility] Telephone Encounteron 2023 General Farmer Authentication Interface Message Text Called and spoke with patient. No insurance. No financial assistance at this time-pending. [facility] wound vac calling for insurance information. Unable to provide homegoing VAC without insurance authorization. Provena VAC an option after surgery per [facility] personal financial representative. Normal The [facility] Authentication Interface Message Text Patient calling you back [phone] Normal [facility] General Farmer Authentication Interface Message Text Rodrigo with [employer] called today needs more info for wound vac. Patient having surgery tomorrow. Please call Rodrigo sanjay) [phone] Normal [facility] Progress Noteson 11-01-2023 General Farmer Authentication Interface Message Text Documentation: Mode: Telephone Patient Patient Work Phone: Patient Cell Preferred phone: [phone] Consent: I confirmed patient understanding of the [...] enlarging mass on the left upper back ([id number]) with application of BTM on 10/05/[address] Demarco. 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 Wound VAC was removed 10/10 and he has been applying ABD pads since. Feels sore - remains off of work postop. Otherwise doing well. 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 Lives over [place] hour from [facility]. Current smoker. 10/31/23: Returning in follow up. [...] to (more content not included)... 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 Normal [facility] Telephone Encounteron 2023 General Farmer Authentication Interface Message Text Palliative Care Controlled Prescription Refill: OARRS was reviewed today: 4-4 Last PR SPECIALIST: Pain Management Panel No data to display [...] [facility]. Judy Ortega MD Normal [facility] General Farmer Authentication Interface Message Text Called patient to [...] evaluate for any targetable mutations. Normal [facility] Coding Summaryon 10-15-2023 Coding Summary HTMLBase 64 JganhwkzTHy6tGw+PGhlYWQ +PW5WTHTfM68yiDAwmO3aS2 NMTElOSywgQVBQTElOSyIgb rPdOM2wkIQhDCHs IC8+PJ3yAHGpCptnyPPvp3S 8nBD8R71wio2jVYmaeMC8MU QeInNjisvzj2ebnRq7WYvqH mluOyBt ASUjuT88QCC5pD32Up81lGA wnXIqn7caqLi8GqBbBEOxLO E9uJkqEDoiv6GtNHNlC43tg ULoc5N9 GLQxqYcocZSgYaGdyVA5dV6 lXGzxizdml4xgrmzwPan5an 22iALaz3G3uRD9C9FjyqF2C GJvbGQg MzjffYPEfT9wcwfum1fimam qBaJlSISkSJe5DFp7XNZnzZ nbLyMfFG93TUJ1NOQirqIuB 2FsLWFs vAgtQzU5u1S1Hk3BW6VXGdw lR0TLDXZJPHzkhUX+PC90cj 74N6LpVpczNgs2CVKpCKG3c DB2eY6x PYXfIAuvm8D8xFH8C0JmooV nqc2hk1qvENXlVLyqQ71srT Vua4O7BLCpuPG6FSSjpEiuE iBzaG93 Oyc+SDYvlIwew3DnIdtja2u sl9xavBu1ZefnNYVxxmSagE uwRAK7g8FiHq4vWKFduSP0b IL3fK7k CsAiAsY6RIxdF714DcZhcME uPyunB35yP7GhtJC+PHRyPj w9RJZqnTijIM6cK5IcPYAyt mctbGVm nCypJW1bFKRfuctgRMOkxW4 hIHBgF2d9BlQyQdS0EAjyL2 AoTAKawwqfKp66rL5qUsQlK oA7VJzg P3FdusV0YCWhvJPvBCtrEKW 4J02sr9T0RDXuYZKmJJV1lZ F2vC0igKjuhoullFPznQyjj mVydGlj EVtxYGnwY153COHmcLywSgF vZGluZyBEYXRlOiAgMDQvMj IvMjAyNDwvdGQ+KHBpMYC3v WxlPSAn aLMaXMsuFb7lkBzjzFtmSD0 tZKXznkznDMMkcM1zPHYxaX KhpGrpOE9sWYEjluxgz791S iAxMHB0 SHBkcYHbY2GclV1oHwWqERI xPDQdZ2RjtNJsMWddN857ET hgBxX7YEVmtgWtA7EdFZJlz WduOiB0 f1A8Wd7Sq6CpnfimB1LrlWJ xYzEsMibgXBk5B0OoFbrvgH I+TQ23VGMtFQ69XNs4FZY9g WxlPSdi DKNyQ7DfvA9cRhPfCFCwTVO kOyc+PHRhYmxlIHdpZHRoPS ytXEDzLhWmgIltTO3zFy6mU GVyLWNv aBpssRXgPcFei0ovRXOvZLg yEH0bjQabZ2QqsKG4UPYkr8 i0At83F92gG4MzvZA+PGNvb QF8wWJ3 jX9iWhDxDbH2HSluX182YjL vaEKyNtdtk4xog1bxzHl2Fx O8XLXfezRftDhcMZM5l2DdG a20U84p IHdpZHRoPSIxNSUiIHZhbGl gtj4rrM6kNh6+LLOtcMM0hH V7zZ9dPiSsXzG9TWjoT765D nRvcCIv Fgjtx3pjs6xlbLa0FaCkAMN fykDmcNpwBRO5w9QmCj75Z6 VxtMalr0ChNlk3xe98eKJrf 5X2rNU2 X5WnNMEmkwdsiHSraWwyCD0 kQIIokzilJJDasW5lALCrC4 b6AsUaGlB5SUjdO7EvcnN6Q GJvbGQg IKDlbHPIiV3kqzqdv0vumjf jIlIsKZZnIRo6EIi2SZVvuM fwFxCdYSE0KoT9EPK7uFIgi Y9wiCcw zdpflZ2hGln+TZF4bPXgoUV GPK7kKaiznQY+EDHtBMT1xP mgSAucTGDlmU6pDMKvP6w4T iAwLjA1 KSfkO9XiqcD2BDEzvNEjNKM rfOFQyD7jcnuji4zibkulOx CoZCGhDKt7BWx9ANWfaAdjW iBsZWZ0 MyU4DOZ1yTFegV7oyVnlogj wwW2mCyh+TmstdIryRCE4SR f9F4TmJff0DSHgdJheQZ9hk GFkZGlu Bd6ajOrzlOnxWY8lAIXrzpx um407CtGfl4gtIWNqsXWnTT zwGUU7K05uy2S4CSQnJUKsA VB2wCL1 uN8wqSvmscjwzRUpvEgwiiR zuLusHJpwGMkzN240ALObtN osZmNlVFw3M1XeRhl6MCJrz UbyLW2h hYHeAEyoHt5xpNzedMocRL9 lMFHvzegil011LwDqh5fmUZ PtlBEqBBfgMKC5C26kn9K1Y CMwMDAw GNG7rHT1dR7wiRebkbhbfYC mdDsgdmVydGljYWwtYWxpZ2 42OHPebAvyYvWspVy3X6TlL jr7POMb mUqwFY9xrUGoKSfqJg0odBh qrAqgSG7hWJVlrusej598Cz Qew9uhFOFuuDAyZGumMOA6J 01gu5N2 SQQxQZZzWTL6cMU7iJ6kjYw nbjogbGVmdDsgdmVydGljYW juLFvwX454TDFkaNolBkJyl GllbnQg JOvrQFj6V3DkZolasEF+PC9 7GHTqFB01yQWvlHVcv6ysfP g0UlNxEVObBWF0oDzcEVxoc 3JkZXIt X28gpUYum8I6GWPbrWqrdUW bRlEbgVT1qI4fNEzgqggwm9 abwatjGteux3gmqk90hK41Z 29sIHdp ZHRoPSIzMCUiIHZhbGlnbj0 xfT6rIz3+GBFdiND6qLW1rS 0fOBGhOpO4SEbtF998QqDgx CIvPjxj x2trk3qgdBs0BoU6UQKigqZ qeDyqYWS6o9DsIz73O92qSJ dpZHRoPSIyMCUiIHZhbGlnb y9lwJ1u Ii8+HNNavYB2jVN1oS7dNfB bDwY5FIwjZ953FrFszXMhHs dvY28tY3VddNR+NSSkHtq0F CBzdHls XS8nfIIjCLvnYl7vBLD2OlG mNdYrLKdcT9QjMIKskoqfrn iaoKT2XENzFSKunR94Le4dw DogMTBw oUVJsY1vhndpl6tileomKdY gXRJvBBd0NEy7OHNdeHqvTl XdHHS9JhE5WSW2ePKqaV8ar Glnbjog uS5oE8KpXMWdrskaJn63hL7 vDhEbVgU5QEpfTii+Uk9IUk JID5cTCuYPKdhvZd4LHXfCE EJMQUlO RTwvdGQ+CMFdDNI5xPvtJQv mYPVkeG0fQWUlS0i9RqNlGf K8GPsuP9TeWXWhurxrVs66d S8nGiZi YfZ9WPhpZ7WdtoD3MAEbaLU fEDmkHRC4N45hd5W9HSHsRM ImWJR1kRP3kO4ntUllnflpe GVmdDsg jmGetRugIVqtJDyzB837YKM taYkxDeKyFpFmWtL1RnM8N3 EiRnv1PWJrfSewFL5mmUCxC AjoPo2h uQrgsAdnLL4fKMPfixyoZMU xyN2fNALidYHewTsdHR4pWI Hpllyty339KnLyQBD0QYOnt CKiA8Ro iF1dBrUsXHOxHUYwQ7KmuOF hJGszE058HEhrRdB8MVHkav TjS2UmKEHwhSilVeY4t9B3K g87RAON ZWFyczwvdGQ+BZTqMKW5iYt hFUpsXLFazR4aSPWoT6z8Um TdOlO8HQjgO3DmNDCuhgyqX v34nL7m MnQgCgV5TLreD5IphoD8VXX lkLDzXLteMYK1T71pa7U6TZ XmGXOyFHY0nEQ6nQ2atSzhw jogbGVm uWjcpiZxoPtaCSgwSRojP67 9JYCrrJodXh9JBQP1A0TjYq e0JUCtfBifOF6gyEAeNLtsS h0uyMab mZxkHQ1aMSBgaypwYPSebN2 cIJMscLQquOnqPE0oGNIwqb ium128OuZwJLZ4URXwvAYcA 8DqyF1k ThOoZYQtJDZbT2IxfZSmELw aL726EEfvIgF6HQLvzuQwU9 NeUMHmjDrySfN4s3V4Wl5US DwvdGQ+ TQ09vq43Q0NrPnxvQgf5SSA hTUV8pMB4pL5wOGXwYQwgk9 S3vHM1N1UxsgEdmj2ul8ptM XBzZTog W90mnQFma1J5FPUysMM5JTD hnHvmVyHcaJ12Ddh+PGNvbG woy1FlCjzit9lad1vquWw8K jMwJSIg noAsiFujXDO4j8YqQy81F04 sIHdpZHRoPSIzMCUiIHZhbG iuyt0guM4qCt7+BFShmSY4c FM3lV8d FlVkAeI8WJlbJ211GwRdmUO qJldzx7atj0fclQt2RjPsSE JktbJozThmEIZ4l2EuMh23F 2NvbGdy i1EdQnp6zh12tHFsh6G8vYP 8C7FvFUQzocispKYmzBomFS 9jDTFvxoodQYEvfX5iXYDfT 6m8SkYa AfW8ZOtcB4PhuaM9WAPpuDJ zLZGmaOXTfD5ctansi8fxww ipEnWpKYSqBSz9EZr9GUPtb WduOiBs LEZ8MoN3LOH1fORebQ9lcCo pahqucI9kWfk+LSo8n9osrO OmYW4hnRM5WA25EJ96jLRil 5W3dBH7 J8KpTADceithoupvpAO6BGO bFLHkpT45Ec5ynAuuKb4kVY OeKBV1KVGsjGPzC3ZicP8jI iAjMDAw ZFZuR7TczCQjJVqzA555XMg yVtK4GVDjznGwM8QqARSqnD ceRhF2w9I8Jn9DYB57JN12H H53hHBi s6W6kYU2W5EhOIYuuevgkzm osZH4VFQvPMImlR18Fs0btI azKm3xTEUhZSA2DQCaxRMwT 4XvhF3k MrHuOEDdGFSmO7HepXUqERo gZ972ODpuFiW0YKXcrlJqK8 HvJHNhpEjkTnO3p0X0Mu6QE p53MM94 PH17rPCud3A7kBZ4V4VkLEY jeaisjhfomLZ0LWQgNKRtaB 74Cm2tqEfvVe4iKPSeKIZ7C FRpbWVz Y9JgcD9cXjFaMGRnPAOfI0M dqQHbQHqeR335XKkdGmI7JE DmesXeD1IaGNAvaOckPqZ6s 5W3Zv8V QCxuwjt2M7NkBhhsqPT+PC9 1LNJdVO64uUWkqONcq6eelR y2WdFfATKqUQY6pDrqTDhjs 3JkZXIt Y29 (more content not included)... Normal [facility] Telephone Encounteron 2023 General Farmer Authentication Interface Message Text Lvm w/cb number to schedule appt w/DR ROBISON. Taina Forman RN Normal [facility] Patient Instructionson 10-10 General Farmer Authentication Interface Message Text Keep the wound [...] Dr Tejada or Dr Robison Normal [facility] Progress Noteson 10-11-2023 General Farmer Authentication Interface Message Text Patient was identified [...] SpO2 100 %. Osman Barker Normal [facility] General Farmer Authentication Interface Message Text SURGICAL ONCOLOGY POST-OPERATIVE [...] or purulent drainage Media Information Document Information [facility] [place] Clinical: Clinical Images Left shoulder excision site 10/11/2023 14:41 Attached To: Office Visit on 10/11/23 with Lizzeth Demarco MD Source Information Lizzeth Demarco MD Onc Surgical Diagnosis: pending, likely sarcomatoid melanoma Stage: pending, clinical II Assessment: Edilma Tavarez is now status post [...] d (more content not included)... Normal [facility] Progress Noteson 10-10-2023 General Farmer Authentication Interface Message Text Encounter Opened in error. Please disregard. Lizzeth Demarco MD Normal [facility] Tumor Board Noteon General Farmer Authentication Interface Message Text Cancer Type: General [...] on pathologic consultation at [facility] and sarcomatoid melanoma at [facility]. PET/CT on 09/12/2023 showed a 13 [...] and review of the literature. Normal The [facility] BASIC METABOLIC PANELon - Anion gap [Moles/Vol] 18 mmol/L Normal 10-20 [facility] Comment on above: Performed By: #### C H8 ####[facility] PATHOLOGY [id number] [place], [place], Calcium [Mass/Vol] 8.6 mg/dL Normal 8.6-10.3 The [facility] Comment on above: Performed By: #### C H8 ####S PATHOLOGY [id number] [place], [place], Chloride [Moles/Vol] 101 mmol/L Normal 98-107 [facility] Comment on above: Performed By: #### C H8 ####S PATHOLOGY [id number] [place], [place], CO2 [Moles/Vol] 24 mmol/L Normal 21-31 The [facility] Comment on above: Performed By: #### C H8 ####[facility] [id number] [place], [place], Creatinine [Mass/Vol] 0.81 mg/dL Normal 0.70-1.30 [facility] Comment on above: Performed By: #### C H8 ####S PATHOLOGY [id number] [place], [place], ESTIMATED GFR (CKD-EPI) 102 mL/min/1.73sqm Normal >=60 The [facility] Comment on above: Result Comment: 2020 [...] Inclusion of Race in Diagnosing Kidney Disease. [place] Journal of Kidney Diseases 2021;79(2):268-88.e1. 2. N Engl J Med 2020 Vol. 385 Issue 19 Pages 7369-0782 Performed By: #### C H8 ####S PATHOLOGY [id number] [place], [place], Glucose [Mass/Vol] 183 mg/dL High 74-[address] [facility] Comment on above: Performed By: #### C H8 ####[facility] [id number] [place], [place], Potassium [Moles/Vol] 4.5 mmol/L Normal 3.5-5.0 [facility] Comment on above: Performed By: #### C H8 ####S PATHOLOGY [id number] [place], [place], Sodium [Moles/Vol] 138 mmol/L Normal 136-[address] [facility] Comment on above: Performed By: #### C H8 ####[facility] [id number] [place], [place], Urea nitrogen [Mass/Vol] 11 mg/dL Normal 7-25 [facility] Comment on above: Performed By: #### C H8 ####[facility] PATH[facility] [id number] [place], [place], Basic metabolic 2000 panelon 10-06-2023 Anion gap [Moles/Vol] 18 mmol/L 10 - 20 [facility] Calcium [Mass/Vol] 8.6 mg/dL 8.6 - 10. 3 mg/dL [facility] Chloride [Moles/Vol] 101 mmol/L 98 - 107 mmol/L [facility] CO2 [Moles/Vol] 24 mmol/L 21 - 31 mmol/L [facility] Creatinine [Mass/Vol] 0.81 mg/dL 0.70 - 1.30 mg/dL [facility] GFR/1.73 sq M.predicted CKD-EPI (S/P/Bld) [Vol rate/Area] 102 - PINF [facility] Comment on above: 2020 CKD EPI Equatio [...] Inclusion of Race in Diagnosing Kidney Disease. [place] Journal of Kidney Diseases 2021;79(2):268-88.e1. 2. N Engl J Med 2020 Vol. 385 Issue 19 Pages 2586-6050 Glucose [Mass/Vol] 183 mg/dL High 74 - 109 mg/dL [facility] Interpretation and review of laboratory results Abnormal [facility] Potassium [Moles/Vol] 4.5 mmol/L 3.5 - 5.0 mmol/L [facility] Sodium [Moles/Vol] 138 mmol/L 136 - 145 mmol/L [facility] Urea nitrogen [Mass/Vol] 11 mg/dL 7 - 25 mg/dL [facility] Noteon 10-06-2023 [facility] [employer] Authentication Interface Message Text Problem: Routine Care: [...] will be met Outcome: Progressing Normal [facility] MAGNESIUMon 10-06-2023 Interpretation and review of laboratory results Normal [facility] Magnesium [Mass/Vol] 2.0 mg/dL 1.9 - 2.7 mg/dL [facility] Comment on above: Note updated referen ce ranges. [employer] Magnesium [Mass/Vol] 2.0 mg/dL Normal 1.9-2.7 [facility] Comment on above: Result Comment: Note updated reference ranges. Performed By: #### M G #### [facility] [address] [place], [address] Anesthesia Postprocedure Maddy luationon 10-05-2023 General Farmer Authentication Interface Message Text Anesthesia Postoperative Assessment: [...] EVENTS: No notable events documented. Normal [facility] Anesthesia Preprocedure Eval uationon 10-05-2023 General Farmer Authentication Interface Message Text ASA: 3 No history of anesthetic complications NPO status: Greater than 8 hours Past Medical History and Review of Systems Pulmonary (+) a smoker Comment: STOP BANG 3 1/4 - 1/2 of my left lung is [...] were discussed with the patient and/or legal personal financial representative. The risks, benefits and alternatives were reviewed. Questions regarding anesthesia were answered. Patient and/or legal personal financial representative knows such anesthetics and procedures may be performed by Resident physicians, Certified Anesthesiologist Assistants, or Certified Nurse Anesthetists under the supervision of a physician. The patient /or the patient's legal personal financial representative agree with the plan for anesthesia. [...] Insecurity: No Food Insecurity (09/17/2023) Received from [facility] Hunger Screening Within the past [...] mg, Oral, 3 TIMES DAILY Normal [facility] General Farmer Authentication Interface Message Text Patient taken to [...] Sabrina Martin DO CAA: Thelma Soriano CAA WAVE GUIDE ASSEMBLER: Scott Stoner APRN-SIRENA Anesthesia Student: García Dennis [...] Secured via: Ties 10/05/23 1309 Site Assessment WN 10/05/23 1309 All non-working IVs have been [...] the report was received. Scott Stoner APRN-SIRENA Suárez [facility] Blood Attestationon 10-05-19 24 General Farmer Authentication Interface Message Text Blood Attestation: ATTESTATION OF INFORMED CONSENT FOR BLOOD: The transfusion of blood and/or blood components were discussed with the patient and/or legal personal financial representative. The risks, benefits and alternatives were reviewed. Questions regarding blood transfusions were answered. The patient /or the patient's legal personal financial representative agree with the plan for transfusion of blood and/or blood components. Normal [facility] Brief Operative Noteon 10-04 General Farmer Authentication Interface Message Text Brief Operative Note MAIN OR 10 Edilma Tavarez 58 year old male Surgical Contact Serial Number: [id number] Preoperative Diagnosis: Pre-op Diagnosis * Malignant melanoma [...] Lizzeth Demarco MD Staff: Scrub: Hafsa Sloan, DATA EXAMINATION CLERK; Dayna Michael, YVAN Wind Turbine Blade Repair Technician Nurse: Keisha Edwards; Robert Tse Veneer Glue Jointer Feedback: Diony Costa MD Anesthesia: General Anesthesiologist: Faheem Godwin MD; Sabrina Martin DO CAA: Thelma Soriano CAA WAVE GUIDE ASSEMBLER: Scott Stoner APRN-CRNA Anesthesia Student: García Dennis [...] Costa MD 10/05/2023 4:39 PM Normal [facility] Care Plan Noteon 10-05-2023 General Farmer Authentication Interface Message Text Problem: Routine Care: Goal: Patient care will be managed and maintained throughout hospital stay per unit specific routine care procedure Outcome: Progressing Patient admitted to [facility]. Patient able to independently ambulate throughout room with minimal divination in gate. Patient denies pain. Patient oriented to unit. Patient given IS and educated on purpose. Patient currently in bed with bed in low position, call light in reach. Normal [facility] NM LYMPH NODE SCAN W/ SPECT/ [...] sentinel lymph nodes. 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 and sarcomatoid melanoma at [facility]. PET/CT on 09/12/2023 showed a 13 [...] co (more content not included)... Normal [facility] Progress Noteson 10-05-2023 General Farmer Authentication Interface Message Text Post Operative Check [...] place Intake/Output Summary (Last 24 hours) at 10/05/2023 2157 Last data filed at 10/05/2023 1958 Gross [...] MD PGY-1 General Surgery Blue Surgery Pager: [phone] Normal [facility] General Farmer Authentication Interface Message Text Documentation of Human Investigation Informed Consent Process IRB: [id number] PI: Dr. Lizzeth Demarco SHORT TITLE: [facility] FULL TITLE: [facility] Tissue Repository Patient here today to sign the ICF and HIPAA consents for [facility] Patient has had adequate time to review [...] 05OCT2023 Shanique Moser Clinical Research Normal [facility] SPECT+CT Lymph nodeon 2023 EEXAMINATION: NM [...] bilateral axillary sentinel lymph nodes. MACRO: None [facility] Radiology Study observation (narrative) [facility] SPECT+CT Lymph nodeOrdered B y: Traci Travis on 10-05-2023 [facility] Work Phone: XR CHEST AP OR PA [...] definite pneumothorax identified. MACRO: None Normal [facility] XR Chest Single viewon 10-04 EXAMINATION: [...] respiratory distress. Assess for pneumothorax. ORDERING PROVIDER: [employer] TECHNOLOGISTS NOTE: COMPARISON: PET MELANOMA INITIAL 09/12/2023, [...] emphysema. No definite pneumothorax identified. MACRO: None [facility] Radiology Study observation (narrative) [facility] XR Chest Single viewOrdered By: Robert Sung on 10-05-2023 [facility] Work Phone: Telephone Encounteron 2023 General Farmer Authentication Interface Message Text ZAIDA received the following message from Claudia [...] tomorrow. Pt expressed his understanding. Khushboo Gautam SILK SCREENER, LUMBER TALLIER [phone] Normal [facility] General Farmer Authentication Interface Message Text SW spoke with [...] with Pt. SW will remain available. Khushboo Davidsonmonroe SILK SCREENER, LUMBER TALLIER [phone] Normal [facility] Progress Noteson 10-02-2023 General Farmer Authentication Interface Message Text Documentation: Mode: Telephone Patient Patient Work Phone: Patient Cell Preferred phone: [phone] Consent: I confirmed patient understanding of the [...] CT chest with contrast performed at [facility] on 07/17/2023 which showed an ovoid soft [...] to Dr Girish Nathan (general surgery) a [facility] for and underwent incisional and core needle biopsy of the mass on 07/23/2023. 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 The lesion was positive for S100, vimentin, SOX10 and negative for CK7, CK20, desmin, AE1/3, HMB 45, and Melan-A. There was mild background SMA staining. 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 The slides were submitted to [facility] for pathologic consultation and the assessment from [facility] was felt to be consistent [...] in his health. Pathology review here at [facility] was consistent with melanoma. The tumor was [...] lar (more content not included)... Normal [facility] Lab - AP Resultson Lab - AP Results [id number] GTIFF Normal [facility] Telephone Encounteron 2023 General Farmer Authentication Interface Message Text Palliative Care Controlled Prescription Refill: OARRS was reviewed today: 09/19 Last PR SPECIALIST: Pain Management Panel No data to display Follow Up: PCP: No primary care provider on file. No PCP on file Last appt: Last visit: Nurse Visit on 09/20/2023 in [facility] with Beryl Bravo RN for Pre-op evaluation. @LASTDEPT@ Next appt: There are no future appointments scheduled in [facility]. Judy Ortega MD Normal [facility] Telephone Encounteron 2023 General Farmer Authentication Interface Message Text Called patient to discuss updated surgery plans which include sentinel lymph node biopsy to assess for regional colleen metastases. We discussed the tissue repository study and he is willing to participate. We also scheduled a telephone follow-up for 10/01 before surgery Normal The Girl Meets Dress Interface Message Text Left message for patient. Will attempt to call back Normal The Phylogyation Interface Message Text Spoke to pt. He is requesting a letter from provider stating he is unable to work presently due to his cancer diagnosis. Letter completed and faxed to Sunita in HR at [phone] as requested. Pt also requests refill on oxycodone, pended for provider to preferred pharmacy. Normal The Orbiter Authentication Interface Message Text Situation: Pt called [...] Assessment: NA Recommendation: Can be reached at: [phone]. Normal [facility] Lab - AP Resultson 4 Lab - AP Results [id number] GTIFF Normal [facility] PAT Call Historyon 4 General Farmer Authentication Interface Message Text Telephone History Edilma Tavarez, [id number] 09/20/2023 Patient was identified by name and date of . Needs: Physical, Neck Circumference, and STOP 3 on DOS. If the patient becomes ill prior to procedure or surgery, they are to call their provider or surgeon's office directly. Communication via [employer] in basket 09/19 to surgeon, staff, radiology, [...] be entering the hospital at the new [facility], which is on [facility]. [facility] Parking Instructions ??? Please plan extra time for parking and shuttle service. We recommend arriving at least 15 minutes prior to the time your care team advises you need to be here. ??? Parking is available in the [facility] [facility] accessible from [facility] and [facility]. ??? 15/01 shuttle service from the garage to The [facility] is available. ??? Go to the ground floor of the parking garage to reach the shuttle pick-up station located just outside of the elevator and stairs. ??? Shuttle service will drop you off at The [facility] Entrance. ??? Parcel Post Truck Driver service will be available at The [facility] Entrance if you would prefer gas plant worker over parking ([facility] Parcel Post Truck Driver Service Hours: Sunday-Sunday, 5:30 a.m. - 8:00 p.m.). ??? Enter The [facility] Entrance and go to the Admitting/Registration Desk to check in for your procedure. MILA Brewer Name 09/20/23 1459 History of sleep apnea? [...] Insecurity: No Food Insecurity (09/17/2023) Received from [facility] Hunger Screening Within the past 12 months [...] Last (more content not included)... Normal [facility] Telephone Encounteron 2023 General Farmer Authentication Interface Message Text Spoke to pt and advised rx sent, he voiced appreciation. Normal [facility] General Farmer Authentication Interface Message Text Palliative Care Controlled Prescription Refill: OARRS was reviewed today: Short course done Please let him know Last PR SPECIALIST: Pain Management Panel No data to display Follow Up: PCP: No primary care provider on file. No PCP on file Last appt: Last visit: Office Visit on 09/12/2023 in [facility] with me for Cancer associated pain; Cancer (HCC); Body mass index (BMI) 21.0-21.9, adult. @LASTDEPT@ Next appt: There are no future appointments scheduled in [facility]. Judy Ortega MD Normal [facility] Lab - AP Resultson Lab - AP Results [id number] IFF Normal [facility] Telephone Encounteron 2023 General Farmer Authentication Interface Message Text Called patient to discuss next steps prior to surgery and scheduled date/time of IR lymph node biopsy. We reviewed details of the surgery Normal [facility] General Farmer Authentication Interface Message Text Situation: Pt called [...] Assessment: NA Recommendation: Can be reached at: [phone] Normal [facility] Telephone Encounteron 2023 General Farmer Authentication Interface Message Text Situation: The pt called to discuss bleeding and a change in his pain from the site of the lesion on his back Background: the pt is being treated for malignant melanoma on his left upper back Assessment: Triage done Recommendation: Disposition: Informed pt the concrete truck driver provider would be paged and they would be called back within the next 30 mins. Advised to contact us if they have not been called within that time. medical office supervisor provider for Oncology paged at 508 pm and concrete truck driver responded immediately. Stated they did not cover for Surgical Oncology. No pager found for surgical oncology. Informed by staff at surgery desk, Dr. Demarco is BLEACHING SUPERVISOR ONC. Paged BLEACHING SUPERVISOR Onc at 518 pm. The resident for BLEACHING SUPERVISOR ONC responded immediately and stated she did [...] menstrual period? 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 We discussed that next steps will be biopsy of the lymph nodes in his left axilla and then plan for surgery. We briefly reviewed details of the surgery. Tentatively surgery will be 10/04 Normal [facility] GLUCOSE, FINGERSTICK-IN OFFI CEon 09-12-2023 Glucose [Mass/Vol] 102 mg/dL Normal 68-110 [facility] Comment on above: Performed By: #### 8 [id number] #### NURSING GLUCOSE PROGRAM [address] [place] [address], [address] PET MELANOMA INITIALon 09-11 PET MELANOMA INITIAL [...] large blebs bilaterally. MACRO: None Normal [facility] Telephone Encounteron 2023 General Farmer Authentication Interface Message Text Called patient to [...] the results of their interpretation Normal [facility] Telephone Encounteron 2023 General Farmer Authentication Interface Message Text Pt called back and confirmed appt. Just fyi. Thank you Normal [facility] General Farmer Authentication Interface Message Text TC to pt, left message to call palliative medicine department at [phone] to schedule visit. Pt is coming for PET scan on 09/11. Dr. Ortega has availability to see pt same day, appt scheduled for 2:40 after scan. Pt should come to cancer care per appointment note. If pt returns call, please advise him of appointment and if he has any questions or concerns, can route back to palliative care nurses. Normal [facility] Progress Noteson 08-27-2023 General Farmer Authentication Interface Message Text SURGICAL ONCOLOGY NEW [...] CT chest with contrast performed at [facility] on 07/17/2023 which showed an ovoid soft [...] to Dr Girish Nathan (general surgery) a [facility] for and underwent incisional and core needle biopsy of the mass on 07/23/2023. 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 The lesion was positive for S100, vimentin, SOX10 and negative for CK7, CK20, desmin, AE1/3, HMB 45, and Melan-A. There was mild background SMA staining. 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 Normal [facility] Progress Noteson 08-24-2023 General Farmer Authentication Interface Message Text ZAIDA met with [facility] at [facility] [...] that he would wait until level of FAP discount is received before applying for insurance. Pt denied having any financial, transportation, housing or food insecurity concerns. SW will remain available. Khushboo Gautam SILK SCREENER, LUMBER TALLIER [phone] Normal [facility] BASIC METABOLIC PANELon 02-2 Anion gap [Moles/Vol] 15 mmol/L Normal 10-20 [facility] Comment on above: Performed By: #### C H8, LD, HEPATIC #### [facility] [address], [place], Calcium [Mass/Vol] 9.6 mg/dL Normal 8.6-10.3 The [facility] Comment on above: Performed By: #### C H8, LD, HEPATIC #### [facility] [address], [place], Chloride [Moles/Vol] 104 mmol/L Normal 98-107 [facility] Comment on above: Performed By: #### C H8, LD, HEPATIC #### [facility] [address], [place], CO2 [Moles/Vol] 24 mmol/L Normal 21-31 The [facility] Comment on above: Performed By: #### C H8, LD, HEPATIC #### [facility] [address], [place], Creatinine [Mass/Vol] 0.90 mg/dL Normal 0.70-1.30 [facility] Comment on above: Performed By: #### Sanjay H8, LD, HEPATIC #### [facility] [address], [place], ESTIMATED GFR (CKD-EPI) 99 mL/min/1.73sqm Normal >=60 The [facility] Comment on above: Result Comment: [...] Inclusion of Race in Diagnosing Kidney Disease. [place] Journal of Kidney Diseases 2021;79(2):268-88.e1. 2. N Engl J Med 1 Vol. 385 Issue 19 Pages [phone] Performed By: #### C H8, LD, HEPATIC #### [facility] [address], [place], Glucose [Mass/Vol] 80 mg/dL Normal 74-109 The [facility] Comment on above: Performed By: #### C H8, LD, HEPATIC #### [facility] [address], [place], Potassium [Moles/Vol] 4.3 mmol/L Normal 3.5-5.0 [facility] Comment on above: Performed By: #### C H8, LD, HEPATIC #### [facility] [address], [place], Sodium [Moles/Vol] 139 mmol/L Normal 136-145 The [facility] Comment on above: Performed By: #### C H8, LD, HEPATIC #### [facility] [address], [place], Urea nitrogen [Mass/Vol] 13 mg/dL Normal 7-25 The [facility] Comment on above: Performed By: #### Sanjay HLiv, LD, HEPATIC #### [facility] [address], [place], CBC WITH DIFFERENTIALon 07-27 Basophils (Bld) [#/Vol] 0.07 10*3/uL Normal 0.00-0.20 [facility] Comment on above: Performed By: #### C BCDSAT ####[facility] [id number] [place], [place], Basophils/100 WBC (Bld) 0.7 % Normal <=1.9 [facility] Comment on above: Performed By: #### C BCDSAT ####[facility] [id number] [place], [place], Eosinophils (Bld) [#/Vol] 0.20 10*3/uL Normal 0.00-0.70 [facility] Comment on above: Performed By: #### C BCDSAT ####[facility] [id number] [place], [place], Eosinophils/100 WBC (Bld) 2.0 % Normal 0.1-4.0 [facility] Comment on above: Performed By: #### C BCDSAT ####[facility] [id number] [place], [place], Erythrocyte distribution width (RBC) [Ratio] 14.5 % Normal 11.5-14.5 [facility] Comment on above: Performed By: #### C GRACIELAAT ####[facility] [id number] [place], [place], Hematocrit (Bld) [Volume fraction] 47.1 % Normal 41.0-53.0 [facility] Comment on above: Performed By: #### C GRACIELAAT ####S PATHOLOGY [id number] [place], [place], Hemoglobin (Bld) [Mass/Vol] 15.9 g/dL Normal 13.9-16.3 [facility] Comment on above: Performed By: #### Sanjay OWENSAT ####[facility] [id number] [place], [place], Lymphocytes (Bld) [#/Vol] 2.26 10*3/uL Normal 1.00-4.80 [facility] Comment on above: Performed By: #### Sanjay OWENSAT ####[facility] [id number] [place], [place], Lymphocytes/100 WBC (Bld) 22.2 % Low 24.0-44.0 [facility] Comment on above: Performed By: #### Sanjay OWENSAT ####[facility] PATH[facility] [id number] [place], [place], MCH (RBC) [Entitic mass] 30.4 pg Normal 26.0-34.0 The [facility] Comment on above: Performed By: #### Sanjay OWENSAT ####[facility] [id number] [place], MCHC (RBC) [Mass/Vol] 33.6 g/dL Normal 32.0-35.9 [facility] Comment on above: Performed By: #### C GRACIELAAT ####[facility] [id number] [place], MCV (RBC) [Entitic vol] 91 fL Normal 80-100 [facility] Comment on above: Performed By: #### C BCDSAT ####[facility] [id number] [place], [place], Monocytes (Bld) [#/Vol] 0.78 10*3/uL Normal 0.20-1.00 [facility] Comment on above: Performed By: #### C BCDSAT ####[facility] [id number] [place], Monocytes/100 WBC (Bld) 7.6 % Normal 2.0-11.0 [facility] Comment on above: Performed By: #### C BCDSAT ####[facility] PATHOLOG[facility] [id number] [place], [place], Neutrophils (Bld) [#/Vol] 6.87 10*3/uL Normal 1.50-8.00 [facility] Comment on above: Performed By: #### C BCDSAT ####[facility] PATH[facility] [id number] [place], Neutrophils/100 WBC (Bld) 67.5 % Normal 31.0-76.0 [facility] Comment on above: Performed By: #### C BCDSAT ####[facility] PATHOLOG[facility] [id number] [place], [place], Platelet mean volume (Bld) [Entitic vol] 7.6 fL Normal 7.5-11.2 [facility] Comment on above: Performed By: #### C BCDSAT ####[facility] PATH[facility] [id number] [place], [place], Platelets (Bld) [#/Vol] 410 10*3/uL High 150-400 [facility] Comment on above: Performed By: #### C BCDSAT ####[facility] [id number] [place], RBC (Bld) [#/Vol] 5.21 10*6/uL Normal 4.50-5.90 [facility] Comment on above: Performed By: #### C BCDSAT ####[facility] PATH[facility] [id number] [place], WBC (Bld) [#/Vol] 10.2 10*3/uL Normal 4.5-11.5 The [facility] Comment on above: Performed By: #### C BCDSAT ####[facility] [id number] [place], [place], HEPATIC FUNCTION PANELon Albumin [Mass/Vol] 4.4 g/dL Normal 3.5-5.7 The [facility] Comment on above: Order Comment: Note updated reference ranges. Performed By: #### Sanjay HLiv, LD, HEPATIC #### [facility] [address], [place], ALK 80 IU/L Normal 34-104 The [facility] Comment on above: Order Comment: Note updated reference ranges. Performed By: #### Sanjay Adkins, LD, HEPATIC #### [facility] [address], [place], ALT [Catalytic activity/Vol] 43 U/L Normal 7-52 The [facility] Comment on above: Order Comment: Note updated reference ranges. Performed By: #### Sanjay HLiv, LD, HEPATIC #### [facility] [address], [place], AST [Catalytic activity/Vol] 20 U/L Normal 13-39 [facility] Comment on above: Order Comment: Note updated reference ranges. Performed By: #### Sanjay HLiv, LD, HEPATIC #### [facility] [address], [place], Bilirubin [Mass/Vol] 0.4 mg/dL Normal 0.3-1.0 [facility] Comment on above: Order Comment: Note updated reference ranges. Performed By: #### Sanjay H8, LD, HEPATIC #### [facility] [address], [place], Bilirubin.direct [Mass/Vol] 0.06 mg/dL Normal 0.03-0.18 [facility] Comment on above: Order Comment: Note updated reference ranges. Performed By: #### Sanajy H8, LD, HEPATIC #### [facility] [address], [place], Protein [Mass/Vol] 7.4 g/dL Normal 6.0-8.[address] [facility] Comment on above: Order Comment: Note updated reference ranges. Performed By: #### C H8, LD, HEPATIC #### [facility] [address], [place], LDHon 08-23-2023 LD 179 IU/L Normal 50-220 [facility] Comment on above: Performed By: #### C H8, LD, HEPATIC #### [facility] [address], [place], Progress Noteson 08-23-2023 General Farmer Authentication Interface Message Text Patient was identified by name and date of . Osman Keiry Barker Body Mass Index is 21.83. Body Surface Area is 1.99 square meters according to the formula of Ryan and Ryan. Patient at risk for falls:No Falls Risk protocol implemented: No Blood pressure 163/86, pulse 96, resp. rate 16, height 6' 1.03 (1.855 m), weight 165 lb 9.6 oz (75.1 kg), SpO2 95 %. Osman Keiry Barker Normal [facility] Lab - AP Resultson 4 Lab - AP Results [id number]#1.00OT [facility] Lab - AP Resultson 4 Lab - AP Results [id number]#1.00O [facility] Consent Formson 07-27-2023 Consent Forms [id number]#1.00O [facility] Lab - AP Resultson 4 Lab - AP Results [id number]#1.00OT [facility] Bartolome 07-23-2023 L Specimen: [id number] Received: 07/24/23-1156 Status: SOUT Req Num: [id number] Spec Type: Surgical Subm Dr: Girish Nathan MD Tissues: A Soft Tissue/Surgical Margin-Other than Tumor,Mass,Lip or Carrie (LT UPPER BACK) Procedures: VIMENTIN, S 100, MART 1/CIRILO A, HE/4, Gross/Micro L4, DESMIN, AE1-AE3, CK20, CK 7, SM ACTIN, IHC First AB, IHC Add AB/9, HMB45, SOX-10 Age/ Patient Sex Location Account Attending Physician DaysiGovind 57/M LAM [id number] Girish Nathan MD SPEC NUM: [id number] RECD: 07/24/23 STATUS: GHASSAN FAY NUM: [id number] TINA: 07/23/23-[address]: Girish Nathan MD ENTERED: 07/24/[address] [facility] [address]: Tammie,Lab SPEC TYPE: Surgical DEPT: [...] for findings of consultation report from the [facility], Department of pathology: Final diagnosis: -Most consistent with melanoma Note: -Please also see detailed description and diagnosis comment in entire report on file Addendum Signed (signature on file) Angela Sue MD 09/18/231918 Addendum 1 Entered: 07/27/23-1317 Supplemental for findings of consultation report from [facility]: Diagnosis: Specimen: [id number] Received: 07/24/23 Status: GHASSAN Fay Num: [id number] Spec Type: Surgical Subm Dr: Girish Nathan MD Tissues: A Soft Tissue/Surgical Margin-Other than Tumor,Mass,Lip or Carrie (LT UPPER BACK) Procedures: VIMENTIN, S 100, MART 1/CIRILO A, HE/4, Gross/Micro L4, DESMIN, AE1-AE3, CK20, CK 7, SM ACTIN, IHC First AB, IHC Add AB/9, HMB45, SOX-10 Patient: Govind Tavarez [id number] (Continued) Specimen: [id number] Received: 07/24/23 (Continued) Supplemental Report (Continued) Signed (signature on file) Angela Sue MD 07/25/23 1708 Specimen: [id number] Received: 07/24/23 Status: GHASSAN Fay Num: [id number] Spec Type: Surgical Subm Dr: Girish Nathan MD Tissues: A Soft Tissue/Surgical Margin-Other than Tumor,Mass,Lip or Carrie (LT UPPER BACK) Procedures: VIMENTIN, S 100, MART 1/CIRILO A, HE/4, Gross/Micro L4, DESMIN, AE1-AE3, CK20, CK 7, SM ACTIN, IHC First AB, IHC Add AB/9, HMB45, SOX-10 Patient: Govind Tavaerz [id number] (Continued) Specimen: [id number] Received: 07/24/23 (Continued) Supplemental Report (Continued) Soft tissue, left upper back, core needle and skin biopsies: -Malignant melanoma Note: -Please also see consultation later on file for detailed information Addendum Signed (signature on file) Angela Sue MD 07/27/23 1318 Pathological Diagnosis Soft [...] also be submitted for secondary review at [facility] and with final interpretation in supplemental to follow Clinical Information D48.9 Specimen: [id number] Received: 07/24/23 Status: [facility] Num: [id number] Spec Type: Surgical Subm Dr: Girish Nathan MD Tissues: A Soft Tissue/Surgical Margin-Other than Tumor,Mass,Lip or Carrie (LT UPPER BACK) Procedures: VIMENTIN, S 100, MART 1/CIRILO A, HE/4, Gross/Micro L4, DESMIN, AE1-AE3, CK20, CK 7, SM ACTIN, IHC First AB, IHC Add AB/9, HMB45, SOX-10 (more content not included)... [facility] Patient Handouton 07-23-2023 Patient Handout Custom [facility] Surgery [facility] [address], [address], [place] Date: 07/23/2023 RE: Edilma Daysi Lake To whom it may concern, Edilma has been under my professional care due to a surgical procedure performed on 07/23/2023. Please excuse him from work from 07/22/2023-07/26/2023. He may return to work with no restrictions on 07/27/2023. Thank you, Girish Nathan M.D. [facility] Rad - Other Radiology Report on 07-23-2023 Rad - Other Radiology Report [id number]#1.0 [facility] Provided Health Data on 07-05-2023 Patient Provided Health Data [id number]#1.00 [facility]-04-2023 Patient Handout [id number]#1.00O [facility] CBC AUTO DIFFon 10-12-2019 Basophils (Bld) [#/Vol] 0.0 103/ul Normal 0.0-0.1 [facility] Comment on above: Performed By: #### C BC #### [facility] [address], [place] [address] Catrachita Mayra Basophils/100 WBC (Bld) 0.2 % Normal 0.2-2.0 [facility] Comment on above: Performed By: #### C BC #### [facility] [address] [place], [place] [address] Catrachita Mayra Eosinophils (Bld) [#/Vol] 0.1 103/ul Normal 0.0-0.7 [facility] Comment on above: Performed By: #### C BC #### [facility] [address] [place], [place] [address] Catrachita Mayra Eosinophils/100 WBC (Bld) 0.4 % Critically low 0.9-7.0 [facility] Comment on above: Performed By: #### C BC #### [facility] [address] [place], [place] [id number] Catrachita Mayra Erythrocyte distribution width (RBC) [Ratio] 13.8 % Normal 11.0-15.0 [facility] Comment on above: Performed By: #### C BC #### [facility] [address] [place], [place] [id number] Catrachita Mayra Hematocrit (Bld) [Volume fraction] 43.1 % Normal 42.0-54.0 [facility] Comment on above: Performed By: #### C BC #### [facility] [address] [place], [place] [id number] Catrachita Mayra Hemoglobin (Bld) [Mass/Vol] 14.2 g/dL Normal 14.0-18.0 [facility] Comment on above: Performed By: #### C BC #### [facility] [address] [place] [address] Catrachita Mayra IG # 0.08 10e3/ul Critically high 0.00-0.03 [facility] Comment on above: Performed By: #### C BC #### [facility] [address] [place], [place] [address] Catrachita Mayra IG % 0.5 % Normal 0.0-0.5 [facility] Comment on above: Performed By: #### C BC #### [facility] [address] [place], [place] [id number] Catrachita Mayra Lymphocytes (Bld) [#/Vol] 1.5 103/ul Normal 1.2-3.8 [facility] Comment on above: Performed By: #### C BC #### [facility] [address] [place], [place] [address] Catrachita Mayra Lymphocytes/100 WBC (Bld) 9.0 % Critically low 20.5-60.0 [facility] Comment on above: Performed By: #### C BC #### [facility] [address] [place], [place] [id number] Catrachita Kinneyen MANUAL DIFF REQ NO Normal [facility] Comment on above: Performed By: #### C BC #### [facility] [address] [place], [place] [address] Catrachita Mayra MCH (RBC) [Entitic mass] 31.2 pg Normal 25.9-34.0 [facility] Comment on above: Performed By: #### C BC #### [facility] [address] [place], [place] [address] Catrachita Mayra MCHC (RBC) [Mass/Vol] 32.9 g/dL Normal 29.9-35.2 [facility] Comment on above: Performed By: #### C BC #### [facility] [address] [place], [place] [address] Catrachita Mayra MCV (RBC) [Entitic vol] 94.7 fL Critically high 80.0-94.0 [facility] Comment on above: Performed By: #### C BC #### [facility] [address] [place] [address] Catrachita Mayra Monocytes (Bld) [#/Vol] 0.9 103/ul Critically high 0.3-0.8 [facility] Comment on above: Performed By: #### C BC #### [facility] [address] [place] [address] Catrachita Mayra Monocytes/100 WBC (Bld) 5.2 % Normal 1.7-12.0 [facility] Comment on above: Performed By: #### C BC #### [facility] [address] [place] [address] Catrachita Mayra Neutrophils (Bld) [#/Vol] 13.8 103/ul Critically high 1.4-6.5 [facility] Comment on above: Performed By: #### C BC #### [facility] [address] [place] [address] Catrachita Mayra Neutrophils/100 WBC (Bld) 84.7 % Critically high 43.0-75.0 [facility] Comment on above: Performed By: #### C BC #### [facility] [address] [place], [place] [address] Catrachita Mayra Platelet mean volume (Bld) [Entitic vol] 9.4 fL Critically low 9.5-13.5 [facility] Comment on above: Performed By: #### C BC #### [facility] [address] [place], [place] [id number] Catrachita Nunez Platelets (Bld) [#/Vol] 261 103/ul Normal 150-450 [facility] Comment on above: Performed By: #### C BC #### [facility] [address] [place] [address] Catrachita Nunez RBC (Bld) [#/Vol] 4.55 106/ul Critically low 4.70-6.10 Th [facility] Comment on above: Performed By: #### C BC #### [facility] [address] [place] [address] Catrachita Nunez WBC (Bld) [#/Vol] 16.3 103/ul Critically high 4.0-11.0 [facility] Comment on above: Performed By: #### C BC #### [facility] [address] [place] [address] Catrachita Nunez CBC W MANUAL DIFFon 10-11-19 20 ATYPICAL LYMPH # Normal [facility] Comment on above: Performed By: #### C CARLITOS #### [facility] [address] [place] [address] Catrachita Nunez ATYPICAL LYMPH % Normal [facility] Comment on above: Performed By: #### C CARLITOS #### [facility] [address] [place] [address] Catrachita Mayra BAND # 2.1 103/ul Critically high 0.0-0.3 [facility] Comment on above: Performed By: #### C CARLITOS #### [facility] [address] [place] [address] Catrachita Mayra BAND % 11 % Critically high 0-5 [facility] Comment on above: Performed By: #### C CARLITOS #### [facility] [address] [place] [address] Catrachita Mayra BASOM # 0.00 103/ul Normal 0.00-0.10 [facility] Comment on above: Performed By: #### C CARLITOS #### [facility] [address] [place] [address] Catrachita Mayra BASOM % 0.0 % Critically low 0.2-2.0 The [facility] Comment on above: Performed By: #### C CARLITOS #### [facility] [address] [place] [address] Catrachita Mayra BLAST # Normal [facility] Comment on above: Performed By: #### C CARLITOS #### [facility] [address] [place], [place] [id number] Catrachita Mayra BLAST % Normal [facility] Comment on above: Performed By: #### C CARLITOS #### [facility] [address] [place] [address] Catrachita Mayra CORRECTED WBC Normal 4.0-11.0 [facility] Comment on above: Performed By: #### C CARLITOS #### [facility] [address] [place] [address] Catrachita Mayra Eosinophils (Bld) [#/Vol] 0.00 103/ul Normal 0.00-0.70 [facility] Comment on above: Performed By: #### C CARLITOS #### [facility] [address] [place], [place] [id number] Catrachita Mayra Eosinophils/100 WBC (Bld) 0.0 % Critically low 0.9-7.0 [facility] Comment on above: Performed By: #### C CARLITOS #### [facility] [address] [place] [address] Catrachita Mayra Erythrocyte distribution width (RBC) [Ratio] 13.7 % Normal 11.0-15.0 [facility] Comment on above: Performed By: #### C CARLITOS #### [facility] [address] [place] [address] Catrachita Mayra Hematocrit (Bld) [Volume fraction] 43.6 % Normal 42.0-54.0 [facility] Comment on above: Performed By: #### C CARLITOS #### [facility] [address] [place], [place] [id number] Catrachita Mayra Hemoglobin (Bld) [Mass/Vol] 14.7 g/dl Normal 14.0-18.0 [facility] Comment on above: Performed By: #### Sanjay URBINA #### [facility] [address] [place] [address] Catrachitadeepali Kinneyen LYMPHM # 1.34 103/ul Normal 1.20-3.80 [facility] Comment on above: Performed By: #### Sanjay URBINA #### [facility] [address] [place] [address] Catrachita Mayra LYMPHM% 7.0 % Critically low 20.5-60.0 [facility] Comment on above: Performed By: #### Sanjay URBINA #### [facility] [address] [place] [address] Catrachitadeepali Kinneyen MCH (RBC) [Entitic mass] 31.4 pg Normal 25.9-34.0 [facility] Comment on above: Performed By: #### Sanjay URBINA #### [facility] [address] [place] [address] Catrachitadeepali Nunez MCHC (RBC) [Mass/Vol] 33.7 g/dl Normal 29.9-35.2 [facility] Comment on above: Performed By: #### Sanjay URBINA #### [facility] [address] [place], [place] [id number] Catrachitadeepali Nunez MCV (RBC) [Entitic vol] 93.2 fL Normal 80.0-94.0 [facility] Comment on above: Performed By: #### Sanjay URBINA #### [facility] [address] [place] [address] Catrachita Mayra METAMYELOCYTE # Normal [facility] Comment on above: Performed By: #### Sanjay URBINA #### [facility] [address] [place], [place] [address] Catrachita Mayra METAMYELOCYTE % Normal [facility] Comment on above: Performed By: #### Sanjay URBINA #### [facility] [address] [place] [address] Catrachita Mayra MONOM# 1.53 103/ul Critically high 0.30-0.80 [facility] Comment on above: Performed By: #### C DOTTIEMAN #### [facility] [address] [place] [id number] Catrachitadeepali Kinneyen MONOM% 8.0 % Normal 1.7-12.0 [facility] Comment on above: Performed By: #### Sanjay URBINA #### [facility] [address] [place] [address] Catrachita Mayra MYELOCYTE # Normal [facility] Comment on above: Performed By: #### Sanjay URBINA #### [facility] [address] [place], [place] [address] Catrachita Mayra MYELOCYTE % Normal [facility] Comment on above: Performed By: #### Sanjay URBINA #### [facility] [address] [place] [address] Catrachita Mayra NRBC Normal [facility] Comment on above: Performed By: #### Sanjay URBINA #### [facility] [address] [place], [place] [id number] Catrachita Mayra Platelet mean volume (Bld) [Entitic vol] 9.1 fL Critically low 9.5-13.5 [facility] Comment on above: Performed By: #### Sanjay URBINA #### [facility] [address] [place], [place] [address] Catrachita Mayra Platelets (Bld) [#/Vol] 255 103/ul Normal 150-450 [facility] Comment on above: Performed By: #### Sanjay URBINA #### [facility] [address] [place], [place] [address] Catrachita Mayra RBC (Bld) [#/Vol] 4.68 106/ul Critically low 4.70-6.10 Th [facility] Comment on above: Performed By: #### Sanjay URBINA #### [facility] [address] [place], [place] [address] Catrachita Mayra SEG # 14.13 103/ul Critically high 1.40-6.50 [facility] Comment on above: Performed By: #### Sanjay URBINA #### [facility] [address] [place], [place] [address] Catrachita Mayra Segmented neutrophils/100 WBC (Bld) 74.0 % Normal 43.0-75.0 [facility] Comment on above: Performed By: #### C CARLITOS #### [facility] [address] [place], [place] [address] Catrachita Nunez WBC (Bld) [#/Vol] 19.1 103/ul Critically high 4.0-11.0 [facility] Comment on above: Performed By: #### C CARLITOS #### [facility] [address] [place], [place] [address] ABD/PELV W CONon 10-11-19 [...] STUART BOLAÑOS Date: 2019-10-10 22:53 Normal [facility] ER URINE PROFILEon 0 Bilirubin [Mass/Vol] Negative Normal NEGATIVE [facility] Comment on above: Performed By: #### E RUR #### [facility] [address] [place] [address] Catrachita Mayra BLOOD Negative Normal NEGATIVE [facility] Comment on above: Performed By: #### E RUR #### [facility] [address] [place] [address] Catrachita Mayra Clarity (U) CLEAR Normal [facility] Comment on above: Performed By: #### E RUR #### [facility] [address] [place] [address] Catrachita Mayra Color (U) LT. YELLOW Normal YELLOW [facility] Comment on above: Performed By: #### E RUR #### [facility] [address] [place] [address] Catrachita Mayra ERUAHD A micrscopic examination will be performed if indicated. Normal [facility] Comment on above: Performed By: #### E RUR #### [facility] [address] [place] [address] Catrachita Mayra Glucose [Mass/Vol] Negative Normal NEGATIVE [facility] Comment on above: Performed By: #### E RUR #### [facility] [address] [place] [address] Catrachita Mayra Ketones Ql (U) Negative Normal NEGATIVE [facility] Comment on above: Performed By: #### E RUR #### [facility] [address] [place] [address] Catrachita Mayra Nitrite Ql (U) Negative Normal NEGATIVE [facility] Comment on above: Performed By: #### E RUR #### [facility] [address] [place], [place] [address] Catrachita Nunez pH (Bld) 6.0 Normal 5-9 [facility] Comment on above: Performed By: #### E RUR #### [facility] [address] [place], [place] [address] Catrachita Nunez Protein (U) [Mass/Vol] Negative Normal [facility] Comment on above: Performed By: #### E RUR #### [facility] [address] [place] [address] Catrachita Nunez SPEC GRAVITY <=1.005 Normal 1.005-<=1.025 [facility] Comment on above: Performed By: #### E RUR #### [facility] [address] [place] [address] Catrachita Nunez UR MICRO IND NOT INDICATED Normal [facility] Comment on above: Performed By: #### E RUR #### [facility] [address] [place] [address] Catrachita Nunez Urobilinogen Qn (U) 0.2 EU/dl Normal [facility] Comment on above: Performed By: #### E RUR #### [facility] [address] [place] [address] Catrachita Nunez WBC (Bld) [#/Vol] Negative Normal NEGATIVE [facility] Comment on above: Performed By: #### E RUR #### [facility] [address] [place] [address] Catrachita Nunez CBC W MANUAL DIFFon 10-10-19 20 ATYPICAL LYMPH # Normal [facility] Comment on above: Performed By: #### C CARLITOS #### [facility] [address] [place], [place] [id number] Catrachita Nunez ATYPICAL LYMPH % Normal [facility] Comment on above: Performed By: #### C CARLITOS #### [facility] [address] [place] [address] Catrachita Nunez BAND # 0.6 103/ul Critically high 0.0-0.3 [facility] Comment on above: Performed By: #### C CARLITOS #### [facility] [address] [place], [place] [address] Catrachita Mayra BAND % 3 % Normal 0-5 [facility] Comment on above: Performed By: #### C CARLITOS #### [facility] [address] [place] [address] Catrachita Mayra BASOM # 0.00 103/ul Normal 0.00-0.10 [facility] Comment on above: Performed By: #### C CARLITOS #### [facility] [address] [place] [address] Catrachita Mayra BASOM % 0.0 % Critically low 0.2-2.0 [facility] Comment on above: Performed By: #### C CARLITOS #### [facility] [address] [place] [address] Catrachita Mayra BLAST # Normal [facility] Comment on above: Performed By: #### C CARLITOS #### [facility] [address] [place] [address] Catrachita Mayra BLAST % Normal [facility] Comment on above: Performed By: #### C CARLITOS #### [facility] [address] [place] [address] Catrachita Mayra CORRECTED WBC Normal 4.0-11.0 [facility] Comment on above: Performed By: #### Sanjay URBINA #### [facility] [address] [place], [place] [id number] Catrachita Mayra Eosinophils (Bld) [#/Vol] 0.00 103/ul Normal 0.00-0.70 [facility] Comment on above: Performed By: #### Sanjay URBINA #### [facility] [address] [place] [address] Catrachita Mayra Eosinophils/100 WBC (Bld) 0.0 % Critically low 0.9-7.0 [facility] Comment on above: Performed By: #### Sanjay URBINA #### [facility] [address] [place] [address] Catrachita Mayra Erythrocyte distribution width (RBC) [Ratio] 13.5 % Normal 11.0-15.0 [facility] Comment on above: Performed By: #### C CARLITOS #### [facility] [address] [place] [address] Catrachita Nunez Hematocrit (Bld) [Volume fraction] 47.5 % Normal 42.0-54.0 [facility] Comment on above: Performed By: #### Sanjay URBINA #### [facility] [address] [place] [address] Catrachita Nunez Hemoglobin (Bld) [Mass/Vol] 16.3 g/dl Normal 14.0-18.0 [facility] Comment on above: Performed By: #### Sanjay URBINA #### [facility] [address] [place] [address] Catrachita Nunez LYMPHM # 2.30 103/ul Normal 1.20-3.80 [facility] Comment on above: Performed By: #### Sanjay URBINA #### [facility] [address] [place] [address] Catrachita Nunez LYMPHM% 11.0 % Critically low 20.5-60.0 [facility] Comment on above: Performed By: #### Sanjay URBINA #### [facility] [address] [place] [address] Catrachita Nunez MCH (RBC) [Entitic mass] 31.2 pg Normal 25.9-34.0 [facility] Comment on above: Performed By: #### Sanjay URBINA #### [facility] [address] [place] [address] Catrachita Nunez MCHC (RBC) [Mass/Vol] 34.3 g/dl Normal 29.9-35.2 [facility] Comment on above: Performed By: #### Sanjay URBINA #### [facility] [address] [place] [address] Catrachita Nunez MCV (RBC) [Entitic vol] 91.0 fL Normal 80.0-94.0 [facility] Comment on above: Performed By: #### Sanjay URBINA #### [facility] [address] [place], [place] [id number] Catrachita Mayra METAMYELOCYTE # Normal [facility] Comment on above: Performed By: #### Sanjay URBINA #### [facility] [address] [id number] Catrachita Mayra METAMYELOCYTE % Normal [facility] Comment on above: Performed By: #### C CARLITOS #### [facility] [address] [address] Catrachita Mayra MONOM# 1.67 103/ul Critically high 0.30-0.80 [facility] Comment on above: Performed By: #### C CARLITOS #### [facility] [address] [place] [address] Catrachita Mayra MONOM% 8.0 % Normal 1.7-12.0 [facility] Comment on above: Performed By: #### C CARLITOS #### [facility] [address] [place] [address] Catrachita Mayra MYELOCYTE # Normal [facility] Comment on above: Performed By: #### Sanjay URBINA #### [facility] [address] [place], [place] [id number] Catrachita Mayra MYELOCYTE % Normal [facility] Comment on above: Performed By: #### Sanjay URBINA #### [facility] [address] [place] [address] Catrachita Mayra NRBC Normal [facility] Comment on above: Performed By: #### Sanjay URBINA #### [facility] [address] [place] [address] Catrachita Mayra Platelet mean volume (Bld) [Entitic vol] 9.2 fL Critically low 9.5-13.5 [facility] Comment on above: Performed By: #### C CARLITOS #### [facility] [address] [place], [place] [id number] Catrachita Mayra Platelets (Bld) [#/Vol] 323 103/ul Normal 150-450 [facility] Comment on above: Performed By: #### Sanjay URBINA #### [facility] [address] [place], [place] [id number] Catrachita Mayra RBC (Bld) [#/Vol] 5.22 106/ul Normal 4.70-6.10 [facility] Comment on above: Performed By: #### C CARLITOS #### [facility] [address] [place], [place] [id number] Catrachita Nunez SEG # 16.30 103/ul Critically high 1.40-6.50 [facility] Comment on above: Performed By: #### C CARLITOS #### [facility] [address] [place], [place] [id number] Catrachita Nunez Segmented neutrophils/100 WBC (Bld) 78.0 % Critically high 43.0-75.0 [facility] Comment on above: Performed By: #### C CARLITOS #### [facility] [address] [place], [place] [id number] Catrachita Nunez WBC (Bld) [#/Vol] 20.9 103/ul Critically high 4.0-11.0 [facility] Comment on above: Performed By: #### C CARLITOS #### [facility] [address] [place], [place] [id number] Catrachita Nunez KERVIN, CVD-19 ([facility])on 020 REV FROM REF LAB RESULTS FAXED 10/12 [facility] Comment on above: Performed By: #### C ERIN #### [facility] [address] [place], [place] [id number] Catrachita Nunez SENT TO REF LAB SENT TO [facility] ON 10/11/2019 [facility] Comment on above: Performed By: #### C RENAN #### [facility] [address] [place], [place] [id number] Catrachita Nunez PROF 14(COMP METB)on 020 Albumin [Mass/Vol] 3.7 g/dL Normal 3.5-5.0 [facility] Comment on above: Performed By: #### C ROXANNA #### [facility] [address] [place], [place] [id number] Catrachita Nunez Albumin/Globulin [Mass ratio] 1.0 {ratio} [facility] Comment on above: Performed By: #### C ROXANNA #### [facility] [address] [address] Catrachita Mayra ALP [Catalytic activity/Vol] 68 U/L Normal 38-126 [facility] Comment on above: Performed By: #### C MP #### [facility] [address] [address] Catrachita Mayra ALT [Catalytic activity/Vol] 25 U/L Normal 21-72 [facility] Comment on above: Performed By: #### C MP #### [facility] [address] [place] [address] Catrachita Mayra Anion gap [Moles/Vol] 13.6 mmol/L Normal [facility] Comment on above: Performed By: #### C MP #### [facility] [address] [place] [address] Catrachita Mayra AST [Catalytic activity/Vol] 15 U/L Critically low 17-59 [facility] Comment on above: Performed By: #### C MP #### [facility] [address] [place] [address] Catrachita Mayra Bilirubin Ql (U) 0.7 mg/dL Normal 0.2-1.3 [facility] Comment on above: Performed By: #### C MP #### [facility] [address] [place] [address] Catrachita Mayra Calcium [Mass/Vol] 9.2 mg/dL Normal 8.4-10.2 [facility] Comment on above: Performed By: #### C MP #### [facility] [address] [place] [address] Catrachita Mayra Chloride [Moles/Vol] 101 mmol/L Normal 98-107 [facility] Comment on above: Performed By: #### C MP #### [facility] [address] [place], [place] [id number] Catrachita Mayra CO2 [Moles/Vol] 26.0 mmol/L Normal 22.0-30.0 [facility] Comment on above: Performed By: #### C MP #### [facility] [address] [place] [address] Catrachita Mayra Creatinine [Mass/Vol] 1.00 mg/dL Normal 0.66-1.25 [facility] Comment on above: Performed By: #### C MP #### [facility] [address] [id number] Catrachita Mayra EGFR-AF CYMRAES >60 Normal >=60 [facility] Comment on above: Performed By: #### C MP #### [facility] [address] [phone] Catrachita Mayra EGFR-NON AF CYMRAES >60 Normal >=60 [facility] Comment on above: Performed By: #### C MP #### [facility] [address] [id number] Catrachita Mayra Globulin (S) [Mass/Vol] 3.7 g/dL Normal [facility] Comment on above: Performed By: #### C MP #### [facility] [address] [place] [address] Catrachita Mayra Glucose [Mass/Vol] 129 mg/dL Critically high 74-106 [facility] Comment on above: Performed By: #### C MP #### [facility] [address] [place] [address] Catrachita Mayra Potassium [Moles/Vol] 3.6 mmol/L Normal 3.4-5.0 [facility] Comment on above: Performed By: #### C MP #### [facility] [address] [place] [address] Catrachita Mayra Protein [Mass/Vol] 7.4 g/dL Normal 6.1-8.2 [facility] Comment on above: Performed By: #### C MP #### [facility] [address] [place], [place] [id number] Catrachita Mayra Sodium [Moles/Vol] 137 mmol/L Normal 137-145 [facility] Comment on above: Performed By: #### C MP #### [facility] [address] [place], [place] [id number] Catrachita Mayra Urea nitrogen [Mass/Vol] 12.0 mg/dL Normal 9.0-20.0 [facility] Comment on above: Performed By: #### C MP #### [facility] [address] [place], [place] [address] Catrachita Nunez Urea nitrogen/Creatinin e [Mass ratio] 12.0 mg/mg Normal [facility] Comment on above: Performed By: #### C MP #### [facility] [address] [place], [place] [address] Catrachita Nunez Vital Signs Date Time Vital Sign Value Performing Clinician Faci lity 11-07-2023 19:50-0400 Body temperature 98.01 [degF] [facility] 11-07-2023 19:50-0400 Diastolic blood pressure 73 mm[Hg] Lynne Tejada MD Work Phone: [facility] 11-07-2023 19:50-0400 Heart rate 70 /min Lynne Tejada MD Work Phone: [facility] 11-07-2023 19:50-0400 Respiratory rate 16 /min Lynne Te[facility]ada [facility] 11-07-2023 19:50-0400 SaO2% (BldA) [Mass fraction] 93 % Lynne Tejada MD Work Phone: [facility] 11-07-2023 19:50-0400 Systolic blood pressure 117 mm[Hg] Lyn[facility] 10-24-2023 14:43-0400 Body height 188 cm [facility] 10-24-2023 14:43-0400 Body mass index (BMI) [Ratio] 19.77 kg/m2 [facility] 10-24-2023 14:43-0400 Body weight 69.85 kg Indira Bess RN [facility] 10-15-2023 11:13-0400 Body height 188 cm Lynne Tejada MD [facility] 10-15-2023 11:13-0400 Body mass index (BMI) [Ratio] 19.89 kg/m2 Lynne Tejada MD Work Phone: [facility] 10-15-2023 11:13-0400 Body weight 70.26 kg Lynne Tejada MD Work Phone: [facility] 10-11-2023 14:00-0400 Body height 188 cm Lizzeth Demarco MD Work Phone: [facility] 10-11-2023 14:00-0400 Body mass index (BMI) [Ratio] 20.03 kg/m2 Lizzeth Demarco MD Work Phone: [facility] 10-11-2023 14:00-0400 Body temperature 98.4 [degF] Lizzeth Demarco MD Work Phone: [facility] 10-11-2023 14:00-0400 Body weight 70.76 kg Lizzeth Demarco MD Work Phone: [facility] 10-11-2023 14:00-0400 Diastolic blood pressure 85 mm[Hg] Lizzeth Demarco MD Work Phone: [facility] 10-11-2023 14:00-0400 Heart rate 83 /min Lizzeth Demarco MD Work Phone: [facility] 10-11-2023 14:00-0400 Respiratory rate 20 /min Lizzeth Demarco MD Work Phone: [facility] 10-11-2023 14:00-0400 SaO2% (BldA) [Mass fraction] 100 % Lizzeth Demarco MD Work Phone: [facility] 10-11-2023 14:00-0400 Systolic blood pressure 136 mm[Hg] Lizzeth Auguste Work Phone: [facility] 10-06-2023 10:30-0400 Body temperature 97.7 [degF] Lizzeth Demarco MD Work Phone: [facility] 10-06-2023 10:30-0400 Diastolic blood pressure 66 mm[Hg] [facility] 10-06-2023 10:30-0400 Heart rate 67 /min Lizzeth Demarco MD [facility] 10-06-2023 10:30-0400 Respiratory rate 18 /min Lizzeth Demarco MD [facility] 10-06-2023 10:30-0400 SaO2% (BldA) [Mass fraction] 94 % Lizzeth Demarco MD [facility] 10-06-2023 10:30-0400 Systolic blood pressure 116 mm[Hg] Lizzeth Auguste [facility] 10-05-2023 20:40-0400 Body mass index (BMI) [Ratio] 21.12 kg/m2 Lizzeth Demarco MD [facility] 10-05-2023 20:40-0400 Body weight 74.62 kg Lizzeth Demarco MD [facility] 10-05-2023 11:19-0400 Body height 188 cm Lizzeth Demarco MD [facility] Encounters Encounter Date Encounter Type Care Provider Facility Start: 12-24-2023 End: 12-24-2023 Telephone encounter Lizzeth Demarco MD Work Phone: [facility] Comment on above: Return Patient Phone Call Start: 12-14-2023 End: 12-14-2023 Phys/qhp telephone evaluation 11-20 min Nito Jung APRN-FELLED SEAM OPERATOR [employer] Work Phone: [facility] Comment on above: Open wound of left s hadley of back, initial encounter (Primary Dx) Start: 12-14-2023 End: 12-14-2023 ambulatory UNKNOWN PROVIDER Facility:[facility] Start: 11-28-2023 End: 11-28-2023 Phys/qhp telephone evaluation 11-20 min Lizzeth Demarco MD Work Phone: [facility] Comment on above: Malignant melanoma o f torso excluding breast (HCC) (Primary Dx) Start: 11-28-2023 End: 11-28-2023 ambulatory SABRINA NEW Facility:[facility] Start: 11-27-2023 End: 11-27-2023 Telephone encounter Codie Molina RN [facility] Comment on above: APPOINTMENT SCHEDSHARONA TRAN Start: 11-22-2023 End: 11-26-2023 Admission to same day surgery center Nito IselaNusrat Fabiana RESPITE WORKER-FELLED SEAM OPERATOR [employer] Work Phone: [facility] Comment on above: return to work Start: 11-22-2023 End: 11-26-2023 E-mail encounter from caregiver Nito Loyd Fabiana RESPITE WORKER-FELLED SEAM OPERATOR [employer] Work Phone: [facility] Start: 11-21-2023 End: 11-21-2023 Telephone encounter Kirill Gross MD Work Phone: [facility] Comment on above: Wound Check Start: 11-14-2023 End: 11-16-2023 Patient encounter procedure Nito Evert Jung RESPITE WORKER-FELLED SEAM OPERATOR [employer] Work Phone: [facility] Comment on above: Open wound of left s hadley of back, initial encounter (Primary Dx) Start: 11-14-2023 End: 11-16-2023 ambulatory UNKNOWN PROVIDER Facility:[facility] Start: 11-12-2023 End: 11-12-2023 Telephone encounter Christina MARIE Work Phone: [facility] Start: 11-08-2023 Letter encounter Lynne zapien MD Work Phone: [facility] Start: 11-07-2023 End: 11-07-2023 ambulatory LYNNE TEJADA Facility:[facility] Start: 11-07-2023 End: 11-07-2023 Subsequent hospital visit by physician Lynne Tejada MD Work Phone: [facility] Comment on above: Acute postoperative pain (Primary Dx) Start: 11-05-2023 Telephone encounter Lynne Tejada MD Work Phone: [facility] Start: 11-04-2023 Refill Lynne fernández MD Work Phone: [facility] Comment on above: Refill Start: 11-01-2023 End: 11-01-2023 ambulatory UNKNOWN PROVIDER Facility:[facility] Start: 11-01-2023 End: 11-01-2023 Phys/qhp telephone evaluation 5-10 min Lynne Tejada MD Work Phone: [facility] Comment on above: Malignant melanoma o f torso excluding breast (HCC) (Primary Dx); Open wound of left side of back, initial encounter Start: 10-30-2023 End: 10-30-2023 ambulatory LIZZETH DEMARCO Facility:[facility] Start: 10-30-2023 End: 10-30-2023 Office outpatient new 20 minutes Gaye Robison MD Work Phone: [facility] Comment on above: Dx: Malignant melano ma of torso excluding breast (HCC) (Primary Dx) Start: 10-28-2023 Refill Judy hager MD Work Phone: [facility] Comment on above: Refill Start: 10-24-2023 End: 10-24-2023 Nursing evaluation of patient and report Indira Bess RN [facility] Pre-Admission Testing Comment on above: Pre-op evaluation (P rimary Dx) Start: 10-24-2023 End: 10-24-2023 Preprocedural examination done Indira Bess RN [facility] Start: 10-24-2023 ambulatory UNKNOWN PROVIDER Facili ty:[facility] Start: 10-22-2023 Orders Only Lizzeth Demarco MD Work Phone: [facility] Start: 10-17-2023 Telephone encounter Lizzeth yadav MD Work Phone: [facility] Comment on above: Discuss results test /procedures Start: 10-15-2023 Letter encounter Mychart Provider [facility] MyChart Department Start: 10-15-2023 End: 10-15-2023 Office outpatient new 45 minutes Lynne Tejada MD Work Phone: [facility] Comment on above: Malignant melanoma o f torso excluding breast (HCC) (Primary Dx); Open wound of left side of back, initial encounter; Tobacco dependence; Body mass index (BMI) 19.9 or less, adult Start: 10-15-2023 End: 10-15-2023 ambulatory LYNNE TEJADA Facility:[facility] Start: 10-12-2023 Telephone encounter Gaye mccann MD Work Phone: [facility] Start: 10-11-2023 End: 10-12-2023 Patient encounter procedure Lizzeth Demarco MD Work Phone: [facility] Comment on above: Malignant melanoma o f torso excluding breast (HCC) (Primary Dx); Mass on back; Body mass index (BMI) 20.0-20.9, adult Start: 10-11-2023 End: 10-12-2023 ambulatory LIZZETH DEMARCO Facility:[facility] Start: 10-10-2023 Admission to [facility] Lizzeth Demarco MD Work Phone: [facility] Start: 10-10-2023 ambulatory Lizzeth Demarco MD Work Phone: [facility] Start: 10-10-2023 Orders Only Lizzeth Demarco MD Work Phone: [facility] Start: 10-05-2023 End: 10-06-2023 Evaluation and management of inpatient LIZZETH DEMARCO Facility:[facility] Start: 10-05-2023 End: 10-05-2023 Evaluation and management of inpatient UNKNOWN PROVIDER Facility:[facility] Start: 10-05-2023 End: 10-05-2023 Subsequent hospital visit by physician Lizzeth Demarco MD Work Phone: [facility] Comment on above: Arrived Start: 10-05-2023 Chart abstracting Lizzeth simms MD Work Phone: [facility] Start: 10-05-2023 End: 10-06-2023 Evaluation and management of inpatient Lizzeth Demarco MD Work Phone: [address] Comment on above: Malignant melanoma o f torso excluding breast (HCC) (Primary Dx); Mass on back Start: 10-05-2023 End: 10-05-2023 ambulatory UNKNOWN PROVIDER Facility:[facility] Start: 10-05-2023 End: 10-05-2023 Subsequent hospital visit by physician Ip/Op Nuclear Prep [facility] Comment on above: Malignant melanoma o f torso excluding breast (HCC); Mass on back Start: 10-04-2023 Telephone encounter Khushboo Stuart childress LUMBER TALLIER Work Phone: [facility] Comment on above: Outreach Start: 10-02-2023 End: 10-04-2023 Phys/qhp telephone evaluation 21-30 min Lizzeth Demarco MD Work Phone: [facility] Comment on above: Malignant melanoma o f torso excluding breast (HCC) (Primary Dx); Mass on back Start: 10-02-2023 End: 10-04-2023 ambulatory LIZZETH DEMARCO Facility:[facility] Start: 09-20-2023 ambulatory UNKNOWN PROVIDER Facili ty:[facility] Start: 09-20-2023 Encounter for other preprocedural examination UNKNOWN PROVIDER [facility] Start: 09-19-2023 End: 09-19-2023 ambulatory UNKNOWN PROVIDER Facility:[facility] Start: 09-17-2023 End: 09-17-2023 Emergency department patient visit PRISCILLA AWRREN [facility] Start: 09-12-2023 End: 09-13-2023 ambulatory JUDY ORTEGA Facility:[facility] Start: 09-12-2023 End: 09-12-2023 ambulatory UNKNOWN PROVIDER Facility:[facility] Start: 08-23-2023 End: 08-29-2023 ambulatory SABRINA NEW Facility:[facility] Start: 07-23-2023 End: 07-24-2023 ambulatory Girish Nathan Facility:[facility] Start: 07-23-2023 End: 07-23-2023 ambulatory MD Girish Nathan Work Phone: [facility] Work Phone: Start: 07-23-2023 End: 07-23-2023 Departed Referred MD Girish Nathan Work Phone: [facility] Start: 07-23-2023 End: 07-24-2023 ambulatory [facility] P [facility]SE [facility] Start: 07-11-2023 End: 07-12-2023 ambulatory [facility] Start: 07-04-2023 End: 07-05-2023 ambulatory [facility] Facility:[facility] Start: 07-03-2023 End: 07-04-2023 ambulatory [facility] Facility:[facility] Start: 05-30-2023 ambulatory [facility] Facilit y:[facility] Start: 10-11-2019 End: 10-12-2019 Evaluation and [...] of Appendi x, Percutaneous Endoscopic Approach BELEN GUERRERO Plan of Treatment Date Care Activity Detail Author Start: 10-05-2024 Creatinine measurement Basic Metabol ic Panel [facility] Start: 03-25-2024 Influenza vaccination Influenza Vacc ine (#1) [facility] Start: 11-28-2023 End: 11-28-2023 [facility] Start: 11-28-2023 End: 11-28-2023 Telemedicine consultation with patient 11/28/2023 2:00 PM EDT Telemedicine [facility] [address] [place] [phone] Lizzeth Demarco MD [address] [place] [phone] [facility] Start: 11-14-2023 End: 11-14-2023 Patient encounter procedure 11/14/2023 2:45 PM EDT Office Visit [facility] [address] [place] [phone] Nito Jung, RESPITE WORKER-FELLED SEAM OPERATOR [employer] [address] [place] [id number] [facility] Start: 11-07-2023 End: 11-07-2023 SKIN GRAFT, SPLIT THICKNESS, TORSO SKIN GRAFT, SPLIT THICKNESS, TORSO Routine scheduled 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) Open wound of left side of back, initial encounter Tobacco dependence 11/07/2023 4:48 PM EDT [facility] Start: 11-07-2023 Subsequent hospital visit by physician 11/07/2023 Hospital Encounter [facility] [address] [place] [phone] Lynne Tejada MD [address] [place] [address] [place] [address] [facility] Start: 11-01-2023 End: 11-01-2023 Telemedicine consultation with patient 11/01/2023 10:45 AM EDT Telemedicine [facility] [address] [place] [phone] Lynne Tejada MD [address] [place] [address] [place] [address] [facility] Start: 10-30-2023 End: 10-30-2023 Patient encounter procedure 10/30/2023 8:00 AM EDT Appointment [facility] [address] [place] [phone] Gaye Robison MD [address] [place] [phone] [facility] Start: 10-25-2023 End: 10-25-2023 Patient encounter procedure [facility] Start: 10-24-2023 End: 10-24-2023 Nursing evaluation of patient and report 10/24/2023 2:30 PM EDT Nurse Visit [facility] Pre-Admission Testing [address] [place], [place] [id number] Indira Bess, GENNY [address] [place] [phone] [facility] Start: 10-15-2023 End: 10-15-2023 Patient encounter procedure 10/15/2023 8:30 AM EDT Office Visit [facility] [address] [place] [phone] Lynne Tejada MD [address] [place] [phone] [facility] Start: 10-11-2023 End: 10-11-2023 Patient encounter procedure 10/11/2023 2:00 PM EDT Office Visit [facility] [address] [place] [phone] Lizzeth Demarco MD [address] [place] [phone] [facility] Start: 10-05-2023 End: 10-05-2023 Admission to same day surgery center 10/05/2023 11:53 AM EDT - 10/05/2023 4:12 PM EDT Surgery [facility] [address] [place] [phone] Lizzeth Demarco MD [address] [place] [id number] EXCISION, WIDE, MELANOMA-- inj 9:30-- [facility] Comment on above: EXCISION, WIDE, ALBERTO NOMA-- inj 9:30-- Start: 10-05-2023 End: 10-05-2023 Anesthesia consultation 10/05/2023 11:53 AM EDT Anesthesia Event [facility] [address] [place] [address] Faheem Godwin MD [address] [facility] [address] [facility] Main [place] Start: 10-05-2023 End: 10-05-2023 EXCISION, WIDE, MELANOMA [facility] Start: 10-05-2023 End: 10-05-2023 SENTINEL LYMPH NODE MAPPING [facility] Start: 10-05-2023 Subsequent hospital visit by physician 10/05/2023 11:53 AM EDT Hospital [facility] [place] [address] [place] [address] Lizzeth Demarco MD [address] [place] [address] [facility] OR Start: 10-05-2023 End: 10-05-2023 Patient encounter procedure [facility] Start: 02-23-2023 COVID-19 Vaccine ( season) COVID-19 Vaccine ( season) [facility] Start: 2015 Shingles (RZV) Vacci ne (1 of 2) Shingles (RZV) Vaccine (1 of 2) [facility] Start: 2010 Screening for malign ant neoplasm of colon [facility] Start: 2000 Lipid panel Cholesterol [facility] Start: 1984 Hepatitis A (HAV) Vaccine (optional start 19+ years) Hepatitis A (HAV) Vaccine (optional start 19+ years) [facility] Start: 1984 Hepatitis B vaccination Hepati tis B (HBV) Vaccine (1 of 3 - 19+ 3-dose series) [facility] Start: 1983 Hepatitis C screening Hepatitis C An tibody [facility] Start: 1983 Tetanus + diphtheria + acellular pertussis vaccine (product) Tdap Booster [facility] Start: 1980 HIV screening HIV Test [facility] Start: 1971 Pneumococcal vaccination Pneumococcal Vaccine(s) (1 of 2 - PCV) [facility] Start: 1966 Dermatology visit Dermatology visit [facility] Start: 02-12-1966 COVID-19 Vaccine (#1) COVID-19 Vacci ne (#1) [facility] Start: 1965 Hepatitis B vaccination Hepati tis B (HBV) Vaccine (1 of 3 - 3-dose series) [facility] Start: 1965 Prostate specific antigen measurement Prostate Cancer Screening (shared decision making) [facility] Start: 1965 Pulmonary Function [facility] Start: [facility] Screening for malign ant neoplasm of colon Colonoscopy [facility] End: 11-07-2023 Prep site trunk/arm/leg 1st 100 sq cm/1pct SURGICAL PREP/CREATION OF RECIPIENT SITE,WOUND OF TRUNK, ARMS, LEGS; FIRST 100 SQ CM Procedures Routine One time for 1 Occurrences starting 11/07/2023 until 11/07/2023 [facility] Work Phone: Comment on above: One time for 1 Occur rences starting 11/07/2023 until 11/07/2023 End: 11-07-2023 Prep site trunk/arm/leg addl 100 sq cm/1pct SURGICAL PREP/CREATION OF RECIPIENT SITE,WOUND OF TRUNK, ARMS, LEGS; EA ADD'L 100 SQ CM Procedures Routine One time for 1 Occurrences starting 11/07/2023 until 11/07/2023 [facility] Comment on above: One time for 1 Occur rences starting 11/07/2023 until 11/07/2023 SKIN GRAFT, SPLIT THICKNESS, TORSO SKIN GRAFT, SPLIT THICKNESS, TORSO Routine scheduled 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) Open wound of left side of back, initial encounter Tobacco dependence [facility] End: 11-07-2023 Split agrft t/a/l 1st 100 cm/&/1% bdy inft/chld SPLIT GRAFT, TRUNK/EXTREMITIES; 1ST 100 SQ CM/ Procedures Routine One time for 1 Occurrences starting 11/07/2023 until 11/07/2023 [facility] Comment on above: One time for 1 Occur rences starting 11/07/2023 until 11/07/2023 End: 11-07-2023 Split agrft t/a/l ea 100 cm/ea 1% bdy inft/chld SPLIT GRAFT, TRUNK/EXTREMITIES; ADD'L 100 SQ CM/ 1PCT BODY, INFANT/CHILD Procedures Routine One time for 1 Occurrences starting 11/07/2023 until 11/07/2023 [facility] Comment on above: One time for 1 Occur rences starting 11/07/2023 until 11/07/2023 Surgical pathology procedure SPECIMEN FOR SURGICAL PATH Anatomic Pathology Routine 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) Mass on back Release Upon Ordering for 1 Occurrences starting 10/05/2023 [employer] Work Phone: Comment on above: Release Upon Orderin g for 1 Occurrences starting 10/05/2023 Payers Date Payer Category Payer Self-pay 1965 Unknown [id number] [id number] 1965 Unknown [id number] 1965 Unknown [id number] [id number] 1965 Unknown [id number] [id number] 1965 Unknown [id number] 2.16.8 [id number] 1965 Unknown [id number] [id number] 1959 Self-pay [id number] Social History Date Type Detail Facility Tobacco smoking stat [facility] Unknown if ever smoked [facility] Work Phone: Start: 1965 Sex Assigned At Male [facility] Start: 08-29-1979 [facility] Start: 08-29-1979 History of tobacco use Cigarette [...] Equipment Identifier Dates Dressing Wound B tm [id number] [facility]-2040 - [id number] Start: 10-05-2023 Clinical Notes 09-12-2023 to [...] to cancel appointment with medical oncology at [facility] due to transport. No GI symptoms or [...] problem. He has transport issues getting to [place] for evaluation. I explained that he likely requires repeat imaging of the chest/abdomen/pelvis but that I cannot order these scans for him locally where he lives. I informed him that I am happy to see him here at [facility] and attempt to arrange for scans the [...] he can arrange for evaluation here in [facility] and he will update me in a day or so. documented in this encounter [facility] 12-24-2023 Telephone encounter Note Returned patient [...] to cancel appointment with medical oncology at [facility] due to transport. No GI symptoms or [...] problem. He has transport issues getting to [place] for evaluation. I explained that he likely requires repeat imaging of the chest/abdomen/pelvis but that I cannot order these scans for him locally where he lives. I informed him that I am happy to see him here at [facility] and attempt to arrange for scans the [...] he can arrange for evaluation here in [facility] and he will update me in a day or so. [facility] 12-24-2023 Telephone encounter Note The patient [...] I would make Dr. Demarco aware. Alix Rao RN [facility] 12-24-2023 Miscellaneous Notes The patient had [...] I would make Dr. Demarco aware. Alix Rao RN documented in this encounter [facility] 12-24-2023 Telephone encounter Note Pt calling stated he is having shortness of Breath, bumps on his back, feet swollen I did advise if SOB to go to ED Please call back as soon as possible [facility] 12-24-2023 Miscellaneous Notes Pt calling stated he is having shortness of Breath, bumps on his back, feet swollen I did advise if SOB to go to ED Please call back as soon as possible documented in this encounter [facility] 12-14-2023 History of Present illness Narrative Documentation: Mode: Telephone Patient Patient Work Phone: Patient Cell Preferred phone: [phone] Consent: I confirmed patient understanding of the [...] time. AGATA Spivey documented in this encounter [facility] 11-28-2023 History of Present illness Narrative Images from the original note were not included. Documentation: Mode: Telephone Patient Patient Work Phone: Patient Cell Preferred phone: [phone] Consent: I confirmed patient understanding of the risks and benefits of telehealth visits and obtained consent to proceed with the telehealth visit. 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 and sarcomatoid melanoma at [facility]. PET/CT on 09/12/2023 showed a 13 [...] the impression that a provider closer to [place] would be contacting him. PHYSICAL EXAMINATION: There [...] tumor was obtained for tumor repository. Sections: Branch Manager Trainee A1-A29. The entire margin, en face as [...] their performance characteristics determined by our vendors. [facility], Department of Pathology follows vendors' instructions [...] oncologist closer to home and notes the [facility] is relatively close to him. I will reach out to make a referral and send records as needed. We discussed that he should have surveillance cross-sectional imaging by 02/2024 at the latest. For now, he will try to come for an in person exam sometime in the next 4-6 weeks or sooner if needed. Plan: Will contact [facility] to determine if they can provide adjuvant immunotherapy Patient provided verbal consent to send records Discussed with patient that he will be due for repeat imaging by 02/2024 at the latest Wound care per plastic surgery Follow-up in person in 4-6 weeks for repeat exam Lizzeth Demarco MD Surgical Oncology documented in this encounter [facility] 11-27-2023 Telephone encounter Note Patient does not have transportation to his appointment with Dr. Balderas. MD ojeda changing appt to tele. Patient called and made aware. [facility] 11-27-2023 Miscellaneous Notes Patient does not have transportation to his appointment with Dr. Balderas. MD ojeda changing appt to tele. Patient called and made aware. documented in this encounter [facility] 11-21-2023 Telephone encounter Note History: Received call from OR front office director regarding patient concern regarding wound. Upon speaking [...] malaise. Patient was agreeable to this plan. [facility]: 11-21-2023 Miscellaneous Notes History: Received call from OR front office director regarding patient concern regarding wound. Upon speaking [...] to this plan. documented in this encounter [facility] 11-14-2023 Note Date of Procedure: 0 [...] 2. Follow up 11/27 AGATA Spivey [employer] [facility] 11-14-2023 History of Present illness Narrative [...] 11/27 AGATA Spivey documented in this encounter [facility] 11-12-2023 Telephone encounter Note Complaint: pt complaint of Provena canisters he was sent home with all being full . Description: s/p STSG to left back with provena application post op-- Associated symptoms: all canisters have been used. Surgeon: Lynne Tejada MD Informed pt: Offered patient to come to clinic to obtain extra canisters-pt declined due to distance to travel (pt from [place], [place]). Offered patient to come to clinic on 11/13/23 instead of 11/14/23 to have VAC removed from STSG and redressed. Pt declined, stating he does not have transportation. Discussed with Dr Tejada, pt instructed to keep VAC in place until appointment as scheduled on 11/14/23. Pt agrees with plan. [facility] Work Phone: 11-12-2023 Miscellaneous Notes Complaint: pt complaint of Provena canisters he was sent home with all being full . Description: s/p STSG to left back with provena application post op-- Associated symptoms: all canisters have been used. Surgeon: Lynne Tejada MD Informed pt: Offered patient to come to clinic to obtain extra canisters-pt declined due to distance to travel (pt from [place], [place]). Offered patient to come to clinic on 11/13/23 instead of 11/14/23 to have VAC removed from STSG and redressed. Pt declined, stating he does not have transportation. Discussed with Dr Tejada, pt instructed to keep VAC in place until appointment as scheduled on 11/14/23. Pt agrees with plan. documented in this encounter [facility] 11-07-2023 Hospital Discharge instructions Jacquelin Dasilva RN - 11/07/2023 6:30 PM EDT Images from the original note were not included. DEPARTMENT OF PLASTIC SURGERY DISCHARGE INSTRUCTIONS Outpatient Surgery C O N F I D E N T I A L I N F O R M A T I O N Plastic Surgery Department Call [phone] during regular daytime business hours (8:00 am - 5:00 pm) and after 5:00 pm call [phone] or [phone] and ask for the Plastic Surgery (service) resident with any questions or concerns. If it is a life-threatening situation, proceed to the nearest emergency department. Follow-up appointment: Future Appointments (next 10) Provider Department Center 11/14/2023 2:45 PM (Arrive by 2:35 PM) Nito Jung, DOMINIC-SCARLETT [facility] Plastic Surgery [facility] Follow up is typically in 7-10 days and should be scheduled by calling the office at [phone] if it has not already been arranged. [...] these, please contact your doctor's office at [phone]. Any fever higher than 100.4 F, especially if associated with an ill feeling, abdominal pain, chills, or nausea should be reported to your surgeon. Emergencies: If there is a non-urgent problem, please call the office at [phone]. Most issues are easily addressed and do [...] room. Please call us as well at [phone]. PERIOPERATIVE DISCHARGE/HOME-GOING INSTRUCTIONS ANESTHESIA - GENERAL (ADULT) If a problem arises, you may contact your physician by calling [phone] and asking for the resident concrete truck driver for plastic surgery service. Special Care Needs: [...] very uncomfortable and can t urinate, call [phone] or come to the emergency room. Falls [...] likely. For more informati on visit: [email or web address] Some medications or combinations of medications can [...] treated if needed documented in this encounter [facility] 11-07-2023 Miscellaneous Notes Brief Operative Note MAIN OR 12 Edilma Daysi 58 year old male Surgical Contact Serial Number: [id number] Preoperative Diagnosis: Melanoma of back Left upper [...] Scrub: Dalia Coe RN; Parisa Lauren RN Wind Turbine Blade Repair Technician Nurse: Keisha Edwards; Francie Guthrie RN Veneer Glue Jointer Feedback: Haim Maher MD; Altagracia Case MD; Kieran Blanton MD Anesthesia: General Anesthesiologist: Edson Hallman MD WAVE GUIDE ASSEMBLER: Scott Stoner APRN-WAVE GUIDE ASSEMBLER Anesthesia Staff: Starr Ramsey CAA Specimen(s): * [...] were discussed with the patient and/or legal personal financial representative. The risks, benefits and alternatives were reviewed. Questions regarding blood transfusions were answered. The patient /or the patient s legal personal financial representative agree with the plan for transfusion of blood and/or blood components. documented in this encounter [facility] 11-07-2023 Surgery Postoperative evaluation and management note Brief Operative Note MAIN OR 12 Edilma Tavarez 58 year old male Surgical Contact Serial Number: [id number] Preoperative Diagnosis: Melanoma of back Left upper [...] Scrub: Dalia Coe RN; Parisa Lauren RN Wind Turbine Blade Repair Technician Nurse: Keisha Edwards; Francie Guthrie RN Veneer Glue Jointer Feedback: Haim Maher MD; Altagracia Case MD; Kieran Blanton MD Anesthesia: General Anesthesiologist: Edson Hallman MD WAVE GUIDE ASSEMBLER: Scott Stoner APRN-SIRENA Anesthesia Staff: Starr Ramsey [...] by Lynne Tejada MD 11/07/2023 6:44 PM [facility] 11-07-2023 Progress note Formatting of t his note is different from the original. Blood Attestation: ATTESTATION OF INFORMED CONSENT FOR BLOOD: The transfusion of blood and/or blood components were discussed with the patient and/or legal personal financial representative. The risks, benefits and alternatives were reviewed. Questions regarding blood transfusions were answered. The patient /or the patient s legal personal financial representative agree with the plan for transfusion of blood and/or blood components. T [facility] Work Phone: 11-07-2023 History and physical [...] together. All questions answered. Lynne Tejada MD [facility] 11-07-2023 Note Surgical Attestation : I [...] All questions answered. Lynne Tejada MD [facility] 11-07-2023 History and physical note [...] Lynne Tejada MD documented in this encounter [facility] 11-05-2023 Telephone encounter Note Called and spoke with patient. No insurance. No financial assistance at this time-pending. I wound vac calling for insurance information. Unable to provide homegoing VAC without insurance authorization. Provena VAC an option after surgery per [facility] personal financial representative. [facility] Work Phone: 11-05-2023 Miscellaneous Notes Called and spoke with patient. No insurance. No financial assistance at this time-pending. [employer] wound vac calling for insurance information. Unable to provide homegoing VAC without insurance authorization. Provena VAC an option after surgery per [facility] personal financial representative. Patient calling you back [phone] Rodrigo with 3m called today needs more info for wound vac. Patient having surgery tomorrow. Please call Rodrigo michael) [phone] documented in this encounter [facility] 11-05-2023 Telephone encounter Note Patient calling you back [phone] [facility] 11-05-2023 Telephone encounter Note Rodrigo with [employer] called today needs more info for wound vac. Patient having surgery tomorrow. Please call Rodrigo sanjay) [phone] [facility] 11-01-2023 History of Present illness Narrative Images from the original note were not included. Documentation: Mode: Telephone Patient Patient Work Phone: Patient Cell Preferred phone: [phone] Consent: I confirmed patient understanding of the [...] enlarging mass on the left upper back ([id number]) with application of BTM on 10/05/[address] Demarco. 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 Wound VAC was removed 10/10 and he has been applying ABD pads since. Feels sore - remains off of work postop. Otherwise doing well. 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 Lives over an hour from [facility]. Current smoker. 10/31/23: Returning in follow up. [...] Lynne Tejada MD documented in this encounter [facility] 10-30-2023 Note Referral: Lizzeth Demarco MD [address] [place] [address] PCP: No primary care provider on file. 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 Works in [employer] business and not yet resuming usual activities. [...] min Stress: No Stress Concern Present (10/30/2023) [employer] - Occupational Stress Questionnaire Feeling of Stress : Only a little Social Connections: Unknown (10/30/2023) Social Connection and Isolation Panel [NHANES] Frequency of Communication with Friends and Family: Once a week Frequency of Social Gatherings with Friends and Family: Patient refused Attends Anglican Services: Never Attends Club or Organization Meetings: [...] Ca 10/06/23 (more content not included)... [facility] [employer] [facility] 10-30-2023 History of Present illness Narrative Images from the original note were not included. Referral: Lizzeth Demarco MD [facility] [place] [address] PCP: No primary care provider on file. CC: sarcomatoid melanoma left back ulcerated [id number] stage IIC Phone numbers Preferred Phone numbers [...] with large blebs bilaterally. 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 Presents today for consultation by phone after failed attempt at video visit. No complaints. Waiting for skin graft in mid-October; wound is clean. Works in [employer] business and not yet resuming usual activities. 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 Requested he obtain med oncologist in [place] for one year nivo. Explained he needs to start therapy as early as possible. He seemed non-committal. Had current questions answered to the best of my ability and agrees to proceed with the plan. Plan: Happy to see him here , however needs med onc in [place] and to sign release of records Recommend he see dermatology q 6 months Follow-up with Drs. Demarco and Terrell Abstain from smoking Continue other medications as prescribed F/u with our social work for finances and access to health care Call with any questions or concerns. F/u with us prn. Gaye Robison MD documented in this encounter [facility] 10-24-2023 Instructions Indira Bess RN - [...] to surgery arrival time Need to have fire truck driver INSTRUCTIONS FOR SURGERY * Hospital staff [...] adult to drive you home. A cab, [employer] or other transportation tour driver cannot be responsible for you. A responsible adult should stay with you for 24 hours after surgery. Your surgery will be cancelled if you do not have a ride home. * If you have sleep apnea and are staying overnight in the hospital, please bring your sleep apnea machine and mask. documented in this encounter [facility] 10-24-2023 Evaluation note Images from the original note were not included. Telephone History Edilma Tavarez, [id number] 10/24/2023 Patient was identified by name and [...] and lower dentures Endo - negative ROS barber instructor - negative ROS Neuro/Psych - negative ROS [...] Insecurity: No Food Insecurity (09/17/2023) Received from [facility] Hunger Screening Within the past [...] Reading Date Result Priority Robert Sung MD [phone] 10/05/2023 STAT Narrative & Impression EXAMINATION: XR [...] to surgery arrival time Need to have fire truck driver Indira Bess RN Time Spent Performing this Telephone History: 15 mins [facility] 10-24-2023 Miscellaneous Notes Images from the original note were not included. Telephone History Edilma Tavarez, [id number] 10/24/2023 Patient was identified by name and [...] and lower dentures Endo - negative ROS barber instructor - negative ROS Neuro/Psych - negative ROS [...] Insecurity: No Food Insecurity (09/17/2023) Received from [facility] Hunger Screening Within the past 12 months [...] Reading Physician Reading Date Result Priority Robert Sugn MD [phone] 10/05/2023 STAT Narrative & Impression EXAMINATION: XR [...] respiratory distress. Assess for pneumothorax. ORDERING PROVIDER: [facility] PARAM TECHNOLOGISTS NOTE: COMPARISON: PET MELANOMA INITIAL [...] to surgery arrival time Need to have fire truck driver Indira Bess RN Time Spent Performing this Telephone History: 15 mins documented in this encounter [facility] 10-17-2023 Telephone encounter Note Called patient [...] tumor to evaluate for any targetable mutations. [facility] 10-17-2023 Miscellaneous Notes Called patient to [...] any targetable mutations. documented in this encounter [facility] 10-15-2023 History of Present illness Narrative [...] enlarging mass on the left upper back ([id number]) with application of BTM on 10/05/[address] Demarco. 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 Wound VAC was removed 10/10 and he has been applying ABD pads since. Feels sore - remains off of work postop. Otherwise doing well. 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 Lives over an hour from [facility]. Current smoker. Review Of Systems: Skin: as [...] Lynne Tejada MD documented in this encounter [facility] 10-15-2023 Note Plastic Surgery - Ne w Patient Evaluation Chief Complaint: Large left upper back wound, s/p mass excision HPI: The patient is a 58M referred by Lizzeth Demarco MD for evaluation for reconstruction of a large left upper back wound. Mr. Tavarez underwent radical excision of a large, rapidly enlarging mass on the left upper back ([id number]) with application of BTM on 10/05/[address] Demarco. 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 Wound VAC was removed 10/10 and he has been applying ABD pads since. Feels sore - remains off of work postop. Otherwise doing well. 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 Lives over an hour from [facility]. Current smoker. Review Of Systems: Skin: as [...] wound in (more content not included)... [facility] 10-12-2023 Telephone encounter Note Lvm w/cb number to schedule appt w/DR ROBISON. [facility] Miscellaneous Notes m w/cb number to schedule appt w/DR ROBISON. Taina Forman RN [facility] 10-11-2023 Instructions Lizzeth Demarco MD - 10/11/2023 [...] or Dr Robison documented in this encounter [facility] 10-11-2023 History of Present illness Narrative [...] or purulent drainage Media Information Document Information [facility] [place] Clinical: Clinical Images Left shoulder excision site [...] diagnosis is not melanoma. We discussed that [facility] testing will be sent for his tumor [...] MD Surgical Oncology documented in this encounter [facility] 10-10-2023 History of Present illness Narrative Encounter Opened in error. Please disregard. Lizzeth Demarco MD documented in this encounter [facility] 10-06-2023 Note Attestation signed by Lizzeth [...] vac removal Lizzeth Demarco MD DISCHARGE SUMMARY [address] [phone] Edilma Tavarez Date of : 1965 58 [...] 10/15/2023 8:30 AM Lynne Tejada MD Plastics [facility] 10/25/2023 10:00 AM Lizzeth Demarco MD Onc S [facility] 10/25/2023 11:00 AM Codie Villeda APRN-FELLED SEAM OPERATOR CHAINSTITCH ONC PALLIATI [facility] Condition at Discharge improved Symptoms to [...] on pathologic consultation at [facility] and sarcomatoid melanoma at [facility]. PET/CT on 09/12/2023 showed a 13 [...] no m (more content not included)... [facility] 10-06-2023 Hospital course Narrative DISCHARGE SUMMARY [address] [address] Edilma Tavarez Date of : 1965 58 [...] 10/15/2023 8:30 AM Lynne Tejada MD Plastics [facility] 10/25/2023 10:00 AM Lizzeth Demarco MD Onc S [facility] 10/25/2023 11:00 AM Codie Villeda APRN-FELLED SEAM OPERATOR CHAINSTITCH ONC PALLIATI [facility] Condition at Discharge improved Symptoms to [...] on pathologic consultation at [facility] and sarcomatoid melanoma at [facility]. PET/CT on 09/12/2023 showed a 13 [...] Lizzeth Demarco MD documented in this encounter [facility] 10-06-2023 Plan of care note Problem: [...] adult patient will be met Outcome: Progressing [facility] 10-06-2023 Miscellaneous Notes Problem: Routine Care: [...] care procedure Outcome: Progressing Patient admitted to [facility]. Patient able to independently ambulate throughout room with minimal divination in gate. Patient denies pain. Patient oriented to unit. Patient given IS and educated on purpose. Patient currently in bed with bed in low position, call light in reach. Brief Operative Note MAIN OR 10 Edilma Walleraliva 58 year old male Surgical Contact Serial Number: [id number] Preoperative Diagnosis: Pre-op Diagnosis * Malignant melanoma [...] Lizzeth Demarco MD Staff: Scrub: Hafsa Sloan, DATA EXAMINATION CLERK; Dayna Michael, YVAN Wind Turbine Blade Repair Technician Nurse: Keisha Edwards; Robert Tse Veneer Glue Jointer Feedback: Diony Costa MD Anesthesia: General Anesthesiologist: Faheem Godwin MD; Sabrina Martin DO CAA: Thelma Soriano CAA WAVE GUIDE ASSEMBLER: Scott Stoner APRN-SIRENA Anesthesia Student: García Dennis [...] BTM dermal substitute Surgeon: Lizzeth Demarco MD Banking Paralegal: STAR Costa MD (general surgery resident) Anesthesiologist: [...] on pathologic consultation at [facility] and sarcomatoid melanoma at [facility]. PET/CT on 09/12/2023 showed a 13 [...] for the entire duration of the procedure. Lzizeth Demarco MD Surgical Oncology Blood Attestation: ATTESTATION OF INFORMED CONSENT FOR BLOOD: The transfusion of blood and/or blood components were discussed with the patient and/or legal personal financial representative. The risks, benefits and alternatives were reviewed. Questions regarding blood transfusions were answered. The patient /or the patient s legal personal financial representative agree with the plan for transfusion of blood and/or blood components. documented in this encounter [facility] 10-05-2023 History of Present illness Narrative [...] MD PGY-1 General Surgery Blue [facility] Pager: [phone] documented in this encounter [facility] 10-05-2023 Plan of care note Problem: Routine Care: Goal: Patient care will be managed and maintained throughout hospital stay per unit specific routine care procedure Outcome: Progressing Patient admitted to [facility]. Patient able to independently ambulate throughout room with minimal divination in gate. Patient denies pain. Patient oriented to unit. Patient given IS and educated on purpose. Patient currently in bed with bed in low position, call light in reach. [facility] 10-05-2023 Surgery Postoperative evaluation and management note Brief Operative Note MAIN OR 10 Edilma Tavarez 58 year old male Surgical Contact Serial Number: [id number] Preoperative Diagnosis: Pre-op Diagnosis * Malignant melanoma [...] Scrub: Hafsa Sloan CST; Dayna Michael CST Wind Turbine Blade Repair Technician Nurse: Keisha Edwards; Robert Tse Veneer Glue Jointer Feedback: Diony Costa MD Anesthesia: General Anesthesiologist: Faheem Godwin MD; Sabrina Martin DO CAA: Thelma Soriano CAA WAVE GUIDE ASSEMBLER: Scott Stoner APRN-SIRENA Anesthesia Student: García Dennis [...] by Diony Costa MD 10/05/2023 4:39 PM [facility] 10-05-2023 Surgery Surgical operation note SURGICAL ONCOLOGY OPERATIVE NOTE Patient name: Edilma Tavarez Date of procedure: 10/05/2023 Pre-operative diagnosis: rapidly growing left posterior back mass concerning for sarcomatoid melanoma Post-operative diagnosis: same Procedure: Radical resection left posterior back mass 15 x 14 x 8 cm Application PolyNovo BTM dermal substitute Surgeon: Lizzeth Demarco MD Banking Paralegal: STAR Costa MD (general surgery resident) Anesthesiologist: [...] on pathologic consultation at [facility] and sarcomatoid melanoma at [facility]. PET/CT on 09/12/2023 showed a 13 [...] the procedure. Lizzeth Demarco MD Surgical Oncology [facility] 10-05-2023 History and physical note Images [...] (if applicable): Yes STAR Costa MD Surgery [facility] Work Phone: 10-05-2023 Note Surgical Attestation : I have reviewed the patient's History and Physical Examination. I have personally seen and evaluated the patient, repeating luque portions. There is no significant interval change. Surgery is still indicated. Yes Consent reviewed and signed by patient/family: Yes Operative site verified and marked (if applicable): Yes STAR Costa MD Surgery [facility] 10-05-2023 History and physical note [...] Costa MD Surgery documented in this encounter [facility] 10-05-2023 History of Present illness Narrative Documentation of Human Investigation Informed Consent Process IRB: [id number] PI: Dr. Lizzeth Demarco SHORT TITLE: [facility] FULL [facility]: [facility] Tissue Repository Patient here today to sign the ICF and HIPAA consents for [facility]. Patient has had adequate time to review [...] [facility] [employer] documented in this encounter [facility] 10-05-2023 Progress note Formatting of t his note is different from the original. Blood Attestation: ATTESTATION OF INFORMED CONSENT FOR BLOOD: The transfusion of blood and/or blood components were discussed with the patient and/or legal personal financial representative. The risks, benefits and alternatives were reviewed. Questions regarding blood transfusions were answered. The patient /or the patient s legal personal financial representative agree with the plan for transfusion of blood and/or blood components. [facility] Work Phone: 10-04-2023 Telephone encounter Note ZAIDA received the following message from Claudia [...] Pt expressed his understanding. Khushboo Gautam MSW, LUMBER TALLIER [id number] [facility] Phone: 10-04-2023 Miscellaneous Notes ZAIDA received [...] tomorrow. Pt expressed his understanding. Khushboo Gautam SILK SCREENER, LUMBER TALLIER [id number] ZAIDA spoke with Pt regarding his upcoming surgery. Pt s scheduled to have surgery with Dr. Demarco on 10/05/23 and explained that he received call from [facility] on 10/03/23 questioning whether or not Pt's surgery is still scheduled since is FAP status is pending. SW explained that she would request clarification from financial eligibility and would follow up with Pt. SW will remain available. Khushboo Gautam SILK SCREENER, LUMBER TALLIER [id number] documented in this encounter [facility] 10-04-2023 Telephone encounter Note ZAIDA spoke with Pt regarding his upcoming surgery. Pt s scheduled to have surgery with Dr. Demarco on 10/05/23 and explained that he received call from [facility] [employer] [facility] on 10/03/23 questioning whether or not Pt's surgery is still scheduled since is FAP status is pending. ZAIDA explained that she would request clarification from financial eligibility and would follow up with Pt. SW will remain available. Khushboo aGutam MSW, LUMBER TALLIER [id number] [facility] 10-02-2023 History of Present illness Narrative Documentation: Mode: Telephone Patient Patient Work Phone: Patient Cell Preferred phone: [phone] Consent: I confirmed patient understanding of the [...] CT chest with contrast performed at [facility] on 07/17/2023 which showed an ovoid soft [...] to Dr Girish Nathan (general surgery) a [facility] for and underwent incisional and core needle biopsy of the mass on 07/23/2023. 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 The lesion was positive for S100, vimentin, SOX10 and negative for CK7, CK20, desmin, AE1/3, HMB 45, and Melan-A. There was mild background SMA staining. 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 The slides were submitted to [facility] for pathologic consultation and the assessment from [facility] was felt to be consistent [...] in his health. Pathology review here at [facility] was consistent with melanoma. The tumor was [...] pattern strongly favor sarcomatoid melanoma. Intradepartmental Consultation Jaciel Tucker, Danial, and Dieter. Gross Description Received from [facility] are 14 slides labeled [id number]. Assessment: 58 [...] 2 of 3 pathology interpretations, [facility] suggest this mass is more likely personal financial representative of a melanoma, but that sarcomatoid [...] is also agreeable to enroll in the [facility] tissue repository study. Surgery is scheduled for main benson on 10/05/23. Plan: Wide local excision left back mass and sentinel lymph node mapping/biopsy on 10/05/23 Planned extended recovery Follow up with Dr Tejada post-operatively for reconstruction options Enroll in tissue repository study Next steps in care to be determined by pathology results Likely medical oncology referral for adjuvant systemic therapy after surgery Lizzeth Demarco MD Surgical Oncology documented in this encounter [facility] 09-12-2023 Note ONCOLOGY PALLIATIVE CARE CONSULTATION [...] a daughter - adult OARRS Tamadol #28 2 Pregabain 50mg #30 2 Past Medical History: Diagnosis Date Lung abnormality [...] pain as well Judy Ortega MD [facility] Evaluation note No assessment inform ation available [facility] Work Phone: Evaluation note Diagnosis Malignant [...] FoundNo Family History Records Found Advance Directives No Advanced Directives Records FoundLatest Code Status on File Code Status Date [...] Referred By Arik t Referred To Contact Radiology Diagnoses 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) Mass on back Procedures NM LYMPH NODE SCAN W/ SPECT/CT Lizzeth Demarco MD [address] [place] [address] [facility] NUCLEAR MEDICINE [address] [place] [address] Referral ID Status Reason Start Date Expiration Date V isits Requested Visits Authorized [id number] Closed Transfer of Care-[facility] 09/24/2023 09/23/2024 2 2 Specialty Diagnoses / Procedures Referred By Arik don Referred To Contact Oncology Medical Diagnoses 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, eval for adjuvant radiation Specialty Diagnoses / Procedures Referred By Arik don Referred To Contact Anesthesiology Diagnoses 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) Open wound of left side of back, initial encounter Tobacco dependence Lynne Tejada MD [address] [place] [address] [facility] PRE ADMISSION TESTING [address] [place] [address] Referral ID Status Reason Start Date Expiration Date V isits Requested Visits Authorized [id number] Authorized 10/15/2023 10/14/2024 1 1 Scheduling Instructions [...] and content) DATE CREATED AUTHOR 11/11/2019 [facility] DATE CREATED AUTHOR AUTHOR'S ORGANIZ ATION 09/18/2023 [facility] DATE CREATED AUTHOR AUTHOR'S ORGANIZ ATION 09/20/2023 [facility] DATE CREATED AUTHOR AUTHOR'S ORGANIZ ATION 10/16/2023 [facility] DATE CREATED AUTHOR AUTHOR'S ORGANIZ ATION 12/25/2023 [facility] Care Teams (unrecognized sec tion and content) Team Status: Inactive Member Role Status Dates Girish Nathan MD Attending Provider Active Start: July 23, 2023 End: July 23, 2023 Speed Belt Sander Relationship Specialty Start Date End Date Lizzeth Demarco MD [address] [place] [phone] Physician Surgical Oncology 09/29/23 Speed Belt Sander Relationship Specialty Start Date End Date Lizzeth Demarco MD [address] [place] [address] 11320 Physician Surgical Oncology 09/29/23 Speed Belt Sander Relationship Specialty Start Date End Date Lizzeth Demarco MD [address] [place] [address] 72743 Physician Surgical Oncology 09/29/23 Speed Belt Sander Relationship Specialty Start Date End Date Lizzeth Demarco MD [address] [place] [address] 28372 Physician Surgical Oncology 09/29/23 Speed Belt Sander Relationship Specialty Start Date End Date Lizzeth Demarco MD [address] [place] [address] 42021 Physician Surgical Oncology 09/29/23 Speed Belt Sander Relationship Specialty Start Date End Date Lizzeth Demarco MD [address] [place] [address] 72750 Physician Surgical Oncology 09/29/23 Speed Belt Sander Relationship Specialty Start Date End Date Lizzeth Demarco MD [address] [place] [address]202 Physician Surgical Oncology 09/29/23 Speed Belt Sander Relationship Specialty Start Date End Date Lizzeth Demarco MD [address] [place] [address]1533 Physician Surgical Oncology 09/29/23 Speed Belt Sander Relationship Specialty Start Date End Date Lizzeth Demarco MD [address] [place] [address]106 Physician Surgical Oncology 09/29/23 Speed Belt Sander Relationship Specialty Start Date End Date Lizzeth Demarco MD [address] [place] [address] Physician Surgical Oncology 09/29/23 Speed Belt Sander Relationship Specialty Start Date End Date Lizzeth Demarco MD [address] [place] [address]16 Physician Surgical Oncology 09/29/23 Speed Belt Sander Relationship Specialty Start Date End Date Lizzeth Demarco MD [address] [place] [phone] Physician Surgical Oncology 09/29/23 Speed Belt Sander Relationship Specialty Start Date End Date Lizzeth Demarco MD [address] [place] [address] 41863 Physician Surgical Oncology 09/29/23 Speed Belt Sander Relationship Specialty Start Date End Date Lizzeth Demarco MD [address] [place] [address]30 Physician Surgical Oncology 09/29/23 Speed Belt Sander Relationship Specialty Start Date End Date Lizzeth Demarco MD [address] [place] [address]69 Physician Surgical Oncology 09/29/23 Lynne Tejada MD [address] [place] [address] [place] [address] Physician Plastic Surgery 10/27/23 Speed Belt Sander Relationship Specialty Start Date End Date Lizzeth Demarco MD [address] [place] [address]677 Physician Surgical Oncology 09/29/23 Lynne Tejada MD [address] [place] [address] [place] [address] Physician Plastic Surgery 10/27/23 Speed Belt Sander Relationship Specialty Start Date End Date Lizzeth Demarco MD [address] [place] [address] Physician Surgical Oncology 09/29/23 Lynne Tejada MD [address] [place] [address] [place] [address] Physician Plastic Surgery 10/27/23 Speed Belt Sander Relationship Specialty Start Date End Date Lizzeth Demarco MD [address] [place] [address] Physician Surgical Oncology 09/29/23 Lynne Tejada MD [address] [place] [address] [place] [address] Physician Plastic Surgery 10/27/23 Speed Belt Sander Relationship Specialty Start Date End Date Lizzeth Demarco MD [address] [place] [address]95 Physician Surgical Oncology 09/29/23 Lynne Tejada MD [address] [place] [address] [place] [address] Physician Plastic Surgery 10/27/23 Speed Belt Sander Relationship Specialty Start Date End Date Lizzeth Demarco MD [address] [place] [address]74 Physician Surgical Oncology 09/29/23 Lynne Tejada MD [address] [place] [address] [place] [address] Physician Plastic Surgery 10/27/23 Speed Belt Sander Relationship Specialty Start Date End Date Lizzeth Demarco MD [address] [place] [address]45 Physician Surgical Oncology 09/29/23 Lynne Tejada MD [address] [place] [address] [place] [address] Physician Plastic Surgery 10/27/23 Speed Belt Sander Relationship Specialty Start Date End Date Lizzeth Demarco MD [address] [place] [address] Physician Surgical Oncology 09/29/23 Lynne Tejada MD [address] [place] [address] [place] [address] Physician Plastic Surgery 10/27/23 Speed Belt Sander Relationship Specialty Start Date End Date Lizzeth Demarco MD [address] [place] [address] 26988 Physician Surgical Oncology 09/29/23 Lynne Tejada MD [address] [place] [address] [place] [address] Physician Plastic Surgery 10/27/23 Nito Jung, RESPITE WORKER-FELLED SEAM OPERATOR CHAINSTITCH [address] [place] [address] UNDERCOAT SPRAYER Plastic Surgery 11/24/23 Speed Belt Sander Relationship Specialty Start Date End Date Lizzeth Demarco MD [address] [place] [address] Physician Surgical Oncology 09/29/23 Lynne Tejada MD [address] [place] [address] [place] [address] Physician Plastic Surgery 10/27/23 Nito Jung, RESPITE WORKER-FELLED SEAM OPERATOR CHAINSTITCH [address] [place] [address] UNDERCOAT SPRAYER Plastic Surgery 11/24/23 Speed Belt Sander Relationship Specialty Start Date End Date Lizzeth Demarco MD [address] [place] [address]478 Physician Surgical Oncology 09/29/23 Lynne Tejada MD [address] [place] [address] [place] [address] Physician Plastic Surgery 10/27/23 Nito Jung, RESPITE WORKER-FELLED SEAM OPERATOR CHAINSTITCH [address] [place] [address] UNDERCOAT SPRAYER Plastic Surgery 11/24/23 Speed Belt Sander Relationship Specialty Start Date End Date Lizzeth Demarco MD [address] [place], [place] [phone] Physician Surgical Oncology 09/29/23 Lynne Tejada MD [address] [place], [place] [phone] Physician Plastic Surgery 10/27/23 Nito Jung, RESPITE WORKER-FELLED SEAM OPERATOR CHAINSTITCH [address] [place], [place] [id number] [place] [phone] UNDERCOAT SPRAYER Plastic Surgery 11/24/23 Goals (unrecognized section and content) Goals may be documented in a n alternate section Reason for Visit (unrecogniz ed section and content) Reason Onset Date Comments Outreach 10/04/2023 Reason Comments Local swelling/papule/lump/mass Specialty Diagnoses / Procedures Referred By Contac t Referred To Contact General Surgery Diagnoses 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) Mass on back 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) [C43.59] Mass on back [R22.2] Procedures EXCISION, WIDE, MELANOMA-- inj 9:30-- SENTINEL LYMPH NODE MAPPING Lizzeth Demarco MD [address] [place] [address] [facility] [address] [place] [phone] Phone: [phone] Referral ID Status Reason Start Date Expiration Date Visits Re quested Visits Authorized [id number] 3 3 Reason Onset Date Comments Encounter opened in error 10/10/2023 Reason Comments Post Op Check Reason Comments New patient, to establish relationship T umor removed on back per pt Reason Onset Date Comments Discuss results test/procedures 10/17/2023 Reason Onset Date Comments Refill 10/28/2023 Reason Comments Melanoma Specialty Diagnoses / Procedures Referred By Contac t Referred To Contact Oncology Medical Diagnoses 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) Mass on back Lizzeth Demarco MD [address] [place] [address] Gaye Robison MD [address] [place], [place] [phone] Referral ID Status Reason Start Date Expiration Date V isits Requested Visits Authorized [id number] Pending Review 10/11/2023 04/08/2024 3 3 Reason Comments Consult with specialist Reason Onset Date Comments Refill 11/04/2023 Specialty Diagnoses / Procedures Referred By Contac t Referred To Contact General Surgery Diagnoses 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) Open wound of left side of back, initial encounter Tobacco dependence 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) [C43.59] Open wound of left side of back, initial encounter [S21.A] Tobacco dependence [F17.200] Procedures SKIN GRAFT, SPLIT THICKNESS, TORSO Lynne Tejada MD [address] [place] [address] [facility] [address] [place] [phone] Phone: [phone] Referral ID Status Reason Start Date Expiration Date Visits Re quested Visits Authorized [id number] 3 3 Reason Onset Date Comments Wound [...] on Sun10/05/23 at 2130, Until Discontinued, Post-op 2109 (Given - Provider: Scott Dominguez RN - Comment: headache) 0600 (Given - Provider: Scott Dominguez RN)1330 (Hold/Not Given - Provider: Anila Holcomb RN - Reason: Patient refused)2130 (Due) ceFAZolin (ANCEF) 2,000 mg in dextrose 50 mL ivpb (COMPLETED) 2,000 mg, Intravenous, ONCE, 1 dose, On Sun10/05/23 at 1200 1256 (Given - Provider: Scott Stoner APRN-WAVE GUIDE ASSEMBLER) enoxaparin (LOVENOX) 40 MG/0.4ML injection 40 mg 40 mg, Subcutaneous, DAILY, First dose on Sun10/05/23 at 2100, Until Discontinued, Post-op 2108 (Given - Provider: Scott Dominguez RN) 0820 (Given - Provider: Anila Holcomb RN) heparin (porcine) 5000 UNIT/0.5ML injection (COMPLETED) 5,000 Units, Subcutaneous, ONCE, 1 dose, On Sun10/05/23 at 1200, Pre-op 1136 (Given - Provider: Alana Pederson, GENNY) nicotine (NICODERM CQ) 14 mg/24HR patch 14 mg, Transdermal, DAILY, First dose on Sun10/05/23 at 2230, Until Discontinued 7 (Patch Applied - Provider: Scott Dominguez RN)0820 [...] 1430 1719 (Given - Provid er: Scott Stoner, RESPITE WORKER-[facility]) Continuous Medication Order 11/05/2023 11/06/2023 11/07/2023 lactated [...] (PF) (MARCAINE) 0.0001 mL, lidocaine-epinephrine (XYLOCAINE) 1 %-1:301019 20 mL, dose administered = 390 mL [...] BE BASED ON THE PRIMARY CLINICAL RECORDS. [facility]. provides no warranty or guarantee of the accuracy or completeness of information in this document.
[2023-12-25] MEDS: IPRATROPIUM/ALBUTEROL SULFATE 3 ML AMPUL.NEB IH ×2 (19:48→23:17)
[2023-12-25] MEDS: AZITHROMYCIN 250 MG TABLET 500 MG PO (21:11)
[2023-12-25] MEDS: ENOXAPARIN SODIUM 40 MG/0.4 ML SYRINGE SUBQ (21:11)
[2023-12-25] MEDS: METHYLPREDNISOLONE SOD SUCC PF 40 MG/ML VIAL IVP (21:11)
[2023-12-25] MEDS: PREGABALIN 100 MG CAPSULE PO (21:11)
[2023-12-25] MEDS: CEFTRIAXONE 1,000 MG in 0.9 % SODIUM CHLORIDE 50 ML 100 MG IV (21:12)
[2023-12-25] MEDS: LACTATED RINGER'S SOLUTION 1,000 ML 100 ML IV (21:12)
[2023-12-25 21:26] LABS: Glucometer 270 mg/dL (74-106)
[2023-12-26] VITALS (66 sets, daily range): BP systolic 142–152; BP diastolic 73–79; PULSE 69–113; TEMP 36.3–37.2; O2SAT 88–98
[2023-12-26] MEDS: IPRATROPIUM/ALBUTEROL SULFATE 3 ML AMPUL.NEB IH ×6 (03:47→23:56)
[2023-12-26 04:34] LABS: Hematocrit 39.9 % (42.0-54.0); Hemoglobin 12.5 g/dL (14.0-18.0); Mean Corpuscular HGB Conc 31.3 g/dL (29.9-35.2); Mean Corpuscular Hemoglobin 27.5 pg (25.9-34.0); Mean Corpuscular Volume 87.9 fL (80.0-94.0); Platelet Count 460 10^3/uL (150-450); Red Blood Count 4.54 10^6/uL (4.70-6.10); Red Cell Distribution Width 15.8 % (11.0-15.0); White Blood Count 12.1 10^3/uL (4.0-11.0)
[2023-12-26 04:50] LABS: Alanine Aminotransferase 62 U/L (16-63); Albumin Globulin Ratio 0.6; Albumin Level 2.4 g/dL (3.4-5.0); Alkaline Phosphatase 142 U/L (46-116); Anion Gap 13.3; Aspartate Amino Transferase 31 U/L (15-37); BUN Creatinine Ratio 18.3; Bilirubin Total 0.1 mg/dL (0.2-1.0); Calcium 9.3 mg/dL (8.5-10.1); Carbon Dioxide 28.9 mmol/L (21.0-32.0); Chloride 102 mmol/L (98-107); Estimated GFR (African America >60 (>=60); Estimated GFR (Non-African Ame >60 (>=60); Globulin 4.1 g/dL; Glucose 185 mg/dL (74-106); Potassium 4.2 mmol/L (3.5-5.1); Sodium 140 mmol/L (136-145); Total Protein 6.5 g/dL (6.4-8.2)
[2023-12-26 05:26] LABS: Band Neutrophils Absolute 0.6 10^3/uL (0.0-0.3); Segmented Neut Absolute Manual 9.55 10^3/uL (1.4-6.5)
[2023-12-26 05:27] LABS: Atypical Lymphocytes Abs Man 0.12; Eosinophils Absolute Manual 0.12 10^3/uL (0.00-0.70); Lymphocytes Absolute Manual 1.45 10^3/uL (1.20-3.80); Monocytes Absolute Manual 0.24 10^3/uL (0.30-0.80)
[2023-12-26] MEDS: METHYLPREDNISOLONE SOD SUCC PF 40 MG/ML VIAL IVP ×3 (05:33→21:18)
[2023-12-26] MEDS: LACTATED RINGER'S SOLUTION 1,000 ML 100 ML IV ×2 (05:33→17:39)
[2023-12-26] MEDS: PREGABALIN 100 MG CAPSULE PO ×3 (05:33→21:13)
[2023-12-26 08:04] LABS: Glucometer 199 mg/dL (74-106)
[2023-12-26] MEDS: INSULIN ASPART 300 UNIT/3 ML PEN SUBQ ×3 (08:35→21:15)
[2023-12-26] MEDS: ENOXAPARIN SODIUM 40 MG/0.4 ML SYRINGE SUBQ (08:39)
[2023-12-26] MEDS: AZITHROMYCIN 250 MG TABLET 500 MG PO (08:39)
--- NOTE | 2023-12-26 10:38 | PM.HP ---
HPI H&P: HPI History of Present Illness Chief complaint: Shortness of breath Pneumonia Hypoxia Narrative: 58-year-old male with a history of COPD, melanoma presented to ER last evening with worsening shortness of breath for past 1 week. He was found to have increased work of breathing, hypoxia and was admitted overnight for acute respiratory failure with hypoxia secondary to COPD exacerbation. Workup in ER also revealed multifocal pneumonia, Bullous emphysema but no evidence of pulmonary embolism on CTA. Patient was started on IV systemic steroids, inhaled bronchodilators and IV Rocephin along with azithromycin for multifocal pneumonia. Patient does not use oxygen at home and was hypoxic with pulse ox down to 86 to 88% on room air. Earlier today upon my evaluation, patient is still appears short of breath, has conversational dyspnea and dyspnea on exertion. He is a still requiring 2 to 3 L of oxygen via nasal cannula. He subjectively feels better compared to yesterday but is still quite short of breath and dyspneic. Patient also reports numbness/tingling in bilateral feet extending all the way up to his chest and has a sensory level at nipples. He also reports unsteady gait like he is drunk. His neurological symptoms started about 2 to 3 days ago. Patient has a history of large melanoma that was discovered in July that was removed surgically and then later on he required a skin graft for it. He did not require chemo or radiation. Given acute neurological deficit with a sensory level and history of melanoma, his current neurological deficit is very concerning and will require acute MRI with and without contrast to rule out metastatic disease and or transverse myelitis. Opioid HPI Opioid Management Most Recent Pain and Opioid Data: Last Pain Assessment 12/26/23 10:00 Last ORT Total Score 0 12/25/23 18:31 Last ORT Risk Category Low Risk 12/25/23 18:31 Review of Systems ROS Status of ROS 10 or more systems reviewed and unremarkable except as noted in history and below [facility] Medical History (Updated 12/26/23 @ 10:50 by Shaikh Brandt MD) Bullous emphysema ?J43.9 - Emphysema, unspecified (ICD-10) H/O Malignant melanoma ?Z85.820 - Personal history of malignant melanoma of skin (ICD-10) Skin cancer ?C44.90 - Unspecified malignant neoplasm of skin, unspecified (ICD-10) Skin cancer ?C44.90 - Unspecified malignant neoplasm of skin, unspecified (ICD-10) Social History (Updated 12/25/23 @ 17:58 by Ara Faustin RN) Within the past year, how often did you have a drink containing alcohol: monthly or less Smoking status: Current every day smoker Non-prescribed substance use: denies use Highest level of school completed/degree received: high school graduate Do you think of yourself as: straight/heterosexual Gender Identity: male Meds Home Medications and Allergies Home Medications ?Medication ?Instructions ?Recorded ?Confirmed ?Type acetaminophen 325 mg tablet 650 mg PO Q6H PRN fever or pain 12/25/23 12/25/23 History pregabalin 100 mg capsule 100 mg PO Q8H 12/25/23 12/25/23 History Allergies Allergy/AdvReac Type Severity Reaction Status Date / Time No Known Drug Allergies Allergy Verified 12/25/23 15:16 Exam Constitutional Vital Signs, click to edit/add: Last Vital Signs Temp 97.4 F L 12/26/23 07:00 Pulse 107 H 12/26/23 10:00 Resp 20 12/26/23 10:00 BP 146/84 H 12/25/23 23:31 Pulse Ox 91 L 12/26/23 08:00 O2 Del Method Nasal Cannula 12/26/23 07:44 O2 Flow Rate 3 12/26/23 07:44 Documenting provider has reviewed patient's vital signs: yes Common normals: no apparent distress and oriented x3 General appearance: cooperative and ill appearing Nutritional appearance: underweight HENMT Common normals: normocephalic and head/scalp atraumatic Head and scalp: normocephalic and atraumatic Respiratory Common normals: normal respiratory effort Effort & inspection: tachypneic and pursed lip breathing Auscultation: wheezes Other: Patient noticeably short of breath at rest and during conversation Cardio Common normals: regular rhythm, S1 normal heart sound and S2 normal heart sound Rate: tachycardic GI Common normals: Normal to inspection, nondistended, normoactive bowel sounds present, soft to palpation, non-tender and no hepatosplenomegaly Palpation: soft and no hepatosplenomegaly Extremity Common normals: no clubbing, cyanosis or edema Neuro Common normals: oriented x3 and moves all extremities Gait (neuro): ataxic Other: Decreased sensation/tingling sensation that is symmetrical, bilateral extending all the way up to his nipple. Sensory level at nipple. Unsteady/waddling gait. Almost fell forward when he got up from bed. Psych Common normals: mental status grossly normal, denies hallucinations, denies homicidal ideation and denies suicidal ideation Results Labs Labs: Short CBC 12/25/23 12/26/23 Range/Units 15:24 03:53 WBC 11.4 H 12.1 H (4.0-11.0) 10^3/uL Hgb 13.6 L 12.5 L (14.0-18.0) g/dL Hct 42.3 39.9 L (42.0-54.0) % Plt Count 465 H 460 H (150-450) 10^3/uL BMP 12/25/23 12/26/23 15:24 03:53 Sodium 139 140 Potassium 3.9 4.2 Chloride 102 102 Carbon Dioxide 24.4 28.9 BUN 24.0 H 17.0 Creatinine 1.05 0.93 Glucose 197 H 185 H Calcium 9.3 9.3 Liver Function 12/25/23 12/26/23 Range/Units 15:24 03:53 Total Bilirubin 0.2 0.1 L (0.2-1.0) mg/dL AST 40 H 31 (15-37) U/L ALT 71 H 62 (16-63) U/L Alkaline Phosphatase 162 H 142 H (46-116) U/L Albumin 2.6 L 2.4 L (3.4-5.0) g/dL ABG ABG results: 12/25/23 15:24 VBG pH 7.412 VBG pCO2 40.8 Assessment and Plan Assessment and Plan (1) COPD exacerbation: Assessment and Plan: COPD exacerbation with hypoxia secondary to multifocal pneumonia. Continue with IV methylprednisolone/inhaled bronchodilators. Wean off oxygen as tolerated. Monitor. (2) Acute respiratory failure with hypoxia: Assessment and Plan: Due to COPD exacerbation and multifocal pneumonia. Wean off oxygen as tolerated. Treat underlying COPD exacerbation and pneumonia. (3) Multifocal pneumonia: Assessment and Plan: Multifocal pneumonia on CTA with bullous emphysema. On IV Rocephin and azithromycin. (4) Neurological deficit present: Assessment and Plan: Patient has bilateral numbness and tingling that is symmetrical and extends all the way up to his trunk with a sensory level at bilateral nipples corresponding to T4 thoracic spine. With his prior history of recent malignant melanoma, very high suspicion of metastatic disease and or transverse myelitis, will order stat MRI brain, cervical spine, thoracic spine and lumbar spine. (5) Numbness and tingling: Assessment and Plan: Highly suspicious for metastatic disease and or transverse myelitis. MRI head, cervical thoracic and lumbar spine ordered (6) H/O Malignant melanoma: Assessment and Plan: Recently diagnosed in July, then skin required skin graft that is about 10x 10 cm, circular shaped (7) Bullous emphysema: Assessment and Plan: due to smoking. Cut down smoking to 1/2 pack. Previously smoked 2 packs
--- NOTE | 2023-12-26 11:22 | CM.NOTE ---
Rounds made with Dr. Carlton. Jayden remains SOB. He doesn't wear O2 at home. Jayden complained of numbness/tingling from mid chest down through legs bilat. Tried to stand and walk for Dr. Carlton and unstable & leaning forward. Jayden reports his last surgery to his melanoma on his back was 10/08/23. He is to start immunotherapy next week. Dr. Carlton to order Brain and spine MRI. Rental Counter Clerk Checked with Jayden about self pay status and he states he is self pay and he has completed a bunch of paperwork recently regarding financial aide. Rental Counter Clerk emailed Financial counselors of self pay status.
[2023-12-26 11:54] LABS: Glucometer 188 mg/dL (74-106)
--- NOTE | 2023-12-26 15:53 | SWNOTE1 ---
SW attempted to see pt earlier today, but was getting procedure done.
[2023-12-26 16:16] LABS: Glucometer 131 mg/dL (74-106)
--- NOTE | 2023-12-26 16:22 | SWNOTE1 ---
SW stopped in to speak with pt. Pt was not able to complete MRI due to feeling like an elephant was on his chest while laying down. He is now on oxygen. SW did speak with pt about therapy recommending skilled or HH if he improves. Pt does not have insurance and he would be private pay for either. Pt voiced he does not have the funds to do this. SW asked pt if he applied for medicaid. He stated he did not. SW offered to print off medicaid application and he can fill out and SW can fax to the county he [place] in. Pt is agreeable. Pt voiced he has not worked since August and that he is on short term disability. ZAIDA printed application and took to pt. ZAIDA advised pt that if he leaves before Sunday to have nurse make a copy for ZAIDA so SW can fax.
[2023-12-26 20:39] LABS: Glucometer 249 mg/dL (74-106)
[2023-12-26] MEDS: OXYCODONE HCL 5 MG TABLET PO (21:13)
[2023-12-26] MEDS: CEFTRIAXONE 1,000 MG in 0.9 % SODIUM CHLORIDE 50 ML 100 MG IV (21:17)
[2023-12-27] VITALS (21 sets, daily range): BP systolic 135–158; BP diastolic 72–87; PULSE 66–117; TEMP 36.3–36.4; O2SAT 88–96
[2023-12-27] MEDS: LACTATED RINGER'S SOLUTION 1,000 ML 100 ML IV (01:53)
[2023-12-27] MEDS: IPRATROPIUM/ALBUTEROL SULFATE 3 ML AMPUL.NEB IH ×6 (03:39→23:32)
[2023-12-27] MEDS: OXYCODONE HCL 5 MG TABLET PO ×2 (04:12→21:23)
[2023-12-27 04:20] LABS: Hematocrit 38.5 % (42.0-54.0); Hemoglobin 12.6 g/dL (14.0-18.0); Mean Corpuscular HGB Conc 32.7 g/dL (29.9-35.2); Mean Corpuscular Hemoglobin 28.9 pg (25.9-34.0); Mean Corpuscular Volume 88.3 fL (80.0-94.0); Mean Platelet Volume 8.9 fL (9.5-13.5); Platelet Count 514 10^3/uL (150-450); Red Blood Count 4.36 10^6/uL (4.70-6.10); White Blood Count 20.7 10^3/uL (4.0-11.0)
[2023-12-27 04:40] LABS: Alanine Aminotransferase 73 U/L (16-63); Albumin Globulin Ratio 0.6; Albumin Level 2.4 g/dL (3.4-5.0); Alkaline Phosphatase 138 U/L (46-116); Anion Gap 11.4; Aspartate Amino Transferase 35 U/L (15-37); BUN Creatinine Ratio 24.2; Bilirubin Total 0.1 mg/dL (0.2-1.0); Calcium 9.4 mg/dL (8.5-10.1); Carbon Dioxide 28.7 mmol/L (21.0-32.0); Chloride 102 mmol/L (98-107); Estimated GFR (African America >60 (>=60); Estimated GFR (Non-African Ame >60 (>=60); Globulin 4.1 g/dL; Glucose 171 mg/dL (74-106); Potassium 4.1 mmol/L (3.5-5.1); Sodium 138 mmol/L (136-145); Total Protein 6.5 g/dL (6.4-8.2)
[2023-12-27 05:46] LABS: Hypersegmented Neutrophils 1+; Lymphocytes Absolute Manual 1.03 10^3/uL (1.20-3.80); Segmented Neut Absolute Manual 18.21 10^3/uL (1.4-6.5)
[2023-12-27] MEDS: PREGABALIN 100 MG CAPSULE PO ×3 (05:50→21:17)
[2023-12-27] MEDS: METHYLPREDNISOLONE SOD SUCC PF 40 MG/ML VIAL IVP ×3 (05:50→21:17)
[2023-12-27] MEDS: AZITHROMYCIN 250 MG TABLET 500 MG PO (09:11)
[2023-12-27] MEDS: ENOXAPARIN SODIUM 40 MG/0.4 ML SYRINGE SUBQ (09:11)
[2023-12-27] MEDS: INSULIN ASPART 300 UNIT/3 ML PEN SUBQ ×4 (09:12→21:16)
--- NOTE | 2023-12-27 10:03 | CT_ITS ---
The [address] [address] Patient Name: EDILMA CALLE MRN: [id number] date: 1965 Sex: M Assigned Patient Location: [place] Current Patient Location: [place] Accession/Order Number: [id number] Exam Date: 12/27/2023 11:50 Report Date: 12/27/2023 13:39 At the request of: SHAIKH FELECIA Procedure: CT head/brain wo con EXAM: CT head/brain wo con HISTORY: Headache, numbness Neurological deficit. COMPARISON: None. TECHNIQUE: Axial CT scans through the head were obtained without IV contrast administration. Dose reduction techniques were achieved by using: automated exposure control and/or adjustment of mA and /or kV according to patient size and/or use of iterative reconstruction technique. FINDINGS: There is no acute intracranial hemorrhage or abnormal extra-axial fluid collection. No mass effect or midline shift is seen. There is no evidence of large acute territorial infarction. There is no hydrocephalus. To the limit of CT, the posterior fossa appears unremarkable. The calvaria and extra cranial soft tissues are unremarkable. The visualized orbits show no abnormality. The visualized paranasal sinuses show no air-fluid level. Mastoid air cells are clear. CT/CT head/brain wo con IMPRESSION: No acute intracranial process. Electronically authenticated by: ENEDELIA BYERS Date: 12/27/2023 13:39
--- NOTE | 2023-12-27 10:04 | CT_ITS ---
[address] [address] Patient Name: EDILMA CALLE MRN: [id number] date: 1965 Sex: M Assigned Patient Location: [place] Current Patient Location: [place] Accession/Order Number: [id number] Exam Date: 12/27/2023 11:50 Report Date: 12/27/2023 14:29 At the request of: SHAIKH FELECIA Procedure: CT lumbar spine wo/w con EXAM: CT lumbar spine wo/w con HISTORY: GBS/transverse myelitis. History of malignant melanoma. COMPARISON: CT thoracic spine 12/27/2023. TECHNIQUE: CT examination of the lumbar spine with and without IV contrast. Coronal and sagittal reformations were performed. Dose reduction techniques were achieved by using automated exposure control and/or adjustment of mA and/or kV according to patient size and/or use of iterative reconstruction technique. FINDINGS: Convex left curvature of the lumbar spine. No compression fracture is seen. Grade 1 degenerative anterolisthesis at L4-L5 measures 5 mm. Moderate disc space narrowing and endplate spur at L4-L5. Prominent facet disease at L4-L5. There is an ill-defined lytic lesion within the right S2 segment with some extraosseous tumor extending into the sacral spinal canal with induration in the presacral tissues. Right-sided pleural effusion partially visualized. Mild to moderate calcific plaquing of the abdominal aorta. No paraspinal or presacral mass is identified. L1-L2: Disc bulge is seen without significant central canal stenosis. Mild bilateral neural foraminal stenosis. L2-L3: Disc bulge indents the anterior thecal sac without significant central canal stenosis. Mild bilateral neural foraminal stenosis. L3-L4: Disc bulge indents the anterior thecal sac without significant central canal stenosis. Mild to moderate bilateral neural foraminal stenosis. Moderate facet disease. L4-L5: Grade 1 degenerative anterolisthesis with uncovering of the posterior disc margin is seen without significant central canal stenosis. Right foraminal extrusion is seen causing moderate right neural foraminal stenosis. Mild left neural foraminal stenosis. Advanced facet disease. L5-S1: Left foraminal disc-osteophyte complex with moderate left neural foraminal stenosis. No significant central canal or right neural foraminal stenosis. Moderate facet disease. CT/CT lumbar spine wo/w con IMPRESSION: 1. 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 2. No acute fracture identified. 3. Grade 1 degenerative anterolisthesis at L4-L5 without significant central canal stenosis. Right foraminal extrusion causing moderate right neural foraminal stenosis. Mild left neural foraminal stenosis. Electronically authenticated by: HALIE SANCHEZ Date: 12/27/2023 14:29
--- NOTE | 2023-12-27 10:04 | CT_ITS ---
The [address] [address] Patient Name: EDILMA CALLE MRN: [id number] date: 1965 Sex: M Assigned Patient Location: MS Current Patient Location: MS Accession/Order Number: [id number] Exam Date: 12/27/2023 11:50 Report Date: 12/27/2023 14:22 At the request of: SHAIKH FELECIA Procedure: CT thoracic spine wo/w con EXAM: CT thoracic spine wo/w con HISTORY: GBS/transverse myelitis headache while lying down yesterday. History of metastatic melanoma. COMPARISON: CTA chest 12/25/2023. TECHNIQUE: Multiple axial CT images of the thoracic spine were obtained with and without IV contrast. 2-D coronal and sagittal reformations were submitted for review. Dose reduction techniques were achieved by using automated exposure control and/or adjustment of mA and/or kV according to patient size and/or use of iterative reconstruction technique. FINDINGS: No compression fracture of the thoracic spine is seen. There are multiple chronic Schmorl's nodes along the mid to lower thoracic spine. No malalignment is identified. Facet joints appear preserved. Enhancing soft tissue density within the spinal canal extends from the T3-T4 disc to the T6-T7 disc. There is enhancement in the bilateral exit foramina at T5-T6 with some infiltrative erosive bony changes of the right T5 vertebral body adjacent to the exit foramina. Lytic lesion in the right posterior sixth rib (image 46). Bullous emphysematous changes involving the upper lobes is seen. Subcarinal lymph node measures 2.5 cm. Bulky right hilar lymphadenopathy measuring up to 2.8 cm. There are scattered areas of mucous plugging and patchy consolidative change. Small right pleural effusion. CT/CT thoracic spine wo/w con IMPRESSION: 1. Enhancing soft tissue within the spinal canal from T4 to T6, hich partially extends into the exit foramina bilaterally at T5-T6. This likely results in severe central canal stenosis. This is suspicious for metastasis. 2. Metastatic lesion in the posterior right sixth rib. 3. Metastatic nodules in the lungs with metastatic lymphadenopathy in the mediastinum or hilum. Superimposed pneumonia is likely versus aspiration. 4. Small right pleural effusion. Critical results were NOTIFIED by TELEPHONE BY Dr. Halie Sanchez, DO to Dr. Carlton At 12/27/2023 2:22 PM EDT. Electronically authenticated by: HALIE SANCHEZ Date: 12/27/2023 14:22
--- NOTE | 2023-12-27 10:05 | P.IMPN_ITS ---
Progress Note: A&P Assessment and Plan (1) COPD exacerbation: Assessment and Plan: Continue with inhaled bronchodilators, systemic steroids. Continues to have shortness of breath/tachypnea and hypoxia. Repeat CXR. (2) Acute respiratory failure with hypoxia: Assessment and Plan: Worsening hypoxia, shortness of breath. Continue with systemic steroids, inhaled bronchodilators. Repeat chest x-ray. (3) Multifocal pneumonia: Assessment and Plan: Multifocal pneumonia with possibility of underlying/background metastatic disease. On IV Rocephin and azithromycin. Will add Levaquin and discontinue azithromycin. (4) Neurological deficit present: Assessment and Plan: Bilateral numbness/tingling that is symmetrical extending all the way upward as a sensory level at T4. Previously ordered MRI but patient could not get MRI because of shortness of breath. Neurology consulted and recommended CT head, CT thoracic and lumbar spine. Monitor closely for worsening neurological symptoms and if progressive will need to be transferred to critical care hospital. (5) Numbness and tingling: Assessment and Plan: Suspicion of transverse myelitis/GBS. Neurology consulted. CT head thoracic and lumbar spinal cord (6) H/O Malignant melanoma: Assessment and Plan: Recent diagnosis, status post excision. (7) Bullous emphysema: Assessment and Plan: Discussed smoking cessation. Continue with systemic steroids, inhaled bronchodilators. Internal Medicine - PN: Subj Subjective Interval history: Seen and examined. No overnight events. Worsening shortness of breath and dyspnea noted. Now on 4 L of oxygen. No new complaints. Exam Constitutional Vital Signs, click to edit/add: Last Vital Signs Temp 97.4 F L 12/27/23 07:45 Pulse 71 12/27/23 07:57 Resp 20 12/27/23 07:45 BP 152/73 H 12/27/23 07:45 Pulse Ox 90 L 12/27/23 07:45 O2 Del Method Nasal Cannula 12/27/23 07:45 O2 Flow Rate 4 12/27/23 07:45 Documenting provider has reviewed patient's vital signs: yes Common normals: no apparent distress and oriented x3 General appearance: cooperative and ill appearing Nutritional appearance: underweight [facility] Common normals: normocephalic and head/scalp atraumatic Head and scalp: normocephalic and atraumatic Respiratory Common normals: normal respiratory effort Effort & inspection: tachypneic and pursed lip breathing Auscultation: wheezes Other: Patient noticeably short of breath at rest and during conversation Cardio Common normals: regular rhythm, S1 normal heart sound and S2 normal heart sound Rate: tachycardic Extremity Common normals: no clubbing, cyanosis or edema Neuro Common normals: oriented x3 and moves all extremities Gait (neuro): ataxic Other: Decreased sensation/tingling sensation that is symmetrical, bilateral extending all the way up to his nipple. Sensory level at nipple. Unsteady/waddling gait. Almost fell forward when he got up from bed. Psych Common normals: mental status grossly normal, denies hallucinations, denies homicidal ideation and denies suicidal ideation Internal Medicine - PN: Obj Da Labs Labs: Laboratory Results - last 24 hr 12/26/23 12/26/23 12/26/23 11:53 16:15 20:38 WBC RBC Hgb Hct MCV MCH MCHC RDW Plt Count MPV Seg Neuts % (Manual) Band Neutrophils % Lymphocytes % (Manual) Monocytes % (Manual) Eosinophils % (Manual) Basophils % (Manual) Neutrophils # (Manual) Band Neutrophils # Lymphocytes # (Manual) Monocytes # (Manual) Eosinophils # (Manual) Basophils # (Manual) Hypersegmented Neuts Sodium Potassium Chloride Carbon Dioxide Anion Gap BUN Creatinine Est GFR ( Amer) Est GFR (Non-Af Amer) BUN/Creatinine Ratio Glucose Calcium Total Bilirubin AST ALT Alkaline Phosphatase Total Protein Albumin Globulin Albumin/Globulin Ratio POC Glucose 188 H 131 H 249 H 12/27/23 03:35 WBC 20.7 H RBC 4.36 L Hgb 12.6 L Hct 38.5 L MCV 88.3 MCH 28.9 MCHC 32.7 RDW 16.0 H Plt Count 514 H MPV 8.9 L Seg Neuts % (Manual) 88.0 Band Neutrophils % 5.0 Lymphocytes % (Manual) 5.0 L Monocytes % (Manual) 1.0 L Eosinophils % (Manual) 0.0 L Basophils % (Manual) 1.0 Neutrophils # (Manual) 18.21 H Band Neutrophils # 1.0 H Lymphocytes # (Manual) 1.03 L Monocytes # (Manual) 0.20 L Eosinophils # (Manual) 0.00 Basophils # (Manual) 0.20 H Hypersegmented Neuts 1+ Sodium 138 Potassium 4.1 Chloride 102 Carbon Dioxide 28.7 Anion Gap 11.4 BUN 22.0 H Creatinine 0.91 Est GFR ( Amer) >60 Est GFR (Non-Af Amer) >60 BUN/Creatinine Ratio 24.2 Glucose 171 H Calcium 9.4 Total Bilirubin 0.1 L AST 35 ALT 73 H Alkaline Phosphatase 138 H Total Protein 6.5 Albumin 2.4 L Globulin 4.1 Albumin/Globulin Ratio 0.6 POC Glucose
[2023-12-27 10:59] LABS: Glucometer 276 mg/dL (74-106)
[2023-12-27] MEDS: LEVOFLOXACIN IN DEXTROSE 5 % 750 MG/150 ML IV.SOLN 100 MG IV (12:32)
[2023-12-27] MEDS: ACETAMINOPHEN 325 MG TABLET 650 MG PO (16:43)
[2023-12-27 16:44] LABS: Glucometer 206 mg/dL (74-106)
[2023-12-27] MEDS: CEFTRIAXONE 1,000 MG in 0.9 % SODIUM CHLORIDE 50 ML 100 MG IV (21:15)
[2023-12-27 21:18] LABS: Glucometer 208 mg/dL (74-106)
[2023-12-28] VITALS (19 sets, daily range): BP systolic 134–155; BP diastolic 73–99; PULSE 70–124; TEMP 36.4–36.6; O2SAT 90–96
[2023-12-28] MEDS: IPRATROPIUM/ALBUTEROL SULFATE 3 ML AMPUL.NEB IH ×5 (03:37→19:26)
[2023-12-28 05:05] LABS: Basophils Absolute Auto 0.1 10^3/uL (0.0-0.1); Basophils Percent Auto 0.3 % (0.2-2.0); Hematocrit 40.9 % (42.0-54.0); Hemoglobin 12.9 g/dL (14.0-18.0); Lymphocytes Absolute Auto 1.5 10^3/uL (1.2-3.8); Lymphocytes Percent Auto 7.1 % (20.5-60.0); Mean Corpuscular HGB Conc 31.5 g/dL (29.9-35.2); Mean Corpuscular Volume 88.7 fL (80.0-94.0); Mean Platelet Volume 8.9 fL (9.5-13.5); Monocytes Absolute Auto 1.2 10^3/uL (0.3-0.8); Monocytes Percent Auto 5.4 % (1.7-12.0); Neutrophils Absolute Auto 17.5 10^3/uL (1.4-6.5); Neutrophils Percent Auto 81.2 % (43.0-75.0); Platelet Count 518 10^3/uL (150-450); Red Blood Count 4.61 10^6/uL (4.70-6.10); Red Cell Distribution Width 16.2 % (11.0-15.0); White Blood Count 21.5 10^3/uL (4.0-11.0)
[2023-12-28 05:18] LABS: Alanine Aminotransferase 113 U/L (16-63); Albumin Globulin Ratio 0.6; Albumin Level 2.4 g/dL (3.4-5.0); Alkaline Phosphatase 140 U/L (46-116); Anion Gap 9.1; Aspartate Amino Transferase 60 U/L (15-37); BUN Creatinine Ratio 23.3; Bilirubin Total <0.1 mg/dL (0.2-1.0); Calcium 9.6 mg/dL (8.5-10.1); Carbon Dioxide 30.3 mmol/L (21.0-32.0); Chloride 102 mmol/L (98-107); Estimated GFR (African America >60 (>=60); Estimated GFR (Non-African Ame >60 (>=60); Glucose 171 mg/dL (74-106); Potassium 4.4 mmol/L (3.5-5.1); Sodium 137 mmol/L (136-145); Total Protein 6.4 g/dL (6.4-8.2)
[2023-12-28] MEDS: PREGABALIN 100 MG CAPSULE PO ×2 (05:35→14:20)
[2023-12-28] MEDS: METHYLPREDNISOLONE SOD SUCC PF 40 MG/ML VIAL IVP ×2 (05:35→14:20)
[2023-12-28] MEDS: OXYCODONE HCL 5 MG TABLET PO ×3 (08:08→20:39)
[2023-12-28] MEDS: LEVOFLOXACIN IN DEXTROSE 5 % 750 MG/150 ML IV.SOLN 100 MG IV (08:08)
[2023-12-28] MEDS: ENOXAPARIN SODIUM 40 MG/0.4 ML SYRINGE SUBQ (08:08)
[2023-12-28] MEDS: INSULIN ASPART 300 UNIT/3 ML PEN SUBQ ×2 (08:10→11:28)
[2023-12-28 11:11] LABS: Glucometer 230 mg/dL (74-106)
--- NOTE | 2023-12-28 11:34 | CM.NOTE ---
Rounds made with Dr. Carlton. Discussed test results and need for transfer for further care. Jayden verbalized understanding. Plan is for transfer to [facility] once bed available. Dr. Carlton did speak to intake at [facility] & discussed importance of transfer soon, probable transfer today. Jayden ask for some help filling out financial paperwork. Notified Linnea, die try out worker stamping and she will speak to Jayden regarding paperwork as she gave it to him. Plan is for transfer to [facility] when bed available.
[2023-12-28] MEDS: GUAIFENESIN 600 MG TAB.ER.12H PO ×2 (11:54→20:40)
--- NOTE | 2023-12-28 12:02 | SWNOTE1 ---
Pt is being transferred. ZAIDA stopped in and assisted patient with completing Medicaid application. ZAIDA spoke with pt's over the phone in room. She provided her social for Medicaid application. She had concerns/questions in regards to them not being able to pay for housing/bills. ZAIDA did advise them to call [facility] [employer]. The do live in subsidized housing, ZAIDA also advised them to call the owners to see if they can work something out. ZAIDA faxed over Medicaid application to [facility].
--- NOTE | 2023-12-28 12:04 | SWNOTE1 ---
Original of Medicaid papi given to pt and copy shredded.
--- NOTE | 2023-12-28 13:11 | REH.PTDLY ---
Physical Therapy Daily Note PT Daily Note/Assess Start: 12/28/23 13:10 Freq: Status: Active Protocol: Document 12/28/23 10:55 ARIEL (Rec: 12/28/23 13:11 ARIEL [id number]) Visit Not Completed Other Reason Visit Not Completed Pt is to be transferred to [facility], held PT this date Physical Therapy Daily Note/Assessment Time In 10:50 Time Out 10:55
--- NOTE | 2023-12-28 13:34 | PM.IMPN1 ---
Progress Note: A&P Assessment and Plan (1) Thoracic spondylosis with cord compression: Assessment and Plan: Due to metastatic melanoma, accepted for transfer to [facility], awaiting bed. (2) Metastatic malignant melanoma: Assessment and Plan: Metastatic melanoma, recent diagnosis Fe 24, had negative PET scan upon initial diagnosis. (3) COPD exacerbation: Assessment and Plan: Continue with inhaled bronchodilators, systemic steroids. Feeling better today. Still on 4 L O2. (4) Acute respiratory failure with hypoxia: Assessment and Plan: Continue with systemic steroids, inhaled bronchodilators. Wean off O2 as tolerated. (5) Multifocal pneumonia: Assessment and Plan: Multifocal pneumonia with possibility of underlying/background metastatic disease. On IV Rocephin and Levaquin. Previously was on azithromycin. (6) Neurological deficit present: Assessment and Plan: Bilateral numbness/tingling that is symmetrical extending all the way to his chest and has a sensory level at T4. MRI could not be done due to patient's inability to lay flat. CT thoracolumbar spine shows mass at T4-6, early signs of cord compression. Awaiting transfer to [facility]. (7) Numbness and tingling: Assessment and Plan: Due to thoracic cord compression. Awaiting bed availability at [facility]. (8) H/O Malignant melanoma: Assessment and Plan: Recent diagnosis, status post excision, now with metastasis to thoracic and sacral spine. Awaiting transfer to [facility]. (9) Bullous emphysema: Assessment and Plan: Discussed smoking cessation. Continue with systemic steroids, inhaled bronchodilators. Internal Medicine - PN: Subj Subjective Interval history: Seen and examined. No overnight events. Reports that he has mucus/sputum and he is unable to cough up. No new neurological deficit. Exam Constitutional Vital Signs, click to edit/add: Last Vital Signs Temp 97.7 F 12/28/23 07:53 Pulse 106 H 12/28/23 12:00 Resp 20 12/28/23 10:59 BP 142/82 H 12/28/23 07:53 Pulse Ox 95 12/28/23 12:00 O2 Del Method Nasal Cannula 12/28/23 10:59 O2 Flow Rate 5 12/28/23 10:59 Documenting provider has reviewed patient's vital signs: yes Common normals: no apparent distress and oriented x3 General appearance: cooperative and ill appearing Nutritional appearance: underweight Respiratory Common normals: normal respiratory effort and no use of accessory muscles Effort & inspection: able to speak in complete sentences Auscultation: wheezes Cardio Common normals: regular rhythm, S1 normal heart sound and S2 normal heart sound Extremity Common normals: no clubbing, cyanosis or edema Neuro Common normals: oriented x3 and moves all extremities Gait (neuro): ataxic Other: Decreased sensation/tingling sensation that is symmetrical, bilateral extending all the way up to his nipple. Sensory level at nipple. Unsteady/waddling gait. Almost fell forward when he got up from bed. Psych Common normals: mental status grossly normal, denies hallucinations, denies homicidal ideation and denies suicidal ideation Internal Medicine - PN: Obj Da Labs Labs: Laboratory Results - last 24 hr 12/27/23 12/27/23 12/28/23 16:43 21:15 04:36 WBC 21.5 H RBC 4.61 L Hgb 12.9 L Hct 40.9 L MCV 88.7 MCH 28.0 MCHC 31.5 RDW 16.2 H Plt Count 518 H MPV 8.9 L Neut % (Auto) 81.2 H Lymph % (Auto) 7.1 L [place] % (Auto) 5.4 Eos % (Auto) 0.0 L Baso % (Auto) 0.3 Neut # (Auto) 17.5 H Lymph # (Auto) 1.5 [place] # (Auto) 1.2 H Eos # (Auto) 0.0 Baso # (Auto) 0.1 Abs Immat Gran (auto) 1.30 H Imm/Tot Granulo (auto) 6.0 H Sodium 137 Potassium 4.4 Chloride 102 Carbon Dioxide 30.3 Anion Gap 9.1 BUN 21.0 H Creatinine 0.90 Est GFR ( Amer) >60 Est GFR (Non-Af Amer) >60 BUN/Creatinine Ratio 23.3 Glucose 171 H Calcium 9.6 Total Bilirubin <0.1 L AST 60 H ALT 113 H Alkaline Phosphatase 140 H Total Protein 6.4 Albumin 2.4 L Globulin 4.0 Albumin/Globulin Ratio 0.6 POC Glucose 206 H 208 H 12/28/23 11:10 WBC RBC Hgb Hct MCV MCH MCHC RDW Plt Count MPV Neut % (Auto) Lymph % (Auto) [place] % (Auto) Eos % (Auto) Baso % (Auto) Neut # (Auto) Lymph # (Auto) [place] # (Auto) Eos # (Auto) Baso # (Auto) Abs Immat Gran (auto) Imm/Tot Granulo (auto) Sodium Potassium Chloride Carbon Dioxide Anion Gap BUN Creatinine Est GFR ( Amer) Est GFR (Non-Af Amer) BUN/Creatinine Ratio Glucose Calcium Total Bilirubin AST ALT Alkaline Phosphatase Total Protein Albumin Globulin Albumin/Globulin Ratio POC Glucose 230 H
[2023-12-28 16:12] LABS: Glucometer 124 mg/dL (74-106)
[2023-12-28] MEDS: CEFTRIAXONE 1,000 MG in 0.9 % SODIUM CHLORIDE 50 ML 100 MG IV (20:40)
== END 2023-12-28 23:21 | disposition short-term general hospital (02) | DRG 193 ==
LOC: ER 17:36 → ICU 18:14 → MS 12-26 14:46
PROVIDERS: Physician Assistant; Admitting Provider Internal Medicine; Emergency Provider Emergency Medicine; PCP Family Medicine; Visit Provider Internal Medicine
DX: J18.9 Pneumonia, unspecified organism (principal); J96.01 Acute respiratory failure with hypoxia; C79.49 Secondary malignant neoplasm of other parts of nervous system; C43.9 Malignant melanoma of skin, unspecified; M47.24 Other spondylosis with radiculopathy, thoracic region; J43.9 Emphysema, unspecified; R20.0 Anesthesia of skin; R20.2 Paresthesia of skin; F17.210 Nicotine dependence, cigarettes, uncomplicated; R26.81 Unsteadiness on feet; R63.6 Underweight; Z68.20 Body mass index [BMI] 20.0-20.9, adult
CPT/HCPCS: 36415; 70450; 71275; 72130; 72133; 80053; 82800; 82948; 83880; 84145; 84484; 85007; 85025; 85027; 85378; 85610; 85730; 87040; 87811; 93005; 94640; 94667; 94668; 94761; 96365; 96366; 96367; 96372; 96375; 96376; 97162; 97165; 97530; 99285; 99406; J0696; J1650; J2919; Q3014; Q9967